=== PATIENT | female | born 1965 | race Caucasian/White ===

== ENCOUNTER 2022-10-03 09:08 | Outpatient (OUT) | payer OTHER, SELFPAY ==
--- NOTE | 2022-10-03 | CT_ITS ---
The [address] [address] Patient Name: JEANNINE ARGUETA MRN: [id number] date: 1965 Sex: F Assigned Patient Location: CT Current Patient Location: CT Accession/Order Number: [id number] Exam Date: 10/03/2022 10:20 Report Date: 10/04/2022 07:58 At the request of: SENAIT PAUL Procedure: CT abdomen wo/w con EXAM: CT scan of the abdomen without and with IV contrast using 100 mL of IV iodinated contrast. Oral contrast. Dose reduction technique used: Automated exposure control and/or adjustment of the mA and/or kV according to patient size and/or use of iterative reconstruction technique. REASON FOR EXAM: N28.89 left flank pain COMPARISON: CT scan dated 03/26/2022 FINDINGS: Exophytic enhancing posterior left upper pole renal mass measures 2.0 x 2.0 cm and has a small area of macroscopic fat. This is not significantly changed in size compared to 01/06/2022. Cholecystectomy. No renal calculi or hydronephrosis. No free intraperitoneal air where visualized. No free fluid in the abdomen or pelvis where visualized. No dilated or thickened loops of small bowel or colon where visualized. Liver, pancreas, spleen, bilateral kidneys, and bilateral adrenal glands are otherwise unremarkable. No lymphadenopathy in the abdomen or pelvis. Remainder unremarkable. IMPRESSION: Left renal mass is not significantly changed in size. This could represent a renal cell carcinoma, oncocytoma or angiomyolipoma. Continued imaging follow-up versus biopsy is recommended. Electronically authenticated by: RACHELL EDMONDS Date: 10/04/2022 07:58
== END 2022-10-03 09:09 | disposition home or self-care (01) ==
LOC: CT 09:12
PROVIDERS: PCP Family Medicine; Visit Provider Urology
DX: N28.89 Other specified disorders of kidney and ureter (principal)
CPT/HCPCS: 74170; Q9967

== ENCOUNTER 2022-10-27 06:02 | Outpatient (OUT) | payer OTHER, SELFPAY ==
--- NOTE | 2022-10-27 06:15 | NM_ITS ---
[address] [address] Patient Name: JEANNINE ARGUETA MRN: [id number] date: 1965 Sex: F Assigned Patient Location: [place] Current Patient Location: [place] Accession/Order Number: [id number] Exam Date: 10/27/2022 06:15 Report Date: 10/27/2022 14:37 At the request of: NON-STAFF PHYSICIAN Procedure: UT gastric emptying study RADIONUCLIDE GASTRIC EMPTYING STUDY: HISTORY: Nausea and abdominal pain. COMPARISON: No relevant comparisons. Tracer dose equals 1.0 mCi of technetium-99m sulfur colloid. Imaging was performed in the anterior and posterior projections up to 4 hours post ingestion. Calculations of gastric retention were also performed yielding the following measurements: 1-hour gastric retention equals 98%. Normal range equals 30% to 90%. 2-hour gastric retention equals 12%. Normal range equals 0% to 60%. 4-hour gastric retention equals 2%. Normal range equals 0% to 10%. UT/UT gastric emptying study IMPRESSION: Delayed gastric emptying evident only at 1 hour. Electronically authenticated by: SINTIA RAYMOND Date: 10/27/2022 14:37
== END 2022-10-27 06:03 | disposition home or self-care (01) ==
LOC: NM 06:02
PROVIDERS: PCP Family Medicine
DX: R10.10 Upper abdominal pain, unspecified (principal); R11.2 Nausea with vomiting, unspecified; R19.7 Diarrhea, unspecified
CPT/HCPCS: 78264; A9541

== ENCOUNTER 2023-03-27 06:43 | Outpatient (OUT) | payer OTHER, SELFPAY ==
--- NOTE | 2023-03-27 | CT_ITS ---
[address] [address] Patient Name: JEANNINE ARGUETA MRN: [id number] date: 1965 Sex: F Assigned Patient Location: LAB Current Patient Location: LAB Accession/Order Number: [id number] Exam Date: 03/27/2023 08:00 Report Date: 03/27/2023 09:59 At the request of: SENAIT PAUL Procedure: CT abdomen wo/w con EXAM: CT abdomen wo/w con HISTORY: LEFT RENAL MASS COMPARISON: 10/29/2022 TECHNIQUE: Axial CT imaging was performed with and without contrast through the abdomen. Multiplanar reformats were performed. Dose reduction techniques were achieved by using automated exposure control and/or adjustment of mA and/or kV according to patient size and/or use of iterative reconstruction technique. FINDINGS: Lung bases: Lung bases are clear. No pleural effusion. GI upper: Unremarkable. Liver: Hepatomegaly, measuring 2 cm with steatosis. Normal contour. Gallbladder: Cholecystectomy Biliary system: No intra or extrahepatic biliary ductal dilatation. Spleen: Normal size. Pancreas: Unremarkable. Adrenal glands: Normal adrenal glands. Kidneys/ureters: Normal contours. Redemonstration of 1.4 x 1.9 cm exophytic enhancing lesion, containing macroscopic fat in the upper pole of the left kidney, no significant change in size compared to prior study. Renal veins are patent. No hydronephrosis. No nephrolithiasis or ureterolithiasis. Vessels: No aneurysm. Lymph Nodes: No lymphadenopathy. Small bowel: No wall thickening or dilatation. Colon: No wall thickening or dilatation of the partially visualized colon. Appendix: Not identified. Peritoneal cavity: No free fluid or pneumoperitoneum. Bones: No acute bony abnormality. Soft tissues: No acute abnormality. Additional findings: None. CT/CT abdomen wo/w con IMPRESSION: 1.4 x 1.9 cm exophytic enhancing lesion, containing macroscopic fat in the upper pole of the left kidney, no significant change in size compared to prior study. Renal veins are patent. Hepatomegaly and hepatic steatosis, new compared to the prior study. Electronically authenticated by: SUMIT MARRERO Date: 03/27/2023 09:59
[2023-03-27 06:59] LABS: Estimated GFR (African America >60 (>=60); Estimated GFR (Non-African Ame >60 (>=60)
== END 2023-03-27 06:44 | disposition home or self-care (01) ==
LOC: LAB 06:43
PROVIDERS: PCP Family Medicine; Visit Provider Urology
DX: N28.89 Other specified disorders of kidney and ureter (principal)
CPT/HCPCS: 36415; 74170; 82565; Q9967

== ENCOUNTER 2023-05-01 18:54 | Emergency (ER) | payer OTHER, SELFPAY ==
[2023-05-01 18:56] VITALS: BP 152/96; PULSE 120; RESP 20; TEMP 37.3; O2SAT 99
--- OUTSIDE RECORDS SUMMARY | 2023-05-01 18:57 | XMS_ITS | CCD ---
Author Name Unknown Address [address] [facility] [address] [facility] [address] [place] [address] Organization [facility] Care Team Providers Care Broach Grinder Name Role Phone STEPH QUESADA Primary Care Physician [phone] PROVIDER, GENERIC EXTERNAL DATA Referring Unavailable ALMAZ MEDINA Referring Unavailable Steph Quesada Unavailable MIS, DR SALDANA Attending Unavailable MISC, DR SALDANA Consulting Unavailable MISC, DR SALDANA Admitting Unavailable QUESADA, DR STEPH Tony Primary Care Unavailable QUESADA, DR STEPH Tony Attending Unavailable QUESADA, DR STEPH Tony Consulting Unavailable QUESADA, DR STEPH Tony Primary Care Unavailable QUESADA, DR STEPH Tony Admitting Unavailable LUChavo .ALMAZ Attending Unavailable ADAM .ALMAZ Admitting Unavailable ZITRISTON, DR RISHABH Gonzalez Consulting Unavailable QUESADA, DR STEPH Tony Primary Care Unavailable ADAM .ALMAZ Consulting Unavailable QUESADA, DR STEPH Tony Attending Unavailable QUSEADA, DR STEPH Tony Consulting Unavailable QUESADA, DR STEPH Tony Primary Care Unavailable QUESADA, DR STEPH Tony Admitting Unavailable QUESADA, DR STEPH Tony Attending Unavailable QUESADA, DR TSEPH Tony Consulting Unavailable QUESADA, DR STEPH Tony Primary Care Unavailable QUESADA, DR STEPH Tony Admitting Unavailable JAYA HOWARD Attending Unavailable BRIGHT, DR RISHABH Gonzalez Consulting Unavailable JAYA HOWARD Primary Care Unavailable JAYA HOWARD Admitting Unavailable ANITA, JAYA Consulting Unavailable Almaz Medina Attending Unavailable Almaz Medina Attending Unavailable Almaz Medina Attending Unavailable Allergies Allergy Classification Reported Allergen(s) Allergy Type Date of Onset Reaction(s) Facility (6 sources) Amoxicillin / Clavulanate; Translations: [amoxicillin-cl avulanate] Drug Allergy Unknown (qualifier value) [facility] (10 sources) Penicillin; Translations: [penicillin] Drug Allergy Eruption of skin (disorder) [facility] (1 source) Penicillin; Translations: [PENICILLIN G] Drug Allergy 3 [facility] (1 source) AMOXICILLIN-POT CLAVULANATE; Translations: [AMOXICILLIN-PO T CLAVULANATE] Propensity to adverse reactions to drug (disorder) 3 [facility] (1 source) ALLERGIES NOT ON FILE; Translations: [ALLERGIES NOT ON FILE] Propensity to adverse reactions (disorder) [facility] Medications Current Medications Medication Drug Class(es) Dates Sig (Normalized) Sig (Original) amLODIPine 10 mg oral tablet (9 sources) Dihydropyridine Calcium Channel Christina Start: 04-01-2022 take 1 mg by mouth once daily amLODIPine 10 mg Tab mg tab(s), Oral, Daily Start Date: 04/01/22 Status: Ordered Start: 03-12-2022 take 1 mg by mouth once daily amLODIPine 5 mg Tab mg tab(s), Oral, Daily, Refills(s) 0 Start Date: 03/12/22 Status: Ordered Azithromycin (3 sources) Macrolide Antimicrobial Start: 03-12-2022 azithromycin Refills(s) 0 Start Date: 03/12/22 Status: Ordered Brompheniramine (3 sources) Start: 03-12-2022 brompheniramine Refills(s) 0 Start Date: 03/12/22 Status: Ordered dicyclomine hydrochloride 20 mg oral tablet (11 sources) Anticholinergic Start: 03-12-2022 take 1 mg by mouth four times daily dicyclomine 20 mg Tab mg tab(s), Oral, QID, Refills(s) 0 Start Date: 03/12/22 Status: Ordered take 1 tablet by pelon th three times daily as needed Dicyclomine HCl 20 MG 1 tablet Orally 3 times a day prn Active Bentyl Active glyBURIDE 5 mg oral tablet (8 sources) Sulfonylurea Start: 04-01-2022 take 1 mg by mouth once daily glyBURIDE 5 mg Tab mg tab(s), Oral, Daily Start Date: 04/01/22 Status: Ordered Thyroxine (9 sources) l-Thyroxine Start: 03-12-2022 levothyroxine 137 mcg, Daily, Refills(s) 0 Start Date: 03/12/22 Status: Ordered Start: 03-12-2022 levothyroxine Daily, Refills(s) 0 Start Date: 03/12/22 Status: Ordered take 1 tablet by pelon th once daily in the morning Levothyroxine Sodium 137 MCG 1 tablet in the morning on an empty stomach Orally Once a day Active losartan potassium 50 mg oral tablet (8 sources) Angiotensin 2 Receptor Christina Start: 04-01-2022 take 1 mg by mouth once daily losartan 50 mg Tab mg tab(s), Oral, Daily Start Date: 04/01/22 Status: Ordered metFORMIN hydrochloride 1000 mg oral tablet (9 sources) Biguanide Start: 03-12-2022 take 1 mg by mouth twice daily metformin 1000 mg Tab mg tab(s), Oral, BID, Refills(s) 0 Start Date: 03/12/22 Status: Ordered take 1 tablet by pelon th every twenty-four hours metFORMIN HCl 1000 MG 1 tablet with a meal Orally Once a day Active ondansetron 4 mg oral tablet (4 sources) Serotonin-3 Receptor Antagonist take 1 tablet by mouth every twenty-four hours Ondansetron HCl 4 MG 1 tablet Orally Once a day Active 12 hr timolol 5 mg/ml ophthalmic solution (1 source) beta-Adrenergic Christina Start: 04-16-19 timolol Opth 0.5% Whitney 15 mL Refill(s) 0 Start Date: 04/16/23 Status: Ordered Problems Active Problems Problem Classification Problem Date Documented Da te Episodic/Chronic Abdominal pain (7 sources) Left upper quadrant pain; Translations: [Left upper quadrant pain] Onset: 04-02-2022 Episodic Diabetes mellitus with complications (14 sources) Hyperglycemia due to type 2 diabetes mellitus; Translations: [Type 2 diabetes mellitus with hyperglycemia] Onset: 07-24-2022 03-05-2022 Chronic Diabetes mellitus without complication (17 sources) Glycosuria; Translations: [Glycosuria] Onset: 01-25-2022 Episodic Essential hypertension (13 sources) Essential hypertension; Translations: [Essential (primary) hypertension] Onset: 03-12-2022 Chronic Genitourinary symptoms and ill-defined conditions (10 sources) Stress incontinence (female) (male); Translations: [Genuine stress incontinence] Onset: 03-12-2022 Chronic Headache; including migraine (3 sources) Cyclical vomiting syndrome 05-08-2022 Chronic Nausea and vomiting (4 sources) Nausea with vomiting, unspecified; Translations: [NAUSEA WITH VOMITING UNSPECIFIED] Onset: 07-24-2022 Episodic Other circulatory disease (4 sources) Elevated blood-pressure reading without diagnosis of hypertension; Translations: [Elevated blood-pressure reading, without diagnosis of hypertension] Episodic Other connective tissue disease (4 sources) Muscle pain; Translations: [Myalgia, unspecified site] Episodic Other diseases of kidney and ureters (9 sources) Disorder of kidney and/or ureter; Translations: [Other specified disorders of kidney and ureter] Onset: 03-12-2022 Chronic Other diseases of kidney and ureters (5 sources) Renal mass 03-12-2022 Chronic Other diseases of kidney and ureters (7 sources) Other specified disorders of kidney and ureter; Translations: [Other specified disorders of kidney and ureter] Onset: 03-26-2022 Chronic Other disorders of stomach and duodenum (3 sources) Cyclical vomiting syndrome; Translations: [Cyclical vomiting syndrome unrelated to migraine] Onset: 05-08-2022 Episodic Other gastrointestinal disorders (9 sources) Splenomegaly; Translations: [Splenomegaly, not elsewhere classified] 03-05-2022 Episodic Other nervous system disorders (4 sources) Chronic pain; Translations: [Other chronic pain] Chronic Other nervous system disorders (1 source) Other chronic pain Chronic Other nutritional; endocrine; and metabolic disorders (4 sources) Obese class I; Translations: [Body mass index (BMI) 34.0-34.9, adult] Chronic Residual codes; unclassified (5 sources) Acute pain 03-05-2022 Episodic Residual codes; unclassified (4 sources) Tobacco use; Translations: [Tobacco use and exposure] Episodic Spondylosis; intervertebral disc disorders; other back problems (4 sources) Low back pain; Translations: [Low back pain] Episodic Thyroid disorders (11 sources) Hypothyroidism; Translations: [Acquired hypothyroidism] Onset: 07-30-2022 03-05-2022 Chronic Past or Other Problems Problem Classification Problem Date Documented Da te Episodic/Chronic Genitourinary symptoms and ill-defined conditions (8 sources) Blood in urine; Translations: [Hematuria, unspecified] Onset: 03-26-2022 Episodic Other connective tissue disease (1 source) Myalgia, unspecified site; Translations: [MYALGIA UNSPECIFIED SITE] Onset: 04-02-2022 Episodic Other gastrointestinal disorders (4 sources) Splenomegaly, not elsewhere classified; Translations: [SPLENOMEGALY NEC] Onset: 01-22-2022 Episodic Results Test Name Value Interpretation Reference Range Facility Reminderson 04-08-2023 Reminders - From: Eleni Schneider To: [facility]; Sent: 10/09/2022 08:30:39 EDT Show up: 03/11/2023 07:30:00 EST Subject: Schedule CT Ab w/wo con Due Date/Time: 04/11/2023 07:30:00 EST Pt needs scheduled for [address] Ab w/wo con for renal mass at [facility]. Has been ordered, needs scheduled. Pt would like CT done at [facility] Order printed and faxed to [facility] Called pt and she states she will give [facility] a call today to get CT scheduled. Pt called to report CT is scheduled for 03/27/23 @7am CT in pt chart for review [facility] Lab Reportson 04-01-2023 Lab Reports [id number] F [facility] RAD - CT Reporton 04-01-2023 RAD - CT Report [id number] F [facility] RAD - CT Reporton 10-12-2022 RAD - CT Report [id number]: 127 [facility] Screenson 10-12-2022 Screens [id number]: 127 [facility] Ambulatory Visit Summaryon 0 10-09-2022 Ambulatory Visit Summary STEW TORRES :1965 Visit Date:10/09/2022 Ambulatory Visit Instructions Your Diagnosis Renal mass, left Stress incontinence Cyclical vomiting Tests Performed Urnls Dip Stick Auto w/o Microscopy POC [address] CT Abdomen w/ + w/o Contrast -- Results Pending -- Please visit your patient portal for your results or contact your primary care physician. Your Care Team Attending Physician - Almaz Medina MD. Primary Care Physician - STEPH QUESADA MD This Is Your Medications List Contact prescribing physician if questions or concerns amlodipine (amLODIPine 10 mg Tab) glyBURIDE (glyBURIDE 5 mg Tab) levothyroxine losartan (losartan 50 mg Tab) metformin (metformin 1000 mg Tab) Procedures Performed Renal biopsy (04/24/2022), Cholecystectomy, Colonoscopy, Endoscopic biopsy of stomach, Tonsillectomy. Discharge Vitals Heart Rate (Peripheral) 82 Blood Pressure 163/94 Height 168 cm Height 66 in Weight 105 kg Weight 231 lb BMI 37.2 What to do next Scheduled Follow-Up Appointments 2023 1:00 PM EST With: Adam SAMPSON, Almaz Mcintyre Where: [facility] Patient Educationon 10-10-19 Patient Education Urology Renal Mass A renal mass is an abnormal growth in the kidney. It may be found while performing an MRI, CT scan, or ultrasound to evaluate other problems of the abdomen. A renal mass that is cancerous (malignant) may grow or spread quickly. Others are not cancerous (benign). Renal masses include: ? Tumors. These may be malignant or benign. ? The most common type of kidney cancer in adults is renal cell carcinoma. In children, the most common type of kidney cancer is Wilms tumor. ? The most common benign tumors of the kidney include renal adenomas, oncocytomas, and angiomyolipoma (AML). ? Cysts. These are fluid-filled sacs that form on or in the kidney. What are the causes? Certain types of cancers, infections, or injuries can cause a renal mass. It is not always known what causes a cyst to develop in or on the kidney. What are the signs or symptoms? Often, a renal mass does not cause any signs or symptoms; most kidney cysts do not cause symptoms. How is this diagnosed? Your health care provider may recommend tests to diagnose the cause of your renal mass. These tests may be done if a renal mass is found: ? Physical exam. ? Blood tests. ? Urine tests. ? Imaging tests, such as ultrasound, CT scan, or MRI. ? Biopsy. This is a small sample that is removed from the renal mass and tested in a lab. The exact tests and how often they are done will depend on: ? The size and appearance of the renal mass. ? Risk factors or medical conditions that increase your risk for problems. ? Any symptoms associated with the renal mass, or concerns that you have about it. Tests and physical exams may be done once, or they may be done regularly for a period of time. Tests and exams that are done regularly will help monitor whether the mass is growing and beginning to cause problems. How is this treated? Treatment is not always needed for this condition. Your health care provider may recommend careful monitoring and regular tests and exams. Treatment will depend on the cause of the mass. Treatment for a cancerous renal mass may include surgical removal, chemotherapy, radiation, or immunotherapy. Most kidney cysts do not need to be treated. Follow these instructions at home: What you need to do at home will depend on the cause of the mass. Follow the instructions that your health care provider gives to you. In general: ? Take [id number] and prescription medicines only as told by your health care provider. ? If you were prescribed an antibiotic medicine, take it as told by your health care provider. Do not stop taking the antibiotic even if you start to feel better. ? Follow any restrictions that are given to you by your health care provider. ? Keep all follow-up visits. This is important. ? You may need to see your health care provider once or twice a year to have CT scans and ultrasounds. These tests will show if your renal mass has changed or grown. Contact a health care provider if you: ? Have pain in your side or back (flank pain). ? Have a fever. ? Feel full soon after eating. ? Have pain or swelling in the abdomen. ? Lose weight. Get help right away if: ? Your pain gets worse. ? There is blood in your urine. ? You cannot urinate. ? You have chest pain. ? You have trouble breathing. These symptoms may represent a serious problem that is an emergency. Do not wait to see if the symptoms will go away. Get medical help right away. Call your local emergency services (911 in the [place] Summary ? A renal mass is an abnormal growth in the kidney. It may be cancerous (malignant) and grow or spread quickly, or it may not be cancerous (benign). Renal masses often do not have any signs or symptoms. ? Renal masses may be found while performing an MRI, CT scan, or ultrasound for other problems of the abdomen. ? Your health care provider may recommend that you have tests to diagnose the cause of your renal mass. These may include a physical exam, blood tests, urine tests, imaging, or a biopsy. ? Treatment is not always needed for this condition. Careful monitoring may be recommended. This information is not intended to replace advice given to you by your health care provider. Make sure you discuss any questions you have with your health care provider. Document Revised: 09/16/2020 Document Reviewed: 09/16/2020 ELENZA Patient Education ? 2022 [employer]. [facility] Urology Office/Clinic Noteon 10-09-2022 Urology Office/Clinic Note Chief Complaint 5 month follow up w/ CT scan HPI Staff 5 month follow up w/CT SCAN. Previous DX: glucosuria, left renal mass, stress incontinence. CT scan done 10/03/22 shows left renal mass not significantly changed in size, could represent renal cell carcinoma, oncocytoma or angiomyolipoma. Previous CT SCAN CT AP w/o con done 01/06/22 there is an exophytic on the interpolar left kidney. 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 Dysuria: denies pain and burning Incomplete bladder emptying: denies Hematuria: denies visible blood Frequency: 4-5x a day Urgency: denies Nocturia: once a night Stream: denies hesitancy, good stream Leaking: denies Post void dripping: denies Wearing pads/ Depends: denies Urge incontinence: denies Stress incontinence: once in a while Incontinence without Sensory Awareness: denies Abdominal pain: yes Flank pain: denies History of Present Illness Tests reviewed: reviewed UA, CT. I have reviewed the previous health record information and history for this patient from Dr. Medina. I have reviewed and verified the staff HPI to be accurate for this encounter. There have been no associated fever, chills, flank pain, or blood in the urine. Denies any urinary infections since last encounter. Review of Systems PHQ Score Initial Depression Screen Score: 0 ROS - Provider Constitutional: denies weight loss, denies hot flashes. Eyes: denies eye problems. Gastrointestinal: denies nausea, denies vomiting. Cardiovascular: denies chest pain or angina. Integumentary: no dryness Musculoskeletal: denies musculoskeletal symptoms. ENMT: denies otolaryngeal symptoms. Respiratory: no shortness of breath. Heme/Lymph: denies easy bleeding tendency, denies easy bruising tendency. Psychiatric: no confusion, no anxiety. Genitourinary: See HPI. Physical Exam Vitals & Measurements HR: 82(Peripheral) BP: 163/94 HT: 66 in HT: 168 cm WT: 105 kg WT: 231 lb BMI: 37.2 General Appearance: alert , no acute distress, well nourished, well developed female. Genitourinary: bladder nonpalpable, no flank pain. Assessment/Plan 37-year-old female initially referred by PCP for incidentally found left renal mass. 03/2022: newly diagnosed diabetic A1c of 10 , uncontrolled hypertension, cont with PCP PSH open cholecystectomy, almost x2 per pt Extensive family of cancer. Mom, Aunt - breast cancer. Aunt- pancreatic cancer. Grandma - thyroid cancer. 1. Renal mass, left (N28.89: Other specified disorders of kidney and ureter) - CT AP wo con 01/06/22 - exophytic mass interpolar left kidney, appears to contain macroscopic fat, renal angiomyolipoma favored - MRI abd w/wo contrast 01/13/2022 [facility] - 2.7 x 2.2 x 1.3 cm heterogeneous slightly enhancing mass, posterior superior left kidney which appears to have a small area of intermixed fat. Nonspecific. Suggestive of an angiomyolipoma, however, renal cell carcinoma can also have a fatty component, and the fatty area is quite small relative to the rest of the mass. Tissue sampling is recommended. - CT AP w con 03/26/22 [facility] - Stable compared to 01/06/22, 2.5 cm enhancing mass arising from left kidney superior pole with a focal tiny fatty component. - S/p CT guided percutaneous renal bx done 04/24/22. Pathology noted benign renal parenchyma. Neg HMB-45, Pray-1 (neg for AML). Discussed with pathology who noted although core biopsies had good tissue, the amt of abnormal tissue was minimal. Re-biopsy should be considered if strong concern for malignancy. No indication to stain for RCC based on morphology of slides. Today: we reviewed CT Ab w/wo con 10/03/22 - Exophytic enhancing posterior LUP renal mass 2.0 x 2.0 cm and has a small area of macroscopic fat. No significantly changed in size compared to 01/06/22. This could represent RCC, oncocytoma, or AML. Cont imaging vs bx recommended. Reviewed recent CT with pt. Given overall stability-mild decrease in size and visible area of fat, elected to proceed with continued surveillance after shared decision making. If mass shows growth or concerning changes, will repeat biopsy. -Follow up [address] Ab w/wo IV con or sooner if needed. Pt understands and agrees with plan. Consider moving out to annually if continues to be stable. 2. Stress incontinence (N39.3: Stress incontinence (female) (male)) ICIQ-SF 1 (3), leaks tiny amount with cough or sneeze. Not bothersome. -Cont sx monitoring, Kegels. 3. Cyclical vomiting (R11.15: Cyclical vomiting syndrome unrelated to migraine) Has seen GI for this, had colonoscopy and upper GI scope. Going to have NM emptying study. I spent 20 minutes today with the patient: reviewing tests in preparation to see and discuss them with the patient, documenting clinical information in the electronic health records, and care coordination. Over half the time was spent performing a medical exam and evaluation, and counseling and educating the (more content not included)... [facility] Comment on above: Result Comment: Elec tronically Signed By: Adam SAMPSON, Almaz Mcintyre\.br\Date and Time Signed: 10/09/22 19:00 EDT\.br\Electronically Co-Signed By: Eleni Schneider\.br\Date and Time Co-Signed: 10/09/22 08:29 EDT Pre-Certification Formon Pre-Certification Form [id number]: 127 [facility] BILIRUBIN CONJUGATED (DIRECT )on 07-24-2022 BILI, CONJUGATED 0.1 mg/dL Normal 0.0-0.2 [facility] Comment on above: Performed By: #### D REJI #### [facility] [address] [place] [address] Dr. Jenna Collier CBC AUTO DIFFon 07-24-2022 BASO # 0.1 103/ul Normal 0.0-0.1 [facility] Comment on above: Performed By: #### C BC #### [facility] [address] [place] [address] Dr. Jenna Collier Basophils/100 WBC (Bld) 1.0 % Normal 0.2-2.0 [facility] Comment on above: Performed By: #### C BC #### [facility] [address] [place] [address] Dr. Jenna Collier EO # 0.2 103/ul Normal 0.0-0.7 [facility] Comment on above: Performed By: #### C BC #### [facility] [address] [place] [address] Dr. Jenna Collier Eosinophils/100 WBC (Bld) 2.6 % Normal 0.9-7.0 [facility] Comment on above: Performed By: #### C BC #### [facility] [address] [place] [address] Dr. Jenna Collier Erythrocyte distribution width (RBC) [Ratio] 12.8 % Normal 11.0-15.0 [facility] Comment on above: Performed By: #### C BC #### [facility] [address] [place] [address] Dr. Jenna Collier Hematocrit (Bld) [Volume fraction] 40.6 % Normal 36.0-48.0 [facility] Comment on above: Performed By: #### C BC #### [facility] [address] [place] [address] Dr. Jenna Collier Hemoglobin (Bld) [Mass/Vol] 13.8 g/dL Normal 12.0-16.0 [facility] Comment on above: Performed By: #### C BC #### [facility] [address] [place] [address] Dr. Jenna Collier IG # 0.02 10e3/ul Normal 0.00-0.03 [facility] Comment on above: Performed By: #### C BC #### [facility] [address] [place] [address] Dr. Jenna Collier IG % 0.3 % Normal 0.0-0.5 [facility] Comment on above: Performed By: #### C BC #### [facility] [address] [place] [address] Dr. Jenna Collier LYMPH # 2.0 103/ul Normal 1.2-3.8 [facility] Comment on above: Performed By: #### C BC #### [facility] [address] [place] [address] Dr. Jenna Collier Lymphocytes/100 WBC (Bld) 28.5 % Normal 20.5-60.0 [facility] Comment on above: Performed By: #### C BC #### [facility] [address] [place] [address] Dr. Jenna Collier MANUAL DIFF REQ NO Normal [facility] Comment on above: Performed By: #### C BC #### [facility] [address] [place] [address] Dr. Jenna Collier MCH (RBC) [Entitic mass] 28.0 pg Normal 26.7-34.0 [facility] Comment on above: Performed By: #### C BC #### [facility] [address] [place] [address] Dr. Jenna Collier MCHC (RBC) [Mass/Vol] 34.0 g/dL Normal 29.9-35.2 [facility] Comment on above: Performed By: #### C BC #### [facility] [address] [place], [place] [address] Dr. Jenna Collier MCV (RBC) [Entitic vol] 82.4 fL Normal 81.0-99.0 [facility] Comment on above: Performed By: #### C BC #### [facility] [address] [place] [address] Dr. Jenna Collier MONO # 0.5 103/ul Normal 0.3-0.8 [facility] Comment on above: Performed By: #### C BC #### [facility] [address] [place] [address] Dr. Jenna Collier Monocytes/100 WBC (Bld) 7.1 % Normal 1.7-12.0 [facility] Comment on above: Performed By: #### C BC #### [facility] [address] [place] [address] Dr. Jenna Collier NEUT # 4.2 103/ul Normal 1.4-6.5 [facility] Comment on above: Performed By: #### C BC #### [facility] [address] [place] [address] Dr. Jenna Collier Neutrophils/100 WBC (Bld) 60.5 % Normal 43.0-75.0 [facility] Comment on above: Performed By: #### C BC #### [facility] [address] [place] [address] Dr. Jenna Collier Platelet mean volume (Bld) [Entitic vol] 10.3 fL Normal 9.5-13.5 [facility] Comment on above: Performed By: #### C BC #### [facility] [address] [place] [address] Dr. Jenna Collier PLT 265 103/ul Normal 150-450 [facility] Comment on above: Performed By: #### C BC #### [facility] [address] [place] [address] Dr. Jenna Collier RBC 4.93 106/ul Normal 4.20-5.40 [facility] Comment on above: Performed By: #### C BC #### [facility] [address] [place] [address] Dr. Jenna Collier WBC 7.0 103/ul Normal 4.0-11.0 [facility] Comment on above: Performed By: #### C BC #### [facility] [address] [place] [address] Dr. Jenna Collier FREE T4on 07-24-2022 Free T4 [Mass/Vol] 1.32 ng/dL Normal 0.76-1.46 [facility] Comment on above: Performed By: #### F T4 #### [facility] [address] [place] [address] Dr. Jenna Collier GLYCOHEMOGLOBIN A1Con 2022 ADA RECOMMENDATION SEE BELOW Normal [facility] Comment on above: Result Comment: ADA RECOMMENDED LIMIT 4.0 - 6.0 ADA THERAPEUTIC TARGET < 7.0 ACTION SUGGESTED > 7.0 Performed By: #### F T4 #### [facility] [address] [place] [address] Dr. Jenna Collier Glucose [Mass/Vol] 120 mg/dL Normal [facility] Comment on above: Performed By: #### F T4 #### [facility] [address] [address] [address] Jenna Collier HbA1c (Bld) [Mass fraction] 5.8 % Normal 4.5-6.2 [facility] Comment on above: Performed By: #### F T4 #### [facility] [address] [place] [address] Dr. Jenna Collier LIPID PROFILEon 07-24-2022 CHOL-HDL RATIO NORM SEE BELOW Normal [facility] Comment on above: Result Comment: 3.3 - 4.4 LOW RISK 4.4 - 7.1 AVERAGE RISK 7.1 - 11.0 MODERATE RISK >11.0 HIGH RISK Performed By: #### U AMIC #### [facility] [address] [place] [address] Dr. Jenna Collier Cholesterol [Mass/Vol] 215 mg/dL Critically high <=200 [facility] Comment on above: Performed By: #### U AMIC #### [facility] [address] [address] [address] Jenna Collier Cholesterol in HDL [Mass/Vol] 56 mg/dL Normal 40-60 [facility] Comment on above: Performed By: #### U AMIC #### [facility] [address] [address] [address] Jenna Collier Cholesterol in LDL [Mass/Vol] 130.0 mg/dL Normal [facility] Comment on above: Performed By: #### U AMIC #### [facility] [address] [place] [address] Dr. Jenna Collier Cholesterol.total/C holesterol in HDL [Mass ratio] 3.8 {ratio} Normal [facility] Comment on above: Performed By: #### U AMIC #### [facility] [address] [address] [address] Jenna Collier HDL NORMAL > or = 60 mg/dl - LO W CARDIOVASCULAR RISK <40 mg/dl - HIGH CARDIOVASCULAR RISK Normal [facility] Comment on above: Performed By: #### U AMIC #### [facility] [address] [address] [address] Jenna Collier LDL CALC NORMAL SEE BELOW Normal [facility] Comment on above: Result Comment: <100 mg/dl OPTIMAL 100 - 129 mg/dl NEAR OR ABOVE OPTIMAL 130 - 159 mg/dl BORDERLINE HIGH 160 - 189 mg/dl HIGH >190 mg/dl VERY HIGH Performed By: #### U AMIC #### [facility] [address] [place] [address] Dr. Jenna Collier Triglyceride [Mass/Vol] 145 mg/dL Normal <=150 [facility] Comment on above: Performed By: #### U AMIC #### [facility] [address] [address] [address] Jenna Collier VLDL CALC 29.0 mg/dL Normal [facility] Comment on above: Performed By: #### U AMIC #### [facility] [address] [address] [address] Jenna Collier PROF 14(COMP METB)on 023 Albumin [Mass/Vol] 3.7 g/dL Normal 3.4-5.0 [facility] Comment on above: Performed By: #### U AMIC #### [facility] [address] [place] [address] Dr. Jenna Collier Albumin/Globulin [Mass ratio] 0.9 {ratio} Normal [facility] Comment on above: Performed By: #### U AMIC #### [facility] [address] [address] [address] Jenna Collier ALP [Catalytic activity/Vol] 72 U/L Normal 46-116 [facility] Comment on above: Performed By: #### U AMIC #### [facility] [address] [place] [address] Dr. Jenna Collier ALT [Catalytic activity/Vol] 22 U/L Normal 14-59 [facility] Comment on above: Performed By: #### U AMIC #### [facility] [address] [address] [address] Jenna Collier Anion gap [Moles/Vol] 9.8 mmol/L Normal [facility] Comment on above: Performed By: #### U AMIC #### [facility] [address] [address] [address] Jenna Collier AST [Catalytic activity/Vol] 13 U/L Critically low 15-37 [facility] Comment on above: Performed By: #### U AMIC #### [facility] [address] [address] [address] Jenna Collier Bilirubin [Mass/Vol] 0.8 mg/dL Normal 0.2-1.0 [facility] Comment on above: Performed By: #### U AMIC #### [facility] [address] [address] [address] Jenna Collier Calcium [Mass/Vol] 9.6 mg/dL Normal 8.5-10.1 [facility] Comment on above: Performed By: #### U AMIC #### [facility] [address] [address] [address] Jenna Collier Chloride [Moles/Vol] 102 mmol/L Normal 98-107 [facility] Comment on above: Performed By: #### U AMIC #### [facility] [address] [address] [address] Jenna Collier CO2 [Moles/Vol] 31.8 mmol/L Normal 21.0-32.0 [facility] Comment on above: Performed By: #### U AMIC #### [facility] [address] [address] [address] Jenna Collier Creatinine [Mass/Vol] 0.59 mg/dL Normal 0.55-1.02 [facility] Comment on above: Performed By: #### U AMIC #### [facility] [address] [address] [address] Jenna Collier EGFR-AF MOROCCAN >60 Normal >=60 [facility] Comment on above: Performed By: #### U AMIC #### [facility] [address] [address] [address] Jenna Collier EGFR-NON AF MOROCCAN >60 Normal >=60 [facility] Comment on above: Performed By: #### U AMIC #### [facility] [address] [address] [address] Jenna Collier Globulin (S) [Mass/Vol] 4.1 g/dL Normal [facility] Comment on above: Performed By: #### U AMIC #### [facility] [address] [address] [address] Jenna Collier Glucose [Mass/Vol] 139 mg/dL Critically high 74-106 [facility] Comment on above: Performed By: #### U AMIC #### [facility] [address] [address] [address] Jenna Collier Potassium [Moles/Vol] 4.6 mmol/L Normal 3.5-5.1 [facility] Comment on above: Performed By: #### U AMIC #### [facility] [address] [address] [address] Jenna Collier Protein [Mass/Vol] 7.8 g/dL Normal 6.4-8.2 [facility] Comment on above: Performed By: #### U AMIC #### [facility] [address] [address] [address] Jenna Collier Sodium [Moles/Vol] 139 mmol/L Normal 136-145 [facility] Comment on above: Performed By: #### U AMIC #### [facility] [address] [address] [address] Jenna Collier Urea nitrogen [Mass/Vol] 15.0 mg/dL Normal 7.0-18.0 [facility] Comment on above: Performed By: #### U AMIC #### [facility] [address] [address] [address] Jenna Collier Urea nitrogen/Creatinine [Mass ratio] 25.4 mg/mg Normal [facility] Comment on above: Performed By: #### U AMIC #### [facility] [address] [place], [place] [address] Dr. Jenna Collier TSHon 07-24-2022 TSH 1.152 uIU/mL Normal 0.358-3.740 [facility] Comment on above: Performed By: #### U AMIC #### [facility] [address] [place], [place] [address] Dr. Jenna Collier Consultation Noteon 06-27-19 Consultation Note [id number]: 127 Normal [facility] Screenson 05-11-2022 Screens [id number]: 127 Normal [facility] Patient Educationon 05-08-19 Patient Education Urology Renal Mass A renal mass is a growth in the kidney. A renal mass may be found while performing an MRI, CT scan, or ultrasound for other problems of the abdomen. Certain types of cancers, infections, or injuries can cause a renal mass. A renal mass that is cancerous (malignant) may grow or spread quickly. Others are harmless (benign). What are common types of renal masses? Renal masses include: ? Tumors. These may be cancerous (malignant) or noncancerous (benign). ? The most common type of kidney cancer is renal cell carcinoma. ? The most common benign tumors of the kidney include renal adenomas, oncocytomas, and angiomyolipoma (AML). ? Cysts. These are fluid-filled sacs that form on or in the kidney. ? It is not always known what causes a cyst to develop in or on the kidney. ? Most kidney cysts do not cause symptoms and do not need to be treated. What type of testing might I need? Your health care provider may recommend that you have tests to diagnose the cause of your renal mass. The following tests may be done if a renal mass is found: ? Physical exam. ? Blood tests. ? Urine tests. ? Imaging tests, such as ultrasound, CT scan, or MRI. ? Biopsy. This is a small sample that is removed from the renal mass and tested in a lab. The exact tests and how often they are done will depend on: ? The size and appearance of the renal mass. ? Risk factors or medical conditions that increase your risk for problems. ? Any symptoms associated with the renal mass, or concerns that you have about it. Tests and physical exams may be done once, or they may be done regularly for a period of time. Tests and exams that are done regularly will help monitor whether the mass is growing and beginning to cause problems. What are common treatments for renal masses? Treatment is not always needed for this condition. Your health care provider may recommend careful monitoring (watchful waiting) and regular tests and exams. Treatment will depend on the cause of the mass. Follow these instructions at home: What you need to do at home will depend on the cause of the mass. Follow the instructions that your health care provider gives to you. In general: ? Take zlzp-ebb-aqpivox and prescription medicines only as told by your health care provider. ? If you are prescribed an antibiotic medicine, take it as told by your health care provider. Do not stop taking the antibiotic even if you start to feel better. ? Follow any restrictions that are given to you by your health care provider. ? Keep all follow-up visits as told by your health care provider. This is important. ? You may need to see your health care provider once or twice a year to have CT scans and ultrasounds done. These tests will show if your renal mass has changed or grown bigger. Contact a health care provider if you: ? Have pain in the side or back (flank pain). ? Have a fever. ? Feel full soon after eating. ? Have pain or swelling in the abdomen. ? Lose weight. Get help right away if: ? Your pain gets worse. ? There is blood in your urine. ? You cannot urinate. ? You have chest pain. ? You have trouble breathing. Summary ? A renal mass is a growth in the kidney. It may be cancerous (malignant) and grow or spread quickly, or it may be harmless (benign). ? Renal masses may be found while performing an MRI, CT scan, or ultrasound for other problems of the abdomen. ? Your health care provider may recommend that you have tests to diagnose the cause of your renal mass. This may include a physical exam, blood tests, urine tests, imaging, or a biopsy. ? Treatment is not always needed for this condition. Careful monitoring (watchful waiting) may be recommended. This information is not intended to replace advice given to you by your health care provider. Make sure you discuss any questions you have with your health care provider. Document Released: 10/17/2014 Document Revised: 04/28/2018 Document Reviewed: 04/28/2018 [employer] Patient Education ? 2019 [employer] Doris. Mark Scruggs [facility] Urology Office/Clinic Noteon 05-08-2022 Urology Office/Clinic Note Chief Complaint F/U to Renal BX. HPI Staff Stew is a 57 y/o female here for a f/u to renal bx done 04/24/2022. Pathology was negative. Dysuria: denies pain and burning Incomplete bladder emptying: denies Hematuria: last seen blood 3 weeks ago Frequency: 4-5x a day Urgency: denies Nocturia: 1-2x a night Stream: denies hesitancy, strong stream Leaking: only when coughing or sneezing Post void dripping: denies Wearing pads/ Depends: denies Urge incontinence: denies Stress incontinence: yes Incontinence without Sensory Awareness: denies Abdominal pain: yes Flank pain: denies Sexual complaints: denies History of Present Illness Tests reviewed: pathology. I have reviewed the previous health record information and history for this patient from Dr. Medina. I have reviewed and verified the staff HPI to be accurate for this encounter. There have been no associated fever, chills, flank pain, or blood in the urine. Denies any urinary infections since last encounter. Review of Systems PHQ Score Initial Depression Screen Score: 0 ROS - Provider Constitutional: denies weight loss, denies hot flashes. Eyes: denies eye problems. Gastrointestinal: denies nausea, denies vomiting. Cardiovascular: denies chest pain or angina. Integumentary: no dryness Musculoskeletal: denies musculoskeletal symptoms. ENMT: denies otolaryngeal symptoms. Respiratory: no shortness of breath. Heme/Lymph: denies easy bleeding tendency, denies easy bruising tendency. Psychiatric: no confusion, no anxiety. Genitourinary: See HPI. Physical Exam Vitals & Measurements HR: 94(Peripheral) BP: 152/98 HT: 66 in HT: 168 cm WT: 105 kg WT: 231 lb BMI: 37.2 General Appearance: alert , no acute distress, well nourished, well developed female. Genitourinary: bladder nonpalpable, no flank pain. Assessment/Plan 1. Renal mass, left (N28.89: Other specified disorders of kidney and ureter) - CT AP wo con done 01/06/22 there is an exophytic on the interpolar left kidney. 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 - MRI abd w/wo contrast 01/13/2022 TB showed 2.7 x 2.2 x 1.3 cm heterogeneous slightly enhancing mass arising from posterior superior pole of left kidney which appears to have a small area of intermixed fat. Nonspecific. Suggestive of an angiomyolipoma, however, renal cell carcinoma can also have a fatty component, and the fatty area is quite small relative to the rest of the mass. Tissue sampling is recommended. - Surveillance CT AP w con done at [facility] on 03/26/22 shows stable compared to 01/06/22, 2.5 cm enhancing mass arising from left kidney superior pole with a focal tiny fatty component. - S/p CT guided percutaneous renal bx done 04/24/22. Pathology noted benign renal parenchyma. Neg HMB-45, Pray-1 (neg for AML). Discussed with pathology who noted although core biopsies had good tissue, the amt of abnormal tissue was minimal. Re-biopsy should be considered if strong concern for malignancy. No indication to stain for RCC based on morphology of slides. Pt doing well after bx. First urination after procedure had blood but after was clear. Explained biopsy results and limitations as previously mentioned, cannot rule out malignancy. After discussion of risks/benefits, will continue active surveillance. 3mth scan was stable. Will repeat image 6 mos from last. Discussed tx options if there is growth including biopsy + perc ablation vs partial nephrectomy. Risks and benefits of tx options discussed. All questions were answered and the report discussed in terms that the patient could understand. Pt would choose percutaneous ablation if treatment needed given significant comorbidities and QOL -Follow up in [address] Abd w/wo IV contrast at [facility]. Pt understands and agrees with plan. Ordered: CT Abdomen/Pelvis w/ + w/o Contrast 2. Stress incontinence (N39.3: Stress incontinence (female) (male)) Mild. ICIQ at prior OV 3. Only with coughing or sneezing. Not voicing any urinary habit complaints. 3. Cyclical vomiting (R11.15: Cyclical vomiting syndrome unrelated to migraine) Pt inquired about recommendations for GI in the [place] area. Diabetes and HTN getting under control. Has sudden nausea and vomiting, sometimes bilious about every 3 wks. Denies actual nausea around episodes, no other associated symptoms or inciting factors. Does not notice any pattern with specific foods. Was given nausea medication but has not had to take since episodes are sudden. CT AP 03/26/22 noted small air in biliary system, potential incompetent sphincter of Oddi. Had eye exam at end of 2021. Denies headaches, vision changes or migraines -Again, encouraged to call PCP for referral -Will search for GI physicians to refer to her as well, although no personal recommendations Follow-up With When Contact Information Adam SAMPSON, Almaz Mcintyre, URL, URO Additional Instructions: Follow up in 4 mo (more content not included)... Normal [facility] Comment on above: Result Comment: Elec tronically Signed By: Almaz Medina MD\.br\Date and Time Signed: 05/08/22 14:03 EST\.br\Electronically Co-Signed By: Eleni Schneider\.br\Date and Time Co-Signed: 05/08/22 13:30 EST Consultation Noteon 04-30-19 Consultation Note [id number] :127 Normal [facility] Lab Reportson 04-30-2022 Lab Reports [id number] :127 Normal [facility] RAD - CT Reporton 04-30-2022 RAD - CT Report [id number]: 127 Normal [facility] APTTon 04-24-2022 ACTIVATED PARTIAL THROMBOPLASTIN TIME IN PPP BY COAGULATION ASSAY 26.0 Seconds Normal 25.0-35.0 [facility] Comment on above: Performed By: #### L [id number] #### [facility] ([facility]) [address] [place] [address] CBC WITH AUTO DIFFERENTIALon 04-24-2022 Basophils (Bld) [#/Vol] 0.09 10*3/uL Normal 0.00-0.20 [facility] Comment on above: Performed By: #### L [id number] #### [facility] ([facility]) [address] [place] [address] Basophils/100 WBC (Bld) 1.0 % Normal 0.0-1.0 [facility] Comment on above: Performed By: #### L [id number] #### [facility] ([facility]) [address] [place] [address] Eosinophils (Bld) [#/Vol] 0.14 10*3/uL Normal 0.00-0.50 [facility] Comment on above: Performed By: #### L [id number] #### [facility] ([facility]) [address] [place] [address] Eosinophils/100 WBC (Bld) 1.5 % Normal 0.0-6.0 [facility] Comment on above: Performed By: #### L [id number] #### [facility] ([facility]) [address] [place] [address] Erythrocyte distribution width (RBC) [Ratio] 13.2 % Normal 11.5-15.0 [facility] Comment on above: Performed By: #### L [id number] #### [facility] ([facility]) [address] [place] [address] ERYTHROCYTE MEAN CORPUSCULAR HEMOGLOBIN CONCENTRATION (G/DL) BY AUTOMATED 34.7 g/dL Normal 32.0-35.0 [facility] Comment on above: Performed By: #### L [id number] #### [facility] ([facility]) [address] [place] [address] Hematocrit (Bld) [Volume fraction] 40.1 % Normal 36.0-48.0 [facility] Comment on above: Performed By: #### L [id number] #### [facility] ([facility]) [address] [place] [address] Hemoglobin (Bld) [Mass/Vol] 13.9 g/dL Normal 12.0-15.0 [facility] Comment on above: Performed By: #### L [id number] #### [facility] ([facility]) [address] [place] [address] Immature granulocytes (Bld) [#/Vol] 0.03 10*3/uL Normal 0.00-0.20 [facility] Comment on above: Performed By: #### L [id number] #### [facility] ([facility]) [address] [place] [address] Immature granulocytes/100 WBC (Bld) 0.3 % Normal 0.0-1.0 [facility] Comment on above: Performed By: #### L [id number] #### [facility] ([facility]) [address] [place] [address] Lymphocytes (Bld) [#/Vol] 2.16 10*3/uL Normal 1.20-4.00 [facility] Comment on above: Performed By: #### L [id number] #### [facility] ([facility]) [address] [place] [address] Lymphocytes/100 WBC (Bld) 22.9 % Normal 20.0-45.0 [facility] Comment on above: Performed By: #### L [id number] #### [facility] ([facility]) [address] [place] [address] MCH (RBC) [Entitic mass] 28.5 pg Normal 27.0-33.0 [facility] Comment on above: Performed By: #### L [id number] #### [facility] ([facility]) [address] [place] [address] MCV (RBC) [Entitic vol] 82.3 fL Normal 82.0-98.0 [facility] Comment on above: Performed By: #### L [id number] #### [facility] ([facility]) [address] [place] [address] Monocytes (Bld) [#/Vol] 0.43 10*3/uL Normal 0.10-1.00 [facility] Comment on above: Performed By: #### L [id number] #### [facility] ([facility]) [address] [place] [address] Monocytes/100 WBC (Bld) 4.6 % Low 5.0-12.0 [facility] Comment on above: Performed By: #### L [id number] #### [facility] ([facility]) [address] [place] [address] Neutrophils (Bld) [#/Vol] 6.57 10*3/uL Normal 1.60-7.60 [facility] Comment on above: Performed By: #### L [id number] #### [facility] ([facility]) [address] [place] [address] Neutrophils/100 WBC (Bld) 69.7 % Normal 40.0-72.0 [facility] Comment on above: Performed By: #### L [id number] #### [facility] ([facility]) [address] [place] [address] NRBC (PER 100 WBCS) BY AUTOMATED COUNT 0.0 % Normal 0.0-0.0 [facility] Comment on above: Performed By: #### L [id number] #### [facility] ([facility]) [address] [place] [address] PLATELETS (10*3/UL) IN BLOOD AUTOMATED COUNT 286 10*3/uL Normal 150-400 [facility] Comment on above: Performed By: #### L [id number] #### [facility] ([facility]) [address] [place] [address] RBC (Bld) [#/Vol] 4.87 10*6/uL Normal 3.80-5.00 [facility] Comment on above: Performed By: #### L [id number] #### [facility] ([facility]) [address] [place] [address] WBC (Bld) [#/Vol] 9.42 10*3/uL Normal 4.00-10.60 [facility] [place] [facility] Comment on above: Performed By: #### L [id number] #### [facility] ([facility]) [address] [place] [address] CT GUIDED PERCUTANEOUS BIOPS Y RENAL LEFTon 04-24-2022 CT GUIDED PERCUTANEOUS BIOPSY RENAL LEFT CT GUIDED PERCUTANEOUS BIOPSY RENAL LEFT 04/24/2022 9:25 AM CLINICAL INDICATIONS: Exophytic left renal mass PROTOCOL: CT guided percutaneous biopsy of left renal mass All CT scans at this facility use dose modulation, iterative reconstruction, and/or weight based dosing when appropriate to reduce radiation dose to as low as reasonably achievable. INFORMED CONSENT: Reason for procedure was discussed with the patient. The procedure expectations risks benefits options and alternatives were discussed. All the questions were answered. The patient understood that results cannot be guaranteed. The procedure is indicated and risks are acceptable. Consent was obtained. Timeout: [place] protocol timeout verification performed. MEDICATIONS: 2 mg of versed and 100 micrograms of Fentanyl were administered for conscious sedation. Vital signs were continuously monitored by nursing staff throughout the procedure. 31 minutes of conscious sedation. Performing physician: Dr. Pam Hill Start time: 955 End time: 1026 PROCEDURE/FINDINGS: Estimated blood loss: 3 mL. Patient was placed in left lateral decubitus. Renal lesion was localized using CT imaging. Patient was prepped in the usual sterile fashion. Once adequate was marked, 1% lidocaine was given subcutaneously and then the needle was advanced into muscle layer and the muscles pronounced. Position was checked using CT imaging and the needle was readjusted to better needle towards renal lesion. 18-gauge coaxial needle technique was used to localize lesion. 4 samples were obtained and position was confirmed with pathology was on-site for the procedure. Once the samples were obtained, the needle was removed and pressure was applied to the area of biopsy. Follow-up image revealed a small amount of perinephric gas and small hematoma adjacent to mass. Dr. Martinez was present for the entire procedure. IMPRESSION: CT guidance was utilized for procedure. Uncomplicated percutaneous CT-guided biopsy of the left renal mass. Approved by:Cruz Rodriguez04/24/2022 10:48 AM. IRavi,have reviewed the image(s) and agree with the findings in this report. Electronically signed: Ravi Martinez. [facility] HISTOLOGY - TISSUE EXAMon LAB AP ASR DISCLAIMER The interpretation of this case included the use of immunohistochemistry or special stains. These tests have not been cleared or approved by the U.S. Food and Drug Administration. The FDA has determined that such clearance or approval is not necessary. These tests are used for clinical purposes and should not be regarded as investigational or for research. This laboratory is certified to perform high complexity testing under the Clinical Laboratory Improvement Amendments of 1998. [facility] Comment on above: Performed By: #### L [id number] #### [facility] ([facility]) [address] [place] [address] LAB AP CASE REPORT [facility] Comment on above: Result Comment: Surg ical Pathology Case: [id number] Authorizing Provider: Almaz Medina Collected: 04/24/2022 0922 Ordering Location: [facility] CT Imaging Received: 04/24/2022 1046 Pathologist: Heather Solorio MD Specimen: Kidney, NEEDLE CORE BXS Performed By: #### L [id number] #### [facility] ([facility]) [address] [place] [address] LAB AP CLINICAL INFORMATION Order Diagnoses [facility] Comment on above: Result Comment: N28. 89 - Left renal mass [ICD-10-CM] N28.89 - Other specified disorders of kidney and ureter [ICD-10-CM] N28.89 - Renal mass, left [ICD-10-CM] Performed By: #### L [id number] #### [facility] ([facility]) [address] [place] [address] LAB AP DIAGNOSIS COMMENT [facility] Comment on above: Result Comment: Ther e is no neoplasm identified within the cores or immunohistochemical stained slides. Mobile Application Developer Dr. Gomez, who concurs with the above diagnosis. Immediate adequacy was performed by Dr. Cisneros. Pass #1: Adequate Pass #2: Adequate Pass #3: Defer Pass #4: Defer When additional subsequent fine needle aspirations are performed, they are done in order to obtain an adequate amount of billing representative material of the tumor/lesion for diagnosis and/or ancillary studies. Performed By: #### L [id number] #### [facility] ([facility]) [address] [place] [address] LAB AP GROSS DESCRIPTION A. Kidney. [facility] Comment on above: Result Comment: Rece ived in formalin , labeled Stew Torres, NEEDLE CORE BXS are 4 hassan soft tissue core biopsies measuring 1.5, 1.5, 1.3, and 1.0 cm in length and up to 0.1 cm in diameter. The specimen is entirely submitted in 4 cassettes. (1 core in each cassette). Berta Moore, [employer] Performed By: #### L [id number] #### [facility] ([facility]) [address] [place] [address] LAB AP MICROSCOPIC DESCRIPTION Microscopic examination performed. [facility] Comment on above: Performed By: #### L [id number] #### [facility] ([facility]) [address] [place] [address] LAB AP REPORT FINAL DIAGNOSIS NARRATIVE [facility] Comment on above: Result Comment: Maki roldan, core biopsy: - Benign renal parenchyma - HMB-45: Negative - Pray-1: Negative - See comment Performed By: #### L [id number] #### [facility] ([facility]) [address] [place] [address] Labon 04-24-2022 Lab [id number] Stew Torres 1965 F Date Provider Department Center 04/24/2022 2245-[facility] OPD LAB RESOURCE [facility] OPD [facility] C No family history on file [facility] PROTIME-INRon 04-24-2022 INR IN PPP BY COAGULATION ASSAY 0.93 Normal 0.90-1.10 [facility] Comment on above: Result Comment: [facility] P RECOMMENDED INR FOR WARFARIN THERAPY CONDITION INR PROPHYLAXIS OF VENOUS THROMBOSIS 2-3 (HIGH-RISK SURGERY) TREATMENT OF VENOUS THROMBOSIS 2-3 TREATMENT OF PULMONARY EMBOLISM 2-3 PREVENTION OF SYSTEMIC EMBOLISM: 2-3 ACUTE MYOCARDIAL INFARCTION TISSUE HEART VALVES VALVULAR HEART DISEASE ATRIAL FIBRILLATION RECURRENT SYSTEMIC EMBOLISM MECHANICAL HEART VALVE 2.5-3.5 FROM: ORAL ANTICOAGULANTS. MECHANISM OF ACTION, CLINICAL EFFECTIVENESS, AND OPTIMAL THERAPEUTIC RANGE. CHEST 1995;108:231S-246S. Performed By: #### L [id number] #### [facility] ([facility]) [address] [place] [address] PROTHROMBIN TIME (PT) IN PPP BY COAGULATION ASSAY 12.4 Seconds Normal 12.3-14.8 [facility] Comment on above: Performed By: #### L [id number] #### [facility] ([facility]) [address] [place] [address] CT ABDOMEN WO/W CONon 2021 CT ABDOMEN WO/W CON EXAMINATION: CT ABDO MEN WO/W CON HISTORY: Disorder of kidney and/or ureter ; tumor of the left kidney, left upper quadrant pain for 3 months COMPARISON: CT abdomen pelvis without contrast 01/06/2022, MRI abdomen 01/13/2022 TECHNIQUE: Axial, Coronal, and Sagittal images were created without and with non-ionic intravenous contrast material. Dose reduction techniques were achieved by using automated exposure control and/or adjustment of mA and/or kV according to patient size and/or use of iterative reconstruction technique. FINDINGS: LUNG BASES: No visible pulmonary or pleural disease. LIVER: No enlargement, atrophy, abnormal density, or significant focal lesion. BILIARY: Cholecystectomy. 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 PANCREAS: No lesion, fluid collection, ductal dilatation, or atrophy. SPLEEN: Enlarged spleen, 16.0 cm. ADRENALS: No mass or enlargement. KIDNEYS: 25 x 20 x 13 mm enhancing mass with tiny focal fatty component arising from posterior superior pole of left kidney. BOWEL/MESENTERY: No visible mass, obstruction, or bowel wall thickening. AORTA/VASCULAR: No aneurysm or dissection. RETROPERITONEUM: No mass or adenopathy. ABDOMINAL WALL: No mass or hernia. BONES: No bony lesion or fracture. OTHER: Negative. IMPRESSION: 1. Stable (compared to 01/06/2022), 2.5 cm enhancing mass arising from left kidney superior pole with a focal tiny fatty component; nonspecific but biopsy is recommended to exclude renal cell carcinoma. Electronically authenticated by: RISHABH NOVOA Date: 2022-03-27 10:12 Normal [facility] CBC AUTO DIFFon 03-26-2022 BASO # 0.1 103/ul Normal 0.0-0.1 [facility] Comment on above: Performed By: #### U AMIC #### [facility] [address] [address] [address] Jenna Collier Basophils/100 WBC (Bld) 0.9 % Normal 0.2-2.0 [facility] Comment on above: Performed By: #### U AMIC #### [facility] [address] [address] [address] Jenna Collier EO # 0.1 103/ul Normal 0.0-0.7 [facility] Comment on above: Performed By: #### U AMIC #### [facility] [address] [address] [address] Jenna Collier Eosinophils/100 WBC (Bld) 1.5 % Normal 0.9-7.0 [facility] Comment on above: Performed By: #### U AMIC #### [facility] [address] [address] [address] Jenna Collier Erythrocyte distribution width (RBC) [Ratio] 13.2 % Normal 11.0-15.0 [facility] Comment on above: Performed By: #### U AMIC #### [facility] [address] [address] [address] Jenna Collier Hematocrit (Bld) [Volume fraction] 41.1 % Normal 36.0-48.0 [facility] Comment on above: Performed By: #### U AMIC #### [facility] [address] [address] [address] Jenna Collier Hemoglobin (Bld) [Mass/Vol] 14.0 g/dL Normal 12.0-16.0 [facility] Comment on above: Performed By: #### U AMIC #### [facility] [address] [address] [address] Jenna Collier IG # 0.03 10e3/ul Normal 0.00-0.03 [facility] Comment on above: Performed By: #### U AMIC #### [facility] [address] [address] [address] Jenna Collier IG % 0.3 % Normal 0.0-0.5 [facility] Comment on above: Performed By: #### U AMIC #### [facility] [address] [address] [address] Jenna Collier LYMPH # 2.7 103/ul Normal 1.2-3.8 [facility] Comment on above: Performed By: #### U AMIC #### [facility] [address] [address] [address] Jenna Collier Lymphocytes/100 WBC (Bld) 27.6 % Normal 20.5-60.0 [facility] Comment on above: Performed By: #### U AMIC #### [facility] [address] [address] [address] Jenna Collier MANUAL DIFF REQ NO Normal [facility] Comment on above: Performed By: #### U AMIC #### [facility] [address] [address] [address] Jenna Collier MCH (RBC) [Entitic mass] 27.8 pg Normal 26.7-34.0 [facility] Comment on above: Performed By: #### U AMIC #### [facility] [address] [address] [address] Jenna Collier MCHC (RBC) [Mass/Vol] 34.1 g/dL Normal 29.9-35.2 [facility] Comment on above: Performed By: #### U AMIC #### [facility] [address] [address] [address] Jenna Collier MCV (RBC) [Entitic vol] 81.7 fL Normal 81.0-99.0 [facility] Comment on above: Performed By: #### U AMIC #### [facility] [address] [address] [address] Jenna Collier MONO # 0.4 103/ul Normal 0.3-0.8 [facility] Comment on above: Performed By: #### U AMIC #### [facility] [address] [address] [address] Jenna Collier Monocytes/100 WBC (Bld) 3.8 % Normal 1.7-12.0 [facility] Comment on above: Performed By: #### U AMIC #### [facility] [address] [address] [address] Jenna Collier NEUT # 6.3 103/ul Normal 1.4-6.5 [facility] Comment on above: Performed By: #### U AMIC #### [facility] [address] [address] [address] Jenna Collier Neutrophils/100 WBC (Bld) 65.9 % Normal 43.0-75.0 [facility] Comment on above: Performed By: #### U AMIC #### [facility] [address] [address] [address] Jenna Collier Platelet mean volume (Bld) [Entitic vol] 10.0 fL Normal 9.5-13.5 [facility] Comment on above: Performed By: #### U AMIC #### [facility] [address] [address] [address] Jenna Collier PLT 320 103/ul Normal 150-450 [facility] Comment on above: Performed By: #### U AMIC #### [facility] [address] [address] [address] Jenna Collier RBC 5.03 106/ul Normal 4.20-5.40 [facility] Comment on above: Performed By: #### U AMIC #### [facility] [address] [place] [address] Dr. Jenna Collier WBC 9.6 103/ul Normal 4.0-11.0 [facility] Comment on above: Performed By: #### U AMIC #### [facility] [address] [place] [address] Dr. Jenna Collier CRPon 03-26-2022 CRP [Mass/Vol] mg/L Normal <=1.0 [facility] Comment on above: Performed By: #### U AMIC #### [facility] [address] [place] [address] Dr. Jenna Collier CULTURE URINEon 03-26-2022 CULTURE URINE Culture Observations : NO GROWTH. Normal [facility] Comment on above: Performed By: #### U AMIC #### [facility] [address] [place] [address] Dr. Jenna Collier FREE T4on 03-26-2022 Free T4 [Mass/Vol] 1.20 ng/dL Normal 0.76-1.46 [facility] Comment on above: Performed By: #### F T4 #### [facility] [address] [place] [address] Dr. Jenna Collier PROF 14(COMP METB)on 022 Albumin [Mass/Vol] 3.8 g/dL Normal 3.4-5.0 [facility] Comment on above: Performed By: #### U AMIC #### [facility] [address] [place] [address] Dr. Jenna Collier Albumin/Globulin [Mass ratio] 1.0 {ratio} Normal [facility] Comment on above: Performed By: #### U AMIC #### [facility] [address] [place] [address] Dr. Jenna Collier ALP [Catalytic activity/Vol] 79 U/L Normal 46-116 [facility] Comment on above: Performed By: #### U AMIC #### [facility] [address] [place] [address] Dr. Jenna Collier ALT [Catalytic activity/Vol] 17 U/L Normal 14-59 [facility] Comment on above: Performed By: #### U AMIC #### [facility] [address] [address] [address] Jenna Collier Anion gap [Moles/Vol] 9.5 mmol/L Normal [facility] Comment on above: Performed By: #### U AMIC #### [facility] [address] [address] [address] Jenna Collier AST [Catalytic activity/Vol] 12 U/L Critically low 15-37 [facility] Comment on above: Performed By: #### U AMIC #### [facility] [address] [address] [address] Jenna Collier Bilirubin [Mass/Vol] 0.7 mg/dL Normal 0.2-1.0 [facility] Comment on above: Performed By: #### U AMIC #### [facility] [address] [address] [address] Jenna Collier Calcium [Mass/Vol] 9.1 mg/dL Normal 8.5-10.1 [facility] Comment on above: Performed By: #### U AMIC #### [facility] [address] [address] [address] Jenna Collier Chloride [Moles/Vol] 97 mmol/L Critically low 98-107 [facility] Comment on above: Performed By: #### U AMIC #### [facility] [address] [address] [address] Jenna Collier CO2 [Moles/Vol] 31.4 mmol/L Normal 21.0-32.0 [facility] Comment on above: Performed By: #### U AMIC #### [facility] [address] [address] [address] Jenna Collier Creatinine [Mass/Vol] 0.63 mg/dL Normal 0.55-1.02 [facility] Comment on above: Performed By: #### U AMIC #### [facility] [address] [address] [address] Jenna Collier EGFR-AF MOROCCAN >60 Normal >=60 [facility] Comment on above: Performed By: #### U AMIC #### [facility] [address] [address] [address] Jenna Collier EGFR-NON AF MOROCCAN >60 Normal >=60 [facility] Comment on above: Performed By: #### U AMIC #### [facility] [address] [address] [address] Jenna Collier Globulin (S) [Mass/Vol] 3.9 g/dL Normal [facility] Comment on above: Performed By: #### U AMIC #### [facility] [address] [address] [address] Jenna Collier Glucose [Mass/Vol] 117 mg/dL Critically high 74-106 [facility] Comment on above: Performed By: #### U AMIC #### [facility] [address] [address] [address] Jenna Collier Potassium [Moles/Vol] 3.9 mmol/L Normal 3.5-5.1 [facility] Comment on above: Performed By: #### U AMIC #### [facility] [address] [address] [address] Jenna Collier Protein [Mass/Vol] 7.7 g/dL Normal 6.4-8.2 [facility] Comment on above: Performed By: #### U AMIC #### [facility] [address] [address] [address] Jenna Collier Sodium [Moles/Vol] 134 mmol/L Critically low 136-145 [facility] Comment on above: Performed By: #### U AMIC #### [facility] [address] [address] [address] Jenna Collier Urea nitrogen [Mass/Vol] 11.0 mg/dL Normal 7.0-18.0 [facility] Comment on above: Performed By: #### U AMIC #### [facility] [address] [address] [address] Jenna Collier Urea nitrogen/Creatinine [Mass ratio] 17.5 mg/mg Normal [facility] Comment on above: Performed By: #### U AMIC #### [facility] [address] [place] [address] Dr. Jenna Collier [facility] SED RATE 14 mm/hr Normal <=30 [facility] Comment on above: Performed By: #### S EDR #### [facility] [address] [place] [address] Dr. Jenna Collier TSHon 03-26-2022 TSH 5.913 uIU/mL Critically high 0.358-3.740 [facility] Comment on above: Performed By: #### U AMIC #### [facility] [address] [place] [address] Dr. Jenna Collier UA RANDOM W/MICROSCOPICon BACTERIA NONE SEEN Normal NONE SEEN [facility] Comment on above: Performed By: #### U AMIC #### [facility] [address] [place] [address] Dr. Jenna Collier Bilirubin Ql (U) Negative Normal NEGATIVE [facility] Comment on above: Performed By: #### U AMIC #### [facility] [address] [place] [address] Dr. Jenna Collier CAST NONE SEEN Normal NONE SEEN [facility] Comment on above: Performed By: #### U AMIC #### [facility] [address] [place] [address] Dr. Jenna Collier Clarity (U) CLEAR Normal CLEAR [facility] Comment on above: Performed By: #### U AMIC #### [facility] [address] [place] [address] Dr. Jenna Collier Color (U) LT. YELLOW Normal YELLOW [facility] Comment on above: Performed By: #### U AMIC #### [facility] [address] [place] [address] Dr. Jenna Collier Crystals LM Nom (Urine sed) NONE SEEN Normal NONE SEEN [facility] Comment on above: Performed By: #### U AMIC #### [facility] [address] [place] [address] Dr. Jenna Collier Epithelial cells LM Ql (Urine sed) RARE Normal NONE SEEN /RARE [facility] Comment on above: Performed By: #### U AMIC #### [facility] [address] [address] [address] Jenna Collier Glucose Ql (U) Negative Normal NEGATIVE [facility] Comment on above: Performed By: #### U AMIC #### [facility] [address] [address] [address] Jenna Collier Hemoglobin Ql (U) Negative Normal NEGATIVE [facility] Comment on above: Performed By: #### U AMIC #### [facility] [address] [address] [address] Jenna Collier Ketones Ql (U) Negative Normal NEGATIVE [facility] Comment on above: Performed By: #### U AMIC #### [facility] [address] [place] [address] Dr. Jenna Collier LEUKOCYTES TRACE Abnormal NEGATIVE [facility] Comment on above: Performed By: #### U AMIC #### [facility] [address] [address] [address] Jenna Collier MUCOUS NONE SEEN Normal NONE SEEN [facility] Comment on above: Performed By: #### U AMIC #### [facility] [address] [address] [address] Jenna Collier Nitrite Ql (U) Negative Normal NEGATIVE [facility] Comment on above: Performed By: #### U AMIC #### [facility] [address] [place] [address] Dr. Jenna Collier pH (U) 6.0 [pH] Normal 5-9 [facility] Comment on above: Performed By: #### U AMIC #### [facility] [address] [place] [address] Dr. Jenna Collier RBC NONE SEEN Abnormal 0-2 [facility] Comment on above: Performed By: #### U AMIC #### [facility] [address] [place] [address] Dr. Jenna Collier SPEC GRAVITY 1.010 Normal 1.005-<=1.025 The [facility] Comment on above: Performed By: #### U AMIC #### [facility] [address] [place] [address] Dr. Jenna Collier UA PROTEIN Negative Normal NEGATIVE/ TRACE [facility] Comment on above: Performed By: #### U AMIC #### [facility] [address] [place] [address] Dr. Jenna Collier Urobilinogen Qn (U) 0.2 {Humaira'U}/dL Normal 0.2 - 1. 0 [facility] Comment on above: Performed By: #### U AMIC #### [facility] [address] [address] [address] Jenna Collier WBC 2-5 Abnormal NONE SEEN [facility] Comment on above: Performed By: #### U AMIC #### [facility] [address] [place] [address] Dr. Jenna Collier CBC AUTO DIFFon 01-22-2022 BASO # 0.1 103/ul Normal 0.0-0.1 [facility] Comment on above: Performed By: #### C BC #### [facility] [address] [place] [address] Dr. Jenna Collier Basophils/100 WBC (Bld) 1.1 % Normal 0.2-2.0 [facility] Comment on above: Performed By: #### C BC #### [facility] [address] [place] [address] Dr. Jenna Collier EO # 0.2 103/ul Normal 0.0-0.7 [facility] Comment on above: Performed By: #### C BC #### [facility] [address] [place] [address] Dr. Jenna Collier Eosinophils/100 WBC (Bld) 1.7 % Normal 0.9-7.0 [facility] Comment on above: Performed By: #### C BC #### [facility] [address] [place] [address] Dr. Jenna Collier Erythrocyte distribution width (RBC) [Ratio] 13.0 % Normal 11.0-15.0 [facility] Comment on above: Performed By: #### C BC #### [facility] [address] [place] [address] Dr. Jenna Collier Hematocrit (Bld) [Volume fraction] 42.2 % Normal 36.0-48.0 [facility] Comment on above: Performed By: #### C BC #### [facility] [address] [place] [address] Dr. Jenna Collier Hemoglobin (Bld) [Mass/Vol] 14.7 g/dL Normal 12.0-16.0 [facility] Comment on above: Performed By: #### C BC #### [facility] [address] [place] [address] Dr. Jenna Collier IG # 0.02 10e3/ul Normal 0.00-0.03 [facility] Comment on above: Performed By: #### C BC #### [facility] [address] [place] [address] Dr. Jenna Collier IG % 0.2 % Normal 0.0-0.5 [facility] Comment on above: Performed By: #### C BC #### [facility] [address] [place] [address] Dr. Jenna Collier LYMPH # 2.6 103/ul Normal 1.2-3.8 [facility] Comment on above: Performed By: #### C BC #### [facility] [address] [place] [address] Dr. Jenna Collier Lymphocytes/100 WBC (Bld) 29.4 % Normal 20.5-60.0 [facility] Comment on above: Performed By: #### C BC #### [facility] [address] [place] [address] Dr. Jenna Collier MANUAL DIFF REQ NO Normal [facility] Comment on above: Performed By: #### C BC #### [facility] [address] [place] [address] Dr. Jenna Collier MCH (RBC) [Entitic mass] 28.3 pg Normal 26.7-34.0 [facility] Comment on above: Performed By: #### C BC #### [facility] [address] [place] [address] Dr. Jenna Collier MCHC (RBC) [Mass/Vol] 34.8 g/dL Normal 29.9-35.2 [facility] Comment on above: Performed By: #### C BC #### [facility] [address] [address] [address] Jenna Collier MCV (RBC) [Entitic vol] 81.2 fL Normal 81.0-99.0 [facility] Comment on above: Performed By: #### C BC #### [facility] [address] [place] [address] Dr. Jenna Collier MONO # 0.4 103/ul Normal 0.3-0.8 [facility] Comment on above: Performed By: #### C BC #### [facility] [address] [place] [address] Dr. Jenna Collier Monocytes/100 WBC (Bld) 4.5 % Normal 1.7-12.0 [facility] Comment on above: Performed By: #### C BC #### [facility] [address] [place] [address] Dr. Jenna Collier NEUT # 5.7 103/ul Normal 1.4-6.5 [facility] Comment on above: Performed By: #### C BC #### [facility] [address] [place] [address] Dr. Jenna Collier Neutrophils/100 WBC (Bld) 63.1 % Normal 43.0-75.0 [facility] Comment on above: Performed By: #### C BC #### [facility] [address] [place] [address] Dr. Jenna Collier Platelet mean volume (Bld) [Entitic vol] 10.1 fL Normal 9.5-13.5 [facility] Comment on above: Performed By: #### C BC #### [facility] [address] [place] [address] Dr. Jenna Collier PLT 264 103/ul Normal 150-450 [facility] Comment on above: Performed By: #### C BC #### [facility] [address] [place] [address] Dr. Jenna Collier RBC 5.20 106/ul Normal 4.20-5.40 [facility] Comment on above: Performed By: #### C BC #### [facility] [address] [place] [address] Dr. Jenna Collier WBC 9.0 103/ul Normal 4.0-11.0 [facility] Comment on above: Performed By: #### C BC #### [facility] [address] [place] [address] Dr. Jenna Collier FREE T4on 01-22-2022 Free T4 [Mass/Vol] 0.70 ng/dL Critically low 0.76-1.46 Th e [facility] Comment on above: Performed By: #### F T4 #### [facility] [address] [place] [address] Dr. Jenna Collier GLYCOHEMOGLOBIN A1Con 2021 ADA RECOMMENDATION SEE BELOW Normal [facility] Comment on above: Result Comment: ADA RECOMMENDED LIMIT 4.0 - 6.0 ADA THERAPEUTIC TARGET < 7.0 ACTION SUGGESTED > 7.0 Performed By: #### A 1C #### [facility] [address] [place] [address] Dr. Jenna Collier Glucose [Mass/Vol] 243 mg/dL Normal [facility] Comment on above: Performed By: #### A 1C #### [facility] [address] [place] [address] Dr. Jenna Collier HbA1c (Bld) [Mass fraction] 10.1 % Critically high 4.5-6.2 [facility] Comment on above: Performed By: #### A 1C #### [facility] [address] [place] [address] Dr. Jenna Collier LIPASEon 01-22-2022 Lipase [Catalytic activity/Vol] 80.0 U/L Normal 73.0-393.0 [facility] Comment on above: Performed By: #### T SH, LIPA, CMP #### [facility] [address] [place] [address] Dr. Jenna Collier PROF 14(COMP METB)on 022 Albumin [Mass/Vol] 3.8 g/dL Normal 3.4-5.0 [facility] Comment on above: Performed By: #### T PERNELL LIPA, CMP #### [facility] [address] [address] [address] Jenna Collier Albumin/Globulin [Mass ratio] 1.0 {ratio} Normal [facility] Comment on above: Performed By: #### T PERNELL LIPA, CMP #### [facility] [address] [address] [address] Jenna Collier ALP [Catalytic activity/Vol] 88 U/L Normal 46-116 [facility] Comment on above: Performed By: #### T PERNELL LIPA, CMP #### [facility] [address] [place] [address] Dr. Jenna Collier ALT [Catalytic activity/Vol] 22 U/L Normal 14-59 [facility] Comment on above: Performed By: #### T PERNELL LIPA, CMP #### [facility] [address] [address] [address] Jenna Collier Anion gap [Moles/Vol] 7.5 mmol/L Normal [facility] Comment on above: Performed By: #### T PERNELL LIPA, CMP #### [facility] [address] [place] [address] Dr. Jenna Collier AST [Catalytic activity/Vol] 9 U/L Critically low 15-37 [facility] Comment on above: Performed By: #### T PERNELL LIPA, CMP #### [facility] [address] [place] [address] Dr. Jenna Collier Bilirubin [Mass/Vol] 0.8 mg/dL Normal 0.2-1.0 [facility] Comment on above: Performed By: #### T PERNELL LIPA, CMP #### [facility] [address] [place] [address] Dr. Jenna Collier Calcium [Mass/Vol] 9.4 mg/dL Normal 8.5-10.1 [facility] Comment on above: Performed By: #### T PERNELL LIPA, CMP #### [facility] [address] [place] [address] Dr. Jenna Collier Chloride [Moles/Vol] 98 mmol/L Normal 98-107 [facility] Comment on above: Performed By: #### T SARA GIMENEZ, CMP #### [facility] [address] [address] [address] Jenna Collier CO2 [Moles/Vol] 30.7 mmol/L Normal 21.0-32.0 [facility] Comment on above: Performed By: #### T SARA GIMENEZ, CMP #### [facility] [address] [address] [address] Jenna Collier Creatinine [Mass/Vol] 0.64 mg/dL Normal 0.55-1.02 [facility] Comment on above: Performed By: #### T SARA GIMENEZ, CMP #### [facility] [address] [address] [address] Jenna Collier EGFR-AF MOROCCAN >60 Normal >=60 [facility] Comment on above: Performed By: #### T SARA GIMENEZ, CMP #### [facility] [address] [address] [address] Jenna Collier EGFR-NON AF MOROCCAN >60 Normal >=60 [facility] Comment on above: Performed By: #### T SARA GIMENEZ, CMP #### [facility] [address] [address] [address] Jenna Collier Globulin (S) [Mass/Vol] 3.8 g/dL Normal [facility] Comment on above: Performed By: #### T SARA GIMENEZ, CMP #### [facility] [address] [address] [address] Jenna Collier Glucose [Mass/Vol] 257 mg/dL Critically high 74-106 [facility] Comment on above: Performed By: #### T SARA GIMENEZ, CMP #### [facility] [address] [address] [address] Jenna Collier Potassium [Moles/Vol] 4.2 mmol/L Normal 3.5-5.1 [facility] Comment on above: Performed By: #### T SARA GIMENEZ, CMP #### [facility] [address] [address] [address] Jenna Collier Protein [Mass/Vol] 7.6 g/dL Normal 6.4-8.2 [facility] Comment on above: Performed By: #### T PERNELL, LIPA, CMP #### [facility] [address] [address] [address] Jenna Collier Sodium [Moles/Vol] 132 mmol/L Critically low 136-145 [facility] Comment on above: Performed By: #### T PERNELL, LIPA, CMP #### [facility] [address] [place] [address] Dr. Jenna Collier Urea nitrogen [Mass/Vol] 14.0 mg/dL Normal 7.0-18.0 [facility] Comment on above: Performed By: #### T PERNELL LIPA, CMP #### [facility] [address] [place] [address] Dr. Jenna Collier Urea nitrogen/Creatinine [Mass ratio] 21.9 mg/mg Normal [facility] Comment on above: Performed By: #### T PERNELL LIPA, CMP #### [facility] [address] [place] [address] Dr. Jenna Collier TSHon 01-22-2022 TSH 16.715 uIU/mL Critically high 0.358-3.740 [facility] Comment on above: Performed By: #### T PERNELL LIPA, CMP #### [facility] [address] [place] [address] Dr. Jenna Collier MRI ABDOMEN WO W CONon 01-13 MRI ABDOMEN WO W CON EXAMINATION: MRI ABDOMEN WO W CON HISTORY: Disorder of kidney and/or ureter COMPARISON: No relevant comparison available. TECHNIQUE: A comprehensive MRI examination of the abdomen was performed to optimize visualization of suspected pathology. Images were obtained both before and after intravenous administration of ml Dotarem contrast. FINDINGS: LIVER: No enlargement, atrophy, abnormal density, or significant focal lesion. BILIARY: Cholecystectomy. PANCREAS: Atrophic. No abnormal duct dilation or appreciable lesion. SPLEEN: Enlarged, 16.4 cm. KIDNEYS: 2.7 x 2.2 x 1.3 cm heterogeneous slightly enhancing mass arising from posterior superior pole of left kidney which appears to have a small area of intermixed fat, best demonstrated on the in and out of phase sequences. ADRENALS: No mass or enlargement. AORTA/VASCULAR: No aneurysm or dissection. RETROPERITONEUM: No mass or adenopathy. BOWEL/MESENTERY: No visible mass, obstruction, or bowel wall thickening. ABDOMINAL WALL: No mass or hernia. BONES: No bony lesion or fracture. OTHER: Negative. IMPRESSION: 1. Nonspecific slightly enhancing mass arising from left kidney. Small areas suspected to have an intermixed fatty component which would be suggestive of an angiomyolipoma, however, renal cell carcinoma can also have a fatty component, and the fatty area is quite small relative to the rest of the mass. Tissue sampling is recommended. Electronically authenticated by: RISHABH NOVOA Date: 2022-01-13 16:27 [facility] Vital Signs Date Time Vital Sign Value Performing Clinician Facility 04-16-2023 08:20-0500 Diastolic blood pressure 86 mm[Hg] Almaz Lue [facility] 04-16-2023 08:20-0500 Heart rate 72 /min Almaz Lue [facility] 04-16-2023 08:20-0500 Systolic blood pressure 136 mm[Hg] Almaz Lue [facility] 10-09-2022 08:01-0400 Blood Pressure Location Almaz Lue [facility] 10-09-2022 08:01-0400 Diastolic blood pressure 94 mm[Hg] Almaz Lue [facility] 10-09-2022 08:01-0400 Heart rate 82 /min Almaz Lue [facility] 10-09-2022 08:01-0400 Systolic blood pressure 163 mm[Hg] Almaz Lue [facility] 06-18-2022 14:30-0400 Body height 167.64 cm Steph Quesada Other [employer] Other 06-18-2022 14:30-0400 Body mass index (BMI) [Ratio] 37.76 kg/m2 Steph Quesada Other [employer] Other 06-18-2022 14:30-0400 Body weight 106.14 kg Steph Quesada Other [employer] Other 06-18-2022 14:30-0400 Diastolic blood pressure 68 mm[Hg] Steph Quesada Other [employer] Other 06-18-2022 14:30-0400 SaO2% (BldA) [Mass fraction] 99 % Steph Quesada Other [employer] Other 06-18-2022 14:30-0400 Systolic blood pressure 120 mm[Hg] Steph Queasda Other [employer] Other 05-08-2022 11:43-0500 Blood Pressure Location Almaz Lue [facility] 05-08-2022 11:43-0500 Diastolic blood pressure 98 mm[Hg] Almaz Lue [facility] 05-08-2022 11:43-0500 Heart rate 94 /min Almaz Lue [facility] 05-08-2022 11:43-0500 Systolic blood pressure 152 mm[Hg] Almaz Lue [facility] 04-01-2022 11:34-0500 Blood Pressure Location Almaz Lue [facility] 04-01-2022 11:34-0500 Diastolic blood pressure 89 mm[Hg] Almaz Lue [facility] 04-01-2022 11:34-0500 Heart rate 87 /min Almaz Lue [facility] 04-01-2022 11:34-0500 Systolic blood pressure 181 mm[Hg] Almaz Lue [facility] 03-12-2022 14:13-0500 Diastolic blood pressure 104 mm[Hg] Almaz Lue [facility] 03-12-2022 14:13-0500 Heart rate 102 /min Almaz Lue [facility] 03-12-2022 14:13-0500 Mean blood pressure 138 mm[Hg] Almaz Lue [facility] 03-12-2022 14:13-0500 Systolic blood pressure 206 mm[Hg] Almaz Lue [facility] 03-12-2022 14:08-0500 Blood Pressure Location Almaz Lue [facility] 03-12-2022 14:08-0500 Diastolic blood pressure 117 mm[Hg] Almaz Lue [facility] 03-12-2022 14:08-0500 Heart rate 102 /min Almaz Lue [facility] 03-12-2022 14:08-0500 Systolic blood pressure 220 mm[Hg] Almaz Medina [facility] Encounters Encounter Date Encounter Type Care Provider Facility Start: 04-16-2023 ambulatory Almaz M. Jagdeepe Facility:[facility] Start: 04-16-2023 End: 04-16-2023 Patient encounter procedure Almaz Medina [facility] Start: 10-09-2022 End: 10-10-2022 ambulatory [facility]z Granda. [facility] Start: 10-09-2022 End: 10-09-2022 Patient encounter procedure Almaz Medina [facility] Start: 07-28-2022 End: 07-28-2022 ambulatory Steph Quesada Other [employer] Other Start: 07-28-2022 Telephone encounter Steph Quesada [facility] Start: 07-24-2022 End: 07-25-[address] DOCTOR MONTOYA Facility:[facility] Start: 06-18-2022 End: 06-18-2022 ambulatory Steph Quesada Other [employer] Other Start: 06-18-2022 Office outpatient vi sit 10 minutes Steph Quesada [facility] Start: 05-08-2022 End: 05-09-2022 ambulatory Almaz Kalee. Jagdeepe Facility:[facility] Start: 05-08-2022 End: 05-08-2022 Patient encounter procedure Almaz Medina [facility] Start: 04-24-2022 End: 04-25-2022 ambulatory ALMAZ MEDINA [facility] Start: 04-24-2022 Encounter for genera l adult medical examination without abnormal findings GENERIC PROVIDER [facility] Start: 04-13-2022 End: 04-14-2022 ambulatory GENERIC EXTERNAL DATA PROVIDER [facility] Start: 04-01-2022 End: 04-01-2022 Patient encounter procedure Almaz Medina [facility] Start: 03-26-2022 End: 03-27-2022 ambulatory ALMAZ M JAGDEEPChavo . Facility:[facility] Start: 03-12-2022 End: 03-12-2022 Patient encounter procedure Almaz Medina [facility] Start: 01-22-2022 End: 01-23-[address] STEPH QUESADA Facility:[facility] Start: 01-13-2022 End: 01-14-2022 ambulatory JAYA HOWARD Facility:[facility] Procedures Date Procedure Procedure Detail Performing Clinician Start: 04-24-2022 Kidney biopsy Almaz Lue Cholecystectomy Almaz Lue Colonoscopy Almaz Lue Endoscopic biopsy of stomach Almaz Sine Tonsillectomy Almaz Lue Immunizations Immunization Date Immunization Notes Care Provider Manjula varela NEGATED: Highlighted row has not occurred!04-16-2023 influenza virus vaccine, unspecified formulation Almaz Sine [facility] NEGATED: Highlighted row has not occurred!03-12-2022 SARS-CoV-2 mRNA (tozinameran 5y-11y) vaccine Almaz Lue [facility] Payers Date Payer Category Payer Unknown [id number] 1965 Unknown [id number] 2.16.84 [id number] 1965 Unknown [id number] 2.16.84 [id number] 1965 Unknown [id number] 2.16.84 [id number] 1967 Unknown [id number] 2.16.84 [id number] 1967 Unknown [id number] 2.16.84 [id number] 1967 Unknown [id number] 2.16.84 [id number] 1965 Unknown [id number] 2.16.8 [id number] 1965 Unknown [id number] 2.16.8 [id number] 1965 Unknown [id number] 2.16.8 [id number] Social History Date Type Detail Facility Start: 03-12-2022 End: 04-16-2023 Tobacco smoking status Never smoked tobacco (finding) [facility] Tobacco smoking status Never [facility] Sex Assigned At Female [facility] Functional Status Date Assessment Result Facility 04-16-2023 Functional Status N/A [facility] 10-09-2022 Functional Status N/A [facility] 05-08-2022 Functional Status N/A [facility] 04-01-2022 Functional Status N/A [facility] 03-12-2022 Functional Status N/A [facility] Clinical Notes 03-12-2022 to 04-16-2023 Note Date & Type Note Facility 04-16-2023 Hospital Discharg e instructions Patient Education 04/16/2023 08:33:12 Kegel Exercises Kegel Exercises Kegel exercises can help strengthen your pelvic floor muscles. The pelvic floor is a group of muscles that support your rectum, small intestine, and bladder. In females, pelvic floor muscles also help support the uterus. These muscles help you control the flow of urine and stool (feces). Kegel exercises are painless and simple. They do not require any equipment. Your provider may suggest Kegel exercises to: Improve bladder and bowel control. Improve sexual response. Improve weak pelvic floor muscles after surgery to remove the uterus (hysterectomy) or after , in females. Improve weak pelvic floor muscles after prostate gland removal or surgery, in males. Kegel exercises involve squeezing your pelvic floor muscles. These are the same muscles you squeeze when you try to stop the flow of urine or keep from passing gas. The exercises can be done while sitting, standing, or lying down, but it is best to vary your position. Ask your health care provider which exercises are safe for you. Do exercises exactly as told by your health care provider and adjust them as directed. Do not begin these exercises until told by your health care provider. Exercises How to do Kegel exercises: 1.Squeeze your pelvic floor muscles tight. You should feel a tight lift in your rectal area. If you are a female, you should also feel a tightness in your vaginal area. Keep your stomach, buttocks, and legs relaxed. 2.Hold the muscles tight for up to 10 seconds. 3.Breathe normally. 4.Relax your muscles for up to 10 seconds. 5.Repeat as told by your health care provider. Repeat this exercise daily as told by your health care provider. Continue to do this exercise for at least 4 6 weeks, or for as long as told by your health care provider. You may be referred to a physical therapist who can help you learn more about how to do Kegel exercises. Depending on your condition, your health care provider may recommend: Varying how long you squeeze your muscles. Doing several sets of exercises every day. Doing exercises for several weeks. Making Kegel exercises a part of your regular exercise routine. This information is not intended to replace advice given to you by your health care provider. Make sure you discuss any questions you have with your health care provider. Document Revised: 07/31/2021 Document Reviewed: 07/31/2021 [employer] Patient Education 2022 [employer]. Follow Up Care 10/09/2022 08:31:20 With:Adam SAMPSON, DANYELLE Amado, URO Address: [address] [place] [phone] When: Unknown Comments:GENNARO in 1 yr [facility] Alfredo 10-09-2022 Hospital Discharg e instructions Patient Education 10/09/2022 08:26:47 Renal Mass Renal Mass A renal mass is an abnormal growth in the kidney. It may be found while performing an MRI, CT scan, or ultrasound to evaluate other problems of the abdomen. A renal mass that is cancerous (malignant) may grow or spread quickly. Others are not cancerous (benign). Renal masses include: Tumors. These may be malignant or benign. ?The most common type of kidney cancer in adults is renal cell carcinoma. In children, the most common type of kidney cancer is Wilms tumor. ?The most common benign tumors of the kidney include renal adenomas, oncocytomas, and angiomyolipoma (AML). Cysts. These are fluid-filled sacs that form on or in the kidney. What are the causes? Certain types of cancers, infections, or injuries can cause a renal mass. It is not always known what causes a cyst to develop in or on the kidney. What are the signs or symptoms? Often, a renal mass does not cause any signs or symptoms; most kidney cysts do not cause symptoms. How is this diagnosed? Your health care provider may recommend tests to diagnose the cause of your renal mass. These tests may be done if a renal mass is found: Physical exam. Blood tests. Urine tests. Imaging tests, such as ultrasound, CT scan, or MRI. Biopsy. This is a small sample that is removed from the renal mass and tested in a lab. The exact tests and how often they are done will depend on: The size and appearance of the renal mass. Risk factors or medical conditions that increase your risk for problems. Any symptoms associated with the renal mass, or concerns that you have about it. Tests and physical exams may be done once, or they may be done regularly for a period of time. Tests and exams that are done regularly will help monitor whether the mass is growing and beginning to cause problems. How is this treated? Treatment is not always needed for this condition. Your health care provider may recommend careful monitoring and regular tests and exams. Treatment will depend on the cause of the mass. Treatment for a cancerous renal mass may include surgical removal, chemotherapy, radiation, or immunotherapy. Most kidney cysts do not need to be treated. Follow these instructions at home: What you need to do at home will depend on the cause of the mass. Follow the instructions that your health care provider gives to you. In general: Take nfrg-tvi-caxzvmk and prescription medicines only as told by your health care provider. If you were prescribed an antibiotic medicine, take it as told by your health care provider. Do not stop taking the antibiotic even if you start to feel better. Follow any restrictions that are given to you by your health care provider. Keep all follow-up visits. This is important. ?You may need to see your health care provider once or twice a year to have CT scans and ultrasounds. These tests will show if your renal mass has changed or grown. Contact a health care provider if you: Have pain in your side or back (flank pain). Have a fever. Feel full soon after eating. Have pain or swelling in the abdomen. Lose weight. Get help right away if: Your pain gets worse. There is blood in your urine. You cannot urinate. You have chest pain. You have trouble breathing. These symptoms may represent a serious problem that is an emergency. Do not wait to see if the symptoms will go away. Get medical help right away. Call your local emergency services (911 in the [place] Summary A renal mass is an abnormal growth in the kidney. It may be cancerous (malignant) and grow or spread quickly, or it may not be cancerous (benign). Renal masses often do not have any signs or symptoms. Renal masses may be found while performing an MRI, CT scan, or ultrasound for other problems of the abdomen. Your health care provider may recommend that you have tests to diagnose the cause of your renal mass. These may include a physical exam, blood tests, urine tests, imaging, or a biopsy. Treatment is not always needed for this condition. Careful monitoring may be recommended. This information is not intended to replace advice given to you by your health care provider. Make sure you discuss any questions you have with your health care provider. Document Revised: 09/16/2020 Document Reviewed: 09/16/2020 [employer] Patient Education 2022 [employer]. Follow Up Care 05/08/2022 13:30:37 With:Adam SAMPSON, DANYELLE Amado, URO Address: When: Unknown [facility] Alfredo 06-18-2022 Evaluation note Encounter Date Diagnosis Assessment Notes Jun, Hyperglycemia due to type 2 diabetes mellitus (ICD-10 - E11.65) Patient reports good glucose control. We will check lab work and continue present medicines Jun, Acquired hypothyroidism (ICD-10 - E03.9) Jun, Essential hypertension (ICD-10 - I10) Chronic problem adequately managed continue present medicine check labs Jun, Unspecified abdominal pain (ICD-10 - R10.9) Follow-up with gastroenterology as scheduled Jun, Other chronic pain (ICD-10 - G89.29) Jun, Left renal mass (ICD-10 - N28.89) Follow-up with urology as scheduled [employer] Other 02-03-2023 Hospital Discharge instructions Patient Education 05/08/2022 13:07:29 Renal Mass Renal Mass A renal mass is a growth in the kidney. A renal mass may be found while performing an MRI, CT scan,or ultrasound for other problems of the abdomen. Certain types of cancers, infections, or injuries can cause a renal mass. A renal mass that is cancerous (malignant) may grow or spread quickly. Others are harmless (benign). What are common types of renal masses? Renal masses include: Tumors. These may be cancerous (malignant) or noncancerous (benign). ?The most common type of kidney cancer is renal cell carcinoma. ?The most common benign tumors of the kidney include renal adenomas, oncocytomas, and angiomyolipoma (AML). Cysts. These are fluid-filled sacs that form on or in the kidney. ?It is not always known what causes a cyst to develop in or on the kidney. ?Most kidney cysts do not cause symptoms and do not need to be treated. What type of testing might I need? Your health care provider may recommend that you have tests to diagnose the cause of your renal mass. The following tests may be done if a renal mass is found: Physical exam. Blood tests. Urine tests. Imaging tests, such as ultrasound, CT scan, or MRI. Biopsy. This is a small sample that is removed from the renal mass and tested in a lab. The exact tests and how often they are done will depend on: The size and appearance of the renal mass. Risk factors or medical conditions that increase your risk for problems. Any symptoms associated with the renal mass, or concerns that you have about it. Tests and physical exams may be done once, or they may be done regularly for a period of time. Tests and exams that are done regularly will help monitor whether the mass is growing and beginning to cause problems. What are common treatments for renal masses? Treatment is not always needed for this condition. Your health care provider may recommend careful monitoring (watchful waiting) and regular tests and exams. Treatment will depend on the cause of themass. Follow these instructions at home: What you need to do at home will depend on the cause of the mass. Follow the instructions that yourhealth care provider gives to you. In general: Take skay-ajf-wlmtioi and prescription medicines only as told by your health care provider. If you are prescribed an antibiotic medicine, take it as told by your health care provider. Do not stop taking the antibiotic even if you start to feel better. Follow any restrictions that are given to you by your health care provider. Keep all follow-up visits as told by your health care provider. This is important. ?You may need to see your health care provider once or twice a year to have CT scans and ultrasounds done. These tests will show if your renal mass has changed or grown bigger. Contact a health care provider if you: Have pain in the side or back (flank pain). Have a fever. Feel full soon after eating. Have pain or swelling in the abdomen. Lose weight. Get help right away if: Your pain gets worse. There is blood in your urine. You cannot urinate. You have chest pain. You have trouble breathing. Summary A renal mass is a growth in the kidney. It may be cancerous (malignant) and grow or spread quickly,or it may be harmless (benign). Renal masses may be found while performing an MRI, CT scan, or ultrasound for other problems of theabdomen. Your health care provider may recommend that you have tests to diagnose the cause of your renal mass. This may include a physical exam, blood tests, urine tests, imaging, or a biopsy. Treatment is not always needed for this condition. Careful monitoring (watchful waiting) may be recommended. This information is not intended to replace advice given to you by your health care provider. Make sure you discuss any questions you have with your health care provider. Document Released: 10/17/2014 Document Revised: 04/28/2018 Document Reviewed: 04/28/2018 [employer] Patient Education 2019 [employer]. Follow Up Care 04/27/2022 15:25:11 With:Adam SAMPSON, Almaz Mcintyre URL, URO Address: When: Unknown [facility] 01-20-[address] guided biopsy of left renal mass. Date: 04/24/2022 Patient Name: Stew Torres : 1965 Ordering provider: Almaz Medina Reason for exam: Renal mass seen on CT abdomen/pelvis 03/26/2022. Performing physicians: Ravi Martinez M.D. Performing Resident: Cruz Orozco D.O. There is no prior H&P on record. ASA: ASA 2 - Patient with mild systemic disease with no functional limitations Mallampati Class: II (hard and soft palate, upper portion of tonsils anduvula visible) Physical exam: CV: [x] WNL Murmur: [] None [] Systolic []Diastolic Rhythm: [] Regular [] Irregular Extremities (Peripheral vascular system): Edema: []None [] Mild [] Moderate []Severe Cyanosis: []None []Present Respiratory: [x] WNL Respiratory effort: [] NL [] ABN Chest wall: [] NL [] ABN Breath sounds: [] NL [] ABN Neurological/Psychiatric: [x] WNL [] Not Assessed Orientation: [] Time [] Place []Person Abdomen: [x] WNL Hepatosplenomegally: [] No []Yes Masses/Tenderness: [] No []Yes Notes (additional assessment information): Cruz ParrinelloLetty 04/24/2022 Pre procedure vitals: BP (!) 147/96 Pulse 95 Temp 36.9 ???C (98.4 ???F) (Oral) Resp 16 SpO2 99% Pre procedure labs: Lab Results Component Value Date PT 12.4 04/24/2022 INR 0.93 04/24/2022 PLT 286 04/24/2022 Cruz Orozco D.O. PGY-2 Ravi Martinez M.D.[facility]12-28[facility]2022 Hospital Discharge instructions Patient Education 04/01/2022 12:49:42 Overactive Bladder, Adult Overactive Bladder, Adult Overactive bladder refers to a condition in which a person has a sudden need to pass urine. The person may leak urine if he or she cannot get to the bathroom fast enough (urinary incontinence). A person with this condition may also wake up several times in the night to go to the bathroom. Overactive bladder is associated with poor nerve signals between your bladder and your brain. Your bladder may get the signal to empty before it is full. You may also have very sensitive muscles thatmake your bladder squeeze too soon. These symptoms might interfere with daily work or social activities. What are the causes? This condition may be associated with or caused by: Urinary tract infection. Infection of nearby tissues, such as the prostate. Prostate enlargement. Surgery on the uterus or urethra. Bladder stones, inflammation, or tumors. Drinking too much caffeine or alcohol. Certain medicines, especially medicines that get rid of extra fluid in the body (diuretics). Muscle or nerve weakness, especially from: ?A spinal cord injury. ?Stroke. ?Multiple sclerosis. ?Parkinson's disease. Diabetes. Constipation. What increases the risk? You may be at greater risk for overactive bladder if you: Are an older adult. Smoke. Are going through menopause. Have prostate problems. Have a neurological disease, such as stroke, dementia, Parkinson's disease, or multiple sclerosis (MS). Eat or drink things that irritate the bladder. These include alcohol, spicy food, and caffeine. Are overweight or obese. What are the signs or symptoms? Symptoms of this condition include: Sudden, strong urge to urinate. Leaking urine. Urinating 8 or more times a day. Waking up to urinate 2 or more times a night. How is this diagnosed? Your health care provider may suspect overactive bladder based on your symptoms. He or she will diagnose this condition by: A physical exam and medical history. Blood or urine tests. You might need bladder or urine tests to help determine what is causing your overactive bladder. You might also need to see a health care provider who specializes in urinary tract problems (urologist). How is this treated? Treatment for overactive bladder depends on the cause of your condition and whether it is mild or severe. You can also make lifestyle changes at home. Options include: Bladder training. This may include: ?Learning to control the urge to urinate by following a schedule that directs you to urinate at regular intervals (timed voiding). ?Doing Kegel exercises to strengthen your pelvic floor muscles, which support your bladder. Toning these muscles can help you control urination, even if your bladder muscles are overactive. Special devices. This may include: ?Biofeedback, which uses sensors to help you become aware of your body's signals. ?Electrical stimulation, which uses electrodes placed inside the body (implanted) or outside the body. These electrodes send gentle pulses of electricity to strengthen the nerves or muscles that control the bladder. ?Women may use a plastic device that fits into the vagina and supports the bladder (pessary). Medicines. ?Antibiotics to treat bladder infection. ?Antispasmodics to stop the bladder from releasing urine at the wrong time. ?Tricyclic antidepressants to relax bladder muscles. ?Injections of botulinum toxin type A directly into the bladder tissue to relax bladder muscles. Lifestyle changes. This may include: ?Weight loss. Talk to your health care provider about weight loss methods that would work best for you. ?Diet changes. This may include reducing how much alcohol and caffeine you consume, or drinking fluids at different times of the day. ?Not smoking. Do not use any products that contain nicotine or tobacco, such as cigarettes and e-cigarettes. If you need help quitting, ask your health care provider. Surgery. ?A device may be implanted to help manage the nerve signals that control urination. ?An electrode may be implanted to stimulate electrical signals in the bladder. ?A procedure may be done to change the shape of the bladder. This is done only in very severe cases. Follow these instructions at home: Lifestyle Make any diet or lifestyle changes that are recommended by your health care provider. These may include: ?Drinking less fluid or drinking fluids at different times of the day. ?Cutting down on caffeine or alcohol. ?Doing Kegel exercises. ?Losing weight if needed. ?Eating a healthy and balanced diet to prevent constipation. This may include: ?Eating foods that are high in fiber, such as fresh fruits and vegetables, whole grains, and beans. ?Limiting foods that are high in fat and processed sugars, such as fried and sweet foods. General instructions Take qeuu-oga-htnyepm and prescription medicines only as told by your health care provider. If you were prescribed an antibiotic medicine, take it as told by your health care provider. Do notstop taking the antibiotic even if you start to feel better. Use any implants or pessary as told by your health care provider. If needed, wear pads to absorb urine leakage. Keep a journal or log to track how much and when you drink and when you feel the need to urinate. This will help your health care provider monitor your condition. Keep all follow-up visits as told by your health care provider. This is important. Contact a health care provider if: You have a fever. Your symptoms do not get better with treatment. Your pain and discomfort get worse. You have more frequent urges to urinate. Get help right away if: You are not able to control your bladder. Summary Overactive bladder refers to a condition in which a person has a sudden need to pass urine. Several conditions may lead to an overactive bladder. Treatment for overactive bladder depends on the cause and severity of your condition. Follow your health care provider's instructions about lifestyle changes, doing Kegel exercises, keeping a journal, and taking medicines. This information is not intended to replace advice given to you by your health care provider. Make sure you discuss any questions you have with your health care provider. Document Released: 01/16/2010 Document Revised: 07/13/2019 Document Reviewed: 04/07/2018 [employer] Patient Education 2020 [employer] Follow Up Care 03/12/2022 15:26:52 With:Adam SAMPSON, DANYELLE Amado, URO Address: [address] [place] [phone] When: Unknown [facility] Alfredo 12-08-2022 Hospital Discharge instructions Patient Education 03/12/2022 13:31:08 Renal Mass Renal Mass A renal mass is a growth in the kidney. A renal mass may be found while performing an MRI, CT scan,or ultrasound for other problems of the abdomen. Certain types of cancers, infections, or injuries can cause a renal mass. A renal mass that is cancerous (malignant) may grow or spread quickly. Others are harmless (benign). What are common types of renal masses? Renal masses include: Tumors. These may be cancerous (malignant) or noncancerous (benign). ?The most common type of kidney cancer is renal cell carcinoma. ?The most common benign tumors of the kidney include renal adenomas, oncocytomas, and angiomyolipoma (AML). Cysts. These are fluid-filled sacs that form on or in the kidney. ?It is not always known what causes a cyst to develop in or on the kidney. ?Most kidney cysts do not cause symptoms and do not need to be treated. What type of testing might I need? Your health care provider may recommend that you have tests to diagnose the cause of your renal mass. The following tests may be done if a renal mass is found: Physical exam. Blood tests. Urine tests. Imaging tests, such as ultrasound, CT scan, or MRI. Biopsy. This is a small sample that is removed from the renal mass and tested in a lab. The exact tests and how often they are done will depend on: The size and appearance of the renal mass. Risk factors or medical conditions that increase your risk for problems. Any symptoms associated with the renal mass, or concerns that you have about it. Tests and physical exams may be done once, or they may be done regularly for a period of time. Tests and exams that are done regularly will help monitor whether the mass is growing and beginning to cause problems. What are common treatments for renal masses? Treatment is not always needed for this condition. Your health care provider may recommend careful monitoring (watchful waiting) and regular tests and exams. Treatment will depend on the cause of themass. Follow these instructions at home: What you need to do at home will depend on the cause of the mass. Follow the instructions that yourhealth care provider gives to you. In general: Take qpbo-kkn-pknlchr and prescription medicines only as told by your health care provider. If you are prescribed an antibiotic medicine, take it as told by your health care provider. Do not stop taking the antibiotic even if you start to feel better. Follow any restrictions that are given to you by your health care provider. Keep all follow-up visits as told by your health care provider. This is important. ?You may need to see your health care provider once or twice a year to have CT scans and ultrasounds done. These tests will show if your renal mass has changed or grown bigger. Contact a health care provider if you: Have pain in the side or back (flank pain). Have a fever. Feel full soon after eating. Have pain or swelling in the abdomen. Lose weight. Get help right away if: Your pain gets worse. There is blood in your urine. You cannot urinate. You have chest pain. You have trouble breathing. Summary A renal mass is a growth in the kidney. It may be cancerous (malignant) and grow or spread quickly,or it may be harmless (benign). Renal masses may be found while performing an MRI, CT scan, or ultrasound for other problems of theabdomen. Your health care provider may recommend that you have tests to diagnose the cause of your renal mass. This may include a physical exam, blood tests, urine tests, imaging, or a biopsy. Treatment is not always needed for this condition. Careful monitoring (watchful waiting) may be recommended. This information is not intended to replace advice given to you by your health care provider. Make sure you discuss any questions you have with your health care provider. Document Released: 10/17/2014 Document Revised: 04/28/2018 Document Reviewed: 04/28/2018 [employer] Patient Education 2020 [employer]. Follow Up Care 02/02/2022 14:54:48 With:Almaz Medina MD, UR, URO Address: When: Unknown [facility] Evaluation + Plan note Future Appointments Appointment Date:04/30/2022 02:45:00 PM Scheduled Provider:Almaz Medina MD Location:[facility] Appointment Type:URO Office Visit [facility] Evaluation + Plan note Future Appointments Appointment Date:10/09/2022 08:00:00 AM Scheduled Provider:Almaz Medina MD Location:[facility] Appointment Type:URO Office Visit [facility] [employer] Evaluation + Plan note Future Appointments Appointment Date:04/15/2023 01:00:00 PM Scheduled Provider:Almaz Medina MD Location:[facility] Appointment Type:URO Office Visit [facility] [employer] Evaluation + Plan note Future Appointments Appointment Date:04/12/2024 08:00:00 AM Scheduled Provider:Alamz Medina MD Location:[facility] Appointment Type:URO Office Visit [facility] [employer] Evaluation [facility]No [facility]No[facility] [employer] Other History general Narrative - Reported* Type Description Date Medical History Acquired hypothyroidism Medical History Essential hypertension Medical History Myalgia Medical History Acute LUQ pain Medical History Hematuria Medical History Current tobacco use Medical History Diastolic blood pressure 90 mm H g or higher Medical History BMI 34.0-34.9,adult Medical History Splenomegaly Medical History Left renal mass Medical History Low back pain Medical History Elevated serum glucose Medical History Hyperglycemia due to type 2 diab etes mellitus Surgical History TONSILLECTOMY Surgical History CHOLECYSTECTOMY Surgical History Kidney Bx -2022 Hospitalization History SEE SURGICAL [facility]X [facility] [facility] course Narrative No data available for this section [facility] [employer] Progress note No data available for this section [facility] [employer] Summary Purpose Family History No Family History Records FoundNo Family History Records FoundNo Family History Records Found No data available for this section Advance Directives No Advanced Directives Records FoundNo Advanced Directives Records FoundNo Advanced Directives Records Found Additional Source Comments Patient Care team informatio n (unrecognized section and content) Personnel Name: STEPH QUESADA MD Address: Address: [address] [place] [address] Personnel Name: STEPH QUESADA MD Address: Address: [address] [place] [address] [place] [address]- Personnel Name: STEPH QUESADA MD Address: Address: [address] [place] [address] Personnel Name: STEPH QUESADA MD Address: Address: [address] [place] [address]- INFORMATION SOURCE (unrecogn ized section and content) DATE CREATED AUTHOR 04/30/2022 [facility] DATE CREATED AUTHOR AUTHOR'S ORGANIZ ATION 07/31/2022 [facility] DATE CREATED AUTHOR AUTHOR'S ORGANIZ ATION 04/09/2023 [facility] REASON FOR VISIT (unrecogniz ed section and content) 3 MONTH FOLLOW UP AHlabsNo I nformationrefill FOR RECORDS PERTAINING TO PATIENTS WHO ARE OR HAVE BEEN ENROLLED IN A CHEMICAL DEPENDENCY/SUBSTANCEABUSE PROGRAM, SOME INFORMATION MAY BE OMITTED. This clinical summary was aggregated from multiple sources. Caution should be exercised in using it in the provision of clinical care. This summary normalizes information from multiple sources, and as a consequence, information in this document may materially change the coding, format and clinical context of patient data. In addition, data may be omitted in some cases. CLINICAL DECISIONS SHOULD BE BASED ON THE PRIMARY CLINICAL RECORDS. [employer] [facility]. provides no warranty or guarantee of the accuracy or completeness of information in this document.
--- NOTE | 2023-05-01 19:24 | ED.SKABFB1 ---
HPI - Skin/Abscess/Foreign Bdy General Chief complaint: Skin/Abscess/Foreign Body Stated complaint: Rash Time Seen by Provider: 05/01/23 19:09 Source: patient Mode of arrival: walk-in History of Present Illness HPI narrative: Patient is a 58-year-old female with a history of diabetes who presents to the emergency department for the evaluation of a rash over the left thoracic chest wall that began yesterday. She states she has had mild pain to the area for the last several days but did not notice the rash until yesterday, today it appears worse. There has been no drainage and she denies fevers, chills, nausea, vomiting. She states earlier in the week she had pain in her left ear and was placed on azithromycin for left otitis media by urgent care. She has had no rash on the face. No medications taken prior to arrival. Related Data Previous Rx's Medication Instructions Recorded acyclovir 800 mg tablet See Rx Instructions .Route 05/01/23 .COMPLEX #35 tabs ondansetron 4 mg disintegrating 4 mg PO Q6H PRN nausea and 05/01/23 tablet vomiting #12 tabs oxycodone-acetaminophen 5 mg-325 1 tab PO Q6H PRN pain 4 days #15 05/01/23 mg tablet (Percocet) tabs prednisone 20 mg tablet See Rx Instructions .Route 05/01/23 .COMPLEX #9 tabs Allergies Allergy/AdvReac Type Severity Reaction Status Date / Time amoxicillin [From Augmentin] Allergy Severe Verified 05/01/23 19:03 clavulanic acid Allergy Severe Verified 05/01/23 19:03 [From Augmentin] Penicillins Allergy Severe Verified 05/01/23 19:03 Review of Systems ROS Constitutional Denies: fever or chills Ears, nose, mouth, and throat Reports: ear pain; Denies: throat pain or nasal congestion Cardiovascular Denies: chest pain Respiratory Denies: shortness of breath or cough Gastrointestinal Denies: nausea or vomiting Genitourinary Denies: painful urination Musculoskeletal Reports: back pain; Denies: neck pain, extremity pain or extremity swelling Integumentary/Breast Reports: rash, redness, skin pain and skin tenderness; Denies: itching Neurological Denies: headache Hematologic/Lymphatic Denies: easy bruising or easy bleeding Exam Narrative Exam Narrative: Gen.: Awake, alert, in no distress Head: Normocephalic, atraumatic ENT: Moist mucous membranes Respiratory: No respiratory distress Extremities: Moves extremities equally Psych: Normal mood and affect Neuro: No focal neuro deficit Skin: Warm, dry, Erythematous vesicular rash extending over the left thoracic back in a dermatome pattern. There are clear fluid-filled vesicles on the lateral aspect of the rash. No open wounds, drainage, red streaking or evidence of secondary cellulitis. No mucous membrane involvement. No extension to the face or eyes. No petechia or purpura. Constitutional Vital Signs, click to edit/add: Last Vital Signs Temp 98.2 F 05/01/23 19:52 Pulse 100 H 05/01/23 19:52 Resp 16 05/01/23 19:52 BP 150/92 H 05/01/23 19:52 Pulse Ox 98 05/01/23 19:52 O2 Del Method Room Air 05/01/23 18:56 Course Vital Signs Vital signs: Vital Signs Temperature 99.1 F 05/01/23 18:56 Pulse Rate 120 H 05/01/23 18:56 Respiratory Rate 20 05/01/23 18:56 Blood Pressure 152/96 H 05/01/23 18:56 Pulse Oximetry 99 05/01/23 18:56 Oxygen Delivery Method Room Air 05/01/23 18:56 Temperature 98.2 F 05/01/23 19:52 Pulse Rate 100 H 05/01/23 19:52 Respiratory Rate 16 05/01/23 19:52 Blood Pressure 150/92 H 05/01/23 19:52 Pulse Oximetry 98 05/01/23 19:52 Oxygen Delivery Method Room Air 05/01/23 18:56 MDM - Skin/Abscess/Foreign Bdy MDM Narrative Medical decision making narrative: Patient treated for shingles, no evidence of secondary cellulitis with rash. Heart rate rechecked prior to discharge. Patient started on acyclovir, pain medication, she was offered a short course of steroids but is nervous about this because of her history of diabetes. I will send the prescription for her if she would like to monitor her blood sugars in her diet at home closely over the next several days, this may help with her rash. Follow-up with PCP and return to the ER if symptoms change or worsen. Medical Records Attestation: I reviewed the patient's medical records. Discharge Plan Discharge Chief Complaint: Skin/Abscess/Foreign Body Clinical Impression: Shingles Patient Disposition: Home, Self-Care Time of Disposition Decision: 19:30 Condition: Good Prescriptions / Home Meds: New acyclovir 800 mg tablet See Rx Instructions .ROUTE .COMPLEX Qty: 35 0RF Rx Instructions: 800 mg orally 5 times a day for 7 days oxycodone-acetaminophen [Percocet] 5-325 mg tablet 1 tab PO Q6H PRN (Reason: pain) 4 Days Qty: 15 0RF Rx Instructions: DX: B02.9 prednisone 20 mg tablet See Rx Instructions .ROUTE .COMPLEX Qty: 9 0RF Rx Instructions: 3 tabs daily for 1 days, then 2 tabs daily for 2 days, then 1 tab daily for 2 days ondansetron 4 mg tablet,disintegrating 4 mg PO Q6H PRN (Reason: nausea and vomiting) Qty: 12 0RF Instructions: Shingles (ED) Stand Alone Forms: Portal Instructions Referrals: Steph Morris MD [Primary Care Provider] - 1 week Discharge Date/Time: 05/01/23 19:53
[2023-05-01] MEDS: OXYCODONE HCL/ACETAMINOPHEN 5MG/325MG 2 TAB PO (19:32)
[2023-05-01] MEDS: ACYCLOVIR 200 MG CAPSULE 800 MG PO (19:32)
[2023-05-01 19:52] VITALS: BP 150/92; PULSE 100; RESP 16; TEMP 36.8; O2SAT 98
== END 2023-05-01 19:53 | disposition home or self-care (01) ==
PROVIDERS: Emergency Provider Emergency Medicine; PCP Family Medicine
DX: B02.9 Zoster without complications (principal); E11.9 Type 2 diabetes mellitus without complications
CPT/HCPCS: 99283

== ENCOUNTER 2024-03-21 07:01 | Outpatient (OUT) | payer OTHER, SELFPAY ==
--- NOTE | 2024-03-21 | US_ITS ---
The [address] [address] Patient Name: JEANNINE ARGUETA MRN: [id number] date: 1965 Sex: F Assigned Patient Location: [place] Current Patient Location: [place] Accession/Order Number: [id number] Exam Date: 03/21/2024 07:05 Report Date: 03/21/2024 09:14 At the request of: SENAIT PAUL Procedure: US renal BI EXAMINATION: US renal BI HISTORY: Renal Mass N28.89 COMPARISON: No relevant comparison available. TECHNIQUE: Ultrasound examination was performed of the bladder. FINDINGS: Increased hepatic echotexture suggesting hepatic steatosis Right Kidney: Normal in size, contour and echotexture. The cortex measures 1 cm. No solid cortical mass, hydronephrosis or obstructing nephrolithiasis Height: 3.98 cm Length: 10.99 cm Width: 5.63 cm Left Kidney: Normal in size, contour and echotexture. The cortex measures 1 cm. Anechoic area midpole measuring 1.1 cm, simple cyst. Identified in the left kidney is a suspected lobular vascular mass measuring 4.8 x 2.8 x 1.8 cm, this is significantly changed in appearance from the prior CT exam. Height: 5.58 cm Length: 10.98 cm Width: 5.07 cm US/US renal BI IMPRESSION: Suspected 4.8 cm left renal cortical mass. CT scan without and with contrast is required for further evaluation Electronically authenticated by: SINTIA MAHAJAN Date: 03/21/2024 09:14
--- OUTSIDE RECORDS SUMMARY | 2024-03-21 07:04 | XMS_ITS | CCD ---
Author Organization [facility] Care Team Providers Care Military Logistics Specialist Name Role Phone STEPH QUESADA Primary Care Physician PROVIDER, GENERIC EXTERNAL DATA Referring Unavailable LUChavo, ALMAZ Referring Unavailable Steph Quesada Unavailable MISC, DR SLADANA Attending Unavailable MISC, DR SALDANA Consulting Unavailable MISC, DR SALDANA Admitting Unavailable QUESADA, DR STEPH Toyn Primary Care Unavailable QUESADA, DR STEPH Tony Attending Unavailable QUESADA, DR STEPH Tony Consulting Unavailable QUESADA, DR STEPH Tony Primary Care Unavailable QUESADA, DR STEPH Tony Admitting Unavailable LUChavo .ALMAZ Attending Unavailable LUE .ALMAZ Admitting Unavailable ZIEBER, DR RISHABH Gonzalez Consulting Unavailable QUESADA, DR STEPH Tony Primary Care Unavailable LUE .ALMAZ Consulting Unavailable QUESADA, DR STEPH Tony Attending Unavailable QUESADA, DR STEPH Tony Consulting Unavailable QUESADA, DR STEPH Tony Primary Care Unavailable QUESADA, DR STEPH Tony Admitting Unavailable QUESADA, DR STEPH Tony Attending Unavailable QUESADA, DR STEPH Tony Consulting Unavailable QUESADA, DR STEPH Tony Primary Care Unavailable QUESADA, DR STEPH Tony Admitting Unavailable JAYA HOWARD Attending Unavailable BRIGHT, DR RISHABH Gonzalez Consulting Unavailable ANITA, JAYA Primary Care Unavailable ANITA, JAYA Admitting Unavailable ANITA, JAYA Consulting Unavailable Lue, Almaz Granda. Attending Unavailable LueAlmaz Attending Unavailable Lue, Almaz Mcintyre Attending Unavailable Allergies Allergy Classification Reported Allergen(s) Allergy Type Date of Onset Reaction(s) Facility (6 sources) Amoxicillin / Clavulanate; Translations: [amoxicillin-cl avulanate] Drug Allergy Unknown (qualifier value) [facility] (10 sources) Penicillin; Translations: [penicillin] Drug Allergy Eruption of skin (disorder) [facility] (1 source) Penicillin; Translations: [PENICILLIN G] Drug Allergy [address] [facility] (1 source) AMOXICILLIN-POT CLAVULANATE; Translations: [AMOXICILLIN-PO T CLAVULANATE] Propensity to adverse reactions to drug (disorder) [address] [facility] (1 source) ALLERGIES NOT ON FILE; Translations: [ALLERGIES NOT ON FILE] Propensity to adverse reactions (disorder) [facility] Medications Current Medications Medication Drug [...] 03/12/22 Status: Ordered take 1 tablet by [facility] three times daily as needed Dicyclomine HCl [...] From: Eleni Schneider To: EU - Recalls Adam; Sent: 10/09/2022 08:30:39 EDT Show up: 03/11/2023 07:30:00 EST Subject: Schedule CT Ab w/wo con Due Date/Time: 04/11/2023 07:30:00 EST Pt needs scheduled for [address] Ab w/wo con for renal mass at [facility]. Has been ordered, needs scheduled. Pt would like CT done at [facility] Order printed and faxed to [facility] Called pt and she states she will give [facility] a call today to get CT scheduled. Pt called to report CT is scheduled for 03/27/23 @7am CT in pt chart for review Normal [facility] Lab Reportson 04-01-2023 Lab Reports [id number] [facility] RAD - CT Reporton 04-01-2023 RAD - CT Report [id number]#[id number] [facility] RAD - CT Reporton 10-12-2022 RAD - CT Report [id number]#[id number]: 127 Normal [facility] Screenson 10-12-2022 Screens [id number]#[id number]: 127 Normal [facility] Ambulatory Visit Summaryon 0 10-09-2022 Ambulatory Visit Summary STEW TORRES :1965 Visit Date:10/09/2022 Ambulatory Visit Instructions Your Diagnosis Renal mass, left Stress incontinence Cyclical vomiting Tests Performed Urnls Dip Stick Auto w/o Microscopy POC [address] CT Abdomen w/ + w/o Contrast -- Results Pending -- Please visit your patient portal for your results or contact your primary care physician. Your Care Team Attending Physician - Almaz Medina MD Primary Care Physician - STEPH QUESADA MD [...] Follow-Up Appointments 2023 1:00 PM EST With: Almaz Medina MD Where: [facility] Patient Educationon 10-10-19 23 Patient Education Urology Renal Mass A renal [...] gives to you. In general: ? Take mnnv-vdi-vffokcg and prescription medicines only as told by [...] provider. Document Revised: 09/16/2020 Document Reviewed: 09/16/2020 [employer] Patient Education ? 2022 [employer]. [employer] [facility] Urology Office/Clinic Noteon 10-09-2022 Urology Office/Clinic Note [...] Pathology noted benign renal parenchyma. Neg HMB-45, Manter-1 (neg for AML). Discussed with pathology who [...] educating the (more content not included)... Normal [facility] Comment on above: Result Comment: Elec tronically Signed By: Almaz Medina MD\.br\Date and Time Signed: 10/09/22 19:00 EDT\.br\Electronically Co-Signed By: Eleni Schneider\.br\Date and Time Co-Signed: 10/09/22 08:29 EDT Pre-Certification Formon Pre-Certification Form [id number]#1.00CD: 127 Normal [facility] BILIRUBIN CONJUGATED (DIRECT )on 07-24-2022 BILI, CONJUGATED 0.1 mg/dL Normal 0.0-0.2 [facility] Comment on above: Performed By: #### D REJI #### [facility] [address] [address] [address] Jenna Collier CBC AUTO DIFFon 07-24-2022 BASO # 0.1 103/ul Normal 0.0-0.1 [facility] Comment on above: Performed By: #### C BC #### [facility] [address] [place] [address] Dr. Jenna Collier Basophils/100 WBC (Bld) 1.0 % Normal 0.2-2.0 [facility] Comment on above: Performed By: #### C BC #### [facility] [address] [place] [address] Dr. Jenna Collier EO # 0.2 103/ul Normal 0.0-0.7 [facility] Comment on above: Performed By: #### C BC #### [facility] [address] [place] [address] Dr. Jenna Collier Eosinophils/100 WBC (Bld) 2.6 % Normal 0.9-7.0 [facility] Comment on above: Performed By: #### C BC #### [facility] [address] [place] [address] Dr. Jenna Collier Erythrocyte distribution width (RBC) [Ratio] 12.8 % Normal 11.0-15.0 [facility] Comment on above: Performed By: #### C BC #### [facility] [address] [place] [address] Dr. Jenna Collier Hematocrit (Bld) [Volume fraction] 40.6 % Normal 36.0-48.0 [facility] Comment on above: Performed By: #### C BC #### [facility] [address] [place] [address] Dr. Jenna Collier Hemoglobin (Bld) [Mass/Vol] 13.8 g/dL Normal 12.0-16.0 [facility] Comment on above: Performed By: #### C BC #### [facility] [address] [place] [address] Dr. Jenna Collier IG # 0.02 10e3/ul Normal 0.00-0.03 [facility] Comment on above: Performed By: #### C BC #### [facility] [address] [place] [address] Dr. Jenna Collier IG % 0.3 % Normal 0.0-0.5 [facility] Comment on above: Performed By: #### C BC #### [facility] [address] [place] [address] Dr. Jenna Collier LYMPH # 2.0 103/ul Normal 1.2-3.8 [facility] Comment on above: Performed By: #### C BC #### [facility] [address] [place] [address] Dr. Jenna Collier Lymphocytes/100 WBC (Bld) 28.5 % Normal 20.5-60.0 [facility] Comment on above: Performed By: #### C BC #### [facility] [address] [place] [address] Dr. Jenna Collier MANUAL DIFF REQ NO Normal [facility] Comment on above: Performed By: #### C BC #### [facility] [address] [place] [address] Dr. Jenna Collier MCH (RBC) [Entitic mass] 28.0 pg Normal 26.7-34.0 [facility] Comment on above: Performed By: #### C BC #### [facility] [address] [place] [address] Dr. Jenna Collier MCHC (RBC) [Mass/Vol] 34.0 g/dL Normal 29.9-35.2 [facility] Comment on above: Performed By: #### C BC #### [facility] [address] [place] [address] Dr. Jenna Collier MCV (RBC) [Entitic vol] 82.4 fL Normal 81.0-99.0 [facility] Comment on above: Performed By: #### C BC #### [facility] [address] [place] [address] Dr. Jenna Collier MONO # 0.5 103/ul Normal 0.3-0.8 [facility] Comment on above: Performed By: #### C BC #### [facility] [address] [place] [address] Dr. Jenna Collier Monocytes/100 WBC (Bld) 7.1 % Normal 1.7-12.0 [facility] Comment on above: Performed By: #### C BC #### [facility] [address] [place] [address] Dr. Jenna Collier NEUT # 4.2 103/ul Normal 1.4-6.5 [facility] Comment on above: Performed By: #### C BC #### [facility] [address] [place] [address] Dr. Jenna Collier Neutrophils/100 WBC (Bld) 60.5 % Normal 43.0-75.0 [facility] Comment on above: Performed By: #### C BC #### [facility] [address] [place] [address] Dr. Jenna Collier Platelet mean volume (Bld) [Entitic vol] 10.3 fL Normal 9.5-13.5 [facility] Comment on above: Performed By: #### C BC #### [facility] [address] [place] [address] Dr. Jenna Collier PLT 265 103/ul Normal 150-450 [facility] Comment on above: Performed By: #### C BC #### [facility] [address] [place] [address] Dr. Jenna Collier RBC 4.93 106/ul Normal 4.20-5.40 [facility] Comment on above: Performed By: #### C BC #### [facility] [address] [place] [address] Dr. Jenna Collier WBC 7.0 103/ul Normal 4.0-11.0 [facility] Comment on above: Performed By: #### C BC #### [facility] [address] [place] [address] Dr. Jenna Collier FREE T4on 07-24-2022 Free T4 [Mass/Vol] 1.32 ng/dL Normal 0.76-1.46 [facility] Comment on above: Performed By: #### F T4 #### [facility] [address] [place] [address] Dr. Jenna Collier GLYCOHEMOGLOBIN A1Con 2022 ADA RECOMMENDATION SEE BELOW Normal [facility] Comment on above: Result Comment: ADA RECOMMENDED LIMIT 4.0 - 6.0 ADA THERAPEUTIC TARGET < 7.0 ACTION SUGGESTED > 7.0 Performed By: #### F T4 #### [facility] [address] [address] [address] Jenna Collier Glucose [Mass/Vol] 120 mg/dL Normal [facility] Comment on above: Performed By: #### F T4 #### [facility] [address] [address] [address] Jenna Collier HbA1c (Bld) [Mass fraction] 5.8 % Normal 4.5-6.2 [facility] Comment on above: Performed By: #### F T4 #### [facility] [address] [place] [address] Dr. Jenna Collier LIPID PROFILEon 07-24-2022 CHOL-HDL RATIO NORM SEE BELOW Normal [facility] Comment on above: Result Comment: 3.3 - 4.4 LOW RISK 4.4 - 7.1 AVERAGE RISK 7.1 - 11.0 MODERATE RISK >11.0 HIGH RISK Performed By: #### U AMIC #### [facility] [address] [place] [address] Dr. Jenna Collier Cholesterol [Mass/Vol] 215 mg/dL Critically high <=200 [facility] Comment on above: Performed By: #### U AMIC #### [facility] [address] [place] [address] Dr. Jenna Collier Cholesterol in HDL [Mass/Vol] 56 mg/dL Normal 40-60 [facility] Comment on above: Performed By: #### U AMIC #### [facility] [address] [place] [address] Dr. Jenna Collier Cholesterol in LDL [Mass/Vol] 130.0 mg/dL Normal [facility] Comment on above: Performed By: #### U AMIC #### [facility] [address] [place] [address] Dr. Jenna Collier Cholesterol.total/C holesterol in HDL [Mass ratio] 3.8 {ratio} Normal [facility] Comment on above: Performed By: #### U AMIC #### [facility] [address] [address] [address] Jenna Collier HDL NORMAL > or = 60 mg/dl - LO W CARDIOVASCULAR RISK <40 mg/dl - HIGH CARDIOVASCULAR RISK Normal [facility] Comment on above: Performed By: #### U AMIC #### [facility] [address] [address] [address] Jenna Collier LDL CALC NORMAL SEE BELOW Normal [facility] Comment on above: Result Comment: <100 mg/dl OPTIMAL 100 - 129 mg/dl NEAR OR ABOVE OPTIMAL 130 - 159 mg/dl BORDERLINE HIGH 160 - 189 mg/dl HIGH >190 mg/dl VERY HIGH Performed By: #### U AMIC #### [facility] [address] [address] [address] Jenna Collier Triglyceride [Mass/Vol] 145 mg/dL Normal <=150 [facility] Comment on above: Performed By: #### U AMIC #### [facility] [address] [address] [address] Jenna Collier VLDL CALC 29.0 mg/dL Normal [facility] Comment on above: Performed By: #### U AMIC #### [facility] [address] [address] [address] Jenna Collier PROF 14(COMP METB)on 023 Albumin [Mass/Vol] 3.7 g/dL Normal 3.4-5.0 [facility] Comment on above: Performed By: #### U AMIC #### [facility] [address] [address] [address] Jenna Collier Albumin/Globulin [Mass ratio] 0.9 {ratio} Normal [facility] Comment on above: Performed By: #### U AMIC #### [facility] [address] [address] [address] Jenna Collier ALP [Catalytic activity/Vol] 72 U/L Normal 46-116 [facility] Comment on above: Performed By: #### U AMIC #### [facility] [address] [address] [address] Jenna Collier ALT [Catalytic activity/Vol] 22 U/L Normal 14-59 [facility] Comment on above: Performed By: #### U AMIC #### [facility] [address] [address] [address] Jenna Collier Anion gap [Moles/Vol] 9.8 mmol/L Normal [facility] Comment on above: Performed By: #### U AMIC #### [facility] [address] [address] [address] Jenna Collier AST [Catalytic activity/Vol] 13 U/L Critically low 15-37 [facility] Comment on above: Performed By: #### U AMIC #### [facility] [address] [address] [address] Jenna Collier Bilirubin [Mass/Vol] 0.8 mg/dL Normal 0.2-1.0 [facility] Comment on above: Performed By: #### U AMIC #### [facility] [address] [address] [address] Jenna Collier Calcium [Mass/Vol] 9.6 mg/dL Normal 8.5-10.1 [facility] Comment on above: Performed By: #### U AMIC #### [facility] [address] [address] [address] Jenna Collier Chloride [Moles/Vol] 102 mmol/L Normal 98-107 [facility] Comment on above: Performed By: #### U AMIC #### [facility] [address] [address] [address] Jenna Collier CO2 [Moles/Vol] 31.8 mmol/L Normal 21.0-32.0 [facility] Comment on above: Performed By: #### U AMIC #### [facility] [address] [address] [address] Jenna Collier Creatinine [Mass/Vol] 0.59 mg/dL Normal 0.55-1.02 [facility] Comment on above: Performed By: #### U AMIC #### [facility] [address] [address] [address] Jenna Collier EGFR-AF LAO >60 Normal >=60 [facility] Comment on above: Performed By: #### U AMIC #### [facility] [address] [address] [address] Jenna Collier EGFR-NON AF LAO >60 Normal >=60 [facility] Comment on above: Performed By: #### U AMIC #### [facility] [address] [address] [address] Jenna Collier Globulin (S) [Mass/Vol] 4.1 g/dL Normal [facility] Comment on above: Performed By: #### U AMIC #### [facility] [address] [address] [address] Jenna Collier Glucose [Mass/Vol] 139 mg/dL Critically high 74-106 [facility] Comment on above: Performed By: #### U AMIC #### [facility] [address] [address] [address] Jenna Collier Potassium [Moles/Vol] 4.6 mmol/L Normal 3.5-5.1 [facility] Comment on above: Performed By: #### U AMIC #### [facility] [address] [address] [address] Jenna Collier Protein [Mass/Vol] 7.8 g/dL Normal 6.4-8.2 [facility] Comment on above: Performed By: #### U AMIC #### [facility] [address] [address] [address] Jenna Collier Sodium [Moles/Vol] 139 mmol/L Normal 136-145 [facility] Comment on above: Performed By: #### U AMIC #### [facility] [address] [address] [address] Jenna Collier Urea nitrogen [Mass/Vol] 15.0 mg/dL Normal 7.0-18.0 [facility] Comment on above: Performed By: #### U AMIC #### [facility] [address] [address] [address] Jenna Collier Urea nitrogen/Creatinine [Mass ratio] 25.4 mg/mg Normal [facility] Comment on above: Performed By: #### U AMIC #### [facility] [address] [place], [place] [address] Dr. Jenna Collier TSHon 07-24-2022 TSH 1.152 uIU/mL Normal 0.358-3.740 [facility] Comment on above: Performed By: #### U AMIC #### [facility] [address] [place], [place] [address] Dr. Jenna Collier Consultation Noteon 06-27-19 Consultation Note [id number]#1.00CD: 127 Normal [facility] Screenson 05-11-2022 Screens [id number]: 127 Normal [facility] Patient Educationon 05-08-19 Patient Education Urology [...] gives to you. In general: ? Take pgpl-jqm-ednqeuu and prescription medicines only as told by [...] 10/17/2014 Document Revised: 04/28/2018 Document Reviewed: 04/28/2018 [employer] Patient Education ? 2019 [employer]. [facility] Urology Office/Clinic Noteon 05-08-2022 Urology Office/Clinic Note [...] angiomyolipoma. - MRI abd w/wo contrast 01/13/2022 [facility] showed 2.7 x 2.2 x 1.3 cm [...] Surveillance CT AP w con done at [facility] on 03/26/22 shows stable compared to 01/06/22, 2.5 cm enhancing mass arising from left kidney superior pole with a focal tiny fatty component. - S/p CT guided percutaneous renal bx done 04/24/22. Pathology noted benign renal parenchyma. Neg HMB-45, Manter-1 (neg for AML). Discussed with pathology who [...] repeat CT Abd w/wo IV contrast at [facility]. Pt understands and agrees with plan. Ordered: CT Abdomen/Pelvis w/ + w/o Contrast 2. Stress incontinence (N39.3: Stress incontinence (female) (male)) Mild. ICIQ at prior OV 3. Only with coughing or sneezing. Not voicing any urinary habit complaints. 3. Cyclical vomiting (R11.15: Cyclical vomiting syndrome unrelated to migraine) Pt inquired about recommendations for GI in the [place] area. Diabetes and HTN getting under control. [...] 4 mo (more content not included)... Normal [facility] Comment on above: Result Comment: Elec tronically Signed By: Almaz Medina MD\.br\Date and Time Signed: 05/08/22 14:03 EST\.br\Electronically Co-Signed By: Eleni Schneider\.br\Date and Time Co-Signed: 05/08/22 13:30 EST Consultation Noteon 04-30-19 Consultation Note [id number] :127 Normal [facility] Lab Reportson 04-30-2022 Lab Reports [id number] :127 Normal [facility] RAD - CT Reporton 04-30-2022 RAD - CT Report [id number]: 127 Normal [facility] APTTon 04-24-2022 ACTIVATED PARTIAL THROMBOPLASTIN TIME IN PPP BY COAGULATION ASSAY 26.0 Seconds Normal 25.0-35.[address] [facility] Comment on above: Performed By: #### L [id number] #### [facility]) [address] [place] [address] CBC WITH AUTO DIFFERENTIALon 04-24-2022 Basophils (Bld) [#/Vol] 0.09 10*3/uL Normal 0.00-0.[address] [facility] Comment on above: Performed By: #### L [id number] #### [facility] [address] [place] [address] Basophils/100 WBC (Bld) 1.0 % Normal 0.0-1.[address] [facility] Comment on above: Performed By: #### L [id number] #### [facility] ([facility]) [address] [place] [address] Eosinophils (Bld) [#/Vol] 0.14 10*3/uL Normal 0.00-0.[address] [facility] Comment on above: Performed By: #### L [id number] #### [facility] ([facility]) [address] [place] [address] Eosinophils/100 WBC (Bld) 1.5 % Normal 0.0-6.[address] [facility] Comment on above: Performed By: #### L [id number] #### [facility] ([facility]) [address] [place] [address] Erythrocyte distribution width (RBC) [Ratio] 13.2 % Normal 11.5-15.[address] [facility] Comment on above: Performed By: #### L [id number] #### [facility] ([facility]) [address] [place] [address] ERYTHROCYTE MEAN CORPUSCULAR HEMOGLOBIN CONCENTRATION (G/DL) BY AUTOMATED 34.7 g/dL Normal 32.0-35.0 [facility] Comment on above: Performed By: #### L [id number] #### [facility] ([facility]) [address] [place] [address] Hematocrit (Bld) [Volume fraction] 40.1 % Normal 36.0-48.[address] [facility] Comment on above: Performed By: #### L [id number] #### [facility] [address] [place] [address] Hemoglobin (Bld) [Mass/Vol] 13.9 g/dL Normal 12.0-15.[address] [facility] Comment on above: Performed By: #### L [id number] #### [facility] [address] [place] [address] Immature granulocytes (Bld) [#/Vol] 0.03 10*3/uL Normal 0.00-0.[address] [facility] Comment on above: Performed By: #### L [id number] #### [facility] ([facility]) [address] [place] [address] Immature granulocytes/100 WBC (Bld) 0.3 % Normal 0.0-1.[address] [facility] Comment on above: Performed By: #### L [id number] #### [facility] ([facility]) [address] [place] [place] [address] Lymphocytes (Bld) [#/Vol] 2.16 10*3/uL Normal 1.20-4.[address] [facility] Comment on above: Performed By: #### L [id number] #### [facility] ([facility] [address] [place] [address] Lymphocytes/100 WBC (Bld) 22.9 % Normal 20.0-45.[address] [facility] Comment on above: Performed By: #### L [id number] #### [facility] [address] [place] [address] MCH (RBC) [Entitic mass] 28.5 pg Normal 27.0-33.[address] [facility] Comment on above: Performed By: #### L [id number] #### [facility] ([facility] [address] [place] [address] MCV (RBC) [Entitic vol] 82.3 fL Normal 82.0-98.[address] [facility] Comment on above: Performed By: #### L [id number] #### [facility] ([facility]) [address] [place] [address] Monocytes (Bld) [#/Vol] 0.43 10*3/uL Normal 0.10-1.[address] [facility] Comment on above: Performed By: #### L [id number] #### [facility] ([facility]) [address] [place] [address] Monocytes/100 WBC (Bld) 4.6 % Low 5.0-12.[address] [facility] Comment on above: Performed By: #### L [id number] #### [facility] ([facility]) [address] [place] [address] Neutrophils (Bld) [#/Vol] 6.57 10*3/uL Normal 1.60-7.[address] [facility] Comment on above: Performed By: #### L [id number] #### [facility] ([facility]) [address] [place] [address] Neutrophils/100 WBC (Bld) 69.7 % Normal 40.0-72.[address] [facility] Comment on above: Performed By: #### L [id number] #### [facility] ([facility]) [address] [place] [address] NRBC (PER 100 WBCS) BY AUTOMATED COUNT 0.0 % Normal 0.0-0.[address] [facility] Comment on above: Performed By: #### L [id number] #### [facility] ([facility]) [address] [place] [address] PLATELETS (10*3/UL) IN BLOOD AUTOMATED COUNT 286 10*3/uL Normal 150-[address] [facility] Comment on above: Performed By: #### L [id number] #### [facility] ([facility]) [address] [place] [address] RBC (Bld) [#/Vol] 4.87 10*6/uL Normal 3.80-5.00 [facility] Comment on above: Performed By: #### L [id number] #### [facility] ([facility]) [address] [place] [address] WBC (Bld) [#/Vol] 9.42 10*3/uL Normal 4.00-10.60 [facility] Comment on above: Performed By: #### L [id number] #### [facility] ([facility]) [address] [place] [address] CT GUIDED PERCUTANEOUS BIOPS Y RENAL LEFTon [...] risks are acceptable. Consent was obtained. Timeout: [place] protocol timeout verification performed. MEDICATIONS: 2 mg [...] renal mass. Approved by:Cruz Rodriguez04/24/2022 10:48 AM. I, Ravi Martinez,have reviewed the image(s) and agree with the findings in this report. Electronically signed: Ravi Martinez. [facility] HISTOLOGY - TISSUE EXAMon LAB AP ASR [...] the Clinical Laboratory Improvement Amendments of 1998. [facility] Comment on above: Performed By: #### L [id number] #### [facility] ([facility]) [address] [place] [address] LAB AP CASE REPORT Normal [facility] Comment on above: Result Comment: Surg ical Pathology Case: [id number] Authorizing Provider: Almaz Medina Collected: 04/24/2022 0922 Ordering Location: [facility] CT Imaging Received: 04/24/2022 1046 Pathologist: Heather Solorio MD Specimen: Kidney, NEEDLE CORE BXS Performed By: #### L [id number] #### [facility] ([facility]) [address] [place] [address] LAB AP CLINICAL INFORMATION Order Diagnoses [facility] Comment on above: Result Comment: N28. 89 - Left renal mass [ICD-10-CM] N28.89 - Other specified disorders of kidney and ureter [ICD-10-CM] N28.89 - Renal mass, left [ICD-10-CM] Performed By: #### L [id number] #### [facility] ([facility]) [address] [place] [address] LAB AP DIAGNOSIS COMMENT [facility] Comment on above: Result Comment: Ther e is no neoplasm identified within the cores or immunohistochemical stained slides. Wood Heel Fitter Machine Dr. Gomez, who concurs with the above diagnosis. Immediate adequacy was performed by Dr. Cisneros. Pass #1: Adequate Pass #2: Adequate Pass #3: Defer Pass #4: Defer When additional subsequent fine needle aspirations are performed, they are done in order to obtain an adequate amount of solar sales representative and assessor material of the tumor/lesion for diagnosis and/or ancillary studies. Performed By: #### L [id number] #### [facility] ([facility]) [address] [place] [address] LAB AP GROSS DESCRIPTION A. Kidney. [facility] Comment on above: Result Comment: Rece ived in formalin , labeled Nigelsamisaul Pérezghulam, NEEDLE CORE BXS are 4 hassan soft tissue core biopsies measuring 1.5, 1.5, 1.3, and 1.0 cm in length and up to 0.1 cm in diameter. The specimen is entirely submitted in 4 cassettes. (1 core in each cassette). Berta Moore, Pathologists' Radiological Equipment Specialist Performed By: #### L [id number] #### [facility] ([facility]) [address] [place] [address] LAB AP MICROSCOPIC DESCRIPTION Microscopic examination performed. [facility] Comment on above: Performed By: #### L [id number] #### [facility] ([facility]) [address] [place] [address] LAB AP REPORT FINAL DIAGNOSIS NARRATIVE [facility] Comment on above: Result Comment: Maki roldan, core biopsy: - Benign renal parenchyma - HMB-45: Negative - Manter-1: Negative - See comment Performed By: #### L [id number] #### [facility] ([facility]) [address] [place] [address] Labon 04-24-2022 Lab [id number] Stew Torres 1965 F Date Provider Department Center 04/24/2022 2245-[facility]PD LAB RESOURCE [facility] OPD [facility] C No family history on file [facility] PROTIME-INRon 04-24-2022 INR IN PPP BY COAGULATION ASSAY 0.93 Normal 0.90-1.[address] [facility] Comment on above: Result Comment: [facility] P RECOMMENDED INR FOR WARFARIN THERAPY CONDITION [...] 1995;[id number]. Performed By: #### L [id number] #### [facility] ([facility]) [address] [place] [address] PROTHROMBIN TIME (PT) IN PPP BY COAGULATION ASSAY 12.4 Seconds Normal 12.3-14.[address] [facility] Comment on above: Performed By: #### L [id number] #### [facility] ([facility]) [address] [place] [address] CT ABDOMEN WO/W CONon 2021 CT ABDOMEN [...] RISHABH NOVOA Date: 2022-03-27 10:12 Normal [facility] CBC AUTO DIFFon 03-26-2022 BASO # 0.1 103/ul Normal 0.0-0.1 [facility] Comment on above: Performed By: #### U AMIC #### [facility] [address] [address] [address] Jenna Collier Basophils/100 WBC (Bld) 0.9 % Normal 0.2-2.0 [facility] Comment on above: Performed By: #### U AMIC #### [facility] [address] [address] [address] Jenna Collier EO # 0.1 103/ul Normal 0.0-0.7 [facility] Comment on above: Performed By: #### U AMIC #### [facility] [address] [address] [address] Jenna Collier Eosinophils/100 WBC (Bld) 1.5 % Normal 0.9-7.0 [facility] Comment on above: Performed By: #### U AMIC #### [facility] [address] [address] [address] Jenna Collier Erythrocyte distribution width (RBC) [Ratio] 13.2 % Normal 11.0-15.0 [facility] Comment on above: Performed By: #### U AMIC #### [facility] [address] [address] [address] Jenna Collier Hematocrit (Bld) [Volume fraction] 41.1 % Normal 36.0-48.0 [facility] Comment on above: Performed By: #### U AMIC #### [facility] [address] [address] [address] Jenna Collier Hemoglobin (Bld) [Mass/Vol] 14.0 g/dL Normal 12.0-16.0 [facility] Comment on above: Performed By: #### U AMIC #### [facility] [address] [address] [address] Jenna Collier IG # 0.03 10e3/ul Normal 0.00-0.03 [facility] Comment on above: Performed By: #### U AMIC #### [facility] [address] [address] [address] Jenna Collier IG % 0.3 % Normal 0.0-0.5 [facility] Comment on above: Performed By: #### U AMIC #### [facility] [address] [place] [address] Dr. Jenna Collier LYMPH # 2.7 103/ul Normal 1.2-3.8 [facility] Comment on above: Performed By: #### U AMIC #### [facility] [address] [place] [address] Dr. Jenna Collier Lymphocytes/100 WBC (Bld) 27.6 % Normal 20.5-60.0 [facility] Comment on above: Performed By: #### U AMIC #### [facility] [address] [place] [address] Dr. Jenna Collier MANUAL DIFF REQ NO Normal [facility] Comment on above: Performed By: #### U AMIC #### [facility] [address] [place] [address] Dr. Jenna Collier MCH (RBC) [Entitic mass] 27.8 pg Normal 26.7-34.0 [facility] Comment on above: Performed By: #### U AMIC #### [facility] [address] [place] [address] Dr. Jenna Collier MCHC (RBC) [Mass/Vol] 34.1 g/dL Normal 29.9-35.2 [facility] Comment on above: Performed By: #### U AMIC #### [facility] [address] [address] [address] Jenna Collier MCV (RBC) [Entitic vol] 81.7 fL Normal 81.0-99.0 [facility] Comment on above: Performed By: #### U AMIC #### [facility] [address] [address] [address] Jenna Collier MONO # 0.4 103/ul Normal 0.3-0.8 [facility] Comment on above: Performed By: #### U AMIC #### [facility] [address] [address] [address] Jenna Collier Monocytes/100 WBC (Bld) 3.8 % Normal 1.7-12.0 [facility] Comment on above: Performed By: #### U AMIC #### [facility] [address] [place] [address] Dr. Jenna Collier NEUT # 6.3 103/ul Normal 1.4-6.5 [facility] Comment on above: Performed By: #### U AMIC #### [facility] [address] [place] [address] Dr. Jenna Collier Neutrophils/100 WBC (Bld) 65.9 % Normal 43.0-75.0 [facility] Comment on above: Performed By: #### U AMIC #### [facility] [address] [place] [address] Dr. Jenna Collier Platelet mean volume (Bld) [Entitic vol] 10.0 fL Normal 9.5-13.5 [facility] Comment on above: Performed By: #### U AMIC #### [facility] [address] [place] [address] Dr. Jenna Collier PLT 320 103/ul Normal 150-450 [facility] Comment on above: Performed By: #### U AMIC #### [facility] [address] [place] [address] Dr. Jenna Collier RBC 5.03 106/ul Normal 4.20-5.40 [facility] Comment on above: Performed By: #### U AMIC #### [facility] [address] [address] [address] Jenna Collier WBC 9.6 103/ul Normal 4.0-11.0 [facility] Comment on above: Performed By: #### U AMIC #### [facility] [address] [place] [address] Dr. eJnna Collier CRPon 03-26-2022 CRP [Mass/Vol] mg/L Normal <=1.0 [facility] Comment on above: Performed By: #### U AMIC #### [facility] [address] [place] [address] Dr. Jenna Collier CULTURE URINEon 03-26-2022 CULTURE URINE Culture Observations : NO GROWTH. Normal [facility] Comment on above: Performed By: #### U AMIC #### [facility] [address] [place] [address] Dr. Jenna Collier FREE T4on 03-26-2022 Free T4 [Mass/Vol] 1.20 ng/dL Normal 0.76-1.46 [facility] Comment on above: Performed By: #### F T4 #### [facility] [address] [place] [address] Dr. Jenna Collier PROF 14(COMP METB)on 022 Albumin [Mass/Vol] 3.8 g/dL Normal 3.4-5.0 [facility] Comment on above: Performed By: #### U AMIC #### [facility] [address] [place] [address] Dr. Jenna Collier Albumin/Globulin [Mass ratio] 1.0 {ratio} Normal [facility] Comment on above: Performed By: #### U AMIC #### [facility] [address] [place] [address] Dr. Jenna Collier ALP [Catalytic activity/Vol] 79 U/L Normal 46-116 [facility] Comment on above: Performed By: #### U AMIC #### [facility] [address] [place] [address] Dr. Jenna Collier ALT [Catalytic activity/Vol] 17 U/L Normal 14-59 [facility] Comment on above: Performed By: #### U AMIC #### [facility] [address] [address] [address] Jenna Collier Anion gap [Moles/Vol] 9.5 mmol/L Normal [facility] Comment on above: Performed By: #### U AMIC #### [facility] [address] [address] [address] Jenna Collier AST [Catalytic activity/Vol] 12 U/L Critically low 15-37 [facility] Comment on above: Performed By: #### U AMIC #### [facility] [address] [address] [address] Jenna Collier Bilirubin [Mass/Vol] 0.7 mg/dL Normal 0.2-1.0 [facility] Comment on above: Performed By: #### U AMIC #### [facility] [address] [address] [address] Jenna Collier Calcium [Mass/Vol] 9.1 mg/dL Normal 8.5-10.1 [facility] Comment on above: Performed By: #### U AMIC #### [facility] [address] [address] [address] Jenna Collier Chloride [Moles/Vol] 97 mmol/L Critically low 98-107 [facility] Comment on above: Performed By: #### U AMIC #### [facility] [address] [address] [address] Jenna Collier CO2 [Moles/Vol] 31.4 mmol/L Normal 21.0-32.0 [facility] Comment on above: Performed By: #### U AMIC #### [facility] [address] [address] [address] Jenna Collier Creatinine [Mass/Vol] 0.63 mg/dL Normal 0.55-1.02 [facility] Comment on above: Performed By: #### U AMIC #### [facility] [address] [address] [address] Jenna Collier EGFR-AF LAO >60 Normal >=60 [facility] Comment on above: Performed By: #### U AMIC #### [facility] [address] [address] [address] Jenna Collier EGFR-NON AF LAO >60 Normal >=60 [facility] Comment on above: Performed By: #### U AMIC #### [facility] [address] [address] [address] Jenna Collier Globulin (S) [Mass/Vol] 3.9 g/dL Normal [facility] Comment on above: Performed By: #### U AMIC #### [facility] [address] [address] [address] Jenna Collier Glucose [Mass/Vol] 117 mg/dL Critically high 74-106 [facility] Comment on above: Performed By: #### U AMIC #### [facility] [address] [address] [address] Jenna Collier Potassium [Moles/Vol] 3.9 mmol/L Normal 3.5-5.1 [facility] Comment on above: Performed By: #### U AMIC #### [facility] [address] [address] [address] Jenna Collier Protein [Mass/Vol] 7.7 g/dL Normal 6.4-8.2 [facility] Comment on above: Performed By: #### U AMIC #### [facility] [address] [address] [address] Jenna Collier Sodium [Moles/Vol] 134 mmol/L Critically low 136-145 [facility] Comment on above: Performed By: #### U AMIC #### [facility] [address] [address] [address] Jenna Collier Urea nitrogen [Mass/Vol] 11.0 mg/dL Normal 7.0-18.0 [facility] Comment on above: Performed By: #### U AMIC #### [facility] [address] [place] [address] Dr. Jenna Collier Urea nitrogen/Creatinine [Mass ratio] 17.5 mg/mg Normal [facility] Comment on above: Performed By: #### U AMIC #### [facility] [address] [place] [address] Dr. Jenna Collier SED RATE WESTERGRENon 2021 SED RATE 14 mm/hr Normal <=30 [facility] Comment on above: Performed By: #### S EDR #### [facility] [address] [place] [address] Dr. Jenna Collier TSHon 03-26-2022 TSH 5.913 uIU/mL Critically high 0.358-3.740 [facility] Comment on above: Performed By: #### U AMIC #### [facility] [address] [place] [address] Dr. Jenna Collier UA RANDOM W/MICROSCOPICon BACTERIA NONE SEEN Normal NONE SEEN [facility] Comment on above: Performed By: #### U AMIC #### [facility] [address] [place] [address] Dr. Jenna Collier Bilirubin Ql (U) Negative Normal NEGATIVE [facility] Comment on above: Performed By: #### U AMIC #### [facility] [address] [place] [address] Dr. Jenna Collier CAST NONE SEEN Normal NONE SEEN [facility] Comment on above: Performed By: #### U AMIC #### [facility] [address] [place] [address] Dr. Jenna Collier Clarity (U) CLEAR Normal CLEAR [facility] Comment on above: Performed By: #### U AMIC #### [facility] [address] [place] [address] Dr. Jenna Collier Color (U) LT. YELLOW Normal YELLOW [facility] Comment on above: Performed By: #### U AMIC #### [facility] [address] [place] [address] Dr. Jenna Collier Crystals LM Nom (Urine sed) NONE SEEN Normal NONE SEEN [facility] Comment on above: Performed By: #### U AMIC #### [facility] [address] [place] [address] Dr. Jenna Collier Epithelial cells LM Ql (Urine sed) RARE Normal NONE SEEN /RARE [facility] Comment on above: Performed By: #### U AMIC #### [facility] [address] [address] [address] Jenna Collier Glucose Ql (U) Negative Normal NEGATIVE [facility] Comment on above: Performed By: #### U AMIC #### [facility] [address] [address] [address] Jenna Collier Hemoglobin Ql (U) Negative Normal NEGATIVE [facility] Comment on above: Performed By: #### U AMIC #### [facility] [address] [address] [address] Jenna Collier Ketones Ql (U) Negative Normal NEGATIVE [facility] Comment on above: Performed By: #### U AMIC #### [facility] [address] [address] [address] Jenna Collier LEUKOCYTES TRACE Abnormal NEGATIVE [facility] Comment on above: Performed By: #### U AMIC #### [facility] [address] [address] [address] Jenna Collier MUCOUS NONE SEEN Normal NONE SEEN [facility] Comment on above: Performed By: #### U AMIC #### [facility] [address] [address] [address] Jenna Collier Nitrite Ql (U) Negative Normal NEGATIVE [facility] Comment on above: Performed By: #### U AMIC #### [facility] [address] [place] [address] Dr. Jenna Collier pH (U) 6.0 [pH] Normal 5-9 [facility] Comment on above: Performed By: #### U AMIC #### [facility] [address] [address] [address] Jenna Collier RBC NONE SEEN Abnormal 0-2 [facility] Comment on above: Performed By: #### U AMIC #### [facility] [address] [place] [address] Dr. Jenna Collier SPEC GRAVITY 1.010 Normal 1.005-<=1.025 [facility] Comment on above: Performed By: #### U AMIC #### [facility] [address] [address] [address] Jenna Collier UA PROTEIN Negative Normal NEGATIVE/ TRACE [facility] Comment on above: Performed By: #### U AMIC #### [facility] [address] [place] [address] Dr. Jenna Collier Urobilinogen Qn (U) 0.2 {Humaira'U}/dL Normal 0.2 - 1. 0 [facility] Comment on above: Performed By: #### U AMIC #### [facility] [address] [place] [address] Dr. Jenna Collier WBC 2-5 Abnormal NONE SEEN [facility] Comment on above: Performed By: #### U AMIC #### [facility] [address] [place] [address] Dr. Jenna Collier CBC AUTO DIFFon 01-22-2022 BASO # 0.1 103/ul Normal 0.0-0.1 [facility] Comment on above: Performed By: #### C BC #### [facility] [address] [place] [address] Dr. Jenna Collier Basophils/100 WBC (Bld) 1.1 % Normal 0.2-2.0 [facility] Comment on above: Performed By: #### C BC #### [facility] [address] [place] [address] Dr. Jenna Collier EO # 0.2 103/ul Normal 0.0-0.7 [facility] Comment on above: Performed By: #### C BC #### [facility] [address] [place] [address] Dr. Jenna Collier Eosinophils/100 WBC (Bld) 1.7 % Normal 0.9-7.0 [facility] Comment on above: Performed By: #### C BC #### [facility] [address] [place] [address] Dr. Jenna Collier Erythrocyte distribution width (RBC) [Ratio] 13.0 % Normal 11.0-15.0 [facility] Comment on above: Performed By: #### C BC #### [facility] [address] [place] [address] Dr. Jenna Collier Hematocrit (Bld) [Volume fraction] 42.2 % Normal 36.0-48.0 [facility] Comment on above: Performed By: #### C BC #### [facility] [address] [place] [address] Dr. Jenna Collier Hemoglobin (Bld) [Mass/Vol] 14.7 g/dL Normal 12.0-16.0 [facility] Comment on above: Performed By: #### C BC #### [facility] [address] [place] [address] Dr. Jenna Collier IG # 0.02 10e3/ul Normal 0.00-0.03 [facility] Comment on above: Performed By: #### C BC #### [facility] [address] [place] [address] Dr. Jenna oCllier IG % 0.2 % Normal 0.0-0.5 [facility] [facility] Comment on above: Performed By: #### C BC #### [facility] [address] [place] [address] Dr. Jenna Collier LYMPH # 2.6 103/ul Normal 1.2-3.8 [facility] Comment on above: Performed By: #### C BC #### [facility] [address] [place] [address] Dr. Jenna Collier Lymphocytes/100 WBC (Bld) 29.4 % Normal 20.5-60.0 [facility] Comment on above: Performed By: #### C BC #### [facility] [address] [place] [address] Dr. Jenna Collier MANUAL DIFF REQ NO Normal [facility] Comment on above: Performed By: #### C BC #### [facility] [address] [place] [address] Dr. Jenna Collier MCH (RBC) [Entitic mass] 28.3 pg Normal 26.7-34.0 [facility] Comment on above: Performed By: #### C BC #### [facility] [address] [place] [address] Dr. Jenna Collier MCHC (RBC) [Mass/Vol] 34.8 g/dL Normal 29.9-35.2 [facility] Comment on above: Performed By: #### C BC #### [facility] [address] [place] [address] Dr. Jenna Collier MCV (RBC) [Entitic vol] 81.2 fL Normal 81.0-99.0 [facility] Comment on above: Performed By: #### C BC #### [facility] [address] [place] [address] Dr. Jenna Collier MONO # 0.4 103/ul Normal 0.3-0.8 [facility] Comment on above: Performed By: #### C BC #### [facility] [address] [place] [address] Dr. Jenna Collier Monocytes/100 WBC (Bld) 4.5 % Normal 1.7-12.0 [facility] Comment on above: Performed By: #### C BC #### [facility] [address] [place] [address] Dr. Jenna Collier NEUT # 5.7 103/ul Normal 1.4-6.5 [facility] Comment on above: Performed By: #### C BC #### [facility] [address] [place] [address] Dr. Jenna Collier Neutrophils/100 WBC (Bld) 63.1 % Normal 43.0-75.0 [facility] Comment on above: Performed By: #### C BC #### [facility] [address] [place] [address] Dr. Jenna Collier Platelet mean volume (Bld) [Entitic vol] 10.1 fL Normal 9.5-13.5 [facility] Comment on above: Performed By: #### C BC #### [facility] [address] [place] [address] Dr. Jenna Collier PLT 264 103/ul Normal 150-450 [facility] Comment on above: Performed By: #### C BC #### [facility] [address] [place] [address] Dr. Jenna Collier RBC 5.20 106/ul Normal 4.20-5.40 [facility] Comment on above: Performed By: #### C BC #### [facility] [address] [place] [address] Dr. Jenna Collier WBC 9.0 103/ul Normal 4.0-11.0 [facility] Comment on above: Performed By: #### C BC #### [facility] [address] [place] [address] Dr. Jenna Collier FREE T4on 01-22-2022 Free T4 [Mass/Vol] 0.70 ng/dL Critically low 0.76-1.46 Th e [facility] Comment on above: Performed By: #### F T4 #### [facility] [address] [place] [address] Dr. Jenna Collier GLYCOHEMOGLOBIN A1Con 2021 ADA RECOMMENDATION SEE BELOW Normal [facility] Comment on above: Result Comment: ADA RECOMMENDED LIMIT 4.0 - 6.0 ADA THERAPEUTIC TARGET < 7.0 ACTION SUGGESTED > 7.0 Performed By: #### A 1C #### [facility] [address] [place] [address] Dr. Jenna Collier Glucose [Mass/Vol] 243 mg/dL Normal [facility] Comment on above: Performed By: #### A 1C #### [facility] [address] [place] [address] Dr. Jenna Collier HbA1c (Bld) [Mass fraction] 10.1 % Critically high 4.5-6.2 [facility] Comment on above: Performed By: #### A 1C #### [facility] [address] [place] [address] Dr. Jenna Collier LIPASEon 01-22-2022 Lipase [Catalytic activity/Vol] 80.0 U/L Normal 73.0-393.0 [facility] Comment on above: Performed By: #### T SH, LIPA, CMP #### [facility] [address] [place] [address] Dr. Jenna Collier PROF 14(COMP METB)on Albumin [Mass/Vol] 3.8 g/dL Normal 3.4-5.0 [facility] Comment on above: Performed By: #### T SH, LIPA, CMP #### [facility] [address] [address] [address] Jenna Collier Albumin/Globulin [Mass ratio] 1.0 {ratio} Normal [facility] Comment on above: Performed By: #### T SH, LIPA, CMP #### [facility] [address] [address] [address] Jenna Collier ALP [Catalytic activity/Vol] 88 U/L Normal 46-116 [facility] Comment on above: Performed By: #### T SH, LIPA, CMP #### [facility] [address] [address] [address] Jenna Collier ALT [Catalytic activity/Vol] 22 U/L Normal 14-59 [facility] Comment on above: Performed By: #### T SH, LIPA, CMP #### [facility] [address] [address] [address] Jenna Collier Anion gap [Moles/Vol] 7.5 mmol/L Normal [facility] Comment on above: Performed By: #### T SH, LIPA, CMP #### [facility] [address] [address] [address] Jenna Collier AST [Catalytic activity/Vol] 9 U/L Critically low 15-37 [facility] Comment on above: Performed By: #### T SH, LIPA, CMP #### [facility] [address] [address] [address] Jenna Collier Bilirubin [Mass/Vol] 0.8 mg/dL Normal 0.2-1.0 [facility] Comment on above: Performed By: #### T SH, LIPA, CMP #### [facility] [address] [address] [address] Jenna Collier Calcium [Mass/Vol] 9.4 mg/dL Normal 8.5-10.1 [facility] Comment on above: Performed By: #### T SH, LIPA, CMP #### [facility] [address] [address] [address] Jenna Collier Chloride [Moles/Vol] 98 mmol/L Normal 98-107 [facility] Comment on above: Performed By: #### T SARA GIMENEZ, CMP #### [facility] [address] [address] [address] Jenna Collier CO2 [Moles/Vol] 30.7 mmol/L Normal 21.0-32.0 [facility] Comment on above: Performed By: #### T SARA GIMENEZ, CMP #### [facility] [address] [address] [address] Jenna Collier Creatinine [Mass/Vol] 0.64 mg/dL Normal 0.55-1.02 [facility] Comment on above: Performed By: #### T SARA GIMENEZ, CMP #### [facility] [address] [place] [address] Dr. Jenna Collier EGFR-AF LAO >60 Normal >=60 [facility] Comment on above: Performed By: #### T SARA GIMENEZ, CMP #### [facility] [address] [place] [address] Dr. Jenna Collier EGFR-NON AF LAO >60 Normal >=60 [facility] Comment on above: Performed By: #### T SARA GIMENEZ, CMP #### [facility] [address] [place] [address] Dr. Jenna Collier Globulin (S) [Mass/Vol] 3.8 g/dL Normal [facility] Comment on above: Performed By: #### T SARA GIMENEZ, CMP #### [facility] [address] [address] [address] Jenna Collier Glucose [Mass/Vol] 257 mg/dL Critically high 74-106 [facility] Comment on above: Performed By: #### T SARA GIMENEZ, CMP #### [facility] [address] [place] [address] Dr. Jenna Collier Potassium [Moles/Vol] 4.2 mmol/L Normal 3.5-5.1 [facility] Comment on above: Performed By: #### T SARA GIMENEZ, CMP #### [facility] [address] [place] [address] Dr. Jenna Collier Protein [Mass/Vol] 7.6 g/dL Normal 6.4-8.2 [facility] Comment on above: Performed By: #### T SARA GIMENEZ, CMP #### [facility] [address] [address] [address] Jenna Collier Sodium [Moles/Vol] 132 mmol/L Critically low 136-[address] [facility] Comment on above: Performed By: #### T SARA GMIENEZ, CMP #### [facility] [address] [place] [address] Dr. Jenna Collier Urea nitrogen [Mass/Vol] 14.0 mg/dL Normal 7.0-18.0 [facility] Comment on above: Performed By: #### T SARA GIMENEZ, CMP #### [facility] [address] [place] [address] Dr. Jenna Collier Urea nitrogen/Creatinine [Mass ratio] 21.9 mg/mg Normal [facility] Comment on above: Performed By: #### T SARA GIMENEZ, CMP #### [facility] [address] [place] [address] Dr. Jenna Collier TSHon 01-22-2022 TSH 16.715 uIU/mL Critically high 0.358-3.740 [facility] Comment on above: Performed By: #### T SARA GIMENEZ, CMP #### [facility] [address] [place] [address] Dr. Jenna Collier MRI ABDOMEN WO W [...] authenticated by: RISHABH NOVOA Date: 2022-01-13 16:27 Normal [facility] Vital Signs Date Time Vital Sign Value Performing Clinician Facility 04-16-2023 08:20-0500 Diastolic blood pressure 86 mm[Hg] Almaz Lue [facility] 04-16-2023 08:20-0500 Heart rate 72 /min Almaz Lue [facility] 04-16-2023 08:20-0500 Systolic blood pressure 136 mm[Hg] Almaz Lue [facility] 10-09-2022 08:01-0400 Blood Pressure Location Almaz Lue [facility] 10-09-2022 08:01-0400 Diastolic blood pressure 94 mm[Hg] Almaz Lue [facility] 10-09-2022 08:01-0400 Heart rate 82 /min Almaz Lue [facility] 10-09-2022 08:01-0400 Systolic blood pressure 163 mm[Hg] Almaz Lue [facility] 06-18-2022 14:30-0400 Body height 167.64 cm Steph Quesada Other [employer] Other 06-18-2022 14:30-0400 Body mass index (BMI) [Ratio] 37.76 kg/m2 Steph Quesada Other [employer] Other 06-18-2022 14:30-0400 Body weight 106.14 kg Steph Quesada Other [employer] Other 06-18-2022 14:30-0400 Diastolic blood pressure 68 mm[Hg] Steph Quesada Other [employer] Other 06-18-2022 14:30-0400 SaO2% (BldA) [Mass fraction] 99 % Steph Quesada Other [employer] Other 06-18-2022 14:30-0400 Systolic blood pressure 120 mm[Hg] Steph Quesada Other [employer] Other 05-08-2022 11:43-0500 Blood Pressure Location Almaz Lue [facility] 05-08-2022 11:43-0500 Diastolic blood pressure 98 mm[Hg] Almaz Lue [facility] 05-08-2022 11:43-0500 Heart rate 94 /min Almaz Lue [facility] 05-08-2022 11:43-0500 Systolic blood pressure 152 mm[Hg] Almaz Lue [facility] 04-01-2022 11:34-0500 Blood Pressure Location Almaz Lue [facility] 04-01-2022 11:34-0500 Diastolic blood pressure 89 mm[Hg] Almaz Lue [facility] 04-01-2022 11:34-0500 Heart rate 87 /min Almaz Lue [facility] 04-01-2022 11:34-0500 Systolic blood pressure 181 mm[Hg] Almaz Lue [facility] 03-12-2022 14:13-0500 Diastolic blood pressure 104 mm[Hg] Almaz Lue [facility] 03-12-2022 14:13-0500 Heart rate 102 /min Almaz Lue [facility] 03-12-2022 14:13-0500 Mean blood pressure 138 mm[Hg] Almaz Lue [facility] 03-12-2022 14:13-0500 Systolic blood pressure 206 mm[Hg] Almaz Lue [facility] 03-12-2022 14:08-0500 Blood Pressure Location Almaz Lue [facility] 03-12-2022 14:08-0500 Diastolic blood pressure 117 mm[Hg] Almaz Lue [facility] 03-12-2022 14:08-0500 Heart rate 102 /min Almaz Lue [facility] 03-12-2022 14:08-0500 Systolic blood pressure 220 mm[Hg] Almaz Medina [facility] Encounters Encounter Date Encounter Type Care Provider Facility Start: 04-16-2023 ambulatory Almaz Medina Facility:[facility] Start: 04-16-2023 End: 04-16-2023 Patient encounter procedure Almaz Medina [facility] [place] Start: 10-09-2022 End: 10-10-2022 ambulatory Almaz Medina Facility:[facility] Start: 10-09-2022 End: 10-09-2022 Patient encounter procedure Almaz Medina [facility] [place] Start: 07-28-2022 End: 07-28-2022 ambulatory Steph Quesada Other [employer] Other Start: 07-28-2022 Telephone encounter Steph Quesada [facility] Start: 07-24-2022 End: 07-25-[address] DOCTOR MONTOYA Facility:[facility] Start: 06-18-2022 End: 06-18-2022 ambulatory Steph Quesada Other [employer] Other Start: 06-18-2022 Office outpatient vi sit 10 minutes Steph Quesada [facility] Start: 05-08-2022 End: 05-09-2022 ambulatory Almaz KaleeLyndon Adam Facility:[facility] Start: 05-08-2022 End: 05-08-2022 Patient encounter procedure Almaz Medina [facility] [place] Start: 04-24-2022 End: 04-25-2022 ambulatory ALMAZ [address]INA [facility] Start: 04-24-2022 Encounter for genera l adult medical examination without abnormal findings GENERIC PROVIDER [facility] Start: 04-13-2022 End: 04-14-2022 ambulatory GENERIC EXTERNAL DATA PROVIDER [facility] Start: 04-01-2022 End: 04-01-2022 Patient encounter procedure Almaz Medina [facility] Start: 03-26-2022 End: 03-27-2022 ambulatory ALMAZ MEDINA . Facility:[facility] Start: 03-12-2022 End: 03-12-2022 Patient encounter procedure Almaz Medina [facility] Start: 01-22-2022 End: 01-23-[address] STEPH QUESADA Facility:[facility] Start: 01-13-2022 End: 01-14-2022 ambulatory JAYA HOWARD Facility:[facility] Procedures Date Procedure Procedure Detail Performing Clinician Start: 04-24-2022 Kidney biopsy Almaz Medina Cholecystectomy Almaz Medina Colonoscopy Almaz Medina Endoscopic biopsy of stomach Almaz Medina Tonsillectomy Almaz Medina Immunizations Immunization Date Immunization Notes Care Provider Manjula varela NEGATED: Highlighted row has not occurred!04-16-2023 influenza virus vaccine, unspecified formulation Almaz Medina [facility] NEGATED: Highlighted row has not occurred!03-12-2022 SARS-CoV-2 mRNA (tozinameran 5y-11y) vaccine Almaz Medina [facility] Payers Date Payer Category Payer Unknown [id number] 1965 Unknown [id number] 2.16.84 [id number] 1965 Unknown [id number] 2.16.84 [id number] 1965 Unknown [id number] 2.16.84 [id number] 1967 Unknown [id number] 2.16.84 [id number] 1967 Unknown [id number] 2.16.84 [id number] 1967 Unknown [id number] 2.16.84 [id number] 1967 Unknown [id number] 2.16.8 [id number] 1965 Unknown [id number] 2.16.8 [id number] 1965 Unknown [id number] 2.16.8 [id number] Social History Date Type Detail Facility Start: 03-12-2022 End: 04-16-2023 Tobacco smoking status Never smoked tobacco (finding) [facility] Tobacco smoking status Never [facility] Sex Assigned At Female [facility] Functional Status Date Assessment Result Facility 04-16-2023 Functional Status N/A [facility] 10-09-2022 Functional Status N/A [facility] 05-08-2022 Functional Status N/A [facility] 04-01-2022 Functional Status N/A [facility] 03-12-2022 Functional Status N/A [facility] Clinical Notes 03-12-2022 to 04-16-2023 Note [...] provider. Document Revised: 07/31/2021 Document Reviewed: 07/31/2021 Elsevier Patient Education 2022 [employer]. Follow Up Care 10/09/2022 08:31:20 With:Adam SAMPSON, DANYELLE Amado, URO Address: [address] [place] [phone] When: Unknown Comments:GENNARO in 1 yr [facility] 10-09-2022 Hospital Discharg e instructions Patient [...] provider gives to you. In general: Take svjv-ijw-wavhlwz and prescription medicines only as told by [...] provider. Document Revised: 09/16/2020 Document Reviewed: 09/16/2020 [employer] Patient Education 2022 [employer]. Follow Up Care 05/08/2022 13:30:37 With:Adam SAMPSON, DANYELLE Amado, URO Address: When: Unknown [facility] 06-18-2022 Evaluation note Encounter Date Diagnosis [...] - N28.89) Follow-up with urology as scheduled [employer] Other [id number] Hospital Discharge instructions Patient Education 05/08/2022 13:07:29 [...] provider gives to you. In general: Take qatj-cgf-dbbncvr and prescription medicines only as told by [...] 10/17/2014 Document Revised: 04/28/2018 Document Reviewed: 04/28/2018 [employer] Patient Education 2020 [employer]. Follow Up Care 04/27/2022 15:25:11 With:Adam SAMPSON, Almaz Mcintyre URL, URO Address: When: Unknown [facility] 01-20-[address] guided biopsy of [...] No []Yes Notes (additional assessment information): Cruz Orozco, D.O. 04/24/2022 Pre procedure vitals: BP (!) 147/96 Pulse 95 Temp 36.9 ???C (98.4 ???F) (Oral) Resp 16 SpO2 99% Pre procedure labs: Lab Results Component Value Date PT 12.4 04/24/2022 INR 0.93 04/24/2022 PLT 286 04/24/2022 Cruz Orozco D.O. PGY-2 Ravi Martinez M.D.[facility]12-28-2022 Hospital Discharge instructions Patient Education 04/01/2022 [...] fried and sweet foods. General instructions Take wihg-fwf-ezljrqb and prescription medicines only as told by [...] 01/16/2010 Document Revised: 07/13/2019 Document Reviewed: 04/07/2018 [employer] Patient Education 2019 [employer] Follow Up Care 03/12/2022 15:26:52 With:Adam SAMPSON, DANYELLE Amado, URO Address: [address] [place] [phone] When: Unknown [facility] 12-08-2022 Hospital Discharge instructions Patient Education [...] provider gives to you. In general: Take zxrw-cde-hlfymuk and prescription medicines only as told by [...] 10/17/2014 Document Revised: 04/28/2018 Document Reviewed: 04/28/2018 [employer] Patient Education 2020 [employer]. Follow Up Care 02/02/2022 14:54:48 With:Almaz Medina MD, UR, URO Address: When: Unknown [facility] Evaluation + Plan note Future Appointments Appointment Date:04/30/2022 02:45:00 PM Scheduled Provider:Almaz Medina MD Location:Critical access hospital Appointment Type:URO Office Visit [facility] Evaluation + Plan note Future Appointments Appointment Date:10/09/2022 08:00:00 AM Scheduled Provider:Almaz Medina MD Location:Critical access hospital Appointment Type:URO Office Visit [facility] Evaluation + Plan note Future Appointments Appointment Date:04/15/2023 01:00:00 PM Scheduled Provider:Almaz Medina MD Location:Critical access hospital Appointment Type:URO Office Visit [facility] Evaluation + Plan note Future Appointments Appointment Date:04/12/2024 08:00:00 AM Scheduled Provider:Almaz Medina MD Location:[facility] Appointment Type:URO Office Visit [facility] [employer] Other History general Narrative - Reported* Type [...] Surgical History CHOLECYSTECTOMY Surgical History Kidney Bx Hospitalization History SEE SURGICAL HX [facility] [employer] Other Hospital course Narrative No data available for this section [facility] Progress note No data available for this section [facility] Summary Purpose Family History No Family History Records FoundNo Family History Records FoundNo Family History Records Found No data available for this section Advance Directives No Advanced Directives Records FoundNo Advanced Directives Records FoundNo Advanced Directives Records Found Additional Source Comments Patient Care team informatio n (unrecognized section and content) Personnel Name: STEPH QUESADA MD Address: Address: [address] [place] [address] Personnel Name: STEPH QUESADA MD Address: Address: [address] [place] [address] Personnel Name: STEPH QUESADA MD Address: Address: [address] [place] [address]- Personnel Name: STEPH QUESADA MD Address: Address: [address] [place] [address]- INFORMATION SOURCE (unrecogn ized section and content) DATE CREATED AUTHOR 04/30/2022 [facility] DATE CREATED AUTHOR AUTHOR'S ORGANIZ ATION 07/31/2022 [facility] DATE CREATED AUTHOR AUTHOR'S ORGANIZ ATION 04/09/2023 [facility] REASON FOR VISIT (unrecogniz ed section [...] BE BASED ON THE PRIMARY CLINICAL RECORDS. [facility]. provides no warranty or guarantee of the accuracy or completeness of information in this document.
== END 2024-03-21 07:02 | disposition home or self-care (01) ==
LOC: US 07:02
PROVIDERS: Visit Provider Urology
DX: N28.89 Other specified disorders of kidney and ureter (principal)
CPT/HCPCS: 76775

== ENCOUNTER 2025-01-21 09:49 | Emergency (ER) | payer OTHER, SELFPAY ==
[2025-01-21] VITALS (15 sets, daily range): BP systolic 146–188; BP diastolic 77–91; PULSE 112–119; TEMP 37; O2SAT 96–99; BMI 36.8
--- OUTSIDE RECORDS SUMMARY | 2025-01-21 10:00 | XMS_ITS | CCD ---
Author Organization [facility] Care Team Providers Care Superintendent Plant Name Role Phone STEPH QUESADA Primary Care Physician PROVIDER, GENERIC EXTERNAL DATA Referring Unavailable ALMAZ MEDINA Referring Unavailable Steph Quesada Unavailable [facility], DR SALDANA Attending Unavailable MISC, DR SALDANA [...] JAYA Admitting Unavailable ANITA, JAYA Consulting Unavailable Adam, Almaz Granda. Attending Unavailable Allergies Allergy Classification Reported Allergen(s) Allergy Type Date of Onset Reaction(s) Facility (7 sources) Amoxicillin / Clavulanate; Translations: [amoxicillin-cl avulanate] Drug Allergy Unknown (qualifier value) [facility] (11 sources) Penicillin; Translations: [penicillin] Drug Allergy Eruption of skin (disorder) [facility] (1 source) Penicillin; Translations: [PENICILLIN G] Drug Allergy 3 [facility] (1 source) AMOXICILLIN-POT CLAVULANATE; Translations: [AMOXICILLIN-PO T CLAVULANATE] Propensity to adverse reactions to drug (disorder) 3 [facility] (1 source) ALLERGIES NOT ON FILE; Translations: [ALLERGIES NOT ON FILE] Propensity to adverse reactions (disorder) [facility] Medications Current Medications Medication Drug Class(es) Dates Sig (Normalized) Sig (Original) amLODIPine 10 mg oral tablet (10 sources) Dihydropyridine Calcium Channel Christina Start: 04-01-2022 [...] Status: Ordered take 1 tablet by pelon three times daily as needed Dicyclomine HCl 20 MG 1 tablet Orally 3 times a day prn Active Bentyl Active glyBURIDE 5 mg oral tablet (9 sources) Sulfonylurea Start: 04-01-2022 take 1 mg by mouth once daily glyBURIDE 5 mg Tab mg tab(s), Oral, Daily Start Date: 04/01/22 Status: Ordered levothyroxine (10 sources) l-Thyroxine Start: 03-12-2022 levothyroxine 137 mcg, Daily, Refills(s) 0 Start Date: 03/12/22 Status: Ordered Start: 03-12-2022 levothyroxine Daily, Refills(s) 0 Start Date: 03/12/22 Status: Ordered take 1 tablet by pelon th once daily in the morning Levothyroxine Sodium 137 MCG 1 tablet in the morning on an empty stomach Orally Once a day Active losartan potassium 50 mg oral tablet (9 sources) Angiotensin 2 Receptor Christina Start: 04-01-2022 take 1 mg by mouth once daily losartan 50 mg Tab mg tab(s), Oral, Daily Start Date: 04/01/22 Status: Ordered metFORMIN hydrochloride 1000 mg oral tablet (10 sources) Biguanide Start: 03-12-2022 take 1 mg [...] Refill(s) 0 Start Date: 04/16/23 Status: Ordered timolol Opth 0.5% Whitney 15 mL (1 source) Start: 04-16-19 timolol Opth 0.5% Whitney 15 mL Refill(s) 0 Start Date: 04/16/23 Status: Ordered Problems Active Problems Problem Classification Problem Date Documented Da te Episodic/Chronic Abdominal pain (7 sources) Left upper quadrant pain; Translations: [Left upper quadrant pain] Onset: 04-02-2022 Episodic Diabetes mellitus with complications (15 sources) Hyperglycemia due to type 2 diabetes mellitus; Translations: [Type 2 diabetes mellitus with hyperglycemia] Onset: 07-24-2022 03-05-2022 Chronic Diabetes mellitus without complication (19 sources) Glycosuria; Translations: [Glycosuria] Onset: 01-25-2022 Episodic Essential hypertension (14 sources) Essential hypertension; Translations: [Essential (primary) hypertension] Onset: 03-12-2022 Chronic Genitourinary symptoms and ill-defined conditions (11 sources) Stress incontinence (female) (male); Translations: [Genuine stress incontinence] Onset: 03-12-2022 Chronic Headache; including migraine (4 sources) Cyclical vomiting syndrome 05-08-2022 Chronic Nausea [...] Chronic Other diseases of kidney and ureters (6 sources) Renal mass 03-12-2022 Chronic Other diseases of kidney and ureters (7 sources) Other specified disorders of kidney and ureter; Translations: [Other specified disorders of kidney and ureter] Onset: 03-26-2022 Chronic Other disorders of stomach and duodenum (3 sources) Cyclical vomiting syndrome; Translations: [Cyclical vomiting syndrome unrelated to migraine] Onset: 05-08-2022 Episodic Other gastrointestinal disorders (10 sources) Splenomegaly; Translations: [Splenomegaly, not elsewhere classified] 03-05-2022 Episodic Other nervous system disorders (4 sources) Chronic pain; Translations: [Other chronic pain] Chronic Other nervous system disorders (1 source) Other chronic pain Chronic Other nutritional; endocrine; and metabolic disorders (4 sources) Obese class I; Translations: [Body mass index (BMI) 34.0-34.9, adult] Chronic Residual codes; unclassified (6 sources) Acute pain 03-05-2022 Episodic Residual codes; unclassified (4 sources) Tobacco use; Translations: [Tobacco use and exposure] Episodic Spondylosis; intervertebral disc disorders; other back problems (4 sources) Low back pain; Translations: [Low back pain] Episodic Thyroid disorders (12 sources) Hypothyroidism; Translations: [Acquired hypothyroidism] Onset: 07-30-2022 [...] Test Name Value Interpretation Reference Range Facility Patient Letter FTon 2024 Patient Letter [facility] Patient Letter [facility] May 24, 2024 ST[address] TORRES [address] [place] [address] [address] [place] [address] : 1965 Dear Ms.Tambera Torres, You missed your scheduled appointment on:04/12/2024. Please note our appointment slots fill quickly. When you fail to cancel or reschedule an appointment the office is unable to fill the appointment slot that was reserved for you. In the future, we ask that you call 24 hours in advance to cancel your appointment. Our current reminder system gives you the opportunity to cancel by responding to our reminder text, phone call or email. You can also call the office to reschedule during normal business hours or use our on-line scheduling portal at your convenience. Our goal is to provide convenient and quality care to all of our patients. We appreciate your consideration regarding any future cancellations. If you could give us a call at the number below to reschedule appointment, that would be greatly appreciated. Sincerely, [facility] [address] [address] ext.3 Normal [facility] BILIRUBIN CONJUGATED (DIRECT )on 07-24-2022 BILI, CONJUGATED 0.1 mg/dL Normal 0.0-0.2 [facility] Comment on above: Performed By: #### D REJI #### [facility] [address] [place] [id number] [address] Jenna Collier CBC AUTO DIFFon 07-24-2022 BASO # 0.1 103/ul Normal 0.0-0.1 [facility] Comment on above: Performed By: #### C BC #### [facility] [address] [place] [address] Dr. Jenna Collier Basophils/100 WBC (Bld) 1.0 % Normal 0.2-2.0 [facility] Comment on above: Performed By: #### C BC #### [facility] [address] [place] [address] Dr. Jenna Collier EO # 0.2 103/ul Normal 0.0-0.7 [facility] Comment on above: Performed By: #### C BC #### [facility] [address] [place] [address] Dr. Jenna Collier Eosinophils/100 WBC (Bld) 2.6 % Normal 0.9-7.0 [facility] Comment on above: Performed By: #### C BC #### [facility] [address] [place] [address] Dr. Jenna Collier Erythrocyte distribution width (RBC) [Ratio] 12.8 % Normal 11.0-15.0 [facility] Comment on above: Performed By: #### C BC #### [facility] [address] [place] [address] Dr. Jenna Collier Hematocrit (Bld) [Volume fraction] 40.6 % Normal 36.0-48.0 [facility] Comment on above: Performed By: #### C BC #### [facility] [address] [place] [address] Dr. Jenna Collier Hemoglobin (Bld) [Mass/Vol] 13.8 g/dL Normal 12.0-16.0 [facility] Comment on above: Performed By: #### C BC #### [facility] [address] [place] [address] Dr. Jenna Collier IG # 0.02 10e3/ul Normal 0.00-0.03 [facility] Comment on above: Performed By: #### C BC #### [facility] [address] [place] [address] Dr. Jenna Collier IG % 0.3 % Normal 0.0-0.5 [facility] Comment on above: Performed By: #### C BC #### [facility] [address] [place] [address] Dr. Jenna Collier LYMPH # 2.0 103/ul Normal 1.2-3.8 [facility] Comment on above: Performed By: #### C BC #### [facility] [address] [place] [address] Dr. Jenna Collier Lymphocytes/100 WBC (Bld) 28.5 % Normal 20.5-60.0 [facility] Comment on above: Performed By: #### C BC #### [facility] [address] [place] [address] Dr. Jenna Collier MANUAL DIFF REQ NO Normal [facility] Comment on above: Performed By: #### C BC #### [facility] [address] [place] [address] Dr. Jenna Collier MCH (RBC) [Entitic mass] 28.0 pg Normal 26.7-34.0 [facility] Comment on above: Performed By: #### C BC #### [facility] [address] [place] [address] Dr. Jenna Collier MCHC (RBC) [Mass/Vol] 34.0 g/dL Normal 29.9-35.2 [facility] Comment on above: Performed By: #### C BC #### [facility] [address] [place] [address] Dr. Jenna Collier MCV (RBC) [Entitic vol] 82.4 fL Normal 81.0-99.0 [facility] Comment on above: Performed By: #### C BC #### [facility] [address] [place] [address] Dr. Jenna Collier MONO # 0.5 103/ul Normal 0.3-0.8 [facility] Comment on above: Performed By: #### C BC #### [facility] [address] [place] [address] Dr. Jenna Collier Monocytes/100 WBC (Bld) 7.1 % Normal 1.7-12.0 [facility] Comment on above: Performed By: #### C BC #### [facility] [address] [place] [address] Dr. Jenna Collier NEUT # 4.2 103/ul Normal 1.4-6.5 [facility] Comment on above: Performed By: #### C BC #### [facility] [address] [place] [address] Dr. Jenna Collier Neutrophils/100 WBC (Bld) 60.5 % Normal 43.0-75.0 [facility] Comment on above: Performed By: #### C BC #### [facility] [address] [place] [address] Dr. Jenna Collier Platelet mean volume (Bld) [Entitic vol] 10.3 fL Normal 9.5-13.5 [facility] Comment on above: Performed By: #### C BC #### [facility] [address] [place] [address] Dr. Jenna Collier PLT 265 103/ul Normal 150-450 [facility] Comment on above: Performed By: #### C BC #### [facility] [address] [place] [address] Dr. Jenna Collier RBC 4.93 106/ul Normal 4.20-5.40 [facility] Comment on above: Performed By: #### C BC #### [facility] [address] [place] [address] Dr. Jenna Collier WBC 7.0 103/ul Normal 4.0-11.0 [facility] Comment on above: Performed By: #### C BC #### [facility] [address] [place] [address] Dr. Jenna Collier FREE T4on 07-24-2022 Free T4 [Mass/Vol] 1.32 ng/dL Normal 0.76-1.46 [facility] Comment on above: Performed By: #### F T4 #### [facility] [address] [place] [address] Dr. Jenna Collier GLYCOHEMOGLOBIN A1Con 2022 ADA RECOMMENDATION SEE BELOW Normal [facility] Comment on above: Result Comment: ADA RECOMMENDED LIMIT 4.0 - 6.0 ADA THERAPEUTIC TARGET < 7.0 ACTION SUGGESTED > 7.0 Performed By: #### F T4 #### [facility] [address] [address] [address] Jenna Collier Glucose [Mass/Vol] 120 mg/dL Normal [facility] Comment on above: Performed By: #### F T4 #### [facility] [address] [address] [address] Jenna Collier HbA1c (Bld) [Mass fraction] 5.8 % Normal 4.5-6.2 [facility] Comment on above: Performed By: #### F T4 #### [facility] [address] [address] [address] Jenna Collier LIPID PROFILEon 07-24-2022 CHOL-HDL RATIO NORM SEE BELOW Normal [facility] Comment on above: Result Comment: 3.3 - 4.4 LOW RISK 4.4 - 7.1 AVERAGE RISK 7.1 - 11.0 MODERATE RISK >11.0 HIGH RISK Performed By: #### U AMIC #### [facility] [address] [place] [address] Dr. Jenna Collier Cholesterol [Mass/Vol] 215 mg/dL Critically high <=200 [facility] Comment on above: Performed By: #### U AMIC #### [facility] [address] [place] [address] Dr. Jenna Collier Cholesterol in HDL [Mass/Vol] 56 mg/dL Normal 40-60 [facility] Comment on above: Performed By: #### U AMIC #### [facility] [address] [address] [address] Jenna Collier Cholesterol in LDL [Mass/Vol] 130.0 mg/dL Normal [facility] Comment on above: Performed By: #### U AMIC #### [facility] [address] [address] [address] Jenna Collier Cholesterol.total/C holesterol in HDL [Mass ratio] 3.8 {ratio} Normal [facility] Comment on above: Performed By: #### U AMIC #### [facility] [address] [address] [address] Jenna Collier HDL NORMAL > or = 60 mg/dl - LO W CARDIOVASCULAR RISK <40 mg/dl - HIGH CARDIOVASCULAR RISK Normal [facility] Comment on above: Performed By: #### U AMIC #### [facility] [address] [address] [address] Jenna Collier LDL CALC NORMAL SEE BELOW Normal [facility] Comment on above: Result Comment: <100 mg/dl OPTIMAL 100 - 129 mg/dl NEAR OR ABOVE OPTIMAL 130 - 159 mg/dl BORDERLINE HIGH 160 - 189 mg/dl HIGH >190 mg/dl VERY HIGH Performed By: #### U AMIC #### [facility] [address] [address] [address] Jenna Collier Triglyceride [Mass/Vol] 145 mg/dL Normal <=150 [facility] Comment on above: Performed By: #### U AMIC #### [facility] [address] [address] [address] Jenna Collier VLDL CALC 29.0 mg/dL Normal [facility] Comment on above: Performed By: #### U AMIC #### [facility] [address] [address] [address] Jenna Collier PROF 14(COMP METB)on 023 Albumin [Mass/Vol] 3.7 g/dL Normal 3.4-5.0 [facility] Comment on above: Performed By: #### U AMIC #### [facility] [address] [address] [address] Jenna Collier Albumin/Globulin [Mass ratio] 0.9 {ratio} Normal [facility] Comment on above: Performed By: #### U AMIC #### [facility] [address] [address] [address] Jenna Collier ALP [Catalytic activity/Vol] 72 U/L Normal 46-116 [facility] Comment on above: Performed By: #### U AMIC #### [facility] [address] [address] [address] Jenna Collier ALT [Catalytic activity/Vol] 22 U/L Normal 14-59 [facility] Comment on above: Performed By: #### U AMIC #### [facility] [address] [address] [address] Jenna Collier Anion gap [Moles/Vol] 9.8 mmol/L Normal [facility] Comment on above: Performed By: #### U AMIC #### [facility] [address] [address] [address] Jenna Collier AST [Catalytic activity/Vol] 13 U/L Critically low 15-37 [facility] Comment on above: Performed By: #### U AMIC #### [facility] [address] [address] [address] Jenna Collier Bilirubin [Mass/Vol] 0.8 mg/dL Normal 0.2-1.0 [facility] Comment on above: Performed By: #### U AMIC #### [facility] [address] [address] [address] Jenna Collier Calcium [Mass/Vol] 9.6 mg/dL Normal 8.5-10.1 [facility] Comment on above: Performed By: #### U AMIC #### [facility] [address] [address] [address] Jenna Collier Chloride [Moles/Vol] 102 mmol/L Normal 98-107 [facility] Comment on above: Performed By: #### U AMIC #### [facility] [address] [address] [address] Jenna Collier CO2 [Moles/Vol] 31.8 mmol/L Normal 21.0-32.0 [facility] Comment on above: Performed By: #### U AMIC #### [facility] [address] [address] [address] Jenna Collier Creatinine [Mass/Vol] 0.59 mg/dL Normal 0.55-1.02 [facility] Comment on above: Performed By: #### U AMIC #### [facility] [address] [address] [address] Jenna Collier EGFR-AF ICELANDIC >60 Normal >=60 [facility] Comment on above: Performed By: #### U AMIC #### [facility] [address] [address] [address] Jenna Collier EGFR-NON AF ICELANDIC >60 Normal >=60 [facility] Comment on above: Performed By: #### U AMIC #### [facility] [address] [address] [address] Jenna Collier Globulin (S) [Mass/Vol] 4.1 g/dL Normal [facility] Comment on above: Performed By: #### U AMIC #### [facility] [address] [address] [address] Jenna Collier Glucose [Mass/Vol] 139 mg/dL Critically high 74-106 [facility] Comment on above: Performed By: #### U AMIC #### [facility] [address] [address] [address] Jenna Collier Potassium [Moles/Vol] 4.6 mmol/L Normal 3.5-5.1 [facility] Comment on above: Performed By: #### U AMIC #### [facility] [address] [address] [address] Jenna Collier Protein [Mass/Vol] 7.8 g/dL Normal 6.4-8.2 [facility] Comment on above: Performed By: #### U AMIC #### [facility] [address] [place] [address] Dr. Jenna Coliler Sodium [Moles/Vol] 139 mmol/L Normal 136-145 [facility] Comment on above: Performed By: #### U AMIC #### [facility] [address] [address] [address] Jenna Collier Urea nitrogen [Mass/Vol] 15.0 mg/dL Normal 7.0-18.0 [facility] Comment on above: Performed By: #### U AMIC #### [facility] [address] [address] [address] Jenna Collier Urea nitrogen/Creatinine [Mass ratio] 25.4 mg/mg Normal [facility] Comment on above: Performed By: #### U AMIC #### [facility] [address] [place] [address] Dr. Jenna Collier TSHon 07-24-2022 TSH 1.152 uIU/mL Normal 0.358-3.[address] [facility] Comment on above: Performed By: #### U [facility] #### [facility] [address] [place] [address] Dr. Jenna Rodriguez 04-24-2022 ACTIVATED PARTIAL THROMBOPLASTIN TIME IN PPP BY COAGULATION ASSAY 26.0 Seconds Normal 25.0-35.0 [facility] Comment on above: Performed By: #### L [id number] #### [facility] ([facility]) [address] [place] [address] CBC WITH AUTO DIFFERENTIALon 04-24-2022 Basophils (Bld) [#/Vol] 0.09 10*3/uL Normal 0.00-0.20 [facility] Comment on above: Performed By: #### L [id number] #### [facility] [address] [place] [address] Basophils/100 WBC (Bld) 1.0 % Normal 0.0-1.0 [facility] Comment on above: Performed By: #### L [id number] #### [facility] ([facility]) [address] [place] [address] Eosinophils (Bld) [#/Vol] 0.14 10*3/uL Normal 0.00-0.50 [facility] Comment on above: Performed By: #### L [id number] #### [facility] [address] [place] [address] Eosinophils/100 WBC (Bld) 1.5 % Normal 0.0-6.0 [facility] Comment on above: Performed By: #### L [id number] #### [facility] ([facility]) [address] [place] [address] Erythrocyte distribution width (RBC) [Ratio] 13.2 % Normal 11.5-15.0 [facility] Comment on above: Performed By: #### L [id number] #### [facility] ([facility]) [address] [place] [address] ERYTHROCYTE MEAN CORPUSCULAR HEMOGLOBIN CONCENTRATION (G/DL) BY AUTOMATED 34.7 g/dL Normal 32.0-35.0 [facility] Comment on above: Performed By: #### L [id number] #### [facility] ([facility]) [address] [place] [address] Hematocrit (Bld) [Volume fraction] 40.1 % Normal 36.0-48.0 [facility] Comment on above: Performed By: #### L [id number] #### [facility] ([facility]) [address] [place] [address] Hemoglobin (Bld) [Mass/Vol] 13.9 g/dL Normal 12.0-15.0 [facility] Comment on above: Performed By: #### L [id number] #### [facility] ([facility]) [address] [place] [address] Immature granulocytes (Bld) [#/Vol] 0.03 10*3/uL Normal 0.00-0.20 [facility] Comment on above: Performed By: #### L [id number] #### [facility] ([facility]) [address] [place] [address] Immature granulocytes/100 WBC (Bld) 0.3 % Normal 0.0-1.0 [facility] Comment on above: Performed By: #### L [id number] #### [facility] ([facility]) [address] [place] [address] Lymphocytes (Bld) [#/Vol] 2.16 10*3/uL Normal 1.20-4.00 [facility] Comment on above: Performed By: #### L [id number] #### [facility] ([facility]) [address] [place] [address] Lymphocytes/100 WBC (Bld) 22.9 % Normal 20.0-45.0 [facility] Comment on above: Performed By: #### L [id number] #### [facility] ([facility]) [address] [place] [address] MCH (RBC) [Entitic mass] 28.5 pg Normal 27.0-33.0 [facility] Comment on above: Performed By: #### L [id number] #### [facility] [address] [place] [address] MCV (RBC) [Entitic vol] 82.3 fL Normal 82.0-98.0 [facility] Comment on above: Performed By: #### L [id number] #### [facility] ([facility]) [address] [place] [address] Monocytes (Bld) [#/Vol] 0.43 10*3/uL Normal 0.10-1.00 [facility] Comment on above: Performed By: #### L [id number] #### [facility] ([facility]) [address] [place] [address] Monocytes/100 WBC (Bld) 4.6 % Low 5.0-12.0 [facility] Comment on above: Performed By: #### L [id number] #### [facility] ([facility]) [address] [place] [address] Neutrophils (Bld) [#/Vol] 6.57 10*3/uL Normal 1.60-7.60 [facility] Comment on above: Performed By: #### L [id number] #### [facility] ([facility]) [address] [place] [address] Neutrophils/100 WBC (Bld) 69.7 % Normal 40.0-72.0 [facility] Comment on above: Performed By: #### L [id number] #### [facility] ([facility]) [address] [place] [address] NRBC (PER 100 WBCS) BY AUTOMATED COUNT 0.0 % Normal 0.0-0.0 [facility] Comment on above: Performed By: #### L [id number] #### [facility] ([facility]) [address] [place] [address] PLATELETS (10*3/UL) IN BLOOD AUTOMATED COUNT 286 10*3/uL Normal 150-400 [facility] Comment on above: Performed By: #### L [id number] #### [facility] ([facility]) [address] [place] [address] RBC (Bld) [#/Vol] 4.87 10*6/uL Normal 3.80-5.00 [facility] Comment on above: Performed By: #### L [id number] #### [facility] ([facility]) [address] [place] [address] WBC (Bld) [#/Vol] 9.42 10*3/uL Normal 4.00-10.60 [facility] [facility] Comment on above: Performed By: #### L [id number] #### [facility] ([facility]) [address] [place] [address] [place] GUIDED PERCUTANEOUS BIOPS Y RENAL LEFTon [...] risks are acceptable. Consent was obtained. Timeout: [place] protocol timeout verification performed. MEDICATIONS: 2 mg of versed and 100 micrograms of Fentanyl were administered for conscious sedation. Vital signs were continuously monitored by nursing staff throughout the procedure. 31 minutes of conscious sedation. Performing physician: Dr. Pam Hill Start time: 955 End time: 102 PROCEDURE/FINDINGS: Estimated blood loss: 3 mL. Patient [...] in this report. Electronically signed: Ravi Martinez. [facility] HISTOLOGY - TISSUE EXAMon LAB AP ASR [...] the Clinical Laboratory Improvement Amendments of 1998. [facility] Comment on above: Performed By: #### L [id number] #### [facility] ([facility]) [address] [place] [address] LAB AP CASE REPORT [facility] Comment on above: Result Comment: Surg ical Pathology Case: [id number] Authorizing Provider: Almaz Medina Collected: 04/24/2022 0922 Ordering Location: [facility] CT Imaging Received: 04/24/2022 1046 Pathologist: Heather Solorio MD Specimen: Kidney, NEEDLE CORE BXS Performed By: #### L [id number] #### [facility] ([facility]) [address] [place] [address] LAB AP CLINICAL INFORMATION Order Diagnoses [facility] Comment on above: Result Comment: N28. 89 - Left renal mass [ICD-10-CM] N28.89 - Other specified disorders of kidney and ureter [ICD-10-CM] N28.89 - Renal mass, left [ICD-10-CM] Performed By: #### L [id number] #### [facility] ([facility]) [address] [place] [address] LAB AP DIAGNOSIS COMMENT [facility] Comment on above: Result Comment: Ther e is no neoplasm identified within the cores or immunohistochemical stained slides. Reserve Officer Dr. Gomez, who concurs with the above diagnosis. Immediate adequacy was performed by Dr. Cisneros. Pass #1: Adequate Pass #2: Adequate Pass #3: Defer Pass #4: Defer When additional subsequent fine needle aspirations are performed, they are done in order to obtain an adequate amount of personal financial representative material of the tumor/lesion for diagnosis and/or ancillary studies. Performed By: #### L [id number] #### [facility] ([facility]) [address] [place] [address] LAB AP GROSS DESCRIPTION A. Kidney. [facility] Comment on above: Result Comment: Rece ived in formalin , labeled Stew Torres, NEEDLE CORE BXS are 4 hassan soft tissue core biopsies measuring 1.5, 1.5, 1.3, and 1.0 cm in length and up to 0.1 cm in diameter. The specimen is entirely submitted in 4 cassettes. (1 core in each cassette). Berta Moore, Pathologists' [employer] Supervisor Performed By: #### L [id number] #### [facility] ([facility]) [address] [place] [address] LAB AP MICROSCOPIC DESCRIPTION Microscopic examination performed. [facility] Comment on above: Performed By: #### L [id number] #### [facility] ([facility]) [address] [place] [address] LAB AP REPORT FINAL DIAGNOSIS NARRATIVE [facility] Comment on above: Result Comment: Maki roldan, core biopsy: - Benign renal parenchyma - HMB-45: Negative - [place]-1: Negative - See comment Performed By: #### L [id number] #### [facility] ([facility]) [address] [place] [address] [place] 04-24-2022 Lab [id number] Stew Torres 1965 F Date Provider Department [place] 04/24/2022 [id number]-[id number] OPD LAB RESOURCE [facility] OPD [facility] No family history on file Normal [facility] PROTIME-INRon 04-24-2022 INR IN PPP BY COAGULATION ASSAY 0.93 Normal 0.90-1.10 [facility] Comment on above: Result Comment: ACCC P RECOMMENDED INR FOR WARFARIN THERAPY CONDITION [...] 1995;[id number]. Performed By: #### L [id number] #### [facility] ([facility]) [address] [place] [address] PROTHROMBIN TIME (PT) IN PPP BY COAGULATION ASSAY 12.4 Seconds Normal 12.3-14.8 [facility] Comment on above: Performed By: #### L [id number] #### [facility] ([facility]) [address] [place] [address] CT ABDOMEN WO/W CONon 2021 CT ABDOMEN [...] RISHABH NOVOA Date: 2022-03-27 10:12 Normal [facility] CBC AUTO DIFFon 03-26-2022 BASO # 0.1 103/ul Normal 0.0-0.1 [facility] Comment on above: Performed By: #### U AMIC #### [facility] [address] [place] [address] Dr. Jenna Collier Basophils/100 WBC (Bld) 0.9 % Normal 0.2-2.0 [facility] Comment on above: Performed By: #### U AMIC #### [facility] [address] [address] [address] Jenna Collier EO # 0.1 103/ul Normal 0.0-0.7 [facility] Comment on above: Performed By: #### U AMIC #### [facility] [address] [address] [address] Jenna Collier Eosinophils/100 WBC (Bld) 1.5 % Normal 0.9-7.0 [facility] Comment on above: Performed By: #### U AMIC #### [facility] [address] [place] [address] Dr. Jenna Collier Erythrocyte distribution width (RBC) [Ratio] 13.2 % Normal 11.0-15.0 [facility] Comment on above: Performed By: #### U AMIC #### [facility] [address] [place] [address] Dr. Jenna Collier Hematocrit (Bld) [Volume fraction] 41.1 % Normal 36.0-48.0 [facility] Comment on above: Performed By: #### U AMIC #### [facility] [address] [place] [address] Dr. Jenna Collier Hemoglobin (Bld) [Mass/Vol] 14.0 g/dL Normal 12.0-16.0 [facility] Comment on above: Performed By: #### U AMIC #### [facility] [address] [place] [address] Dr. Jenna Collier IG # 0.03 10e3/ul Normal 0.00-0.03 [facility] Comment on above: Performed By: #### U AMIC #### [facility] [address] [place] [address] Dr. Jenna Collier IG % 0.3 % Normal 0.0-0.5 [facility] Comment on above: Performed By: #### U AMIC #### [facility] [address] [place] [address] Dr. Jenna Collier LYMPH # 2.7 103/ul Normal 1.2-3.8 [facility] Comment on above: Performed By: #### U AMIC #### [facility] [address] [place] [address] Dr. Jenna Collier Lymphocytes/100 WBC (Bld) 27.6 % Normal 20.5-60.0 [facility] Comment on above: Performed By: #### U AMIC #### [facility] [address] [place] [address] Dr. Jenna Collier MANUAL DIFF REQ NO Normal [facility] Comment on above: Performed By: #### U AMIC #### [facility] [address] [address] [address] Jenna Collier MCH (RBC) [Entitic mass] 27.8 pg Normal 26.7-34.0 [facility] Comment on above: Performed By: #### U AMIC #### [facility] [address] [place] [address] Dr. Jenna Collier MCHC (RBC) [Mass/Vol] 34.1 g/dL Normal 29.9-35.2 [facility] Comment on above: Performed By: #### U AMIC #### [facility] [address] [place] [address] Dr. Jenna Collier MCV (RBC) [Entitic vol] 81.7 fL Normal 81.0-99.0 [facility] Comment on above: Performed By: #### U AMIC #### [facility] [address] [place] [address] Dr. Jenna Collier MONO # 0.4 103/ul Normal 0.3-0.8 [facility] Comment on above: Performed By: #### U AMIC #### [facility] [address] [place] [address] Dr. Jenna Collier Monocytes/100 WBC (Bld) 3.8 % Normal 1.7-12.0 [facility] Comment on above: Performed By: #### U AMIC #### [facility] [address] [place] [address] Dr. Jenna Collier NEUT # 6.3 103/ul Normal 1.4-6.5 [facility] Comment on above: Performed By: #### U AMIC #### [facility] [address] [place] [address] Dr. Jenna Collier Neutrophils/100 WBC (Bld) 65.9 % Normal 43.0-75.0 [facility] Comment on above: Performed By: #### U AMIC #### [facility] [address] [place] [address] Dr. Jenna Collier Platelet mean volume (Bld) [Entitic vol] 10.0 fL Normal 9.5-13.5 [facility] Comment on above: Performed By: #### U AMIC #### [facility] [address] [place] [address] Dr. Jenna Collier PLT 320 103/ul Normal 150-450 [facility] Comment on above: Performed By: #### U AMIC #### [facility] [address] [place] [address] Dr. Jenna Collier RBC 5.03 106/ul Normal 4.20-5.40 [facility] Comment on above: Performed By: #### U AMIC #### [facility] [address] [place] [address] Dr. Jenna Collier WBC 9.6 103/ul Normal 4.0-11.0 [facility] Comment on above: Performed By: #### U AMIC #### [facility] [address] [place] [address] Dr. Jenna Collier CRPon 03-26-2022 CRP [Mass/Vol] mg/L Normal <=1.0 [facility] Comment on above: Performed By: #### U AMIC #### [facility] [address] [place] [address] Dr. Jenna Collier CULTURE URINEon 03-26-2022 CULTURE URINE Culture Observations : NO GROWTH. Normal [facility] Comment on above: Performed By: #### U AMIC #### [facility] [address] [place] [address] Dr. Jenna Collier FREE T4on 03-26-2022 Free T4 [Mass/Vol] 1.20 ng/dL Normal 0.76-1.46 [facility] Comment on above: Performed By: #### F T4 #### [facility] [address] [place] [address] Dr. Jenna Collier PROF 14(COMP METB)on 022 Albumin [Mass/Vol] 3.8 g/dL Normal 3.4-5.0 [facility] Comment on above: Performed By: #### U AMIC #### [facility] [address] [place] [address] Dr. Jenna Collier Albumin/Globulin [Mass ratio] 1.0 {ratio} Normal [facility] Comment on above: Performed By: #### U AMIC #### [facility] [address] [place] [address] Dr. Jenna Collier ALP [Catalytic activity/Vol] 79 U/L Normal 46-116 [facility] Comment on above: Performed By: #### U AMIC #### [facility] [address] [address] [address] Jenna Collier ALT [Catalytic activity/Vol] 17 U/L Normal 14-59 [facility] Comment on above: Performed By: #### U AMIC #### [facility] [address] [place] [address] Dr. Jenna Collier Anion gap [Moles/Vol] 9.5 mmol/L Normal [facility] Comment on above: Performed By: #### U AMIC #### [facility] [address] [place] [address] Dr. Jenna Collier AST [Catalytic activity/Vol] 12 U/L Critically low 15-37 [facility] Comment on above: Performed By: #### U AMIC #### [facility] [address] [place] [address] Dr. Jenna Collier Bilirubin [Mass/Vol] 0.7 mg/dL Normal 0.2-1.0 [facility] Comment on above: Performed By: #### U AMIC #### [facility] [address] [address] [address] Jenna Collier Calcium [Mass/Vol] 9.1 mg/dL Normal 8.5-10.1 [facility] Comment on above: Performed By: #### U AMIC #### [facility] [address] [place] [address] Dr. Jenna Collier Chloride [Moles/Vol] 97 mmol/L Critically low 98-107 [facility] Comment on above: Performed By: #### U AMIC #### [facility] [address] [place] [address] Dr. Jenna Collier CO2 [Moles/Vol] 31.4 mmol/L Normal 21.0-32.0 [facility] Comment on above: Performed By: #### U AMIC #### [facility] [address] [address] [address] Jenna Collier Creatinine [Mass/Vol] 0.63 mg/dL Normal 0.55-1.02 [facility] Comment on above: Performed By: #### U AMIC #### [facility] [address] [address] [address] Jenna Collier EGFR-AF ICELANDIC >60 Normal >=60 [facility] Comment on above: Performed By: #### U AMIC #### [facility] [address] [address] [address] Jenna Collier EGFR-NON AF ICELANDIC >60 Normal >=60 [facility] Comment on above: Performed By: #### U AMIC #### [facility] [address] [address] [address] Jenna Collier Globulin (S) [Mass/Vol] 3.9 g/dL Normal [facility] Comment on above: Performed By: #### U AMIC #### [facility] [address] [address] [address] Jenna Collier Glucose [Mass/Vol] 117 mg/dL Critically high 74-106 [facility] Comment on above: Performed By: #### U AMIC #### [facility] [address] [address] [address] Jenna Collier Potassium [Moles/Vol] 3.9 mmol/L Normal 3.5-5.1 [facility] Comment on above: Performed By: #### U AMIC #### [facility] [address] [address] [address] Jenna Collier Protein [Mass/Vol] 7.7 g/dL Normal 6.4-8.2 [facility] Comment on above: Performed By: #### U AMIC #### [facility] [address] [address] [address] Jenna Collier Sodium [Moles/Vol] 134 mmol/L Critically low 136-145 [facility] Comment on above: Performed By: #### U AMIC #### [facility] [address] [place] [address] Dr. Jenna Collier Urea nitrogen [Mass/Vol] 11.0 mg/dL Normal 7.0-18.0 [facility] Comment on above: Performed By: #### U AMIC #### [facility] [address] [place] [address] Dr. Jenna Collier Urea nitrogen/Creatinine [Mass ratio] 17.5 mg/mg Normal [facility] Comment on above: Performed By: #### U AMIC #### [facility] [address] [place] [address] Dr. Jenna Collier SED RATE [facility] 2021 SED RATE 14 mm/hr Normal <=30 [facility] Comment on above: Performed By: #### S EDR #### [facility] [address] [place] [address] Dr. Jenna Collier TSHon 03-26-2022 TSH 5.913 uIU/mL Critically high 0.358-3.740 [facility] Comment on above: Performed By: #### U AMIC #### [facility] [address] [place] [address] Dr. Jenna Collier UA RANDOM W/MICROSCOPICon BACTERIA NONE SEEN Normal NONE SEEN [facility] Comment on above: Performed By: #### U AMIC #### [facility] [address] [place] [address] Dr. Jenna Collier Bilirubin Ql (U) Negative Normal NEGATIVE [facility] Comment on above: Performed By: #### U AMIC #### [facility] [address] [place] [address] Dr. Jenna Collier CAST NONE SEEN Normal NONE SEEN [facility] Comment on above: Performed By: #### U AMIC #### [facility] [address] [place] [address] Dr. Jenna Collier Clarity (U) CLEAR Normal CLEAR [facility] Comment on above: Performed By: #### U AMIC #### [facility] [address] [address] [address] Jenna Collier Color (U) LT. YELLOW Normal YELLOW [facility] Comment on above: Performed By: #### U AMIC #### [facility] [address] [place] [address] Dr. Jenna Collier Crystals LM Nom (Urine sed) NONE SEEN Normal NONE SEEN [facility] Comment on above: Performed By: #### U AMIC #### [facility] [address] [address] [address] Jenna Collier Epithelial cells LM Ql (Urine sed) RARE Normal NONE SEEN /RARE [facility] Comment on above: Performed By: #### U AMIC #### [facility] [address] [address] [address] Jenna Collier Glucose Ql (U) Negative Normal NEGATIVE [facility] Comment on above: Performed By: #### U AMIC #### [facility] [address] [address] [address] Jenna Collier Hemoglobin Ql (U) Negative Normal NEGATIVE [facility] Comment on above: Performed By: #### U AMIC #### [facility] [address] [place] [address] Dr. Jenna Collier Ketones Ql (U) Negative Normal NEGATIVE [facility] Comment on above: Performed By: #### U AMIC #### [facility] [address] [address] [address] Jenna Collier LEUKOCYTES TRACE Abnormal NEGATIVE [facility] Comment on above: Performed By: #### U AMIC #### [facility] [address] [address] [address] Jenna Collier MUCOUS NONE SEEN Normal NONE SEEN [facility] Comment on above: Performed By: #### U AMIC #### [facility] [address] [address] [address] Jenna Collier Nitrite Ql (U) Negative Normal NEGATIVE [facility] Comment on above: Performed By: #### U AMIC #### [facility] [address] [place] [address] Dr. Jenna Collier pH (U) 6.0 [pH] Normal 5-9 [facility] Comment on above: Performed By: #### U AMIC #### [facility] [address] [place] [address] Dr. Jenna Collier RBC NONE SEEN Abnormal 0-2 [facility] Comment on above: Performed By: #### U AMIC #### [facility] [address] [place] [address] Dr. Jenna Collier SPEC GRAVITY 1.010 Normal 1.005-<=1.025 [facility] Comment on above: Performed By: #### U AMIC #### [facility] [address] [place] [address] Dr. Jenna Collier UA PROTEIN Negative Normal NEGATIVE/ TRACE [facility] Comment on above: Performed By: #### U AMIC #### [facility] [address] [place] [address] Dr. Jenna Collier Urobilinogen Qn (U) 0.2 {Humaira'U}/dL Normal 0.2 - 1. 0 [facility] Comment on above: Performed By: #### U AMIC #### [facility] [address] [place] [address] Dr. Jenna Collier WBC 2-5 Abnormal NONE SEEN [facility] Comment on above: Performed By: #### U AMIC #### [facility] [address] [place] [address] Dr. Jenna Collier CBC AUTO DIFFon 01-22-2022 BASO # 0.1 103/ul Normal 0.0-0.1 [facility] Comment on above: Performed By: #### C BC #### [facility] [address] [place] [address] Dr. Jenna Collier Basophils/100 WBC (Bld) 1.1 % Normal 0.2-2.0 [facility] Comment on above: Performed By: #### C BC #### [facility] [address] [place] [address] Dr. Jenna Collier EO # 0.2 103/ul Normal 0.0-0.7 [facility] Comment on above: Performed By: #### C BC #### [facility] [address] [place] [address] Dr. Jenna Collier Eosinophils/100 WBC (Bld) 1.7 % Normal 0.9-7.0 [facility] Comment on above: Performed By: #### C BC #### [facility] [address] [place] [address] Dr. Jenna Collier Erythrocyte distribution width (RBC) [Ratio] 13.0 % Normal 11.0-15.0 [facility] Comment on above: Performed By: #### C BC #### [facility] [address] [place] [address] Dr. Jenna Collier Hematocrit (Bld) [Volume fraction] 42.2 % Normal 36.0-48.0 [facility] Comment on above: Performed By: #### C BC #### [facility] [address] [place] [address] Dr. Jenna Collier Hemoglobin (Bld) [Mass/Vol] 14.7 g/dL Normal 12.0-16.0 [facility] Comment on above: Performed By: #### C BC #### [facility] [address] [place] [address] Dr. Jenna Collier IG # 0.02 10e3/ul Normal 0.00-0.03 [facility] Comment on above: Performed By: #### C BC #### [facility] [address] [place] [address] Dr. Jenna Collier IG % 0.2 % Normal 0.0-0.5 [facility] Comment on above: Performed By: #### C BC #### [facility] [address] [place] [address] Dr. Jenna Collier LYMPH # 2.6 103/ul Normal 1.2-3.8 [facility] Comment on above: Performed By: #### C BC #### [facility] [address] [place] [address] Dr. Jenna Collier Lymphocytes/100 WBC (Bld) 29.4 % Normal 20.5-60.0 [facility] Comment on above: Performed By: #### C BC #### [facility] [address] [place] [address] Dr. Jenna Collier MANUAL DIFF REQ NO Normal [facility] Comment on above: Performed By: #### C BC #### [facility] [address] [place] [address] Dr. Jenna Collier MCH (RBC) [Entitic mass] 28.3 pg Normal 26.7-34.0 [facility] Comment on above: Performed By: #### C BC #### [facility] [address] [place] [address] Dr. Jenna Collier MCHC (RBC) [Mass/Vol] 34.8 g/dL Normal 29.9-35.2 [facility] Comment on above: Performed By: #### C BC #### [facility] [address] [place] [address] Dr. Jenna Collier MCV (RBC) [Entitic vol] 81.2 fL Normal 81.0-99.0 [facility] Comment on above: Performed By: #### C BC #### [facility] [address] [place] [address] Dr. Jenna Collier MONO # 0.4 103/ul Normal 0.3-0.8 [facility] Comment on above: Performed By: #### C BC #### [facility] [address] [place] [address] Dr. Jenna Collier Monocytes/100 WBC (Bld) 4.5 % Normal 1.7-12.0 [facility] Comment on above: Performed By: #### C BC #### [facility] [address] [place] [address] Dr. Jenna Collier NEUT # 5.7 103/ul Normal 1.4-6.5 [facility] Comment on above: Performed By: #### C BC #### [facility] [address] [place] [address] Dr. Jenna Collier Neutrophils/100 WBC (Bld) 63.1 % Normal 43.0-75.0 [facility] Comment on above: Performed By: #### C BC #### [facility] [address] [address] [address] Jenna Collier Platelet mean volume (Bld) [Entitic vol] 10.1 fL Normal 9.5-13.5 [facility] Comment on above: Performed By: #### C BC #### [facility] [address] [address] [address] Jenna Collier PLT 264 103/ul Normal 150-450 [facility] Comment on above: Performed By: #### C BC #### [facility] [address] [place] [address] Dr. Jenna Collier RBC 5.20 106/ul Normal 4.20-5.40 [facility] Comment on above: Performed By: #### C BC #### [facility] [address] [place] [address] Dr. Jenna Collier WBC 9.0 103/ul Normal 4.0-11.0 [facility] Comment on above: Performed By: #### C BC #### [facility] [address] [place] [address] Dr. Jenna Collier FREE T4on 01-22-2022 Free T4 [Mass/Vol] 0.70 ng/dL Critically low 0.76-1.46 [facility] Comment on above: Performed By: #### F T4 #### [facility] [address] [place] [address] Dr. Jenna Collier GLYCOHEMOGLOBIN A1Con 2021 ADA RECOMMENDATION SEE BELOW Normal [facility] Comment on above: Result Comment: ADA RECOMMENDED LIMIT 4.0 - 6.0 ADA THERAPEUTIC TARGET < 7.0 ACTION SUGGESTED > 7.0 Performed By: #### A 1C #### [facility] [address] [place] [address] Dr. Jenna Collier Glucose [Mass/Vol] 243 mg/dL Normal [facility] Comment on above: Performed By: #### A 1C #### [facility] [address] [place] [address] Dr. Jenna Collier HbA1c (Bld) [Mass fraction] 10.1 % Critically high 4.5-6.2 [facility] Comment on above: Performed By: #### A 1C #### [facility] [address] [place] [address] Dr. Jenna Collier LIPASEon 01-22-2022 Lipase [Catalytic activity/Vol] 80.0 U/L Normal 73.0-393.0 [facility] Comment on above: Performed By: #### T PERNELL LIPA, CMP #### [facility] [address] [place] [address] Dr. Jenna Collier PROF 14(COMP METB)on 022 Albumin [Mass/Vol] 3.8 g/dL Normal 3.4-5.0 [facility] Comment on above: Performed By: #### T PERNELL LIPA, CMP #### [facility] [address] [place] [address] Dr. Jenna Collier Albumin/Globulin [Mass ratio] 1.0 {ratio} Normal [facility] Comment on above: Performed By: #### T PERNELL LIPA, CMP #### [facility] [address] [place] [address] Dr. Jenna Collier ALP [Catalytic activity/Vol] 88 U/L Normal 46-116 [facility] Comment on above: Performed By: #### T PERNELL LIPA, CMP #### [facility] [address] [place] [address] Dr. Jenna Collier ALT [Catalytic activity/Vol] 22 U/L Normal 14-59 [facility] Comment on above: Performed By: #### T PERNELL LIPA, CMP #### [facility] [address] [place] [address] Dr. Jenna Collier Anion gap [Moles/Vol] 7.5 mmol/L Normal [facility] Comment on above: Performed By: #### T PERNELL LIPA, CMP #### [facility] [address] [place] [address] Dr. Jenna Collier AST [Catalytic activity/Vol] 9 U/L Critically low 15-37 [facility] Comment on above: Performed By: #### T PERNELL LIPA, CMP #### [facility] [address] [address] [address] Jenna Collier Bilirubin [Mass/Vol] 0.8 mg/dL Normal 0.2-1.0 [facility] Comment on above: Performed By: #### T CECILE GIMENEZA, CMP #### [facility] [address] [place] [address] Dr. Jenna Collier Calcium [Mass/Vol] 9.4 mg/dL Normal 8.5-10.1 [facility] Comment on above: Performed By: #### T PERNELL LIPA, CMP #### [facility] [address] [address] [address] Jenna Collier Chloride [Moles/Vol] 98 mmol/L Normal 98-107 [facility] Comment on above: Performed By: #### T PERNELL LIPA, CMP #### [facility] [address] [place] [address] Dr. Jenna Collier CO2 [Moles/Vol] 30.7 mmol/L Normal 21.0-32.0 [facility] Comment on above: Performed By: #### T PERNELL LIPA, CMP #### [facility] [address] [place] [address] Dr. Jenna Collier Creatinine [Mass/Vol] 0.64 mg/dL Normal 0.55-1.02 [facility] Comment on above: Performed By: #### T CECILE GIMENEZA, CMP #### [facility] [address] [place] [address] Dr. Jenna Collier EGFR-AF ICELANDIC >60 Normal >=60 [facility] Comment on above: Performed By: #### T PERNELL LIPA, CMP #### [facility] [address] [place] [address] Dr. Jenna Collier EGFR-NON AF ICELANDIC >60 Normal >=60 [facility] Comment on above: Performed By: #### T PERNELL LIPA, CMP #### [facility] [address] [place] [address] Dr. Jenna Collier Globulin (S) [Mass/Vol] 3.8 g/dL Normal [facility] Comment on above: Performed By: #### T SH, LIPA, CMP #### [facility] [address] [address] [address] Jenna Collier Glucose [Mass/Vol] 257 mg/dL Critically high 74-106 [facility] Comment on above: Performed By: #### T SH, LIPA, CMP #### [facility] [address] [place] [address] Dr. Jenna Collier Potassium [Moles/Vol] 4.2 mmol/L Normal 3.5-5.1 [facility] Comment on above: Performed By: #### T SH, LIPA, CMP #### [facility] [address] [place] [address] Dr. Jenna Collier Protein [Mass/Vol] 7.6 g/dL Normal 6.4-8.2 [facility] Comment on above: Performed By: #### T SH LIPA, CMP #### [facility] [address] [place] [address] Dr. Jenna Collier Sodium [Moles/Vol] 132 mmol/L Critically low 136-145 [facility] Comment on above: Performed By: #### T PERNELL LIPA, CMP #### [facility] [address] [place] [address] Dr. Jenna Collier Urea nitrogen [Mass/Vol] 14.0 mg/dL Normal 7.0-18.0 [facility] Comment on above: Performed By: #### T PERNELL LIPA, CMP #### [facility] [address] [place] [address] Dr. Jenna Collier Urea nitrogen/Creatinine [Mass ratio] 21.9 mg/mg Normal [facility] Comment on above: Performed By: #### T PERNELL LIPA, CMP #### [facility] [address] [place] [address] Dr. Jenna Collier TSHon 01-22-2022 TSH 16.715 uIU/mL Critically high 0.358-3.740 [facility] Comment on above: Performed By: #### T SH, LIPA, CMP #### [facility] [address] [place] [address] Dr. Jenna Collier MRI ABDOMEN WO W [...] by: RISHABH NOVOA Date: 2022-01-13 16:27 Normal [facility] Vital Signs Date Time Vital Sign Value Performing Clinician Facility 04-16-2023 08:20-0500 Diastolic blood pressure 86 mm[Hg] Almaz Medina [facility] 04-16-2023 08:20-0500 Heart rate 72 /min Almazdaniela Medina [facility] 04-16-2023 08:20-0500 Systolic blood pressure 136 mm[Hg] Almaz Sine [facility] 10-09-2022 08:01-0400 Blood Pressure Location Almaz Lue [facility] 10-09-2022 08:01-0400 Diastolic blood pressure 94 mm[Hg] Almaz Lue [facility] 10-09-2022 08:01-0400 Heart rate 82 /min Almaz Lue [facility] 10-09-2022 08:01-0400 Systolic blood pressure 163 mm[Hg] Almaz Lue [facility] 06-18-2022 14:30-0400 Body height 167.64 cm Steph Quesada Other [facility] [employer] Other 06-18-2022 14:30-0400 Body mass index (BMI) [Ratio] 37.76 kg/m2 Steph Quesada Other [facility] [employer] Other 06-18-2022 14:30-0400 Body weight 106.14 kg Steph Quesada Other [employer] Other 06-18-2022 14:30-0400 Diastolic blood pressure 68 mm[Hg] Steph Quesada Other [employer] Other 06-18-2022 14:30-0400 SaO2% (BldA) [Mass fraction] 99 % Steph Quesada Other [facility] [employer] Other 06-18-2022 14:30-0400 Systolic blood pressure 120 mm[Hg] Steph Quesada Other [facility] [employer] Other 05-08-2022 11:43-0500 Blood Pressure Location Almaz Lue [facility] 05-08-2022 11:43-0500 Diastolic blood pressure 98 mm[Hg] Almaz Lue [facility] 05-08-2022 11:43-0500 Heart rate 94 /min Almaz Lue [facility] 05-08-2022 11:43-0500 Systolic blood pressure 152 mm[Hg] Almaz Lue [facility] 04-01-2022 11:34-0500 Blood Pressure Location Almaz Lue [facility] 04-01-2022 11:34-0500 Diastolic blood pressure 89 mm[Hg] Almaz Lue [facility] 04-01-2022 11:34-0500 Heart rate 87 /min Almaz Lue [facility] 04-01-2022 11:34-0500 Systolic blood pressure 181 mm[Hg] Almaz Lue [facility] 03-12-2022 14:13-0500 Diastolic blood pressure 104 mm[Hg] Almaz Lue [facility] 03-12-2022 14:13-0500 Heart rate 102 /min Almaz Lue [facility] 03-12-2022 14:13-0500 Mean blood pressure 138 mm[Hg] Almaz Lue [facility] 03-12-2022 14:13-0500 Systolic blood pressure 206 mm[Hg] Almaz Lue [facility] 03-12-2022 14:08-0500 Blood Pressure Location Almaz Lue [facility] 03-12-2022 14:08-0500 Diastolic blood pressure 117 mm[Hg] Almaz Lue [facility] 03-12-2022 14:08-0500 Heart rate 102 /min Almaz Lue [facility] 03-12-2022 14:08-0500 Systolic blood pressure 220 mm[Hg] Almaz Lue [facility] Encounters Encounter Date Encounter Type Care Provider Facility Start: 04-12-2024 End: 04-12-2024 ambulatory Almaz M. Lue Facility:[facility] Start: 04-12-2024 End: 04-12-2024 Patient encounter procedure Almaz M. Lue [facility] Start: 04-16-2023 End: 04-16-2023 Patient encounter procedure Almaz M. Lue [facility] Start: 10-09-2022 End: 10-09-2022 Patient encounter procedure Almaz M. Lue [facility] Start: 07-28-2022 End: 07-28-2022 ambulatory Steph Quesada Other [facility] [employer] Other Start: 07-28-2022 Telephone encounter Steph Quesada [facility] Start: 07-24-2022 End: 07-25-[address] SALDANA [facility] Facility:[facility] Start: 06-18-2022 End: 06-18-2022 ambulatory Steph Quesada Other [facility] [employer] Other Start: 06-18-2022 Office outpatient vi sit 10 minutes Steph Quesada [facility] Start: 05-08-2022 End: 05-08-2022 Patient encounter procedure Almaz Medina [facility] Start: 04-24-2022 End: 04-25-2022 ambulatory ALMAZ LUE [facility] Start: 04-24-2022 Encounter for genera l adult medical examination without abnormal findings GENERIC PROVIDER [facility] Start: 04-13-2022 End: 04-14-2022 ambulatory GENERIC EXTERNAL DATA PROVIDER [facility] Start: 04-01-2022 End: 04-01-2022 Patient encounter procedure Almaz Medina [facility] Start: 03-26-2022 End: 03-27-2022 ambulatory ALMAZ MEDINA . Facility:[facility] Start: 03-12-2022 End: 03-12-2022 Patient encounter procedure Almaz Medina [facility] Start: 01-22-2022 End: 01-23-[address] STEPH QUESADA Facility:[facility] Start: 01-13-2022 End: 01-14-2022 ambulatory JAYA HOWARD Facility:[facility] Procedures Date Procedure Procedure Detail Performing Clinician Start: 04-24-2022 Kidney biopsy Almaz Sine Cholecystectomy Almaz Lue Colonoscopy Almaz Lue Endoscopic biopsy of stomach Almaz Medina Tonsillectomy Almaz Lue Immunizations Immunization Date Immunization Notes Care Provider Manjula varela NEGATED: Highlighted row has not occurred!04-16-2023 influenza virus vaccine, unspecified formulation Almaz Medina [facility] NEGATED: Highlighted row has not occurred!03-12-2022 SARS-CoV-2 mRNA (tozinameran 5y-11y) vaccine Almaz Medina [facility] Payers Date Payer Category Payer Unknown [id number] 1965 Unknown [id number] 2.16.84 [id number] 1965 Unknown [id number] 2.16.84 [id number] 1965 Unknown [id number] 2.16.84 [id number] 1965 Unknown [id number] 2.16.84 [id number] 1965 Unknown [id number] 2.16.84 [id number] 1965 Unknown [id number] 2.16.84 [id number] 1965 Unknown [id number] 2.16.8 [id number] Social History Date Type Detail Facility Start: 03-12-2022 End: 04-16-2023 Tobacco smoking status Never smoked tobacco (finding) [facility] Tobacco smoking status Never [facility] Sex Assigned At Female [facility] Functional Status Date Assessment Result Facility 04-16-2023 Functional Status N/A [facility] 10-09-2022 Functional Status N/A [facility] 05-08-2022 Functional Status N/A [facility] 04-01-2022 Functional Status N/A [facility] 03-12-2022 Functional Status N/A [facility] Clinical Notes 03-12-2022 to 04-16-2023 Note Date & Type Note Facility 04-16-2023 Hospital Discharg e instructions Follow Up Care 04/16/2023 08:40:17 With:Adam SAMPSON, DANYELLE Amado, URO Address: When: Unknown [facility] 04-16-2023 Hospital Discharg e instructions Patient Education [...] provider. Document Revised: 07/31/2021 Document Reviewed: 07/31/2021 flatev Patient Education 2022 [employer]. Follow Up Care 10/09/2022 08:31:20 With:Adam SAMPSON, DANYELLE Amado, URO Address: [address] [place] [address]- [phone] When: Unknown Comments:GENNARO in 1 yr [facility] 10-09-2022 Hospital Discharg e instructions [...] provider gives to you. In general: Take alzp-pqa-kfrjdbs and prescription medicines only as told by [...] provider. Document Revised: 09/16/2020 Document Reviewed: 09/16/2020 flatev Patient Education 2022 [employer]. Follow Up Care 05/08/2022 13:30:37 With:Adam SAMPSON, DANYELLE Amado, URO Address: When: Unknown [facility] 06-18-2022 Evaluation note Encounter Date Diagnosis Assessment [...] - N28.89) Follow-up with urology as scheduled [employer] Other 02-03-2023 Hospital Discharge instructions Patient Education [...] provider gives to you. In general: Take rfdo-wta-zqkcesb and prescription medicines only as told by [...] 10/17/2014 Document Revised: 04/28/2018 Document Reviewed: 04/28/2018 flatev Patient Education 2020 [employer]. Follow Up Care 04/27/2022 15:25:11 With:Adam SAMPSON, DANYELLE Amado, URO Address: When: Unknown [facility] 01-20-[address] guided biopsy [...] No []Yes Notes (additional assessment information): Cruz Orozco D.O. 04/24/2022 Pre procedure vitals: BP (!) 147/96 Pulse 95 Temp 36.9 ???C (98.4 ???F) (Oral) Resp 16 SpO2 99% Pre procedure labs: Lab Results Component Value Date PT 12.4 04/24/2022 INR 0.93 04/24/2022 PLT 286 04/24/2022 Cruz Orozco D.O. PGY-2 Ravi Martinez M.D.[facility]28[facility]22 Hospital Discharge instructions Patient Education 04/01/2022 12:49:42 [...] fried and sweet foods. General instructions Take zket-xiv-usfmhvn and prescription medicines only as told by [...] 01/16/2010 Document Revised: 07/13/2019 Document Reviewed: 04/07/2018 flatev Patient Education 2020 [employer]. Follow Up Care 03/12/2022 15:26:52 With:Adam SAMPSON, DANYELLE Amado, URO Address: [address], [place] [phone] When: Unknown [facility] 12-08-2022 Hospital Discharge instructions Patient [...] provider gives to you. In general: Take habp-ods-vpgdyrz and prescription medicines only as told by [...] 10/17/2014 Document Revised: 04/28/2018 Document Reviewed: 04/28/2018 flatev Patient Education 2020 [employer]. Follow Up Care 02/02/2022 14:54:48 With:Adam SAMPSON, Almaz Mcintyre, URL, URO Address: When: Unknown [facility] iovation evaluation + Plan note Future Appointments Appointment Date:04/30/2022 02:45:00 PM Scheduled Provider:Almaz Medina MD Location:[facility] Appointment Type:URO Office Visit [facility] Evaluation + Plan note Future Appointments Appointment Date:10/09/2022 08:00:00 AM Scheduled Provider:Almaz Medina MD Location:[facility] Appointment Type:URO Office Visit [facility] iovation TxViaaluation + Plan note Future Appointments Appointment Date:04/15/2023 01:00:00 PM Scheduled Provider:Almaz Medina MD Location:[facility] Appointment Type:URO Office Visit [facility] iovation Evaluation + Plan note Future Appointments Appointment Date:04/12/2024 08:00:00 AM Scheduled Provider:Almaz Medina MD Location:[facility] Appointment Type:URO Office Visit [facility] iovation evaluation noteNo InformationNoChan [facility] [employer] Other History general Narrative - Reported* Type [...] Kidney Bx Hospitalization History SEE SURGICAL HX [facility] [employer] Other Hospital course Narrative No data available for this section [facility] Progress note No data available for this section [facility] Summary Purpose Family History No Family History Records FoundNo Family History Records Found No data available for this section No data available for this section No Family History Records Found Advance Directives No Advanced Directives Records FoundNo Advanced Directives Records FoundNo Advanced Directives Records Found Additional Source Comments Patient Care team informatio n (unrecognized section and content) Personnel Name: STEPH QUESADA MD Address: Address: [address] [place] [address] Personnel Name: STEPH QUESADA MD Address: Address: [address] [place] [address] Personnel Name: STEPH QUESADA MD Address: Address: [address] [place] [address] Personnel Name: STEPH QUESADA MD Address: Address: [address] [place] [address] Personnel Name: STEPH QUESADA MD Address: Address: [address] [place] [address] INFORMATION SOURCE (unrecogn ized section and content) DATE CREATED AUTHOR 04/30/2022 [facility] DATE CREATED AUTHOR AUTHOR'S ORGANIZ ATION 07/31/2022 [facility] DATE CREATED AUTHOR AUTHOR'S ORGANIZ ATION 05/26/2024 [facility] REASON FOR VISIT (unrecogniz ed section [...] BE BASED ON THE PRIMARY CLINICAL RECORDS. [facility]. provides no warranty or guarantee of the accuracy or completeness of information in this document.
--- NOTE | 2025-01-21 10:06 | ECG_ITS ---
The [facility] Test Date: 2025-01-21 Pat Name: JEANNINE ARGUETA Department: Room: - Gender: Female [employer]: : 1965 Requested By: [id number] Order Number: [id number] Reading MD: JAY FERGUSON M.D. Measurements Intervals [place] Rate: 117 P: 54 FL: 182 QRS: -28 QRSD: 112 T: 47 QT: 336 QTc: 405 Interpretive Statements 1120 Sinus tachycardia 3334 Anterolateral myocardial infarction, age undetermined 3634 Inferior myocardial infarction, age undetermined 5222 Moderate voltage criteria for LVH, may be normal variant 9150 abnormal ECG No previous ECG available for comparison Electronically Signed On 01-21-2025 11:07:34 EDT by JAY FERGUSON M.D.
--- NOTE | 2025-01-21 10:06 | XR_ITS ---
The [address] [address] Patient Name: JEANNINE ARGUETA MRN: [id number] date: 1965 Sex: F Assigned Patient Location: ER Current Patient Location: ER Accession/Order Number: [id number] Exam Date: 01/21/2025 10:24 Report Date: 01/21/2025 11:40 At the request of: JOHNSON DELGADO MD Procedure: XR chest 1V XR chest 1V 01/21/2025 10:27 AM SIGNS AND SYMPTOMS: ^Vomiting, tachycardic ^Y PROTOCOL: Frontal radiograph of the chest COMPARISON: None FINDINGS: The trachea is midline. The heart and mediastinal structures are within normal limits. There is masslike opacity in the right upper lobe. The bony thorax is intact. XR/XR chest 1V IMPRESSION: There is masslike opacity in the right upper lobe. Impression dictated by: Lux Parsons M.D. 01/21/2025 11:40 AM Dictation Location: [place] [address] Electronically authenticated by: [id number] Y Date: 01/21/2025 11:40
--- NOTE | 2025-01-21 10:15 | ED.GENADUL1 ---
HPI HPI - General Adult General Chief complaint: Weakness Stated complaint: GENERAL WEAKNESS Time Seen by Provider: 01/21/25 09:56 Source: patient Mode of arrival: Wheelchair History of Present Illness HPI narrative: 60-year-old female presents for feeling weak and having vomiting. Symptoms started about 4 days ago. No diarrhea. She has been urinating a lot and has been thirsty. No fever or hematemesis. Related Data Previous Rx's ?Medication ?Instructions ?Recorded acyclovir 800 mg tablet See Rx Instructions .Route 05/01/23 .COMPLEX #35 tabs ondansetron 4 mg disintegrating 4 mg PO Q6H PRN nausea and 05/01/23 tablet vomiting #12 tabs oxycodone-acetaminophen 5 mg-325 1 tab PO Q6H PRN pain 4 days #15 05/01/23 mg tablet (Percocet) tabs prednisone 20 mg tablet See Rx Instructions .Route 05/01/23 .COMPLEX #9 tabs Allergies Allergy/AdvReac Type Severity Reaction Status Date / Time amoxicillin (From Augmentin) Allergy Severe Verified 05/01/23 19:03 clavulanic acid (From Allergy Severe Verified 05/01/23 19:03 Augmentin) Penicillins Allergy Severe Verified 05/01/23 19:03 Opioid HPI Opioid Management Most Recent Opioid Data: Last Pain Scale 4 05/01/23, 19:32 Review of Systems ROS Narrative A ten point review of systems is negative except as noted above. Exam Narrative Exam Narrative: Nurses note and vital signs reviewed General:The patient appears well and in no apparent distress.Patient is resting comfortably on cart. Skin:Warm, dry, no pallor noted.There is no rash noted. Head:Normocephalic, atraumatic Eye: Normal conjunctiva, no drainage Ears, Nose, Mouth, and Throat: oral mucosa is somewhat dry. Nares patent. Cardiovascular:Regular Rate and Rhythm, tachycardic Respiratory:Patient is in no distress, no accessory muscle use, lungs are clear to auscultation, no wheezing, rales or rhonchi Back:non-tender GI: Soft and nontender and nondistended Musculoskeletal: The patient has no evidence of calf tenderness, no pitting edema, symmetrical pulses noted bilaterally Neurological:A&O, normal speech Psychiatric:Cooperative Constitutional Vital Signs, click to edit/add: Last Vital Signs Temp 98.6 F 01/21/25 10:40 Pulse 117 H 01/21/25 11:50 Resp 23 H 01/21/25 11:50 BP 146/79 H 01/21/25 11:31 Pulse Ox 98 01/21/25 11:50 O2 Del Method Room Air 01/21/25 09:58 Course Vital Signs Vital signs: Vital Signs Pulse Rate 119 H 01/21/25 09:58 Blood Pressure 167/88 H 01/21/25 09:58 Pulse Oximetry 99 01/21/25 09:58 Oxygen Delivery Method Room Air 01/21/25 09:58 Temperature 98.6 F 01/21/25 10:40 Pulse Rate 117 H 01/21/25 11:50 Respiratory Rate 23 H 01/21/25 11:50 Blood Pressure 146/79 H 01/21/25 11:31 Pulse Oximetry 98 01/21/25 11:50 Oxygen Delivery Method Room Air 01/21/25 09:58 Medical Decision Making MDM Narrative Medical decision making narrative: The patient presents with new onset diabetes and she is in DKA. She has been given IV fluids and an insulin bolus and a drip is ordered as well. Chest x-ray my interpretation shows right upper lobe infiltrate. Her O2 sat is 98 to 99% on room air and cultures were obtained and she was given IV Levaquin. Findings are discussed thoroughly with the patient and her family. I have discussed the case with Dr. Nielsen, the hospitalist here, and he recommends transfer to [facility]. The patient is agreeable and stable for transfer. I have spoken to Dr. Cazares who accepts the patient and the patient will be admitted to the ICU. Differential Diagnosis Differential Diagnosis: Diabetes, DKA, dehydration, gastroenteritis Lab Data Lab results reviewed: Yes I reviewed the patient's lab results Labs: Lab Results 01/21/25 01/21/25 01/21/25 Range/Units 10:17 10:18 12:02 WBC 30.8 H* (4.0-11.0) 10^3/uL RBC 5.28 (4.20-5.40) 10^6/uL Hgb 15.2 (12.0-16.0) g/dL Hct 44.2 (36.0-48.0) % MCV 83.7 (81.0-99.0) fL MCH 28.8 (26.7-34.0) pg MCHC 34.4 (29.9-35.2) g/dL RDW 13.0 (11.0-15.0) % Plt Count 361 (150-450) 10^3/uL MPV 10.5 (9.5-13.5) fL Seg Neuts % (Manual) 76.0 H (43.0-75.0) Band Neutrophils % 4.0 (0-5) % Lymphocytes % (Manual) 7.0 L (20.5-60.0) % Monocytes % (Manual) 13.0 H (1.7-12.0) % Eosinophils % (Manual) 0.0 L (0.9-7.0) % Basophils % (Manual) 0.0 L (0.2-2.0) % Neutrophils # (Manual) 23.40 H (1.4-6.5) 10^3/uL Band Neutrophils # 1.2 H (0.0-0.3) 10^3/uL Lymphocytes # (Manual) 2.15 (1.20-3.80) 10^3/uL Monocytes # (Manual) 4.00 H (0.30-0.80) 10^3/uL Eosinophils # (Manual) 0.00 (0.00-0.70) 10^3/uL Basophils # (Manual) 0.00 (0.00-0.10) 10^3/uL Toxic Granulation 1+ VBG pH 7.100 L (7.330-7.430) VBG pCO2 24.5 L (40.0-52.0) mmHg Sodium 128 L (136-145) mmol/L Potassium 2.7 L* (3.5-5.1) mmol/L Chloride 90 L (98-107) mmol/L Carbon Dioxide 9.6 L (21.0-32.0) mmol/L Anion Gap 31.1 BUN 22.0 H (7.0-18.0) mg/dL Creatinine 1.55 H (0.55-1.02) mg/dL Est GFR ( Amer) 42 L (>=60 mL/min/1.73m^2) Est GFR (Non-Af Amer) 34 L (>=60 mL/min/1.73m^2) BUN/Creatinine Ratio 14.2 Glucose 599 H* (74-106) mg/dL Calcium 10.5 H (8.5-10.1) mg/dL Troponin I High Sens <4.0 L (4.0-51.3) pg/mL Acetone, Qual Moderate A (NEGATIVE) POC Glucose 546 H* 459 H (74-106) mg/dL Imaging Data Chest x-ray: Radiologist's impression: ITS Impressions Chest X-Ray 01/21/25 10:06 IMPRESSION: There is masslike opacity in the right upper lobe. Impression dictated by: Lux Parsons M.D. 01/21/2025 11:40 AM Dictation Location: Managed MethodsWASHINGTON RURAL HE[facility]AT[facility] & NORTH[facility] HEALTH NETWORKLectureTools Electronically authenticated by: [id number] Y Date: 01/21/2025 11:40 ECG Data Attestation: I personally reviewed and interpreted this ECG as follows: (EKG on my interpretation shows sinus rhythm with a rate of 117) Critical Care Time Critical Care Time Critical Care Time: Yes Total Critical Care Time: 45 Attestation: Due to the high probability of sudden and clinically significant deterioration in the patient's condition he/she required the highest level of my preparedness to intervene urgently I provided critical care time including documentation time, medication orders and management, reevaluation, vital sign assessment, ordering and reviewing of lab tests, ordering and reviewing of x-ray studies, and admission orders. Aggregate critical care time is 45 minutes including only time during which I was engaged in work directly related to his/her care and did not include time spent treating other patients simultaneously. Discharge Plan Discharge Chief Complaint: Weakness Clinical Impression: DKA (diabetic ketoacidosis), Diabetes mellitus, new onset, Pneumonia Patient Disposition: [facility] Time of Disposition Decision: 11:43 Discharge Location: [facility] Condition: Fair Mode of Transportation: EMS
[2025-01-21] MEDS: 0.9 % SODIUM CHLORIDE 1,000 ML 1000 ML IV ×2 (10:31→11:27)
[2025-01-21 10:35] LABS: Hematocrit 44.2 % (36.0-48.0); Hemoglobin 15.2 g/dL (12.0-16.0); Mean Corpuscular HGB Conc 34.4 g/dL (29.9-35.2); Mean Corpuscular Hemoglobin 28.8 pg (26.7-34.0); Mean Corpuscular Volume 83.7 fL (81.0-99.0); Platelet Count 361 10^3/uL (150-450); Red Blood Count 5.28 10^6/uL (4.20-5.40)
[2025-01-21 10:39] LABS: PCO2 VBG 24.5 mmHg (40.0-52.0); pH VBG 7.100 (7.330-7.430)
[2025-01-21 10:56] LABS: Anion Gap 31.1; Blood Urea Nitrogen 22.0 mg/dL (7.0-18.0); Calcium 10.5 mg/dL (8.5-10.1); Carbon Dioxide 9.6 mmol/L (21.0-32.0); Chloride 90 mmol/L (98-107); Estimated GFR (African America 42 (>=60 mL/min/1.73m^2); Estimated GFR (Non-African Ame 34 (>=60 mL/min/1.73m^2); Sodium 128 mmol/L (136-145)
[2025-01-21 10:57] LABS: Glucose 599 mg/dL (74-106); Potassium 2.7 mmol/L (3.5-5.1)
[2025-01-21 10:58] LABS: Band Neutrophils Absolute 1.2 10^3/uL (0.0-0.3); Basophils Abs Manual 0.00 10^3/uL (0.00-0.10); Basophils Percent Manual 0.0 % (0.2-2.0); Eosinophils Absolute Manual 0.00 10^3/uL (0.00-0.70); Eosinophils Percent Manual 0.0 % (0.9-7.0); Lymphocytes Absolute Manual 2.15 10^3/uL (1.20-3.80); Lymphocytes Percent Manual 7.0 % (20.5-60.0); Monocytes Absolute Manual 4.00 10^3/uL (0.30-0.80); Monocytes Percent Manual 13.0 % (1.7-12.0); Segmented Neut Absolute Manual 23.40 10^3/uL (1.4-6.5); Segmented Neutrophils % Manual 76.0 (43.0-75.0); White Blood Count 30.8 10^3/uL (4.0-11.0)
[2025-01-21 10:59] LABS: Toxic Granulation 1+
[2025-01-21] MEDS: INSULIN REGULAR, HUMAN (100 UNIT/ML) 10 ML MDV 10 UNIT IV (11:16)
[2025-01-21] MEDS: LEVOFLOXACIN IN DEXTROSE 5 % 750 MG/150 ML PREMIX 100 MG IV (11:26)
[2025-01-21] MEDS: POTASSIUM BICARBONATE/CIT 25 MEQ TABLET EFF 50 MEQ PO ×2 (12:25→12:57)
[2025-01-21] MEDS: INSULIN REGULAR IN 0.9 % NACL 100 UNIT/100 ML PLAST..BAG 8 UNIT IV (12:25)
[2025-01-21 12:30] LABS: Magnesium 2.1 mg/dL (1.8-2.4)
[2025-01-21 13:16] LABS: Glucose Urine UA >=1000 mg/dL (NEGATIVE)
[2025-01-21 13:37] LABS: Cast Seen? SEEN #/LPF (NONE SEEN); Crystals Seen? None Seen #/HPF (None Seen)
[2025-01-21 13:38] LABS: Urine Culture Indicated NO
--- NOTE | 2025-01-21 15:34 | PC.NURSE ---
1437 - superior staff arrives and goes in room. pt and sister inform this RN that she vomited up all of her potassium at this time.
== END 2025-01-21 14:40 | disposition short-term general hospital (02) ==
PROVIDERS: Emergency Provider Emergency Medicine
DX: E11.10 Type 2 diabetes mellitus with ketoacidosis without coma (principal); J18.9 Pneumonia, unspecified organism
CPT/HCPCS: 36415; 71045; 80048; 81001; 82009; 82800; 82948; 83735; 84484; 85007; 85027; 87040; 93005; 96361; 96365; 96366; 96375; 99285; J1817; J2405

== ENCOUNTER 2025-02-03 09:22 | Outpatient (OUT) | payer OTHER, SELFPAY ==
--- OUTSIDE RECORDS SUMMARY | 2025-02-01 06:00 | XMS_ITS ---
Author Organization [facility] vices Address [address] [place], [place] [id number] Care Team Providers Care Building Rigger Name Role Phone Merna Schneider Primary Care Provider Allergies Allergen (clinical drug ingredient) Drug/Non Drug Allergy documented on EMR Reaction Allergy Type Onset Date Status amoxicillin / clavulanate Augmentin rash Drug Aller gy ActivePenicillinUnknownDrug AllergyActive Results Component Value Reference Range Notes POCT A1C Reviewed date:02/01/2025 10:49:53 AM Interpretation:11.6 Performing Lab: Notes/Report: Result 11.6 0-5.6 % REASON FOR VISIT [facility] d/c [facility] 01/30/25 DKA, DM Medications Medication SIG (Take, Route, Frequency, Duration) Notes Start Date End Date Status Januvia 50 MG 1 tablet Orally daily; Duration: 30 days 5ActiveTrue Metrix Meter w/DeviceUSE DIRECTED TO TEST SUGARS 4 TIMES DAILY; Duration: 30 DaysActivemetFORMIN HCl 500 MG1 tablet with a meal Orally Once a day; Duration: 30 day(s)5ActiveGNP Pen [place] 32G X 6 MMUSE DIRECTED WITH INSULINS; Duration: 50 DaysActiveGNP Sterile Lancets 33G -USE DIRECTED TO TEST SUGARS 4 TIMES DAILY; Duration: 25 DaysActiveLosartan Potassium 50 MGTAKE 1 TABLET BY MOUTH DAILY Oral; Duration: 90 DaysActiveJardiance 10 MG1 tablet Orally Once a day; Duration: 30 days5ActiveTimolol Maleate 0.5 % 1 drop into affected eye Ophthalmic Once a day; Duration: 50 daysActiveLantus SoloStar 100 UNIT/ML50 units Subcutaneous dailyActiveInsulin Aspart FlexPen 100 UNIT/MLADMINISTER SUBCUTANEOUSLY 3 TIMES DAILY with meals AND at bedtime FOLLOWING CORRECTIVE SCALE #5 (MAX 104 UNITS/DAY) Subcutaneous; Duration: 28 DaysActiveamLODIPine Besylate 10 MGTAKE 1 TABLET BY MOUTH DAILY Oral; Duration: 90 DaysActiveLevothyroxine Sodium 137 MCG1 tablet in the morning on an empty stomach Oral Once a day; Duration: 30 daysActive Social History Tobacco Use: Social History Observation Description Date Details (start date - stop date) Never Smoker NA - NA Sex Assigned At : Social History Observation Description Sex Assigned At Female Household Question Answer Notes Number of adults in household: 2 Number of children in household:0Tobacco Use/Smoking Question Answer Notes Tobacco use: nonsmoker patient enter ed data CAGE-AID Questionnaire (2018 Edition) Question Answer Notes Have you ever felt that you ought to cut down on your drinking or drug use? No patient entered data Have people annoyed you by c riticizing your drinking or drug use? No patient entered data Have you ever felt bad or gu ilty about your drinking or drug use? No patient entered data Have you ever had a drink or used drugs first thing in the morning to steady your nerves or to get rid of a hangover? No patient entered data CAGE-AID Score 0 InterpretationNegativePRAPARE Question Answer Notes Date Completed/Updated: 02/01/2025 librado nt entered data What is your current housing situation? I have h ousing patient entered data Are you worried about losing your housing? No patient entered data What is the highest level of school that you have finished? 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 Check all that apply Utilities Has lack of transportation kept you from medical appointments, meetings, work or from getting things needed for daily living?NoHow often do you see or talk to people that you care about and feel close to? (For example: talkingto friends on the phone, visiting friends or family, going to episcopal or club meetings)More than 5 times a weekpatient entered dataHow stressed are you? Stress is when someone feels tense, nervous, anxious, or can't sleep at nightbecause their mind is troubledA little bitpatient entered dataIn the past year have you spent more than 2 nights in a row in a halfway, care home, shelter center, orjuvenile correctional facility?Nopatient entered dataAre you a refugee?Nopatient entered dataWhat country are you from?[place] Statespatient entered dataDo you feel physically and emotionally safe where you currently live?Yespatient entered dataIn the past year, have you been afraid of your partner or ex-partner?Nopatient entered dataPRAPARE Score:3 Problems Problem Type SNOMED Code ICD Code Onset Dates Problem Status W/U Status Risk Notes Problem Right upper lobe pneumonia (3010 82992) Right upper lobe pneumonia (J18.1) ActiveconfirmedProblemHyperglycemia due to type 2 diabetes mellitus ([id number])Type 2 diabetes mellitus with hyperglycemia (E11.65)Active confirmed Vital Signs Temperature 97.7 degrees Fahrenheit 02/02/20 25 Weight 232.6 lbs 02/01/2025 Height 67 in 02/01/2025 BMI 36.43 kg/m2 02/01/2025 Blood pressure systolic 123 mm Hg 02/02/20 25 Blood pressure diastolic 84 mm Hg 025 Heart Rate 88 /min 02/01/2025 Respiratory Rate 18 /min 02/01/2025 Oximetry 98 % 02/01/2025 Weight-kg 105.51 kg 02/01/2025 Madison Scruggs 02/01/2025 09:59:05 AM EDT > Encounters Encounter Location Date Provider Diagnosis [address] [id number] 02/01/2025 Merna Schneider Right upper lobe p neumonia J18.1 ; Hospital discharge follow-up Z09 ; Type 2 diabetes mellitus with hyperglycemia E11.65 and Hypothyroid E03.9 Assessments Encounter Date Diagnosis (ICD Code) Assessment Notes Treatment Notes Treatment Clinical Notes Section Notes 02/01/2025 Right upper lobe pneumonia (ICD- 10 - J18.1) Reevalute right upper lobe pneumonia. May need referral to pulmonology 02/01/2025Hospital discharge follow-up (ICD-10 - Z09)02/01/2025Type 2 diabetes mellitus with hyperglycemia (ICD-10 - E11.65) cost of januvia is too expensive. will proceed with jardiance Learning About Low Blood Sugar (Hypoglycemia) in Diabetes material was published, Learning About Low Blood Sugar (Hypoglycemia) in Diabetes material was printed, Counting Carbohydrates for Diabetes: Care Instructions material was printed, Learning About Type 2 Diabetes material was printed, Diabetes Blood Sugar Emergencies: Your Action Plan material was printed 02/01/2025Hypothyroid (ICD-10 - E03.9) Plan Of Treatment Medication Medication Name Sig Start Date Stop Date Notes Januvia 50 MG 1 tablet Orally daily 02/01/2025 Januvia 50 MG1 tablet Orally daily; Duration: 30 days02/01/2025metFORMIN HCl 500 MG1 tablet with a meal Orally Once a day; Duration: 30 day(s)02/01/2025Jardiance 10 MG1 tablet Orally Once a day; Duration: 30 days02/01/2025Treatment Notes Assessment Notes Right upper lobe pneumonia Reevalute right upper lobe pneumonia. May need referral to pulmonology Type 2 diabetes mellitus with hyperglyce corby cost of januvia is too expensive. will proceed with jardiance Learning About Low Blood Sugar (Hypoglycemia) in Diabetes material was published, Learning About Low Blood Sugar (Hypoglycemia) in Diabetes material was printed, Counting Carbohydrates for Diabetes: Care Instructions material was printed, Learning About Type 2 Diabetes material was printed, Diabetes Blood Sugar Emergencies: Your Action Plan material was printed Pending Test Test Name Order Date LIPID PANEL WITH REFLEX TO DIRECT LDL TSH + FREE T4 PROFILE 02/01/2025 COMPREHENSIVE METABOLIC PANEL WITH GFR 1 CBC W/AUTO DIFF 02/01/2025 XR CHEST (2 VW) 02/01/2025 Next Appt Details Follow Up: 4 Weeks, Reason: dm/ htn Provider Name:Merna north, 03/08/2025 01:00:00 PM, [facility] [place], [place], [id number], Progress Notes * Stew TORRES JDOB:[birth year] (60 yo F)Acc No.[id number]:02/01/2025 Patient:Stew SHERIDAN :?Merna Schneider APRN, CHECKERER HAND-CDOB:1965???Age: 60 Y???Sex:FemaleDate:02/01/2025Phone:[phone]:[address], [address], [place] [facility] [phone] Subjective: * Chief Complaints: * 1 . Hosp d/c [facility] 01/30/25 DKA, DM. * HPI: ???Interim History:?Was seening Dr. Malika Morris. Insurance dropped. ???Depression screening:?PHQ-9?Little interest or pleasure in doing things Not at all ?Feeling down, depressed, or hopeless?Not at all ?Trouble falling or staying asleep, or sleeping too much?Several days ?Feeling tired or having little energy?Not at all ?Poor appetite or overeating?Not at all ?Feeling bad about yourself or that you are a failure, or have let yourself or your family down?Not at all ?Trouble concentrating on things, such as reading the newspaper or watching television?Not at all ?Moving or speaking so slowly that other people could have noticed; or the opposite, being so fidgety or restless that you have been moving arounda lot more than usual?Not at all ?Thoughts that you would be better off orof hurting yourself in some way?Not at all ?Total Score?1 ?Interpretation?Minimal Depression * ROS: ???Positive and negative as described above in the HPI. * Medical History: H ypothyroid, Htn, Diabetes, Mass on left kidney. * Surgical History: c holecystectomy 2008, tonsillectomy . * Hospitalization/Major Diagno stic Procedure: c holecystectomy 2008, DKA, DM 01/30/25. * Family History: F ather: , CHF, cardiac bypass. M other: alive, breast cancer, diagnosed with Cancer. P aternal Grand Father: , lung issues. P aternal Grand Mother: , thyroid cancer, diagnosed with Cancer. M aternal Grand Father: , diagnosed with Hypertension.?Maternal Grand Mother: . S ister: alive. 2 sister(s) - healthy. . FH: Pancreatic cancer. * Social History: ???Miscellaneous:?Culture/Language Barrier: No. ?Education Level: Some College. ?Barriers to Learning: None. ?Learning Preference: Doing or practicing. ?How often do you need to have someone help you read instructions: Never. ?Occupation: works full-time and department chair. ???Safety:?Patient feels safe in relationships: Yes. ???[facility] and S Demographics:?[facility] Questions?Do you have any barriers to learning??None patient entered data ?What is your preferred method of learning? Doing or practicing patient entered data ?How often do you need to have someone help you read instructions??Never patient entered data ???Tobacco Use:?Tobacco Use/Smoking?Tobacco use:?nonsmoker patient entered data ???Drugs/Alcohol/Caffeine:?Drugs?Have you used drugs other than those for medical reasons in the past 12 months??No ?Caffeine?Intake:?1-2 cups per day ?Do you drink alcohol?: Socially, rarely. ?CAGE-AID Questionnaire (2018 Edition)?Have you ever felt that you ought to cut downon your drinking or drug use??No patient entered data ?Have people annoyed you by criticizing your drinking or drug use??No patient entered data ?Have you ever felt bad or guilty about your drinking or drug use??No patient entered data ?Have you ever had a drink or used drugs firstthing in the morning to steady your nerves or to get rid of a hangover??No patient entered data ?CAGE-AID Score?0 ?Interpretation?Negative ???Household:?Household?Number of adults in household:?2 ?Number of children in household:?0 ???Social Determinants:?PRAPARE?Date Completed/Updated:?02/01/2025 patient entered data ?What is your current housing situation??I have housing patient entered data ?Are you worried about losing your housing? 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 Check all that a pply?Utilities ?Has lack of transportation kept you from medical appointments, meetings, work or from getting things needed for daily living??No ?How often do you see or talk to people that you care about and feel close to? (For example: talking to friends on the phone, visiting friends or f amily, going to episcopal or club meetings)?More than 5 times a week patient entered data ?How stressed are you? Stress is when someone feels tense, nervous, anxious, or can't sleep at night because their mind is troubled?A little bit patient entered data ?In the past year have you spent more than 2 nights in a row in a halfway, care home, shelter center, or juvenile correctional facility??No patient entered data ?Are you a refugee??No patient entered data ?What country are you from??[place] patient entered data ?Do you feel physically and emotionally safe where you currently live?? Yes patient entered data ?In the past year, have you been afraid of your partner or ex-partner?? No patient entered data ?PRAPARE Score:?3 * Medications: T aking Lantus SoloStar 100 UNIT/ML Solution Pen-injector 50 units Subcutaneous daily , Taking Insulin Aspart FlexPen 100 UNIT/ML Solution Pen-injector ADMINISTER SUBCUTANEOUSLY 3 TIMES DAILY with meals AND at bedtime FOLLOWING CORRECTIVE SCALE #5 (MAX 104 UNITS/DAY) Subcutaneous , Taking amLODIPine Besylate 10 MG Tablet TAKE 1 TABLET BY MOUTH DAILY Oral , Taking Levothyroxine Sodium 137 MCG Tablet 1 tablet in the morning on an empty stomach Oral Once a day , Taking Losartan Potassium 50 MG Tablet TAKE 1 TABLET BY MOUTH DAILY Oral , Taking Timolol Maleate 0.5 % Solution 1 drop into affected eye Ophthalmic Once a day , Taking GNP Pen [place] 32G X 6 MM Miscellaneous USE DIRECTED WITH INSULINS , Taking GNP Sterile Lancets 33G - Miscellaneous USE DIRECTED TO TEST SUGARS 4 TIMES DAILY , Taking True Metrix Meter w/Device Kit USE DIRECTED TO TEST SUGARS 4 TIMES DAILY , Discontinued Insulin Aspart FlexPen 100 UNIT/ML Solution Pen-injector Subcutaneous , Discontinued Ibuprofen 200 MG Tablet 1 tablet with food or milk as needed Orally Three times a day , Discontinued Levothyroxine Sodium 125 MCG Tablet 1 tablet Orally Once a day , Discontinued Cyclobenzaprine HCl 10 MG Tablet 1 tablet as needed Orally Once a day , Discontinued Hzycrpimt-Ddqpayba-KR 30-1-20 MG/5ML Liquid 5 mL as needed Orally every 8 hrs , Discontinued Cetirizine HCl 10 MG Tablet TAKE 1 TABLET BY MOUTH EVERY DAY FOR 30 DAYS , Discontinued Dicyclomine HCl 20 MG Tablet TAKE 1 TABLET BY MOUTH THREE TIMES A DAY FOR 30 DAYS , Medication List reviewed and reconciled with the patient * Allergies: A ugmentin: rash - Allergy, Penicillin. Objective: * Vitals: T emp:97.7F, Wt:232.6lbs, Ht: 67 in, BMI:36.43Index, BP:123/84mm Hg, HR:88/min, RR:18/min, Pain scale:01-10, Oxygen sat %:98%, Wt-k.51 kg, Body Surface Area: 2.23. [place] Scruggs 02/01/2025 09:59:05 AM EDT >. * Examination: ???CQM Exceptions: ?Currently taking Aspirin:?Aspirin Use:?No??? Assessment: * Assessment: 1.?Hospital discharge follow-up - Z09 (Primary)???2.?Right upper lobe pneumonia - J18.1???3.?Type 2 diabetes mellitus with hyperglycemia - E11.65?&#16 0;?4.?Hypothyroid - E03.9??? Plan: * Treatment: ?LAB: CBC W/AUTO DIFF ?Imaging: XR CHEST (2 VW)* Notes: Reevalute right upper lobe pneumonia. May need referral to pulmonology??2.?Type 2 diabetes mellitus with hyperglycemia ? Start Januvia Tablet, 50 MG, 1 tablet, Orally, daily, 30 days, 30 Tablet, Refills 1;?Start metFORMIN HCl Tablet, 500 MG, 1 tablet with a meal, Orally, Once a day, 30 day(s), 30;?Stop Januvia Tablet, 50 MG, 1 tablet, Orally, daily;?Start Jardiance Tablet, 10 MG, 1 tablet, Orally, Oncea day, 30 days, 30 Tablet, Refills 3.?LAB: LIPID PANEL WITH REFLEX TO DIRECT LDL ?LAB: TSH + FREE T4 PROFILE ?LAB: COMPREHENSIVE METABOLIC PANEL WITH GFR ?LAB: POCT A1C (Collection Date & Time - 02/01/2025 10:49 AM)?11.6* ?ValueReference Range?Oemxkk46.6HH0-5.6 - % Notes: cost of januvia is too expensive. will proceed with jardiance Learning About Low Blood Sugar (Hypoglycemia) in Diabetes material was published, Learning About Low Blood Sugar (Hypoglycemia) in Diabetes material was printed, Counting Carbohydrates for Diabetes: Care Instructions material was printed, Learning About Type 2 Diabetes material was printed, Diabetes Blood Sugar Emergencies: Your Action Plan material was printed?? * Procedure Codes: 3 046F DM HG A1C > 9, 79978 GLYCATED HEMOGLOBIN TEST, Modifiers: QW * Follow Up: 4 Weeks (Reason: dm/ htn) * Billing Information: * Visit Code: * Procedure Codes: 3046F DM HG A1C > 9. 70158 GLYCATED HEMOGLOBIN TEST. Modifiers: QW * Electronic signature of NELL Zuniga on 02/03/2025 at 09:26 AM EDT Sign off status: Pending * Provider: Izaiah Schneider APRN, FNP-C Date: 1 Generated for Printing/Faxing/eTransmitting on:?02/03/2025 09:26 AM EDT History and Physical Notes * HPI (History of Present Illness) CategorySub-CategoryDetailNotesCategory NotesDepression screeningPHQ-9Little interest or pleasure in doing things: Not at allFeeling down, depressed, or hopeless: Not at allTrouble falling or staying asleep, or sleeping too much: Several daysFeeling tired or having little energy: Not at allPoor appetite or overeating: Not at allFeeling bad about yourself or that you are a failure, or have let yourself or your family down: Notat allTrouble concentrating on things, such as reading the newspaper or watching television: Not at allMoving or speaking so slowly that other people could have noticed; or the opposite, being so fidgety or restless that you have been moving around a lot more than usual: Not at allThoughts that you would be better off or of hurting yourself in some way: Not at allTotal Score: 1Interpretation: Minimal DepressionInterim HistoryWas seening Dr. Malika Morris. Insurance dropped. Examination CategorySub-CategoryDetailNotesCategory NotesCQM ExceptionsCurrently taking Aspirin:Aspirin Use:: No
--- OUTSIDE RECORDS SUMMARY | 2025-02-01 10:57 | XMS_ITS ---
Author Organization [facility] vice Address [address] [place], [place] [id number] Care Team Providers Care Adjunct Physical Education Instructor Name Role Phone Merna Schneider Primary Care Provider REASON FOR VISIT high cost med Social History Sex Assigned At : Social History Observation Description Sex Assigned At Female Encounters Encounter Location Date Provider Diagnosis [address] [id number] 02/01/2025 Merna Combsman Type 2 diabetes luke itus with hyperglycemia E11.65 Assessments Encounter Date Diagnosis (ICD Code) Assessment Notes Treatment Notes Treatment Clinical Notes Section Notes 02/01/2025 Type 2 diabetes mellitus with hy perglycemia (ICD-10 - E11.65) Plan Of Treatment Next Appt Details Provider Name:Merna Jack can, 03/08/2025 01:00:00 PM, [address] [place], [place], [id number], Progress Notes * Stew TORRES JDOB:[birth year] (60 yo F)Acc No.[id number]:02/01/2025 Patient:?Stew TORRES :1965???Age:60 Y???Sex:FemalePhone:[phone] Address:[address] [place] [address], [address], [place] [address] Subjective: * Chief Complaints: * H igh cost med * Medical History: * Surgical History: * Hospitalization/Major Diagno stic Procedure: * Medications: Objective: * Vitals: * Physical Examination: ??? Assessment: * Assessment: 1.?Type 2 diabetes mellitus with hyperglycemia - E11.65 (Primary)??? Plan: * Treatment: * Procedure Codes: * true * Date:?Generated for Printing/Faxing/eTransmitting on:?02/03/2025 09:26 AM EDT
--- NOTE | 2025-02-03 | XR_ITS ---
The [address] [address] Patient Name: JEANNINE ARGUETA MRN: [id number] date: 1965 Sex: F Assigned Patient Location: LAB Current Patient Location: LAB Accession/Order Number: [id number] Exam Date: 02/03/2025 09:34 Report Date: 02/03/2025 11:51 At the request of: JESSICA LINARES Procedure: XR chest 2V PA AND LATERAL CHEST: CLINICAL HISTORY: Right Upper Lobe Pneumonia, J18.1 COMPARISON: 01/21/2025 FINDINGS: Right upper lobe opacity again noted with improved aeration. Remaining lungs are clear. Stable nonenlarged cardiomediastinal silhouette. XR/XR chest 2V IMPRESSION: Persistent right upper lobe opacity worrisome for residual pneumonia. Recommend follow-up to resolution Impression dictated by: Philippe Jade M.D. 02/03/2025 11:51 AM Dictation Location: [facility] Electronically authenticated by: [id number] Y Date: 02/03/2025 11:51
--- OUTSIDE RECORDS SUMMARY | 2025-02-03 09:26 | XMS_ITS | CCD ---
Author Organization [facility] Care Team Providers Care Life Assurance Representative Name Role Phone CAESAR QUESADA Primary Care Physician [phone] PROVIDER, GENERIC EXTERNAL DATA Referring Unavailable ALMAZ MEDINA Referring Unavailable Caesar Quesada Unavailable MISC, DR SALDANA Attending Unavailable MISC, DR SALDANA Consulting Unavailable MISC, DR SALDANA Admitting Unavailable QUESADA, DR CAESAR Tony Primary Care Unavailable QUESADA, DR CAESAR Tony Attending Unavailable QUESADA, DR CAESAR Tony Consulting Unavailable QUESADA, DR CAESAR Tony Primary Care Unavailable QUESADA, DR CAESAR Tony Admitting Unavailable LUChavo .ALMAZ Attending Unavailable LUE .ALMAZ Admitting Unavailable ZIEBER, DR RISHABH Gonzalez Consulting Unavailable QUESADA, DR CAESAR Tony Primary Care Unavailable LUChavo .ALMAZ Consulting Unavailable QUESADA, DR CAESAR Tony Attending Unavailable QUESADA, DR CAESAR Tony Consulting Unavailable QUESADA, DR CAESAR Tony Primary Care Unavailable QUESADA, DR CAESAR Tony Admitting Unavailable QUESADA, DR CAESAR Tony Attending Unavailable QUESADA, DR CAESAR Tony Consulting Unavailable QUESADA, DR CAESAR Tony Primary Care Unavailable SANGITA, DR CAESAR Tony Admitting Unavailable JAYA HOWARD Attending Unavailable BRIGHT, DR RISHABH Gonzalez Consulting Unavailable ANITA, JAYA Primary Care Unavailable ANITA, JAYA Admitting Unavailable ANITA, JAYA Consulting Unavailable Almaz Medina. Attending Unavailable NON STAFF Primary Care Provider UnavailFemi Alvarado DO Admit Provider [phone] Abraham Terrazas DO Other Provider [phone] Kianna Zuñiga APRN Other Provider Abdifatah Foster MD Other Provider Nancy Zimmerman MD Other Provider Tejas Hardy MD Other Provider Tru Hodge DO Other Provider Lauri Novoa MD Attending Provider Lauri Novoa MD Other Provider Radha Blackburn MD Other Provider Jose SAMPSON, Arturo Shin Other Provider NON STAFF Primary Care Unavailable Kevin Nielsen Attending Unavailable Kianna Zuñiga Consulting Unavailable Femi Cazares Admitting Unavailabl e Abdifatah Foster Consulting Unavaila ble Nancy Zimmerman Consulting Unavailable Tejas Hardy Consulting Unavailable Tru Hodge Consulting Unavailable Lauri Novoa Consulting Unavailable Radha Blackburn Consulting Unavailable Arturo Garcia Consulting Unavaila ble Allergies Allergy ClassificationReported Allergen(s)Allergy TypeDate of OnsetReaction(s) Facility (7 sources)Amoxicillin / Clavulanate; Translations: [amoxicillin-clavulanate] Drug AllergyUnknown (qualifier value)[facility] (11 sources)Penicillin; Translations: [penicillin]Drug AllergyEruption of skin (disorder)[facility] (1 source)Penicillin; Translations: [PENICILLIN G]Drug Rozebaj42-87-1596 [facility] (1 source)AMOXICILLIN-POT CLAVULANATE; Translations: [AMOXICILLIN-POT CLAVULANATE]Propensity to adverse reactions to drug (disorder)04-24-2022 [facility] (1 source)ALLERGIES NOT ON FILE; Translations: [ALLERGIES NOT ON FILE]Propensity to adverse reactions (disorder)[facility] (2 sources)Amoxicillin; Translations: [amoxicillin]Drug Hptbaua54[facility] (2 sources)Clavulanate; Translations: [clavulanic acid]Drug Eofuahi18-22-7347 [facility] (2 sources)Penicillins; Translations: [Penicillins]Allergy to substance 47-41-2980[facility]vhkizlwMary[facility] Medications Current Medications MedicationDrug Class(es)DatesSig (Normalized)Sig (Original)amLODIPine 10 mg oral tablet (11 sources)Dihydropyridine Calcium Channel BlockerStart: 28-40-8434wido 1 tablet by mouth once dailyStart: 98-98-3790qkxd 1 mg by mouth once daily amLODIPine 10 mg Tab mg tab(s), Oral, Daily Start Date: 04/01/22 Status: Ordered Start: 73-44-8928btfb 1 mg by mouth once dailyamLODIPine 5 mg Tab mg tab(s), Oral, Daily, Refills(s) 0 Start Date: 03/12/22 Status: OrderedAzithromycin (3 sources)Macrolide AntimicrobialStart: 25-50-4185umcylzmytjkt Refills(s) 0 Start Date: 03/12/22 Status: OrderedBlood-Glucose Meter kit (1 source)Start: 92-25-0020Wlpvd-Glucose Meter kit Active 1 0 January 24, 2025 12:00am Diabetes mellitus Type 2 diabetes mellitus without complications As DirectedBrompheniramine (3 sources)Start: 69-34-5468iatgprdxubmskqf Refills(s) 0 Start Date: 03/12/22 Status: Ordereddicyclomine hydrochloride 20 mg oral tablet (11 sources)AnticholinergicStart: 52-48-4752atsb 1 mg by mouth four times daily dicyclomine 20 mg Tab mg tab(s), Oral, QID, Refills(s) 0 Start Date: 03/12/22 Status: Orderedtake 1 tablet by mouth three times daily as neededDicyclomine HCl 20 MG 1 tablet Orally 3 times a day prn ActiveBentyl ActiveglyBURIDE 5 mg oral tablet (9 sources)SulfonylureaStart: 99-33-9342kjbt 1 mg by mouth once dailyglyBURIDE 5 mg Tab mg tab(s), Oral, Daily Start Date: 04/01/22 Status: Ordered3 ml insulin aspart, human 100 unt/ml pen injector (1 source)Insulin AnalogStart: ml insulin glargine 100 unt/ml pen injector (1 source)Insulin AnalogStart: 80-06-3384atpfhpqjg alcohol 0.7 ml/ml medicated pad (1 source)Start: 27-07-2841uvbhwgccolsra sodium 0.137 mg oral tablet (13 sources)l-ThyroxineStart: 09-29-2023 End: 73-72-5477abbb 1 tablet by mouth once daily in the morningLevothyroxine 137 mcg tablet Active 0 .ROUTE .COMPLEX 30 0 January 29, 2025 12:19pm TAKE 1 TABLETBY MOUTH EVERY DAY IN THE MORNING ON EMPTY STOMACH FOR 90 DAYS Non- compliance of drug therapyStart: 09-29-2023 End: 54-14-0738ahxu 1 tablet by mouth once dailyLevothyroxine 137 mcg tablet Discontinued 137 MCG PO Daily September 29, 2023 12:00am September 29, 2023 10:40am Start: 50-01-0383lcrmgbkbxhhot 137 mcg, Daily, Refills(s) 0 Start Date: 03/12/22 Status: OrderedStart: 91-81-3917cngyxwcrcsigh Daily, Refills(s) 0 Start Date: 03/12/22 Status: Orderedtake 1 tablet by mouth once daily in the morning Levothyroxine Sodium 137 MCG 1 tablet in the morning on an empty stomach Orally Once a day Activelosartan potassium 50 mg oral tablet (10 sources)Angiotensin 2 Receptor BlockerStart: 79-40-1400sjbi 1 tablet by mouth once dailyStart: 06-74-5275aqkc 1 mg by mouth once dailylosartan 50 mg Tab mg tab(s), Oral, Daily Start Date: 04/01/22 Status: OrderedmetFORMIN hydrochloride 1000 mg oral tablet (10 sources)BiguanideStart: 84-08-4901qing 1 mg by mouth twice dailymetformin 1000 mg Tab mg tab(s), Oral, BID, Refills(s) 0 Start Date: 03/12/22 Status: Orderedtake 1 tablet by mouth every twenty-four hoursmetFORMIN HCl 1000 MG 1 tablet with a meal Orally Once a day Activeondansetron 4 mg oral tablet (4 sources)Serotonin-3 Receptor Antagonisttake 1 tablet by mouth every twenty- four hoursOndansetron HCl 4 MG 1 tablet Orally Once a day ActiveTimolol Maleate (2 sources)beta-Adrenergic BlockerStart: 64-28-3611rxrj 1 drop(s) into the eye(s) once dailyTimolol Maleate 0.5 % drops Active 1 DROPS EYE-BOTH Daily January 21, 2025 12:00am Complies with drug therapyStart: 46-55-4584vzhazls Opth 0.5% Whitney 15 mL Refill(s) 0 Start Date: 04/16/23 Status: Orderedtimolol Opth 0.5% Whitney 15 mL (1 source)Start: 75-37-7963rdxikqf Opth 0.5% Whitney 15 mL Refill(s) 0 Start Date: 04/16/23 Status: Ordered Problems Active Problems Problem ClassificationProblemDateDocumented DateEpisodic/ChronicAbdominal pain (8 sources)Left upper quadrant pain; Translations: [Left upper quadrant pain] Onset: 02-17-7912HbtoayfzMdfxibx dysrhythmias (3 sources)Sinus tachycardia; Translations: [Tachycardia, unspecified]Onset: 759071-46-8914TigbpcejZzzjvuyj mellitus with complications (20 sources)Hyperglycemia due to type 2 diabetes mellitus; Translations: [Type 2 diabetes mellitus with hyperglycemia]Onset: 290234-08-2461LwkvyndGdvacvdd mellitus without complication (1 source)Type 2 diabetes mellitus without complications; Translations: [Type 2 diabetes mellitus without complications]Onset: 15-07-9586VfykatmNsqeumzu mellitus without complication (19 sources)Glycosuria; Translations: [Glycosuria]Onset: 82-35-1174Pfokydim Essential hypertension (17 sources)Essential hypertension; Translations: [Essential (primary) hypertension]Onset: 24-38-3637QrvettjUrbatdaifaopn symptoms and ill-defined conditions (11 sources)Stress incontinence (female) (male); Translations: [Genuine stress incontinence]Onset: 97-28-1955WeupygzWoqzjbtl; including migraine (4 sources)Cyclical vomiting devgkisa65-63-1920RycyxkyTaetfk and vomiting (4 sources)Nausea with vomiting, unspecified; Translations: [NAUSEA WITH VOMITING UNSPECIFIED]Onset: 78-08-5637QkaxpeokMbxju circulatory disease (4 sources)Elevated blood-pressure reading without diagnosis of hypertension; Translations: [Elevated blood-pressure reading, without diagnosis of hypertension]EpisodicOther connective tissue disease (5 sources)Muscle pain; Translations: [Myalgia, unspecified site]01-21-2025 EpisodicOther diseases of kidney and ureters (9 sources)Disorder of kidney and/or ureter; Translations: [Other specified disorders of kidney and ureter]Onset: 43-30-0072FemtkbsWlobb diseases of kidney and ureters (7 sources)Renal mass; Translations: [Other specified disorders of kidney and ureter]37-86-7522LvbxfriUihge diseases of kidney and ureters (7 sources)Other specified disorders of kidney and ureter; Translations: [Other specified disorders of kidney and ureter]Onset: 00-06-8120KssrdvpWmnif disorders of stomach and duodenum (3 sources)Cyclical vomiting syndrome; Translations: [Cyclical vomiting syndrome unrelated to migraine]Onset: 39-43-0579AfcpuskkJpbrl gastrointestinal disorders (11 sources)Splenomegaly; Translations: [Splenomegaly, not elsewhere classified] 88-62-7808OvhlhdswDiqke lower respiratory disease (2 sources)Disorder of lung; Translations: [Other disorders of lung]01-21-2025 EpisodicOther lower respiratory disease (2 sources)Lung mass; Translations: [Other nonspecific abnormal finding of lung field]55-41-7697DsjoxvvsKwsfk lower respiratory disease (1 source)Other disorders of lung; Translations: [Other disorders of lung]Onset: 48-24-3455HfsfoxfeGxwsn lower respiratory disease (1 source)Other nonspecific abnormal finding of lung field; Translations: [Other nonspecific abnormal findingof lung field]Onset: 93-18-5950BqxuqncrEurdp nervous system disorders (4 sources)Chronic pain; Translations: [Other chronic pain]ChronicOther nervous system disorders (1 source)Other chronic painChronicOther nutritional; endocrine; and metabolic disorders (4 sources)Obese class I; Translations: [Body mass index (BMI) 34.0-34.9, adult] ChronicResidual codes; unclassified (6 sources)Acute fujr62-27-5695TvpukirmJrypnsae codes; unclassified (4 sources)Tobacco use; Translations: [Tobacco use and exposure]Episodic Spondylosis; intervertebral disc disorders; other back problems (5 sources)Low back pain; Translations: [Low back pain]90-04-0585NmqcusgsYoklusi disorders (15 sources)Hypothyroidism; Translations: [Acquired hypothyroidism]Onset: 596758-71-0956NayghghTyehyogapgdm (1 source)You have been scheduled for a follow up appointment for the following date and time, please call to reschedule if needed. Past or Other Problems Problem ClassificationProblemDateDocumented DateEpisodic/ChronicGenitourinary symptoms and ill-defined conditions (8 sources)Blood in urine; Translations: [Hematuria, unspecified]Onset: 61-45-3659NirxzlklJddfu connective tissue disease (1 source)Myalgia, unspecified site; Translations: [MYALGIA UNSPECIFIED SITE] Onset: 35-14-6115AcafnmxcWgojn gastrointestinal disorders (4 sources)Splenomegaly, not elsewhere classified; Translations: [SPLENOMEGALY NEC]Onset: 66-21-8298Jwhhdkog Results Test NameValueInterpretationReference RangeFacilityDiff and CBCon 01-29-2025 Eosinophils/100 WBC (Bld)1 %Normal1-3The [facility] Physician GroupComment on above:Performed By: #### GLULS #### Point of Care testing ,Erythrocyte distribution width (RBC) [Ratio]13.9 %Juubud45.9-15.3The [facility] Physician GroupComment on above:Performed By: #### GLULS #### Point of Care testing ,Hematocrit (Bld) [Volume fraction]36.5 %Xmtwec77.0-46.4The [facility] Physician GroupComment on above:Performed By: #### GLULS #### Point of Care testing ,Hemoglobin (Bld) [Mass/Vol]12.4 g/bJJwnehn60.8-15.4The [facility] Physician GroupComment on above:Performed By: #### GLULS #### Point of Care testing ,Lymphocytes/100 WBC (Bld)17 %Qlo90-22Wth [facility] Physician GroupComment on above:Performed By: #### GLULS #### Point of Care testing ,MCH (RBC) [Entitic mass]27.6 etQftjsl69.7-34.3[facility] Comment on above:Performed By: #### GLULS #### Point of Care testing ,MCV (RBC) [Entitic vol]81.4 pLLswgqq44-081Ikz [facility] Physician GroupComment on above:Performed By: #### GLULS #### Point of Care testing ,Mean Corpuscular HGB Conc33.9 g/zGKnptdb71.0-35.0The [facility] Physician [facility] Comment on above:Performed By: #### GLULS #### Point of Care testing ,Metamyelocytes1 %High0-0[facility] Physician GroupComment on above:Performed By: #### GLULS #### Point of Care testing ,Monocytes/100 WBC (Bld)6 %Normal2-11The [facility] Physician GroupComment on above:Performed By: #### GLULS #### Point of Care testing ,Myelocytes2 %High0-0The [facility] Physician GroupComment on above:Performed By: #### GLULS #### Point of Care testing ,Platelet EstimateNormalNormAdventHealth Palm Coast Parkway Physician GroupComment on above:Performed By: #### GLULS #### Point of Care testing ,Platelet mean volume (Bld) [Entitic vol]7.6 fLNormal6.3-10.7The [facility] Physician GroupComment on above:Performed By: #### GLULS #### Point of Care testing ,Platelet MorphologyNormalNormAdventHealth Palm Coast Parkway Physician GroupComment on above:Result Comment: PERFORMED BY: [place] [address] [place] [address] PATHOLOGIST RADIO RIGGER AHMET SAUCEDA M.D.Performed By: #### GLULS #### Point of Care testing ,Platelets (Bld) [#/Vol]242 10*3/sLNcciif389-240Qll [facility] Physician [facility] Comment on above:Performed By: #### GLULS #### Point of Care testing ,RBC (Bld) [#/Vol]4.49 10*6/uLNormal3.60-5.00[facility] Physician [facility] Comment on above:Performed By: #### GLULS #### Point of Care testing ,RBC morphology finding Nom (Bld)NormalLake [facility]bury [facility] Comment on above:Performed By: #### GLULS #### Point of Care testing ,Segmented neutrophils/100 WBC (Bld)74 %Mayk02-78Ywi [facility] Comment on above:Performed By: #### GLULS #### Point of Care testing ,WBC (Bld) [#/Vol]9.2 10*3/uLNormal3.8-11.6The [facility] Physician GroupComment on above:Performed By: #### GLULS #### Point of Care testing ,White Blood Count9.2 [CFU]/mLNormal3.8-11.6The [facility] Physician GroupComment on above:Performed By: #### GLULS #### Point of Care testing ,Glucose Poct Glucometerson 78-54-4971Ebfobhp [Mass/Vol]205 mg/dLNoCone Health [facility] Hospital Physician GroupComment on above:Result Comment: Random Glucose Reference Range is dependent on time and content of last meal. Glucose of more than 200 mg/dL in a nonstressed, ambulatory subject supports the diagnosis of Diabetes Mellitus. PERFORMED BY: [place] [address] PATHOLOGIST RADIO RIGGER AHMET SAUCEDA M.D.Performed By: #### GLULS #### Point of Care testing ,Glucose [Mass/Vol]156 mg/dLHCA [facility] Hospital Physician GroupComment on above: Result Comment: Random Glucose Reference Range is dependent on time and content of last meal. Glucose of more than 200 mg/dL in a nonstressed, ambulatory subject supports the diagnosis of Diabetes Mellitus. PERFORMED BY: [place] [address] PATHOLOGIST RADIO RIGGER AHMET SAUCEDA M.D.Performed By: #### GLULS #### Point of Care testing ,Diff and CBCon 06-86-7816Wgbb form neutrophils/100 WBC (Bld)6 %High0-5The [facility] Physician GroupComment on above:Performed By: #### DIFF CBC ####[facility] [address] [place] [id number] [place] Eosinophils/100 WBC (Bld)4 %High1-3The [facility] Physician GroupComment on above:Performed By: #### DIFF CBC ####[place] [id number] USAErythrocyte distribution width (RBC) [Ratio]14.0 % Usjtdh08.9-15.3The [facility] Physician GroupComment on above:Performed By: #### DIFF CBC ####[place] [address] USAHematocrit (Bld) [Volume fraction]37.2 %Udysun09.0-46.4The [facility] Physician GroupComment on above:Performed By: #### DIFF CBC ####[place] [address] USAHemoglobin (Bld) [Mass/Vol]12.9 g/kBBalbna80.8-15.4The [facility] Physician GroupComment on above: Performed By: #### DIFF CBC ####[place] [address] USALymphocytes/100 WBC (Bld)16 %Gzb59-46Chq [facility] Physician GroupComment on above:Performed By: #### DIFF CBC ####[place] [address] USAMCH (RBC) [Entitic mass]28.4 pfRektjw04.7-34.3The [facility] Physician GroupComment on above: Performed By: #### DIFF CBC ####[place] [address] USAMCV (RBC) [Entitic vol]81.7 qLZdrktx36-160Asn [facility] Physician GroupComment on above:Performed By: #### DIFF CBC ####[place] [id number] USAMean Corpuscular HGB Conc34.7 g/uASvtewo33.0-35.0The [facility] Physician GroupComment on above:Performed By: #### DIFF CBC ####[place] [id number] USAMetamyelocytes8 %High0-0The [facility] Physician GroupComment on above:Performed By: #### DIFF CBC ####[address] [address] USAMonocytes/100 WBC (Bld)7 %Normal2-11The [facility] Physician GroupComment on above:Performed By: #### DIFF CBC ####[address] [address] USAMyelocytes3 %High0-0The [facility] Physician GroupComment on above: Performed By: #### DIFF CBC ####[address] [address] USAPlatelet EstimateNormalNormalNormBaptist Health Doctors Hospital Physician GroupComment on above:Performed By: #### DIFF CBC ####[address] [address] USAPlatelet mean volume (Bld) [Entitic vol]7.7 fLNormal6.3-10.7The [facility] Physician [facility] HospitalComment on above:Performed By: #### DIFF CBC ####[address] [address] USAPlatelet MorphologyNormalNormalNormBaptist Health Doctors Hospital Physician GroupComment on above:Result Comment: PERFORMED BY: [facility] [address] [place] [id number] PATHOLOGIST RADIO RIGGER AHMET SAUCEDA M.D.Performed By: #### DIFF CBC ####[address] [address] USAPlatelets (Bld) [#/Vol]247 10*3/uL Kbbvxd963-461Rdi [facility] Physician [facility] HospitalComment on above:Performed By: #### DIFF CBC ####[address] [address] USARBC (Bld) [#/Vol]4.55 10*6/uLNormal3.60-5.00The [facility] Comment on above:Performed By: #### DIFF CBC ####[address] [address] USARBC morphology finding Nom (Bld)Normal NormalNormBaptist Health Doctors Hospital Physician GroupComment on above:Performed By: #### DIFF CBC ####[place] [address] [place] [address] USASegmented neutrophils/100 WBC (Bld)56 %Xldhbl74-99Cbp [facility] Physician GroupComment on above:Performed By: #### DIFF CBC ####[place] [address] USAWBC (Bld) [#/Vol]10.2 10*3/uLNormal 3.8-11.6The [facility] Physician GroupComment on above:Performed By: #### DIFF CBC ####[place] [id number] [facility] White Blood Count10.2 [CFU]/mLNormal3.8-11.6The [facility] Physician GroupComment on above:Performed By: #### DIFF CBC ####[place] [address] USAGlucose Poct Glucometerson 15-66-8704Gntciqo [Mass/Vol]173 mg/dLNoCone Health [facility] Hospital Physician [facility] HospitalComment on above:Result Comment: Random Glucose Reference Range is dependent on time and content of last meal. Glucose of more than 200 mg/dL in a nonstressed, ambulatory subject supports the diagnosis of Diabetes Mellitus. PERFORMED BY: [place] [address] PATHOLOGIST RADIO RIGGER AHMET SAUCEDA M.D.Performed By: #### GLULS #### Point of Care testing ,Glucose [Mass/Vol]174 mg/dLNoCone Health Moses [facility] Hospital Physician [facility] HospitalComment on above: Result Comment: Random Glucose Reference Range is dependent on time and content of last meal. Glucose of more than 200 mg/dL in a nonstressed, ambulatory subject supports the diagnosis of Diabetes Mellitus. PERFORMED BY: [place] [address] PATHOLOGIST RADIO RIGGER AHMET SAUCEDA M.D.Performed By: #### GLULS ####Point of Care testing,Glucose [Mass/Vol]279 mg/dLHCA Florida Largo Hospital Physician GroupComment on above:Result Comment: Random Glucose Reference Range is dependent on time and content of last meal. Glucose of more than 200 mg/dL in a nonstressed, ambulatory subject supports the diagnosis of Diabetes Mellitus. PERFORMED BY: [place] [id number] PATHOLOGIST RADIO RIGGER AHMET SAUCEDA M.D.Performed By: #### GLULS #### Point of Care testing ,Glucose [Mass/Vol]169 mg/dLNoCone Health Moses Cone Hospital Physician GroupComment on above: Result Comment: Random Glucose Reference Range is dependent on time and content of last meal. Glucose of more than 200 mg/dL in a nonstressed, ambulatory subject supports the diagnosis of Diabetes Mellitus. PERFORMED BY: [address] [address] PATHOLOGIST RADIO RIGGER AHMET SAUCEDA M.D.Performed By: #### GLULS #### Point of Care testing ,XR chest 1V portableon 92-78-8559AL chest 1V portableGRAND LAKE [facility] [place] [address] [place] [address] XRay Report Signed Patient: Stew Argueta MR#: [id number] : 1965 Acct:[id number] Age/Sex: 60 / F ADM Date: 01/21/25 Loc: Room: [address] [place] [address] Type: ADM IN Attending Dr: Abraham Terrazas DO Copies to: Abraham Terrazas DO Ordering Provider: Abraham Terrazas DO Date of Service: 01/28/25 XR/XR chest 1V portable: pneumonia Single view chest compared to prior examination 01/25/2025 HISTORY: Follow-up right pneumonia Decreased right upper lung consolidation consistent with improvement. No developing pleural effusion or pneumothorax. XR/XR chest 1V portable IMPRESSION: Moderate improvement of the right upper lung infiltrate. Impression dictated by: Kaz Pinedo M.D. 01/28/2025 10:15 AM Dictation Location: [place] [address] Transcribed By: [facility] 01/28/25 1015 Dictated By: Kaz Pniedo DO 01/28/25 1013 Signed By: 01/28/25 1015NoC[facility] Physician [facility] HospitalBasic Metabolic Panelon 52-69-6516Pbdwb gap [Moles/Vol]9.8 mmol/LNormal6.0-15.0The [facility] Physician [facility] HospitalComment on above:Performed By: #### GLULS #### Point of Care testing ,Calcium [Mass/Vol]8.6 mg/dLNormal8.6-10.3The [facility] Physician GroupComment on above:Performed By: #### GLULS #### Point of Care testing ,Chloride [Moles/Vol]96 mmol/GWgg28-131Tmt [facility] Physician GroupComment on above:Performed By: #### GLULS #### Point of Care testing ,CO2 [Moles/Vol]29.4 mmol/YJfkiwu09.0-31.0The [facility] Physician GroupComment on above:Performed By: #### GLULS #### Point of Care testing ,Creatinine [Mass/Vol]0.97 mg/dLNormal0.60-1.20The [facility] Physician [facility] Comment on above:Performed By: #### GLULS #### Point of Care testing ,Creatinine Clr Calc Hzllvjar89.60NoCone Health [facility] Physician [facility] HospitalComment on above:Result Comment: PERFORMED BY: [place] [address] [place] [address] PATHOLOGIST RADIO RIGGER AHMET SAUCEDA M.D.Performed By: #### GLULS #### Point of Care testing ,GFR/1.73 sq M.predicted MDRD (S/P/Bld) [Vol rate/Area]mL/min/{1.73_m2}NormalThe [facility] Physician GroupComment on above:Performed By: #### GLULS #### Point of Care testing ,Glucose [Mass/Vol]180 mg/jPTarp86-078Jpr [facility] Physician [facility] HospitalComment on above:Result Comment: Random Glucose Reference Range is dependent on time and content of last meal. Glucose of more than 200 mg/dL in a nonstressed, ambulatory subject supports the diagnosis of Diabetes Mellitus. ADA recommended reference rangePerformed By: #### GLULS #### Point of Care testing ,Potassium [Moles/Vol]3.2 mmol/LLow3.5-5.1The [facility] Physician GroupComment on above:Performed By: #### GLULS #### Point of Care testing ,Sodium [Moles/Vol]132 mmol/CFqq729-942Vlg [facility] Physician GroupComment on above:Performed By: #### GLULS #### Point of Care testing ,Urea nitrogen [Mass/Vol]13 mg/dLNormal7-25The [facility] Physician GroupComment on above:Performed By: #### GLULS #### Point of Care testing ,Diff and CBCon 35-54-6090Cgcd form neutrophils/100 WBC (Bld)1 %Normal0-5The [facility] Physician GroupComment on above:Performed By: #### GLULS #### Point of Care testing ,Basophils/100 WBC (Bld)1 %Normal0-2The [facility] Physician GroupComment on above:Performed By: #### GLULS #### Point of Care testing ,Eosinophils/100 WBC (Bld)2 %Normal1-3The [facility] Physician GroupComment on above:Performed By: #### GLULS #### Point of Care testing ,Erythrocyte distribution width (RBC) [Ratio]14.2 %Wijtrp27.9-15.3The [facility] Physician GroupComment on above:Performed By: #### GLULS #### Point of Care testing ,Hematocrit (Bld) [Volume fraction]36.2 %Plmcux63.0-46.4The [facility] Physician GroupComment on above:Performed By: #### GLULS #### Point of Care testing ,Hemoglobin (Bld) [Mass/Vol]12.6 g/yLPgxwet53.8-15.4The [facility] Physician GroupComment on above:Performed By: #### GLULS #### Point of Care testing ,Lymphocytes/100 WBC (Bld)22 %Chbjnb36-96Uov [facility] Physician GroupComment on above:Performed By: #### GLULS #### Point of Care testing ,MCH (RBC) [Entitic mass]28.1 ubAdihai97.7-34.3The [facility] Phys[facility] Comment on above:Performed By: #### GLULS #### Point of Care testing ,MCV (RBC) [Entitic vol]80.8 pYPqtuix47-468Oso [facility] Physician GroupComment on above:Performed By: #### GLULS #### Point of Care testing ,Mean Corpuscular HGB Conc34.8 g/qIGmtfwy85.0-35.0The [facility] Phys[facility] Comment on above:Performed By: #### GLULS #### Point of Care testing ,Metamyelocytes3 %High0-0The [facility] Physician GroupComment on above:Performed By: #### GLULS #### Point of Care testing ,Monocytes/100 WBC (Bld)3 %Normal2-11The [facility] Physician GroupComment on above:Performed By: #### GLULS #### Point of Care testing ,Myelocytes5 %High0-0The [facility] Physician GroupComment on above:Performed By: #### GLULS #### Point of Care testing ,Platelet EstimateNormalNormalNormBaptist Health Doctors Hospital Physician GroupComment on above:Performed By: #### GLULS #### Point of Care testing ,Platelet mean volume (Bld) [Entitic vol]7.8 fLNormal6.3-10.7The [facility] Physician GroupComment on above:Performed By: #### GLULS #### Point of Care testing ,Platelet MorphologyNormalNormalNormBaptist Health Doctors Hospital Physician GroupComment on above:Result Comment: PERFORMED BY: [place] [address] [place] [address] PATHOLOGIST RADIO RIGGER AHMET SAUCEDA M.D.Performed By: #### GLULS #### Point of Care testing ,Platelets (Bld) [#/Vol]239 10*3/xRNyaigm055-204Cou [facility] Phys[facility] Comment on above:Performed By: #### GLULS #### Point of Care testing ,RBC (Bld) [#/Vol]4.48 10*6/uLNormal3.60-5.00The [facility] Phys[facility] Comment on above:Performed By: #### GLULS #### Point of Care testing ,RBC morphology finding Nom (Bld)NormalNormalNormBaptist Health Doctors Hospital Physician [facility] Comment on above:Performed By: #### GLULS #### Point of Care testing ,Reactive Lymphocytes1 %Normal0-12ThSyringa General Hospital Physician [facility] Community HospitalComment on above: Performed By: #### GLULS #### Point of Care testing ,Segmented neutrophils/100 WBC (Bld)63 %Zkqgwq96-74[facility] [place] Physician [facility] Comment on above:Performed By: #### GLULS #### Point of Care testing ,WBC (Bld) [#/Vol]11.6 10*3/uLNormal3.8-11.6ThSyringa General Hospital Physician [facility] HospitalComment on above:Performed By: #### GLULS #### Point of Care testing ,White Blood Count11.6 [CFU]/mLNormal3.8-11.6ThSyringa General Hospital Physician [facility] Comment on above:Performed By: #### GLULS #### Point of Care testing ,Glucose Poct Glucometerson 79-21-7666Viqdbuy [Mass/Vol]232 mg/dLChildren's MinnesotaComment on above:Result Comment: Random Glucose Reference Range is dependent on time and content of last meal. Glucose of more than 200 mg/dL in a nonstressed, ambulatory subject supports the diagnosis of Diabetes Mellitus. PERFORMED BY: [place] [id number] PATHOLOGIST RADIO RIGGER AHMET SAUCEDA M.D.Performed By: #### GLULS ####Point of Care testing,Glucose [Mass/Vol]215 mg/dLHCA Florida Largo Hospital Physician GroupComment on above:Result Comment: Random Glucose Reference Range is dependent on time and content of last meal. Glucose of more than 200 mg/dL in a nonstressed, ambulatory subject supports the diagnosis of Diabetes Mellitus. PERFORMED BY: [address] [place] [address] PATHOLOGIST RADIO RIGGER AHMET SAUCEDA M.D.Performed By: #### GLULS #### Point of Care testing ,Glucose [Mass/Vol]244 mg/dLNoCone Health Moses Cone Hospital Physician [facility] HospitalComment on above: Result Comment: Random Glucose Reference Range is dependent on time and content of last meal. Glucose of more than 200 mg/dL in a nonstressed, ambulatory subject supports the diagnosis of Diabetes Mellitus. PERFORMED BY: [facility] [address] [facility] HOSPITALChavoANDREW VIL[place] [id number] PATHOLOGIST RADIO RIGGER AHMET SAUCEDA M.D.Performed By: #### GLULS ####Point of Care testing,Glucose [Mass/Vol]157 mg/dLHCA Florida Largo Hospital Physician GroupComment on above:Result Comment: Random Glucose Reference Range is dependent on time and content of last meal. Glucose of more than 200 mg/dL in a nonstressed, ambulatory subject supports the diagnosis of Diabetes Mellitus. PERFORMED BY: [facility] [address] [facility] [place] [address] PATHOLOGIST RADIO RIGGER AHMET SAUCEDA M.D.Performed By: #### GLULS #### Point of Care testing ,Hepatic Panelon 29-88-7581Wixaikl [Mass/Vol]2.8 g/dLLow3.5-5.7The [facility] Physician [facility] HospitalComment on above:Performed By: #### BMP, HEPATIC ####[place] [id number] USAAlbumin/Globulin [Mass ratio]0.8 {ratio}NormalThe [facility] Affairs Pittsburgh Healthcare SystemComment on above: Performed By: #### BMP, HEPATIC ####[address] [address] USAALP [Catalytic activity/Vol]98 U/JJlzfot53-084Vzb [facility] Physician GroupComment on above:Performed By: #### BMP, HEPATIC ####[address] [address] USAALT [Catalytic activity/Vol]10 U/LNormal7-52The [facility] Physician GroupComment on above:Performed By: #### BMP, HEPATIC ####[place] [id number] USAAST [Catalytic activity/Vol]11 U/NQvw72-94Sed [facility] Physician GroupComment on above:Performed By: #### BMP, HEPATIC ####[address] Bilirubin [Mass/Vol]0.6 mg/dLNormal0.3-1.0The [facility] Physician GroupComment on above:Performed By: #### BMP, HEPATIC ####[place] [address] USABilirubin,Indirect0.6 mg/dLNormalThe [facility] GroupComment on above:Performed By: #### BMP, HEPATIC ####[place] [address] USABilirubin.indirect [Mass/Vol]0.00 mg/dLLow0.03-0.18The [facility] Physician GroupComment on above: Result Comment: If the DBIL is less than 0.1, IBIL is not able to be calculated.Performed By: #### BMP, HEPATIC ####[address] StreetGlobulin (S) [Mass/Vol]3.4 g/dLNormal The [facility] Physician GroupComment on above:Performed By: #### BMP, HEPATIC ####[place] [address] USAProtein [Mass/Vol]6.2 g/dLLow6.4-8.9The [facility] Physician GroupComment on above: Performed By: #### BMP, HEPATIC ####[place] [address] USABasic Metabolic Panelon 43-97-2757Wlfjl gap [Moles/Vol]11.0 mmol/LNormal6.0-15.0The [facility] Physician GroupComment on above:Performed By: #### GLULS #### Point of Care testing ,Calcium [Mass/Vol]8.9 mg/dLNormal8.6-10.3The [facility] Physician GroupComment on above:Performed By: #### GLULS #### Point of Care testing ,Chloride [Moles/Vol]99 mmol/WRpyroj54-756Pvx [facility] Physician GroupComment on above:Performed By: #### GLULS #### Point of Care testing ,CO2 [Moles/Vol]25.3 mmol/FNdprnv31.0-31.0The [facility] Physician GroupComment on above:Performed By: #### GLULS #### Point of Care testing ,Creatinine [Mass/Vol]0.92 mg/dLNormal0.60-1.20The [facility] Physician Group Comment on above:Performed By: #### GLULS #### Point of Care testing ,Creatinine Clr Calc Wheixztk82.99NormalThe [facility] Physician GroupComment on above:Result Comment: PERFORMED BY: [address] [place] [address] PATHOLOGIST RADIO RIGGER AHMET SAUCEDA M.D.Performed By: #### GLULS #### Point of Care testing ,GFR/1.73 sq M.predicted MDRD (S/P/Bld) [Vol rate/Area]mL/min/{1.73_m2}NormalThe [facility] Physician GroupComment on above:Performed By: #### GLULS #### Point of Care testing ,Glucose [Mass/Vol]129 mg/jKQmxk63-723Eoh [facility] Physician GroupComment on above:Result Comment: Random Glucose Reference Range is dependent on time and content of last meal. Glucose of more than 200 mg/dL in a nonstressed, ambulatory subject supports the diagnosis of Diabetes Mellitus. ADA recommended reference rangePerformed By: #### GLULS #### Point of Care testing ,Potassium [Moles/Vol]3.3 mmol/LLow3.5-5.1The [facility] Physician GroupComment on above:Performed By: #### GLULS #### Point of Care testing ,Sodium [Moles/Vol]132 mmol/DQex552-151Ixv [facility] Physician GroupComment on above:Performed By: #### GLULS #### Point of Care testing ,Urea nitrogen [Mass/Vol]10 mg/dLNormal7-25The [facility] Physician GroupComment on above:Performed By: #### GLULS #### Point of Care testing ,Diff and CBCon 80-47-6887Tmjnclauub CommentsNormalThe [facility]ician [facility] Comment on above:Result Comment: Slide referred to pathologist for review PERFORMED BY: [facility] [address] [place], [place] [id number] PATHOLOGIST RADIO RIGGER AHMET SAUCEDA M.D.Performed By: #### DIFF CBC, PATH SLIDE REV ####[address] [address] USABand form neutrophils/100 WBC (Bld)3 %Normal0-5The [facility] Physician GroupComment on above:Performed By: #### DIFF CBC, PATH SLIDE REV ####[address] [address] USAEosinophils/100 WBC (Bld)1 %Normal1-3 The [facility] Physician GroupComment on above:Performed By: #### DIFF CBC, PATH SLIDE REV ####[address] [address] USAErythrocyte distribution width (RBC) [Ratio]14.0 %Whquhm67.9-15.3The [facility] Physician GroupComment on above:Performed By: #### DIFF CBC, PATH SLIDE REV ####[address] [address] USAHematocrit (Bld) [Volume fraction]38.7 %Ctgjbj08.0-46.4The [facility] Physician [facility] HospitalComment on above:Performed By: #### DIFF CBC, PATH SLIDE REV ####[address] [address] [place] Hemoglobin (Bld) [Mass/Vol]13.3 g/gNXllqaj19.8-15.4The [facility] Physician [facility] Comment on above:Performed By: #### DIFF CBC, PATH SLIDE REV ####[address] [address] USALymphocytes/100 WBC (Bld)15 %Img00-80Xse [facility] Physician GroupComment on above:Performed By: #### DIFF CBC, PATH SLIDE REV ####[address] [address] USAMCH (RBC) [Entitic mass]27.7 shQdwarj44.7-34.3The [facility] Physician GroupComment on above:Performed By: #### DIFF CBC, PATH SLIDE REV ####[address] StreetV (RBC) [Entitic vol]80.6 zIAfuwlj52-546Jeo [facility] Physician Group Comment on above:Performed By: #### DIFF CBC, PATH SLIDE REV ####[place] [address] USAMean Corpuscular HGB Conc34.4 g/iSTbglzt69.0-35.0The [facility] Physician GroupComment on above: Performed By: #### DIFF CBC, PATH SLIDE REV ####[place] [address] USAMetamyelocytes2 %High0-0The [facility] Physician GroupComment on above:Performed By: #### DIFF CBC, PATH SLIDE REV ####[place] [address] [place] Monocytes/100 WBC (Bld)7 %Normal2-11The [facility] Physician GroupComment on above:Performed By: #### DIFF CBC, PATH SLIDE REV ####[place] [address] USAMyelocytes7 %High0-0The [facility] Physician GroupComment on above:Performed By: #### DIFF CBC, PATH SLIDE REV ####[place] [address] USAPlasma Cells2 %High0-0The [facility] Physician GroupComment on above:Performed By: #### DIFF CBC, PATH SLIDE REV ####[place] [id number] USAPlatelet EstimateNormalNormalNormalThe [facility] Physician GroupComment on above:Performed By: #### DIFF CBC, PATH SLIDE REV ####[place] [address] [place] Platelet mean volume (Bld) [Entitic vol]7.7 fLNormal6.3-10.7The [facility] Physician GroupComment on above:Performed By: #### DIFF CBC, PATH SLIDE REV ####[address] [address] [place] Platelet MorphologyNormalNormalNormBaptist Health Doctors Hospital Physician GroupComment on above:Result Comment: PERFORMED BY: [facility] [address] [place] [address] PATHOLOGIST RADIO RIGGER AHMET SAUCEDA M.D.Performed By: #### DIFF CBC, PATH SLIDE REV ####[address] [address] USAPlatelets (Bld) [#/Vol]252 10*3/mJXljsre821-147Lgl [facility] Physician GroupComment on above: Performed By: #### DIFF CBC, PATH SLIDE REV ####[address] [address] USAPromyelocytes1 %High0-0The [facility] Physician GroupComment on above:Performed By: #### DIFF CBC, PATH SLIDE REV ####[address] [address] USARBC (Bld) [#/Vol]4.80 10*6/uLNormal3.60-5.00The [facility] Physician GroupComment on above:Performed By: #### DIFF CBC, PATH SLIDE REV ####[address] [address] USARBC morphology finding Nom (Bld) NormalNormalNormBaptist Health Doctors Hospital Physician GroupComment on above:Performed By: #### DIFF CBC, PATH SLIDE REV ####[address] [address] USAReactive Lymphocytes1 %Normal0-12The [facility] Physician GroupComment on above:Performed By: #### DIFF CBC, PATH SLIDE REV ####[address] [address] [place] Segmented neutrophils/100 WBC (Bld)61 %Levjlh96-24Gnm [facility] Physician Group Comment on above:Performed By: #### DIFF CBC, PATH SLIDE REV ####[facility] [place] [address] USAToxic Granulation SlightNormBaptist Health Doctors Hospital Physician GroupComment on above:Performed By: #### DIFF CBC, PATH SLIDE REV ####[place] [address] [place] [address] USAWBC (Bld) [#/Vol]16.0 10*3/uLHigh3.8-11.6The [facility] Physician GroupComment on above:Performed By: #### DIFF CBC, PATH SLIDE REV ####[address] [address] USAWhite Blood Count16.0 [CFU]/mLHigh3.8-11.6The [facility] Physician Group Comment on above:Performed By: #### DIFF CBC, PATH SLIDE REV ####[address] [address] USAGlucose Poct Glucometerson 70-90-1604Oosombe [Mass/Vol]249 mg/dLHCA Florida Largo Hospital Physician [facility] HospitalComment on above:Result Comment: Random Glucose Reference Range is dependent on time and content of last meal. Glucose of more than 200 mg/dL in a nonstressed, ambulatory subject supports the diagnosis of Diabetes Mellitus. PERFORMED BY: [address] [place] [address] PATHOLOGIST RADIO RIGGER AHMET SAUCEDA M.D.Performed By: #### GLULS #### Point of Care testing ,Glucose [Mass/Vol]252 mg/dLHCA Florida Largo Hospital Physician [facility] HospitalComment on above: Result Comment: Random Glucose Reference Range is dependent on time and content of last meal. Glucose of more than 200 mg/dL in a nonstressed, ambulatory subject supports the diagnosis of Diabetes Mellitus. PERFORMED BY: [facility] [address] [facility] HOSPITALChavo [place] [id number] PATHOLOGIST RADIO RIGGER AHMET SAUCEDA M.D.Performed By: #### GLULS #### Point of Care testing ,Glucose [Mass/Vol]179 mg/dLHCA Florida Largo Hospital Physician GroupComment on above: Result Comment: Random Glucose Reference Range is dependent on time and content of last meal. Glucose of more than 200 mg/dL in a nonstressed, ambulatory subject supports the diagnosis of Diabetes Mellitus. PERFORMED BY: [facility] [address] [place] [address] PATHOLOGIST RADIO RIGGER AHMET SAUCEDA M.D.Performed By: #### GLULS ####Point of Care testing,Glucose [Mass/Vol]143 mg/dLHCA Florida Largo Hospital Physician GroupComment on above:Result Comment: Random Glucose Reference Range is dependent on time and content of last meal. Glucose of more than 200 mg/dL in a nonstressed, ambulatory subject supports the diagnosis of Diabetes Mellitus. PERFORMED BY: [address] [place] [address] PATHOLOGIST RADIO RIGGER AHMET SAUCEDA M.D.Performed By: #### DELORIS ####Point of Care testing,Adam 01-26-2025 Specimen: [id number] Received: 01/26/25 Status: ARLET [place] Num: [id number] Spec Type: Impression Subm Dr: Abraham Terrazas DO Tissues: PATHPER Procedures: PATHREVIEW Age/ Patient Sex Location Account Attending Physician Stew Argueta Tamica 60/F 4P [id number] Abraham Terrazas, DO SPEC NUM: [id number] RECD: 01/26/25 STATUS: ARLET REEn NUM: [id number] ALESSANDRA: 01/26/25- SUBM DR: Abraham Terrazas, ENTERED: 01/26/[address]: SPEC TYPE: Impression DEPT: MA ORDERED: PATHREVIEW ORDERED: PATHREVIEW Pathologist Review Peripheral blood smear evaluation: - Mild neutrophilic leukocytosis consistent with infection. Recommend clinical correlation and rule out infection. - White blood cell and Platelet: Unremarkable. CPT: 32960 CBC Date Time Test Result Flag (u) Normal Range 01/21/25 2253 Poik Slight Crenated RBC Slight Toxic Vac Slight Lg Plt Slight 01/22/25 0417 Polychrom Slight 01/24/25 0355 [place]iso Slight Micro Slight 01/25/25 0413 Baso 1 0-2 % 01/26/25 0543 WBC 16.0 H 3.8-11.6 X10E3/uL RBC 4.80 3.60-5.00 x10E6/uL HGB 13.3 11.8-15.4 g/dL HCT 38.7 34.0-46.4 % MCV 80.6 80-100 fl MCH 27.7 24.7-34.3 pg MCHC 34.4 32.0-35.0 g/dL Specimen: Received: 01/26/25 Status: ARLET Taylor Num: [id number] Spec Type: Impression Subm Dr: Abraham Terrazas DO Tissues: PATHPER Procedures: PATHREVIEW Patient: Stew Argueta [id number] (Continued) Specimen: Received: 01/26/25 (Continued) KALPANA (Continued) Signed (signature on file) Taj Cardozo MD 01/26/25 1456 Specimen: Received: 01/26/25 Status: ARLET Taylor Num: [id number] Spec Type: Impression Subm Dr: Abraham Terrazas DO Tissues: PATHPER Procedures: PATHREVIEW Patient: Stew Argueta Tamica [id number] (Continued) Specimen: [id number] Received: 01/26/25-121 (Continued) CBC (Continued) RDW 14.0 11.9-15.3 % Plt 252 150-450 x10E3/uL MPV 7.7 6.3-10.7 fl Seg 61 50-70 % Band 3 0-5 % Lymph 15 L 18-42 % Reactive Lymphs 1 0-12 % Ida 7 2-11 % Eos 1 1-3 % Hubbell 2 H 0-0 % Myelo 7 H 0-0 % Promyelo 1 H 0-0 % Plasma Cells 2 H 0-0 % RBC Morph Normal Normal Toxic Gran Slight Plt Est Normal Normal Plt Morphology Normal Normal Add Comments Slide referred to pathologist for review Specimen: [id number] Received: 01/26/25-2 Status: ARLET Taylor Num: [id number] Spec Type: Impression Subm Dr: Abraham Terrazas, DO Tissues: PATHPER Procedures: PATHREVIEW Patient: SolangeNigel gonzalezjennifer Davey [id number] (Continued) Signed (signature on file) Taj Cardozo MD 01/26/25 1456Normal [facility] GroupPathologist Slide Reviewon 37-07-7298Sclvmouuvrz Slide ReviewOrdered Path ReviewNormalThSyringa General Hospital Physician GroupComment on above:Result Comment: PERFORMED BY: [facility] [address] [place] [address] PATHOLOGIST RADIO RIGGER AHMET SAUCEDA M.D.Performed By: #### DIFF CBC, PATH SLIDE REV ####[facility] [address] [place] [address] USABasic Metabolic Panel on 65-76-9922Szmms gap [Moles/Vol]9.9 mmol/LNormal6.0-15.0The [facility] Physician GroupComment on above:Performed By: #### GLULS #### Point of Care testing ,Calcium [Mass/Vol]8.7 mg/dLNormal8.6-10.3The [facility] Physician GroupComment on above:Performed By: #### GLULS #### Point of Care testing ,Chloride [Moles/Vol]102 mmol/CWrylvb48-661Ock [facility] Physician GroupComment on above:Performed By: #### GLULS #### Point of Care testing ,CO2 [Moles/Vol]22.2 mmol/HUuldwn12.0-31.0The [facility] Physician GroupComment on above:Performed By: #### GLULS #### Point of Care testing ,Creatinine [Mass/Vol]0.93 mg/dLNormal0.60-1.20The [facility]ician Group Comment on above:Performed By: #### GLULS #### Point of Care testing ,Creatinine Clr Calc Njzrffnu31.02NormalThe [facility] Physician GroupComment on above:Result Comment: PERFORMED BY: [address] [place] [address] PATHOLOGIST RADIO RIGGER AHMET SAUCEDA M.D.Performed By: #### GLULS #### Point of Care testing ,GFR/1.73 sq M.predicted MDRD (S/P/Bld) [Vol rate/Area]mL/min/{1.73_m2}NormalThe [facility] Physician GroupComment on above:Performed By: #### GLULS #### Point of Care testing ,Glucose [Mass/Vol]188 mg/uGUszt34-590Sfs [facility] Physician GroupComment on above:Result Comment: Random Glucose Reference Range is dependent on time and content of last meal. Glucose of more than 200 mg/dL in a nonstressed, ambulatory subject supports the diagnosis of Diabetes Mellitus. ADA recommended reference rangePerformed By: #### GLULS #### Point of Care testing ,Potassium [Moles/Vol]3.1 mmol/LLow3.5-5.1The [facility] Physician GroupComment on above:Performed By: #### GLULS #### Point of Care testing ,Sodium [Moles/Vol]131 mmol/AFzc321-147Fsw [facility] Physician GroupComment on above:Performed By: #### GLULS #### Point of Care testing ,Urea nitrogen [Mass/Vol]14 mg/dLNormal7-25The [facility] Physician GroupComment on above:Performed By: #### GLULS #### Point of Care testing ,Diff and CBCon 41-39-0229Isve form neutrophils/100 WBC (Bld)12 %High0-5The [facility] Physician GroupComment on above:Performed By: #### GLULS #### Point of Care testing ,Basophils/100 WBC (Bld)1 %Normal0-2The [facility] Physician GroupComment on above:Performed By: #### GLULS #### Point of Care testing ,Eosinophils/100 WBC (Bld)4 %High1-3The [facility] Physician GroupComment on above:Performed By: #### GLULS #### Point of Care testing ,Erythrocyte distribution width (RBC) [Ratio]14.1 %Xckled21.9-15.3The [facility] Physician GroupComment on above:Performed By: #### GLULS #### Point of Care testing ,Hematocrit (Bld) [Volume fraction]37.5 %Msquhn70.0-46.4The [facility] Physician GroupComment on above:Performed By: #### GLULS #### Point of Care testing ,Hemoglobin (Bld) [Mass/Vol]12.9 g/yGIxpbvs70.8-15.4The [facility] Physician GroupComment on above:Performed By: #### GLULS #### Point of Care testing ,Lymphocytes/100 WBC (Bld)6 %Uwo59-46Cay [facility] Physician GroupComment on above:Performed By: #### GLULS #### Point of Care testing ,MCH (RBC) [Entitic mass]27.9 xgVbodfq49.7-34.3The [facility] Comment on above:Performed By: #### GLULS #### Point of Care testing ,MCV (RBC) [Entitic vol]80.9 iUAvvljj92-373Kzh [facility] Physician GroupComment on above:Performed By: #### GLULS #### Point of Care testing ,Mean Corpuscular HGB Conc34.5 g/pYQnovhv11.0-35.0[facility] Physician [facility] Comment on above:Performed By: #### GLULS #### Point of Care testing ,Metamyelocytes1 %High0-0The [facility] Physician GroupComment on above:Performed By: #### GLULS #### Point of Care testing ,Monocytes/100 WBC (Bld)5 %Normal2-11The [facility] Physician GroupComment on above:Performed By: #### GLULS #### Point of Care testing ,Myelocytes6 %High0-0The [facility] Physician GroupComment on above:Performed By: #### GLULS #### Point of Care testing ,Plasma Cells1 %High0-0The [facility] Physician GroupComment on above:Performed By: #### GLULS #### Point of Care testing ,Platelet EstimateNormalNormalNormDayton VA Medical Centere [facility] Physician GroupComment on above:Performed By: #### GLULS #### Point of Care testing ,Platelet mean volume (Bld) [Entitic vol]7.9 fLNormal6.3-10.7The [facility] Physician GroupComment on above:Performed By: #### GLULS #### Point of Care testing ,Platelet MorphologyNormalNormalNormBaptist Health Doctors Hospital Physician GroupComment on above:Result Comment: PERFORMED BY: [place] [address] [place] [address] PATHOLOGIST RADIO RIGGER AHMET SAUCEDA M.D.Performed By: #### GLULS #### Point of Care testing ,Platelets (Bld) [#/Vol]253 10*3/wQPndxqx416-080Vdj [facility] Comment on above:Performed By: #### GLULS #### Point of Care testing ,RBC (Bld) [#/Vol]4.64 10*6/uLNormal3.60-5.00The [facility] Physician [facility] Comment on above:Performed By: #### GLULS #### Point of Care testing ,RBC morphology finding Nom (Bld)NormalNormalNoCone Health [facility] Physician [facility] Comment on above:Performed By: #### GLULS #### Point of Care testing ,Segmented neutrophils/100 WBC (Bld)63 %Hudfbp92-26Oil [facility] Physician [facility] Comment on above:Performed By: #### GLULS #### Point of Care testing ,WBC (Bld) [#/Vol]15.4 10*3/uLHigh3.8-11.6The [facility] Physician GroupComment on above:Performed By: #### GLULS #### Point of Care testing ,White Blood Count15.4 [CFU]/mLHigh3.8-11.6The [facility] Physician GroupComment on above:Performed By: #### GLULS #### Point of Care testing ,Glucose Poct Glucometerson 98-02-1622Rzjquvy6Ifi4: Cleaned MeterHCA Florida Largo Hospital Physician GroupComment on above:Result Comment: PERFORMED BY: [address] [address] PATHOLOGIST RADIO RIGGER AHMET SAUCEDA M.D.Performed By: #### GLULS #### Point of Care testing ,Glucose [Mass/Vol]315 mg/dLHCA Florida Largo Hospital Physician [facility] HospitalComment on above: Result Comment: Random Glucose Reference Range is dependent on time and content of last meal. Glucose of more than 200 mg/dL in a nonstressed, ambulatory subject supports the diagnosis of Diabetes Mellitus.Performed By: #### GLULS #### Point of Care testing ,Glucose [Mass/Vol]229 mg/dLHCA Florida Largo Hospital Physician GroupComment on above: Result Comment: Random Glucose Reference Range is dependent on time and content of last meal. Glucose of more than 200 mg/dL in a nonstressed, ambulatory subject supports the diagnosis of Diabetes Mellitus. PERFORMED BY: [address] [address] PATHOLOGIST RADIO RIGGER AHMET SAUCEDA M.D.Performed By: #### GLULS ####Point of Care testing,Commemt1 Glu2: Cleaned MeterHCA Florida Largo Hospital Physician GroupComment on above:Result Comment: PERFORMED BY: [facility] [place] [address] PATHOLOGIST RADIO RIGGER AHMET SAUCEDA M.D.Performed By: #### GLULS #### Point of Care testing ,Glucose [Mass/Vol]271 mg/dLHCA Florida Largo Hospital Physician GroupComment on above: Result Comment: Random Glucose Reference Range is dependent on time and content of last meal. Glucose of more than 200 mg/dL in a nonstressed, ambulatory subject supports the diagnosis of Diabetes Mellitus.Performed By: #### GLULS #### Point of Care testing ,Glucose [Mass/Vol]213 mg/dLHCA Florida Largo Hospital Physician GroupComment on above: Result Comment: Random Glucose Reference Range is dependent on time and content of last meal. Glucose of more than 200 mg/dL in a nonstressed, ambulatory subject supports the diagnosis of Diabetes Mellitus.Performed By: #### GLULS #### Point of Care testing ,Adam 01-25-2025 Specimen: [id number] Received: 01/25/25 Status: ARLET Taylor Num: [id number] Spec Type: Impression Subm Dr: TL STAFF Tissues: PATHPER Procedures: PATHREVIEW Age/ Patient Sex Location Account Attending Physician Stew Argueta [place] 60/F 4C [id number] Abraham Terrazas, DO SPEC NUM: [id number] RECD: 01/25/25 STATUS: ARLET TAYLOR NUM: [id number] ALESSANDRA: 01/25/25- SUBM DR: NON STAFF ENTERED: 01/25/25 REILLY ONEILL: SPEC TYPE: Impression DEPT: MA ORDERED: PATHREVIEW ORDERED: PATHREVIEW Pathologist Review Peripheral blood smear evaluation: - Mild neutrophilic leukocytosis, recommend clinical correlation and rule out infection. - White blood cell and Platelet: Unremarkable. CPT: 29737 CBC Date Time Test Result Flag (u) Normal Range 01/21/25 2253 Poik Slight Crenated RBC Slight Toxic Vac Slight Lg Plt Slight 01/22/25 0417 Polychrom Slight 01/24/25 0355 Aniso Slight Micro Slight 01/25/25 0413 WBC 15.4 H 3.8-11.6 X10E3/uL RBC 4.64 3.60-5.00 x10E6/uL HGB 12.9 11.8-15.4 g/dL HCT 37.5 34.0-46.4 % MCV 80.9 80-100 fl MCH 27.9 24.7-34.3 pg MCHC 34.5 32.0-35.0 g/dL RDW 14.1 11.9-15.3 % Plt 253 150-450 x10E3/uL Specimen: [id number] Received: 01/25/25 Status: ARLET Taylor Num: [id number] Spec Type: Impression Subm Dr: TL MILLER Tissues: PATHPER Procedures: PATHREVIEW Patient: Stew Argueta [id number] (Continued) Specimen: [id number] Received: 01/25/25 (Continued) KALPANA (Continued) Signed (signature on file) Taj Cardozo MD 01/25/25 1547 Specimen: [id number] Received: 01/25/25 Status: ARLET Taylor Num: [id number] Spec Type: Impression Subm Dr: TL STAFF Tissues: PATHPER Procedures: PATHREVIEW Patient: Stew Argueta [place] [id number] (Continued) Specimen: [id number] Received: 01/25/25 (Continued) CBC (Continued) MPV 7.9 6.3-10.7 fl Seg 63 50-70 % Band 12 H 0-5 % Lymph 6 L 18-42 % Ida 5 2-11 % Eos 4 H 1-3 % Baso 1 0-2 % Hubbell 1 H 0-0 % Myelo 6 H 0-0 % Plasma Cells 1 H 0-0 % RBC Morph Normal Normal Plt Est Normal Normal Plt Morphology Normal Normal Specimen: [id number] Received: 01/25/25 Status: ARLET Taylor Num: [id number] Spec Type: Impression Subm Dr: TL MILLER Tissues: PATHPER Procedures: PATHREVIEW Patient: Stew Argueta [id number] (Continued) Signed (signature on file) Taj Cardozo MD 01/25/25 1547Normal [facility] Physician GroupPathologist Slide Reviewon 93-34-1082Lvhkhymrppn Slide ReviewOrdered Path ReviewNormBaptist Health Doctors Hospital Physician GroupComment on above:Result Comment: PERFORMED BY: [place] [id number] PATHOLOGIST RADIO RIGGER AHMET SAUCEDA M.D.Performed By: #### GLULS #### Point of Care testing ,XR chest 1V portableon 49-80-5827OG chest 1V portableGRAND LAKE JO[facility] [place] [address] XRay Report Signed Patient: Stew Argueta MR#: [id number] : 1965 Acct:[id number] Age/Sex: 60 / F ADM Date: 01/21/25 Loc: Room: [address] [place] [address] Type: ADM IN Attending Dr: Abraham Terrazas DO Copies to: Abraham Terrazas DO Ordering Provider: Abraham Terrazas DO Date of Service: 01/25/25 XR/XR chest 1V portable: RUL consolidation XR chest 1V portable 01/25/2025 5:35 AM SIGNS AND SYMPTOMS: RUL consolidation PROTOCOL: Frontal radiograph of the chest COMPARISON: 01/21/2025 FINDINGS: The trachea is midline. The heart and mediastinal structures are within normal limits. There is a similar to perhaps slightly smaller masslike opacity in the lateral aspect of the right lung. The bony thorax is intact. XR/XR chest 1V portable IMPRESSION: There is a similar to perhaps slightly smaller masslike opacity in the lateral aspect of the right lung. Impression dictated by: Lux Parsons M.D. 01/25/2025 6:11 AM Dictation Location: [place] [address] Transcribed By: [facility] 01/25/25610 Dictated By: Lux Parsons II, MD 01/25/25609 Signed By: 01/25/25 0611NormNorthern Colorado Rehabilitation HospitalBasic Metabolic Panelon 74-70-3204Mohmy gap [Moles/Vol]12.7 mmol/LNormal6.0-15.0The [facility] Physician GroupComment on above:Performed By: #### GLULS #### Point of Care testing ,Calcium [Mass/Vol]8.5 mg/dLLow8.6-10.3The [facility] Physician GroupComment on above:Performed By: #### GLULS #### Point of Care testing ,Chloride [Moles/Vol]107 mmol/DDxlfcm73-988Pcv [facility] GroupComment on above:Performed By: #### GLULS #### Point of Care testing ,CO2 [Moles/Vol]16.9 mmol/LLow21.0-31.0The [facility] Physician GroupComment on above:Performed By: #### GLULS #### Point of Care testing ,Creatinine [Mass/Vol]1.04 mg/dLNormal0.60-1.20The [facility] Comment on above:Performed By: #### GLULS #### Point of Care testing ,Creatinine Clr Calc Gxvtfvks86.35NoCone Health [facility] Hospital Physician GroupComment on above:Performed By: #### GLULS #### Point of Care testing ,GFR/1.73 sq M.predicted MDRD (S/P/Bld) [Vol rate/Area]mL/min/{1.73_m2}NormalThe [facility] Physician GroupComment on above:Performed By: #### GLULS #### Point of Care testing ,Glucose [Mass/Vol]270 mg/vENkhc54-487Rhg [facility] Physician GroupComment on above:Result Comment: Random Glucose Reference Range is dependent on time and content of last meal. Glucose of more than 200 mg/dL in a nonstressed, ambulatory subject supports the diagnosis of Diabetes Mellitus. ADA recommended reference rangePerformed By: #### GLULS #### Point of Care testing ,Potassium [Moles/Vol]3.6 mmol/LNormal3.5-5.1The [facility] Comment on above:Performed By: #### GLULS #### Point of Care testing ,Sodium [Moles/Vol]133 mmol/WYeh633-186Hyv [facility] Physician GroupComment on above:Performed By: #### GLULS #### Point of Care testing ,Urea nitrogen [Mass/Vol]20 mg/dLNormal7-25The [facility] Physician GroupComment on above:Performed By: #### GLULS #### Point of Care testing ,Beta Hydroxybuterateon 59-16-2684Mzfi Hydroxybuterate0.56 mmol/LHigh0.02-0.27 The [facility] Physician GroupComment on above:Result Comment: PERFORMED BY: [place] [address] [place] [address] PATHOLOGIST RADIO RIGGER AHMET SAUCEDA M.D.Performed By: #### GLULS #### Point of Care testing ,Diff and CBCon 90-19-7594Aphyhirawwvm Ql (Bld)SlightNoCone Health Moses Cone Hospital Physician GroupComment on above:Performed By: #### GLULS #### Point of Care testing ,Band form neutrophils/100 WBC (Bld)9 %High0-5The [facility] Comment on above:Performed By: #### GLULS #### Point of Care testing ,Eosinophils/100 WBC (Bld)1 %Normal1-3The [facility] Physician GroupComment on above:Performed By: #### GLULS #### Point of Care testing ,Erythrocyte distribution width (RBC) [Ratio]14.4 %Kksssd74.9-15.3The [facility] Physician GroupComment on above:Performed By: #### GLULS #### Point of Care testing ,Hematocrit (Bld) [Volume fraction]37.1 %Rfspji15.0-46.4The [facility] Physician GroupComment on above:Performed By: #### GLULS #### Point of Care testing ,Hemoglobin (Bld) [Mass/Vol]12.4 g/yBWvtwcr61.8-15.4The [facility] Physician GroupComment on above:Performed By: #### GLULS #### Point of Care testing ,Lymphocytes/100 WBC (Bld)6 %Ihz75-42Wne [facility] Physician GroupComment on above:Performed By: #### GLULS #### Point of Care testing ,MCH (RBC) [Entitic mass]27.6 gbUoxpuj20.7-34.3The [facility] Physician [facility] Comment on above:Performed By: #### GLULS #### Point of Care testing ,MCV (RBC) [Entitic vol]82.5 pORibvqp51-587Twg [facility] Physician GroupComment on above:Performed By: #### GLULS #### Point of Care testing ,Mean Corpuscular HGB Conc33.4 g/qWQyswwn98.0-35.0[facility] Comment on above:Performed By: #### GLULS #### Point of Care testing ,Metamyelocytes4 %High0-0The [facility] Physician GroupComment on above:Performed By: #### GLULS #### Point of Care testing ,MicrocytosisSlightNormalThe [facility] Physician GroupComment on above:Performed By: #### GLULS #### Point of Care testing ,Monocytes/100 WBC (Bld)0 %Low2-11The [facility] Physician GroupComment on above: Performed By: #### GLULS #### Point of Care testing ,Myelocytes4 %High0-0The [facility] Physician GroupComment on above:Performed By: #### GLULS #### Point of Care testing ,Platelet EstimateNormalNormalNormalThSyringa General Hospital Physician GroupComment on above:Result Comment: PERFORMED BY: [facility] [place] [address] PATHOLOGIST RADIO RIGGER AHMET SAUCEDA M.D.Performed By: #### GLULS #### Point of Care testing ,Platelet mean volume (Bld) [Entitic vol]8.1 fLNormal6.3-10.7The [facility] Physician GroupComment on above:Performed By: #### GLULS #### Point of Care testing ,Platelets (Bld) [#/Vol]230 10*3/wKYxqbfk833-227Erx [facility] Comment on above:Performed By: #### GLULS #### Point of Care testing ,RBC (Bld) [#/Vol]4.50 10*6/uLNormal3.60-5.00[facility] Physician [facility] Comment on above:Performed By: #### GLULS #### Point of Care testing ,RBC morphology finding Nom (Bld)NormalNormalChildren's [place] Comment on above:Performed By: #### GLULS #### Point of Care testing ,Segmented neutrophils/100 WBC (Bld)77 %Vzlq34-15NnpTampa General Hospital Physician [facility] Comment on above:Performed By: #### GLULS #### Point of Care testing ,WBC (Bld) [#/Vol]14.2 10*3/uLHigh3.8-11.6The [facility] Physician GroupComment on above:Performed By: #### GLULS #### Point of Care testing ,White Blood Count14.2 [CFU]/mLHigh3.8-11.6The [facility] Physician GroupComment on above:Performed By: #### GLULS #### Point of Care testing ,Glucose Poct Glucometerson 96-05-4831Djcclqj [Mass/Vol]395 mg/dLNoCone Health [facility] Hospital Physician GroupComment on above:Result Comment: Random Glucose Reference Range is dependent on time and content of last meal. Glucose of more than 200 mg/dL in a nonstressed, ambulatory subject supports the diagnosis of Diabetes Mellitus. PERFORMED BY: [place] [address] PATHOLOGIST RADIO RIGGER AHMET SAUCEDA M.D.Performed By: #### GLULS #### Point of Care testing ,Glucose [Mass/Vol]323 mg/dLNoCone Health Moses Cone Hospital Physician GroupComment on above: Result Comment: Random Glucose Reference Range is dependent on time and content of last meal. Glucose of more than 200 mg/dL in a nonstressed, ambulatory subject supports the diagnosis of Diabetes Mellitus. PERFORMED BY: [place] [address] PATHOLOGIST RADIO RIGGER AHMET SAUCEDA M.D.Performed By: #### GLULS #### Point of Care testing ,Glucose [Mass/Vol]291 mg/dLNoCone Health Moses Cone Hospital Physician GroupComment on above: Result Comment: Random Glucose Reference Range is dependent on time and content of last meal. Glucose of more than 200 mg/dL in a nonstressed, ambulatory subject supports the diagnosis of Diabetes Mellitus. PERFORMED BY: [place] [address] PATHOLOGIST RADIO RIGGER AHMET SAUCEDA M.D.Performed By: #### BHOB #### [place] [address] USAGlucose [Mass/Vol]291 mg/dLNoCone Health Moses Cone Hospital Physician GroupComment on above:Result Comment: Random Glucose Reference Range is dependent on time and content of last meal. Glucose of more than 200 mg/dL in a nonstressed, ambulatory subject supports the diagnosis of Diabetes Mellitus. PERFORMED BY: [place] [address] PATHOLOGIST RADIO RIGGERDIRECTOR AHMET SAUCEDA M.D.Performed By: #### BHOB #### [facility] [address] [place] [address] USABasic Metabolic Panelon 51-83-4834Ewgjg gap [Moles/Vol] 11.5 mmol/LNormal6.0-15.0The [facility] Physician GroupComment on above:Performed By: #### GLULS #### Point of Care testing ,Calcium [Mass/Vol]8.6 mg/dLNormal8.6-10.3The [facility] Physician GroupComment on above:Performed By: #### GLULS #### Point of Care testing ,Chloride [Moles/Vol]111 mmol/CDmho20-934Dup [facility] Physician GroupComment on above:Performed By: #### GLULS #### Point of Care testing ,CO2 [Moles/Vol]14.4 mmol/LLow21.0-31.0The [facility] Physician GroupComment on above:Performed By: #### GLULS #### Point of Care testing ,Creatinine [Mass/Vol]1.07 mg/dLNormal0.60-1.20The [facility] Physician [facility] Comment on above:Performed By: #### GLULS #### Point of Care testing ,Creatinine Clr Calc Qwtcaqzr51.15NormalThe [facility] Physician GroupComment on above:Performed By: #### GLULS #### Point of Care testing ,GFR/1.73 sq M.predicted MDRD (S/P/Bld) [Vol rate/Area]mL/min/{1.73_m2}NormalThe [facility] Physician GroupComment on above:Performed By: #### GLULS #### Point of Care testing ,Glucose [Mass/Vol]163 mg/fBHwag24-815Jpx [facility] Physician GroupComment on above:Result Comment: Random Glucose Reference Range is dependent on time and content of last meal. Glucose of more than 200 mg/dL in a nonstressed, ambulatory subject supports the diagnosis of Diabetes Mellitus. ADA recommended reference rangePerformed By: #### GLULS #### Point of Care testing ,Potassium [Moles/Vol]3.9 mmol/LNormal3.5-5.1The [facility] Physician [facility] Comment on above:Performed By: #### GLULS #### Point of Care testing ,Sodium [Moles/Vol]133 mmol/EIua480-317Amf [facility] Physician GroupComment on above:Performed By: #### GLULS #### Point of Care testing ,Urea nitrogen [Mass/Vol]24 mg/dLNormal7-25The [facility] Physician GroupComment on above:Performed By: #### GLULS #### Point of Care testing ,Beta Hydroxybuterateon 80-04-6776Vnni Hydroxybuterate0.18 mmol/LNormal0.02-0.27 The [facility] Physician GroupComment on above:Result Comment: PERFORMED BY: [place] [address] [place] [address] PATHOLOGIST RADIO RIGGER AHMET SAUCEDA M.D.Performed By: #### GLULS #### Point of Care testing ,Diff and CBCon 51-26-8273Okpg form neutrophils/100 WBC (Bld)10 %High0-5The [facility] Physician GroupComment on above:Performed By: #### GLULS #### Point of Care testing ,Eosinophils/100 WBC (Bld)1 %Normal1-3The [facility] Physician GroupComment on above:Performed By: #### GLULS #### Point of Care testing ,Erythrocyte distribution width (RBC) [Ratio]14.1 %Rqxint56.9-15.3The [facility] Physician GroupComment on above:Performed By: #### GLULS #### Point of Care testing ,Hematocrit (Bld) [Volume fraction]34.9 %Wgnioj62.0-46.4The [facility] Physician GroupComment on above:Performed By: #### GLULS #### Point of Care testing ,Hemoglobin (Bld) [Mass/Vol]11.9 g/qUEgqhqs30.8-15.4The [facility] Physician GroupComment on above:Performed By: #### GLULS #### Point of Care testing ,Lymphocytes/100 WBC (Bld)6 %Udm05-34Bbo [facility] Physician GroupComment on above:Performed By: #### GLULS #### Point of Care testing ,MCH (RBC) [Entitic mass]27.9 fsVfvexj87.7-34.3The [facility] Comment on above:Performed By: #### GLULS #### Point of Care testing ,MCV (RBC) [Entitic vol]81.4 xDBrechj41-291Rvf [facility] Physician GroupComment on above:Performed By: #### GLULS #### Point of Care testing ,Mean Corpuscular HGB Conc34.2 g/aSCbrcfb82.0-35.0The [facility] Physician [facility] Comment on above:Performed By: #### GLULS #### Point of Care testing ,Monocytes/100 WBC (Bld)4 %Normal2-11The [facility] Physician GroupComment on above:Performed By: #### GLULS #### Point of Care testing ,Myelocytes3 %High0-0The [facility] Physician GroupComment on above:Performed By: #### GLULS #### Point of Care testing ,Platelet EstimateNormalNormalNormalThe [facility] Physician GroupComment on above:Performed By: #### GLULS #### Point of Care testing ,Platelet mean volume (Bld) [Entitic vol]7.9 fLNormal6.3-10.7The [facility] Physician GroupComment on above:Performed By: #### GLULS #### Point of Care testing ,Platelet MorphologyNormalNormalNormalThe [facility] Physician GroupComment on above:Result Comment: PERFORMED BY: [place] [address] [place] [address] PATHOLOGIST RADIO RIGGER AHMET SAUCEDA M.D.Performed By: #### GLULS #### Point of Care testing ,Platelets (Bld) [#/Vol]257 10*3/iINnbmzs950-674Jnc [facility] Comment on above:Performed By: #### GLULS #### Point of Care testing ,RBC (Bld) [#/Vol]4.29 10*6/uLNormal3.60-5.00The [facility] Comment on above:Performed By: #### GLULS #### Point of Care testing ,RBC morphology finding Nom (Bld)NormalNormalNormBaptist Health Doctors Hospital Physician Group Comment on above:Performed By: #### GLULS #### Point of Care testing ,Segmented neutrophils/100 WBC (Bld)77 %Dlyh45-00LwoTampa General Hospital Physician [facility] Comment on above:Performed By: #### GLULS #### Point of Care testing ,WBC (Bld) [#/Vol]21.5 10*3/uLHigh3.8-11.6ThSyringa General Hospital Physician GroupComment on above:Performed By: #### GLULS #### Point of Care testing ,White Blood Count21.5 [CFU]/mLHigh3.8-11.6ThSyringa General Hospital Physician GroupComment on above:Performed By: #### GLULS #### Point of Care testing ,Glucose Poct Glucometerson 55-06-4489Jthlhgu [Mass/Vol]205 mg/dLNoCone Health [facility] Physician [facility] HospitalComment on above:Result Comment: Random Glucose Reference Range is dependent on time and content of last meal. Glucose of more than 200 mg/dL in a nonstressed, ambulatory subject supports the diagnosis of Diabetes Mellitus. PERFORMED BY: [place] [address] PATHOLOGIST RADIO RIGGER AHMET SAUCEDA M.D.Performed By: #### GLULS #### Point of Care testing ,Glucose [Mass/Vol]224 mg/dLHCA Florida Largo Hospital Physician [facility] HospitalComment on above: Result Comment: Random Glucose Reference Range is dependent on time and content of last meal. Glucose of more than 200 mg/dL in a nonstressed, ambulatory subject supports the diagnosis of Diabetes Mellitus. PERFORMED BY: [place] [address] PATHOLOGIST RADIO RIGGER AHMET SAUCEDA M.D.Performed By: #### BHOB #### [place] [address] USAGlucose [Mass/Vol]119 mg/dLNoCone Health [facility] Hospital Physician [facility] HospitalComment on above:Result Comment: Random Glucose Reference Range is dependent on time and content of last meal. Glucose of more than 200 mg/dL in a nonstressed, ambulatory subject supports the diagnosis of Diabetes Mellitus. PERFORMED BY: [address] [place] [id number] PATHOLOGIST RADIO RIGGER AHMET SAUCEDA M.D.Performed By: #### GLULS #### Point of Care testing ,Glucose [Mass/Vol]112 mg/dLNoCone Health [facility] Hospital Physician GroupComment on above: Result Comment: Random Glucose Reference Range is dependent on time and content of last meal. Glucose of more than 200 mg/dL in a nonstressed, ambulatory subject supports the diagnosis of Diabetes Mellitus. PERFORMED BY: [address] [id number] PATHOLOGIST RADIO RIGGER AHMET SAUCEDA M.D.Performed By: #### GLULS #### Point of Care testing ,Glucose [Mass/Vol]130 mg/dLNoCone Health Moses Cone Hospital Physician GroupComment on above: Result Comment: Random Glucose Reference Range is dependent on time and content of last meal. Glucose of more than 200 mg/dL in a nonstressed, ambulatory subject supports the diagnosis of Diabetes Mellitus. PERFORMED BY: [place] [id number] PATHOLOGIST RADIO RIGGER AHMET SAUCEDA M.D.Performed By: #### GLULS #### Point of Care testing ,Glucose [Mass/Vol]137 mg/dLHCA Florida Largo Hospital Physician GroupComment on above: Result Comment: Random Glucose Reference Range is dependent on time and content of last meal. Glucose of more than 200 mg/dL in a nonstressed, ambulatory subject supports the diagnosis of Diabetes Mellitus. PERFORMED BY: [address] [place] [id number] PATHOLOGIST RADIO RIGGER AHMET SAUCEDA M.D.Performed By: #### GLULS #### Point of Care testing ,Glucose [Mass/Vol]152 mg/dLHCA Florida Largo Hospital Physician GroupComment on above: Result Comment: Random Glucose Reference Range is dependent on time and content of last meal. Glucose of more than 200 mg/dL in a nonstressed, ambulatory subject supports the diagnosis of Diabetes Mellitus. PERFORMED BY: [place] [id number] PATHOLOGIST RADIO RIGGER AHMET SAUCEDA M.D.Performed By: #### GLULS #### Point of Care testing ,Glucose [Mass/Vol]163 mg/dLHCA Florida Largo Hospital Physician GroupComment on above: Result Comment: Random Glucose Reference Range is dependent on time and content of last meal. Glucose of more than 200 mg/dL in a nonstressed, ambulatory subject supports the diagnosis of Diabetes Mellitus. PERFORMED BY: [place] [id number] PATHOLOGIST RADIO RIGGER AHMET SAUCEDA M.D.Performed By: #### GLULS #### Point of Care testing ,Glucose [Mass/Vol]145 mg/dLHCA Florida Largo Hospital Physician GroupComment on above: Result Comment: Random Glucose Reference Range is dependent on time and content of last meal. Glucose of more than 200 mg/dL in a nonstressed, ambulatory subject supports the diagnosis of Diabetes Mellitus. PERFORMED BY: [place] [id number] PATHOLOGIST RADIO RIGGER AHMET SAUCEDA M.D.Performed By: #### GLULS #### Point of Care testing ,Glucose [Mass/Vol]151 mg/dLHCA Florida Largo Hospital Physician GroupComment on above: Result Comment: Random Glucose Reference Range is dependent on time and content of last meal. Glucose of more than 200 mg/dL in a nonstressed, ambulatory subject supports the diagnosis of Diabetes Mellitus. PERFORMED BY: [place] [id number] PATHOLOGIST RADIO RIGGER AHMET SAUCEDA M.D.Performed By: #### GLULS #### Point of Care testing ,Glucose [Mass/Vol]155 mg/dLHCA Florida L[facility] Hospital Physician GroupComment on above: Result Comment: Random Glucose Reference Range is dependent on time and content of last meal. Glucose of more than 200 mg/dL in a nonstressed, ambulatory subject supports the diagnosis of Diabetes Mellitus. PERFORMED BY: [place] [id number] PATHOLOGIST RADIO RIGGER AHMET SAUCEDA M.D.Performed By: #### GLULS #### Point of Care testing ,Glucose [Mass/Vol]153 mg/dLHCA Florida Largo Hospital Physician GroupComment on above: Result Comment: Random Glucose Reference Range is dependent on time and content of last meal. Glucose of more than 200 mg/dL in a nonstressed, ambulatory subject supports the diagnosis of Diabetes Mellitus. PERFORMED BY: [place] [id number] PATHOLOGIST RADIO RIGGER AHMET SAUCEDA M.D.Performed By: #### GLULS #### Point of Care testing ,Glucose [Mass/Vol]144 mg/dLHCA Florida Largo Hospital Physician GroupComment on above: Result Comment: Random Glucose Reference Range is dependent on time and content of last meal. Glucose of more than 200 mg/dL in a nonstressed, ambulatory subject supports the diagnosis of Diabetes Mellitus. PERFORMED BY: [place] [id number] PATHOLOGIST RADIO RIGGER AHMET SAUCEDA M.D.Performed By: #### GLULS #### Point of Care testing ,Kakveza1Nwr1: Cleaned MeterNoCone Health Moses Cone Hospital Physician GroupComment on above: Result Comment: PERFORMED BY: [place] [id number] PATHOLOGIST RADIO RIGGER AHMET SAUCEDA M.D.Performed By: #### GLULS #### Point of Care testing ,Glucose [Mass/Vol]134 mg/dLHCA Florida Largo Hospital Physician GroupComment on above: Result Comment: Random Glucose Reference Range is dependent on time and content of last meal. Glucose of more than 200 mg/dL in a nonstressed, ambulatory subject supports the diagnosis of Diabetes Mellitus.Performed By: #### GLULS #### Point of Care testing ,Basic Metabolic Panelon 10-44-2434Tifed gap [Moles/Vol]11.9 mmol/LNormal 6.0-15.0[facility] Physician GroupComment on above:Performed By: #### GLULS #### Point of Care testing ,Calcium [Mass/Vol]8.9 mg/dLNormal8.6-10.3The [facility] Physician GroupComment on above:Performed By: #### GLULS #### Point of Care testing ,Chloride [Moles/Vol]112 mmol/TMtff12-179Sgp [facility] Physician GroupComment on above:Performed By: #### GLULS #### Point of Care testing ,CO2 [Moles/Vol]15.7 mmol/LLow21.0-31.0The [facility] Physician GroupComment on above:Performed By: #### GLULS #### Point of Care testing ,Creatinine [Mass/Vol]1.15 mg/dLNormal0.60-1.20The [facility] Physician [facility] Comment on above:Performed By: #### GLULS #### Point of Care testing ,Creatinine Clr Calc Qhzelide45.20NormalThe [facility] Physician GroupComment on above:Result Comment: PERFORMED BY: [address] [place] [address] PATHOLOGIST RADIO RIGGER AHMET SAUCEDA M.D.Performed By: #### GLULS #### Point of Care testing ,GFR/1.73 sq M.predicted MDRD (S/P/Bld) [Vol rate/Area]55.219 mL/min/{1.73_m2} NormalThe [facility] Physician GroupComment on above:Performed By: #### GLULS #### Point of Care testing ,Glucose [Mass/Vol]236 mg/yCTlig10-661Nzq [facility] Physician GroupComment on above:Result Comment: Random Glucose Reference Range is dependent on time and content of last meal. Glucose of more than 200 mg/dL in a nonstressed, ambulatory subject supports the diagnosis of Diabetes Mellitus. ADA recommended reference rangePerformed By: #### GLULS #### Point of Care testing ,Potassium [Moles/Vol]3.6 mmol/LNormal3.5-5.1The [facility]ician Group Comment on above:Performed By: #### GLULS #### Point of Care testing ,Sodium [Moles/Vol]136 mmol/ORozoae122-549Bfq [facility] Physician GroupComment on above:Performed By: #### GLULS #### Point of Care testing ,Urea nitrogen [Mass/Vol]25 mg/dLNormal7-25The [facility] Physician GroupComment on above:Performed By: #### GLULS #### Point of Care testing ,Anion gap [Moles/Vol]11.9 mmol/LNormal6.0-15.0The [facility]ician Group Comment on above:Performed By: #### BMP #### [place] [address] USACalcium [Mass/Vol]8.8 mg/dLNormal8.6-10.3The [facility] Physician GroupComment on above:Performed By: #### BMP #### [place] [address] USAChloride [Moles/Vol]112 mmol/YZxzw55-705Ccg [facility] Physician GroupComment on above:Performed By: #### BMP #### [place] [address] USACO2 [Moles/Vol]14.6 mmol/LLow21.0-31.0The [facility] Physician GroupComment on above:Performed By: #### BMP #### [place] [address] USACreatinine [Mass/Vol]1.19 mg/dLNormal0.60-1.20The [facility] Physician GroupComment on above:Performed By: #### BMP #### [place] [address] USACreatinine Clr Calc Dcbsgsaa91.97NormalThe [facility] Physician GroupComment on above:Result Comment: PERFORMED BY: [place] [address] PATHOLOGIST RADIO RIGGER AHMET SAUCEDA M.D.Performed By: #### BMP #### [place] [address] USAGFR/1.73 sq M.predicted MDRD (S/P/Bld) [Vol rate/Area] 52.999 mL/min/{1.73_m2}NormalThe [facility] Physician GroupComment on above: Performed By: #### BMP #### [facility] [address] [place] [address] USAGlucose [Mass/Vol]268 mg/rRQhdy49-121Tgc [facility] Physician GroupComment on above:Result Comment: Random Glucose Reference Range is dependent on time and content of last meal. Glucose of more than 200 mg/dL in a nonstressed, ambulatory subject supports the diagnosis of Diabetes Mellitus. ADA recommended reference rangePerformed By: #### BMP #### [facility] [address] [place] [address] USAPotassium [Moles/Vol]3.5 mmol/LNormal3.5-5.1The [facility] Physician GroupComment on above:Performed By: #### BMP #### [facility] [address] [place] [address] USASodium [Moles/Vol]135 mmol/WTzb276-720Htv [facility] Physician GroupComment on above:Performed By: #### BMP #### [facility] [address] [place] [address] USAUrea nitrogen [Mass/Vol]25 mg/dLNormal7-25The [facility] Physician GroupComment on above:Performed By: #### BMP #### [facility] [address] [place] [address] USAAnion gap [Moles/Vol]14.8 mmol/LNormal6.0-15.0The [facility] Physician GroupComment on above:Order Comment: PER RN KENIA DRAW AT 0400 IV MEDS STILL RUNNINGPerformed By: #### GLULS #### Point of Care testing ,Calcium [Mass/Vol]9.0 mg/dLNormal8.6-10.3The [facility] Physician GroupComment on above:Order Comment: PER RN KENIA DRAW AT 0400 IV MEDS STILL RUNNINGPerformed By: #### GLULS #### Point of Care testing ,Chloride [Moles/Vol]109 mmol/TRjkg11-851Mvr [facility] Physician GroupComment on above:Order Comment: PER RN KENIA DRAW AT 0400 IV MEDS STILL RUNNINGPerformed By: #### GLULS #### Point of Care testing ,CO2 [Moles/Vol]13.9 mmol/LLow21.0-31.0The [facility] Physician GroupComment on above:Order Comment: PER RN KENIA DRAW AT 0400 IV MEDS STILL RUNNINGPerformed By: #### GLULS #### Point of Care testing ,Creatinine [Mass/Vol]1.24 mg/dLHigh0.60-1.20The [facility]ician Group Comment on above:Order Comment: PER RN KENIA DRAW AT 0400 IV MEDS STILL RUNNING Performed By: #### GLULS #### Point of Care testing ,Creatinine Clr Calc Rkoprtfc73.11NormalThSyringa General Hospital Physician [facility] HospitalComment on above:Order Comment: PER RN KENIA DRAW AT 0400 IV MEDS STILL RUNNINGResult Comment: PERFORMED BY: [facility] [place] [address] PATHOLOGIST RADIO RIGGER AHMET SAUCEDA M.D.Performed By: #### GLULS #### Point of Care testing ,GFR/1.73 sq M.predicted MDRD (S/P/Bld) [Vol rate/Area]50.445 mL/min/{1.73_m2} NormalThe [facility] Physician [facility] HospitalComment on above:Order Comment: PER RN KENIA DRAW AT 0400 IV MEDS STILL RUNNINGPerformed By: #### GLULS #### Point of Care testing ,Glucose [Mass/Vol]304 mg/pTMdie41-587Ozo [facility] Physician [facility] HospitalComment on above:Order Comment: PER RN KENIA DRAW AT 0400 IV MEDS STILL RUNNINGResult Comment: Random Glucose Reference Range is dependent on time and content of last meal. Glucose of more than 200 mg/dL in a nonstressed, ambulatory subject supports the diagnosis of Diabetes Mellitus. ADA recommended reference rangePerformed By: #### GLULS #### Point of Care testing ,Potassium [Moles/Vol]3.7 mmol/LNormal3.5-5.1The [facility] Physician [facility] Comment on above:Order Comment: PER RN KENIA DRAW AT 0400 IV MEDS STILL RUNNING Performed By: #### GLULS #### Point of Care testing ,Sodium [Moles/Vol]134 mmol/PRnx982-157Wej [facility] Physician GroupComment on above:Order Comment: PER RN KENIA DRAW AT 0400 IV MEDS STILL RUNNINGPerformed By: #### GLULS #### Point of Care testing ,Urea nitrogen [Mass/Vol]23 mg/dLNormal7-25The [facility] Physician GroupComment on above:Order Comment: PER RN KENIA DRAW AT 0400 IV MEDS STILL RUNNINGPerformed By: #### GLULS #### Point of Care testing ,Beta Hydroxybuterateon 09-30-8355Dgir Hydroxybuterate1.59 mmol/LHigh0.02-0.27 The [facility] Physician GroupComment on above:Result Comment: PERFORMED BY: [place] [address] PATHOLOGIST RADIO RIGGER AHMET SAUCEDA M.D.Performed By: #### BHOB #### [facility] [address] [place] [address] USABeta Hydroxybuterate0.70 mmol/LHigh0.02-0.27The [facility] Physician [facility] HospitalComment on above:Result Comment: PERFORMED BY: [place] [address] PATHOLOGIST RADIO RIGGER AHMET SAUCEDA M.D.Performed By: #### GLULS #### Point of Care testing ,Beta Hydroxybuterate1.37 mmol/LHigh0.02-0.27The [facility] Physician [facility] Comment on above:Result Comment: PERFORMED BY: [place] [address] PATHOLOGIST RADIO RIGGER AHMET SAUCEDA M.D.Performed By: #### GLULS #### Point of Care testing ,Beta Hydroxybuterate2.27 mmol/LHigh0.02-0.27The [facility] Physician Group Comment on above:Order Comment: PER RN KENIA DRAW AT 0400 IV MEDS STILL RUNNING Result Comment: PERFORMED BY: [place] [address] PATHOLOGIST RADIO RIGGER AHMET SAUCEDA M.D.Performed By: #### BMP #### [facility] [address] [place] [address] USACT chest wo conon 10-54-8526LF chest wo [facility] [place] [address] [place] [address] CT Scan Report Signed Patient: Stew Argueta MR#: [id number] : 1965 Acct:[id number] Age/Sex: 60 / F ADM Date: 01/21/25 Loc: Room: [address] [place] [address] Type: ADM IN Attending Dr: Abraham Terrazas DO Copies to: MD Abraham Rick DO Ordering Provider: Lauri Novoa MD Date of Service: 01/22/25 CT/CT chest wo con: Lung mass CT Chest without contrast TECHNIQUE: Axial imaging with 2-D reconstruction. The CT exam was performed using one or more the following dose reduction techniques: Automated exposure control, adjustment of the MA and/or Kv according to patient size, or use of the iterative reconstruction technique. History: Masslike density seen with chest radiograph 01/21/2025 COMPARISON: None THYROID: Unremarkable TRACHEA AND BRONCHI: Patent ESOPHAGUS: Unremarkable. HEART: Within normal limits PERICARDIAL EFFUSION: None CORONARY ARTERY CALCIFICATION: None MEDIASTINUM: Small mediastinal lymph nodes which may be reactive. PULMONARY DEANDRA: Small right hilar lymph nodes. May be reactive. THORACIC AORTA Unremarkable LUNG NODULE None LUNGS: Nodular consolidation of the right upper lobe containing air bronchograms. No mass effect. Underlying lesion not entirely excluded. PLEURAL EFFUSION: None PNEUMOTHORAX: No pneumothorax seen. CHEST WALL: No abnormality AXILLA:Unremarkable BONY STRUCTURES Intact UPPER ABDOMEN: Images of the upper abdomen are noncontributory. CT/CT chest wo con IMPRESSION: Nodular right upper lobe infiltrate with reactive adenopathy. Follow-up assessment to confirm resolution recommended. Impression dictated by: Kaz Pinedo M.D. 01/22/2025 4:12 PM Dictation Location: [place] [address] Transcribed By: [facility] 01/22/25 1612 Dictated By: Kaz Pinedo DO 01/22/25 1609 Signed By: 01/22/25 1612NoCone [facility] Physician GroupCreatinine, Urine (Random)on 21-85-1601Jqvcblkjin, Urine (Random)103.00 mg/dLNoCone Health [facility] Hospital Physician GroupComment on above:Result Comment: No reference range established PERFORMED BY: [place] [address] PATHOLOGIST RADIO RIGGER AHMET SAUCEDA M.D.Performed By: #### GLULS #### Point of Care testing ,Diff and CBCon 45-37-4199Ducbankgqzua Ql (Bld)ModerateNormalThe [facility] Physician GroupComment on above:Performed By: #### BMP #### [place] [address] USABand form neutrophils/100 WBC (Bld)39 %High0-5The [facility] Physician GroupComment on above:Performed By: #### BMP #### [place] [address] USAErythrocyte distribution width (RBC) [Ratio]13.8 %Normal 11.9-15.3The [facility] Physician GroupComment on above:Performed By: #### BMP #### [place] [address] USAHematocrit (Bld) [Volume fraction]35.5 %Nwffqz94.0-46.4The [facility] Physician GroupComment on above:Performed By: #### BMP #### [place] [address] USAHemoglobin (Bld) [Mass/Vol]12.0 g/rFLjzyym59.8-15.4The [facility] Physician GroupComment on above:Performed By: #### BMP #### [place] [address] USALymphocytes/100 WBC (Bld)0 %Oqz12-91Zim [facility] Physician GroupComment on above:Performed By: #### BMP #### [place] [address] USAMCH (RBC) [Entitic mass]27.9 clGxxxhw26.7-34.3The [facility] Physician GroupComment on above:Performed By: #### BMP #### [place] [address] USAMCV (RBC) [Entitic vol]82.7 qWJytjic72-564Hxi [facility] Physician GroupComment on above:Performed By: #### BMP #### [place] [address] USAMean Corpuscular HGB Conc33.7 g/bPBlhrsn03.0-35.0The [facility] Physician GroupComment on above:Performed By: #### BMP #### [place] [address] USAMetamyelocytes1 %High0-0The [facility] Physician Group Comment on above:Performed By: #### BMP #### [place] [address] USAMicrocytosisModerateNormBaptist Health Doctors Hospital Physician [facility] Comment on above:Performed By: #### BMP #### [place] [address] USAMonocytes/100 WBC (Bld)6 %Normal2-11The [facility] Physician GroupComment on above:Performed By: #### BMP #### [place] [address] USAPlatelet EstimateNormalNormalNormBaptist Health Doctors Hospital Physician [facility] HospitalComment on above:Performed By: #### BMP #### [place] [address] USAPlatelet mean volume (Bld) [Entitic vol]8.5 fLNormal 6.3-10.7The [facility] Physician GroupComment on above:Performed By: #### BMP #### [place] [address] USAPlatelet MorphologyNormalNormalNormBaptist Health Doctors Hospital Physician GroupComment on above:Result Comment: PERFORMED BY: [place] [address] PATHOLOGIST RADIO RIGGER AHMET SAUCEDA M.D.Performed By: #### BMP #### [place] [address] USAPlatelets (Bld) [#/Vol]263 10*3/mUAgkwne869-330Dii [facility] Physician GroupComment on above:Performed By: #### BMP #### [place] [address] USAPolychromasiaSlightNormalThe [facility] Physician Group Comment on above:Performed By: #### BMP #### [place] [address] USARBC (Bld) [#/Vol]4.29 10*6/uLNormal3.60-5.00The [facility] Physician GroupComment on above:Performed By: #### BMP #### [place] [address] USASegmented neutrophils/100 WBC (Bld)54 %Bycmpv16-83Ryk [facility] Physician GroupComment on above:Performed By: #### BMP #### [place] [address] USAWBC (Bld) [#/Vol]23.1 10*3/uLHigh3.8-11.6The [facility] Physician GroupComment on above:Performed By: #### BMP #### [place] [address] USAWhite Blood Count23.1 [CFU]/mLHigh3.8-11.6The [facility] Physician GroupComment on above:Performed By: #### BMP #### [place] [address] USADipstick and Microscopicon 00-37-6138Xvrevoakxt (U)Cloudy Critically abnormalClearThe [facility] Physician GroupComment on above:Order Comment: Name Collection Type:: VoidedPerformed By: #### GLULS #### Point of Care testing ,Bacteria,Urine1+ [HPF]NormalNone SeenThe [facility] Physician GroupComment on above:Order Comment: Name Collection Type:: VoidedPerformed By: #### GLULS #### Point of Care testing ,Bilirubin,Urine1+NormalNegativeThe [facility] Physician GroupComment on above: Order Comment: Name Collection Type:: VoidedPerformed By: #### GLULS #### Point of Care testing ,Color (U)YellowNormalYellowThe [facility] Physician GroupComment on above:Order Comment: Name Collection Type:: VoidedPerformed By: #### GLULS #### Point of Care testing ,Glucose Ql (U)>=NormalNormalThSyringa General Hospital Physician GroupComment on above:Order Comment: Name Collection Type:: VoidedPerformed By: #### GLULS #### Point of Care testing ,Granular Casts, Urine3-4NormalNone SeenThe [facility] Physician GroupComment on above:Order Comment: Name Collection Type:: VoidedPerformed By: #### GLULS #### Point of Care testing ,Hyaline Casts,UrineNoneNormal0-8The [facility] Physician GroupComment on above: Order Comment: Name Collection Type:: VoidedPerformed By: #### GLULS #### Point of Care testing ,Ketones Ql (U)2+NormalNegativeTampa General Hospital Physician GroupComment on above: Order Comment: Name Collection Type:: VoidedPerformed By: #### GLULS #### Point of Care testing ,Leukocyte esterase Test strip Ql (U)3+NormalNegativeTampa General Hospital Physician GroupComment on above:Order Comment: Name Collection Type:: VoidedPerformed By: #### GLULS #### Point of Care testing ,Mucus,Urine1+ [LPF]Critically abnormalThe [facility] Physician GroupComment on above:Order Comment: Name Collection Type:: VoidedResult Comment: PERFORMED BY: [address] [place] [address] PATHOLOGIST RADIO RIGGER AHMET SAUCEDA M.D.Performed By: #### GLULS #### Point of Care testing ,Nitrite,UrineNegativeNormalNegativeTampa General Hospital Physician GroupComment on above:Order Comment: Name Collection Type:: VoidedPerformed By: #### GLULS #### Point of Care testing ,Occult Blood,Urine1+NormalNegativeTampa General Hospital Physician GroupComment on above:Order Comment: Name Collection Type:: VoidedResult Comment: PERFORMED BY: [address] [place] [address] PATHOLOGIST RADIO RIGGER AHMET SAUCEDA M.D.Performed By: #### GLULS #### Point of Care testing ,pH (U)6.0 [pH]Normal5.0-9.0The [facility] Physician GroupComment on above:Order Comment: Name Collection Type:: VoidedPerformed By: #### GLULS #### Point of Care testing ,Protein (U) [Mass/Vol]100 mg/dLNormalNegativeThe [facility]ician Group Comment on above:Order Comment: Name Collection Type:: VoidedPerformed By: #### GLULS #### Point of Care testing ,RBC,Tjdub71-46Wjulbc2-9Ptw [facility] Physician GroupComment on above:Order Comment: Name Collection Type:: VoidedPerformed By: #### GLULS #### Point of Care testing ,Specificy [place],Urine1.057Dokofw2.001-1.030The [facility] Physician Group Comment on above:Order Comment: Name Collection Type:: VoidedPerformed By: #### GLULS #### Point of Care testing ,Squamous Epithelial Cell,Iquzd7-5Hrppxu9-1Pex [facility] Physician GroupComment on above:Order Comment: Name Collection Type:: VoidedPerformed By: #### GLULS #### Point of Care testing ,Urobilinogen,Urine2 mg/dLNormalNormalThe [facility] Physician GroupComment on above:Order Comment: Name Collection Type:: VoidedPerformed By: #### GLULS #### Point of Care testing ,WBC,Uqqfp32-155Aknsya1-8Wde [facility] Physician GroupComment on above:Order Comment: Name Collection Type:: VoidedPerformed By: #### GLULS #### Point of Care testing ,ECG 12 lead ECGon 84-34-5653OLW 12 lead ECGGRAND LAKE JOINT [facility] [place] [address] Electrocardiograph Report Signed Patient: Stew Argueta MR#: [id number] : 1965 Acct:[id number] Age/Sex: 60 / F ADM Date: 01/21/25 Loc: Room: 6M9331-9 Type: ADM IN Attending Dr: Abraham Terrazas DO Ordering Provider: Femi Cazares DO Date of Service: 01/22/25 ECG/ECG 12 lead ECG: monitor QT interval Copies to: Test Reason : Blood Pressure : 162/74 mmHG Vent. Rate : 96 BPM Atrial Rate : 96 BPM P-R Int : 178 ms QRS Dur : 100 ms QT Int : 372 ms P-R-T Axes : 45 -15 45 degrees QTcB Int : 469 ms Normal sinus rhythm Normal ECG When compared with ECG of 22-Jan-2025 07:40, (Unconfirmed) premature ventricular complexes are no longer present Confirmed by NINA SAMPSON FACCHARITHA (137) on 01/22/2025 10:47:05 AM Referred By: Electronically Signed By: HARITHA WOOD MD FACC Transcribed By: MUS Signed By Haritha Wood MD, FACC 01/22/25 1047No[facility] Phys[facility] HospitalFree T4 (Free Thyroxine)on 53-36-8574Ednn T4 [Mass/Vol]0.70 ng/dLNormal0.61-1.12[facility] Physician [facility] HospitalComment on above:Performed By: #### BMP #### [place] [address] USAGlucose Poct Glucometerson 12-23-1147Ekyowdh [Mass/Vol]169 mg/dLNoCleveland Clinic South Pointe HospitalComment on above:Result Comment: Random Glucose Reference Range is dependent on time and content of last meal. Glucose of more than 200 mg/dL in a nonstressed, ambulatory subject supports the diagnosis of Diabetes Mellitus. PERFORMED BY: [place] [address] PATHOLOGIST RADIO RIGGER AHMET SAUCEDA M.D.Performed By: #### GLULS #### Point of Care testing ,Glucose [Mass/Vol]223 mg/dLHCA Florida Largo Hospital Physician [facility] HospitalComment on above: Result Comment: Random Glucose Reference Range is dependent on time and content of last meal. Glucose of more than 200 mg/dL in a nonstressed, ambulatory subject supports the diagnosis of Diabetes Mellitus. PERFORMED BY: [address] [place] [id number] PATHOLOGIST RADIO RIGGER AHMET SAUCEDA M.D.Performed By: #### GLULS #### Point of Care testing ,Glucose [Mass/Vol]288 mg/dLNoCone Health [facility] Hospital Physician GroupComment on above: Result Comment: Random Glucose Reference Range is dependent on time and content of last meal. Glucose of more than 200 mg/dL in a nonstressed, ambulatory subject supports the diagnosis of Diabetes Mellitus. PERFORMED BY: [address] [address] PATHOLOGIST RADIO RIGGER AHMET SAUCEDA M.D.Performed By: #### GLULS #### Point of Care testing ,Glucose [Mass/Vol]267 mg/dLNoCone Health [facility] Hospital Physician GroupComment on above: Result Comment: Random Glucose Reference Range is dependent on time and content of last meal. Glucose of more than 200 mg/dL in a nonstressed, ambulatory subject supports the diagnosis of Diabetes Mellitus. PERFORMED BY: [place] [id number] PATHOLOGIST RADIO RIGGER AHMET SAUCEDA M.D.Performed By: #### GLULS #### Point of Care testing ,Glucose [Mass/Vol]279 mg/dLNoCone Health [facility] Physician GroupComment on above: Result Comment: Random Glucose Reference Range is dependent on time and content of last meal. Glucose of more than 200 mg/dL in a nonstressed, ambulatory subject supports the diagnosis of Diabetes Mellitus. PERFORMED BY: [address] [place] [address] PATHOLOGIST RADIO RIGGER AHMET SAUCEDA M.D.Performed By: #### GLULS #### Point of Care testing ,Glucose [Mass/Vol]250 mg/dLHCA Florida Largo Hospital Physician GroupComment on above: Result Comment: Random Glucose Reference Range is dependent on time and content of last meal. Glucose of more than 200 mg/dL in a nonstressed, ambulatory subject supports the diagnosis of Diabetes Mellitus. PERFORMED BY: [place] [id number] PATHOLOGIST RADIO RIGGER AHMET SAUCEDA M.D.Performed By: #### GLULS #### Point of Care testing ,Glucose [Mass/Vol]234 mg/dLHCA Florida Largo Hospital Physician GroupComment on above: Result Comment: Random Glucose Reference Range is dependent on time and content of last meal. Glucose of more than 200 mg/dL in a nonstressed, ambulatory subject supports the diagnosis of Diabetes Mellitus. PERFORMED BY: [place] [id number] PATHOLOGIST RADIO RIGGER AHMET SAUCEDA M.D.Performed By: #### GLULS #### Point of Care testing ,Glucose [Mass/Vol]263 mg/dLHCA Florida Largo Hospital Physician GroupComment on above: Result Comment: Random Glucose Reference Range is dependent on time and content of last meal. Glucose of more than 200 mg/dL in a nonstressed, ambulatory subject supports the diagnosis of Diabetes Mellitus. PERFORMED BY: [place] [id number] PATHOLOGIST RADIO RIGGER AHMET SAUCEDA M.D.Performed By: #### GLULS #### Point of Care testing ,Glucose [Mass/Vol]286 mg/dLHCA Florida Largo Hospital Physician GroupComment on above: Result Comment: Random Glucose Reference Range is dependent on time and content of last meal. Glucose of more than 200 mg/dL in a nonstressed, ambulatory subject supports the diagnosis of Diabetes Mellitus. PERFORMED BY: [place] [id number] PATHOLOGIST RADIO RIGGER AHMET SAUCEDA M.D.Performed By: #### GLULS #### Point of Care testing ,Glucose [Mass/Vol]239 mg/dLHCA Florida Largo Hospital Physician GroupComment on above: Result Comment: Random Glucose Reference Range is dependent on time and content of last meal. Glucose of more than 200 mg/dL in a nonstressed, ambulatory subject supports the diagnosis of Diabetes Mellitus. PERFORMED BY: [place] [id number] PATHOLOGIST RADIO RIGGER AHMET SAUCEDA M.D.Performed By: #### GLULS #### Point of Care testing ,Glucose [Mass/Vol]227 mg/dLHCA Florida Largo Hospital Physician GroupComment on above: Result Comment: Random Glucose Reference Range is dependent on time and content of last meal. Glucose of more than 200 mg/dL in a nonstressed, ambulatory subject supports the diagnosis of Diabetes Mellitus. PERFORMED BY: [place] [id number] PATHOLOGIST RADIO RIGGER AHMET SAUCEDA M.D.Performed By: #### GLULS #### Point of Care testing ,Glucose [Mass/Vol]177 mg/dLHCA Florida Largo Hospital Physician GroupComment on above: Result Comment: Random Glucose Reference Range is dependent on time and content of last meal. Glucose of more than 200 mg/dL in a nonstressed, ambulatory subject supports the diagnosis of Diabetes Mellitus. PERFORMED BY: [place] [id number] PATHOLOGIST RADIO RIGGER AHMET SAUCEDA M.D.Performed By: #### GLULS #### Point of Care testing ,Glucose [Mass/Vol]240 mg/dLHCA Florida Largo Hospital Physician GroupComment on above: Result Comment: Random Glucose Reference Range is dependent on time and content of last meal. Glucose of more than 200 mg/dL in a nonstressed, ambulatory subject supports the diagnosis of Diabetes Mellitus. PERFORMED BY: [place] [id number] PATHOLOGIST RADIO RIGGER AHMET SAUCEDA M.D.Performed By: #### GLULS #### Point of Care testing ,Glucose [Mass/Vol]246 mg/dLNoCone Health [facility] Physician GroupComment on above: Result Comment: Random Glucose Reference Range is dependent on time and content of last meal. Glucose of more than 200 mg/dL in a nonstressed, ambulatory subject supports the diagnosis of Diabetes Mellitus. PERFORMED BY: [place] [id number] PATHOLOGIST RADIO RIGGER AHMET SAUCEDA M.D.Performed By: #### GLULS #### Point of Care testing ,Glucose [Mass/Vol]253 mg/dLNoCone Health [facility] Physician GroupComment on above: Result Comment: Random Glucose Reference Range is dependent on time and content of last meal. Glucose of more than 200 mg/dL in a nonstressed, ambulatory subject supports the diagnosis of Diabetes Mellitus. PERFORMED BY: [place] [address] PATHOLOGIST RADIO RIGGER AHMET SAUCEDA M.D.Performed By: #### BMP #### [place] [address] USAGlucose [Mass/Vol]259 mg/dLNoCone Health [facility] Physician GroupComment on above:Result Comment: Random Glucose Reference Range is dependent on time and content of last meal. Glucose of more than 200 mg/dL in a nonstressed, ambulatory subject supports the diagnosis of Diabetes Mellitus. PERFORMED BY: [place] [address] PATHOLOGIST RADIO RIGGER AHMET SAUCEDA M.D.Performed By: #### BMP #### [place] [address] USAGlucose [Mass/Vol]259 mg/dLNoCone Health [facility] Hospital Physician GroupComment on above:Result Comment: Random Glucose Reference Range is dependent on time and content of last meal. Glucose of more than 200 mg/dL in a nonstressed, ambulatory subject supports the diagnosis of Diabetes Mellitus. PERFORMED BY: [place] [id number] PATHOLOGIST RADIO RIGGER AHMET SAUCEDA M.D.Performed By: #### BMP #### [place] [address] USAGlucose [Mass/Vol]272 mg/dLNoCone Health [facility] Hospital Physician GroupComment on above:Result Comment: Random Glucose Reference Range is dependent on time and content of last meal. Glucose of more than 200 mg/dL in a nonstressed, ambulatory subject supports the diagnosis of Diabetes Mellitus. PERFORMED BY: [place] [id number] PATHOLOGIST RADIO RIGGER AHMET SAUCEDA M.D.Performed By: #### GLULS #### Point of Care testing ,Glucose [Mass/Vol]282 mg/dLHCA Florida Largo Hospital Physician GroupComment on above: Result Comment: Random Glucose Reference Range is dependent on time and content of last meal. Glucose of more than 200 mg/dL in a nonstressed, ambulatory subject supports the diagnosis of Diabetes Mellitus. PERFORMED BY: [place] [id number] PATHOLOGIST RADIO RIGGER AHMET SAUCEDA M.D.Performed By: #### GLULS #### Point of Care testing ,Glucose [Mass/Vol]302 mg/dLHCA Florida Largo Hospital Physician GroupComment on above: Result Comment: Random Glucose Reference Range is dependent on time and content of last meal. Glucose of more than 200 mg/dL in a nonstressed, ambulatory subject supports the diagnosis of Diabetes Mellitus. PERFORMED BY: [place] [address] PATHOLOGIST RADIO RIGGER AHMET SAUCEDA M.D.Performed By: #### GLULS #### Point of Care testing ,[id number]: Cleaned MeterHCA Florida Largo Hospital Physician GroupComment on above: Result Comment: PERFORMED BY: [address] [place] [id number] PATHOLOGIST RADIO RIGGER AHMET SAUCEDA M.D.Performed By: #### GLULS #### Point of Care testing ,Glucose [Mass/Vol]333 mg/dLHCA Florida Largo Hospital Physician GroupComment on above: Result Comment: Random Glucose Reference Range is dependent on time and content of last meal. Glucose of more than 200 mg/dL in a nonstressed, ambulatory subject supports the diagnosis of Diabetes Mellitus.Performed By: #### GLULS #### Point of Care testing ,[id number]: Cleaned MeterNoCone Health Moses Cone Hospital Physician GroupComment on above: Result Comment: PERFORMED BY: [place] [id number] PATHOLOGIST RADIO RIGGER AHMET SAUCEDA M.D.Performed By: #### GLULS #### Point of Care testing ,Glucose [Mass/Vol]297 mg/dLHCA Florida Largo Hospital Physician GroupComment on above: Result Comment: Random Glucose Reference Range is dependent on time and content of last meal. Glucose of more than 200 mg/dL in a nonstressed, ambulatory subject supports the diagnosis of Diabetes Mellitus.Performed By: #### GLULS #### Point of Care testing ,[id number]: Cleaned MeterNoCone Health Moses [facility]one Hospital Physician GroupComment on above: Result Comment: PERFORMED BY: [place] [address] PATHOLOGIST RADIO RIGGER AHMET SAUCEDA M.D.Performed By: #### GLULS #### Point of Care testing ,Glucose [Mass/Vol]318 mg/dLNoCone Health [facility] Hospital Physician GroupComment on above: Result Comment: Random Glucose Reference Range is dependent on time and content of last meal. Glucose of more than 200 mg/dL in a nonstressed, ambulatory subject supports the diagnosis of Diabetes Mellitus.Performed By: #### GLULS #### Point of Care testing ,[id number]: Cleaned MeterHCA Florida Largo Hospital Physician GroupComment on above: Result Comment: PERFORMED BY: [address] [place] [address] PATHOLOGIST RADIO RIGGER AHMET SAUCEDA M.D.Performed By: #### GLULS #### Point of Care testing ,Glucose [Mass/Vol]321 mg/dLHCA Florida Largo Hospital Physician GroupComment on above: Result Comment: Random Glucose Reference Range is dependent on time and content of last meal. Glucose of more than 200 mg/dL in a nonstressed, ambulatory subject supports the diagnosis of Diabetes Mellitus.Performed By: #### GLULS #### Point of Care testing ,Legionella Pneumophilia Ag, Uron 39-61-9581Foaulxrybi Pneumophilia Ag, Ur NegativeNormalNegativeThe [facility] Physician GroupComment on above:Order Comment: SOURCE OF SPECIMEN: voidedResult Comment: Presumptive negative for L. pneumophila serogroup 1 antigen in urine, suggesting no recent or current infection. Legionnaires' disease cannot be ruled out since other serogroups and species may also cause disease. Performed at: [facility], [place], [place] [id number] Firearms Expert: Javier Tapia MD, Phone: [phone] PERFORMED BY: [place] [address] PATHOLOGIST RADIO RIGGER AHMET SAUCEDA M.D.Performed By: #### GLULS #### Point of Care testing ,Magnesiumon 23-76-3080Acdrazjtq [Mass/Vol]1.7 mg/dLLow1.9-2.7The [facility] Physician GroupComment on above:Performed By: #### BMP #### [place] [address] USAOsmolality, Urineon 64-07-8825Wiqnitakmk, Wjvcj043 mosm Hycezf579-465Rza [facility] Physician GroupComment on above:Result Comment: PERFORMED BY: [place] [address] PATHOLOGIST RADIO RIGGER AHMET SAUCEDA M.D.Performed By: #### GLULS #### Point of Care testing ,Phosphoruson 76-35-8280Zpyjshnmw [Mass/Vol]1.4 mg/dLLow2.5-4.5The [facility] Physician GroupComment on above:Performed By: #### BMP #### [place] [address] USASodium, Urineon 07-39-9521Illfob (U) [Moles/Vol]11.0 mmol/LNormalThe [facility] Physician GroupComment on above:Result Comment: No reference range establishedPerformed By: #### GLULS #### Point of Care testing ,Thyroid Stimulating Hormoneon 02-38-0389WNZ Qn8.11 m[IU]/LHigh0.45-5.33The [facility] Physician GroupComment on above:Result Comment: PERFORMED BY: [place] [address] PATHOLOGIST RADIO RIGGER AHMET SAUCEDA M.D.Performed By: #### BMP #### [facility] [address] [place] [address] USAThyroxine (T4) Totalon 52-29-6919Serakiocx (T4) Total<0.50 Low5.39-11.82The [facility] Physician GroupComment on above:Performed By: #### BMP #### [facility] [address] [place] [address] USAUrine Cultureon 02-29-9099Jvglbrcg identified Cx Nom (U) <9,000 colonies/ml mixed bacterial skin contaminants 2 Days PERFORMED BY: [place] [address] PATHOLOGIST RADIO RIGGER AHMET SAUCEDA M.D.NormalThe [facility] Physician GroupComment on above: Performed By: #### GLULS #### Point of Care testing ,A1C with Estimated Average Gluon 77-37-6695Ylcffke [Mass/Vol]309 mg/dLNormalThe [facility] Physician GroupComment on above:Order Comment: PER NURSE ON 4C, OK TO RETIME WITH OTHER LABS AT 2000 *ASKED TO RETIME TO 10PM BY NURSE ON 4C* per RN to retime for 2230Result Comment: PERFORMED BY: [place] [address] PATHOLOGIST RADIO RIGGER AHMET SAUCEDA M.D.Performed By: #### GLULS #### Point of Care testing ,HbA1c (Bld) [Mass fraction]12.4 %High4.3-5.6The [facility] Physician Group Comment on above:Order Comment: PER NURSE ON 4C, OK TO RETIME WITH OTHER LABS AT 1999 *ASKED TO RETIME TO 10PM BY NURSE ON 4C* per RN to retime for 2230Result Comment: Increased risk for diabetes: 5.7 - 6.4 diabetes: >6.4 glycemic control for adults with diabetes: <7.0Performed By: #### GLULS #### Point of Care testing ,Basic Metabolic Panelon 61-18-6092Rnpmw gap [Moles/Vol]17.1 mmol/LHigh6.0-15.0 The [facility] Physician GroupComment on above:Order Comment: per RN to retime for 2229Performed By: #### GLULS #### Point of Care testing ,Calcium [Mass/Vol]8.9 mg/dLNormal8.6-10.3The [facility] Physician GroupComment on above:Order Comment: per RN to retime for formed By: #### GLULS #### Point of Care testing ,Chloride [Moles/Vol]107 mmol/WVkdnrq82-795Oic [facility] Physician GroupComment on above:Order Comment: per RN to retime for formed By: #### GLULS #### Point of Care testing ,CO2 [Moles/Vol]11.3 mmol/LLow21.0-31.0The [facility] Physician GroupComment on above:Order Comment: per RN to retime for formed By: #### GLULS #### Point of Care testing ,Creatinine [Mass/Vol]1.16 mg/dLNormal0.60-1.20The [facility] Physician Group Comment on above:Order Comment: per RN to retime for formed By: #### GLULS #### Point of Care testing ,Creatinine Clr Calc Zqcetsxq28.33NormalThe [facility] Physician GroupComment on above:Order Comment: per RN to retime for Comment: PERFORMED BY: [facility] [place] [address] PATHOLOGIST RADIO RIGGER AHMET SAUCEDA M.D.Performed By: #### GLULS #### Point of Care testing ,GFR/1.73 sq M.predicted MDRD (S/P/Bld) [Vol rate/Area]54.649 mL/min/{1.73_m2} NormalThe [facility] Physician GroupComment on above:Order Comment: per RN to retime for formed By: #### GLULS #### Point of Care testing ,Glucose [Mass/Vol]346 mg/tJXvoo73-032Aus [facility] Physician GroupComment on above:Order Comment: per RN to retime for Comment: Random Glucose Reference Range is dependent on time and content of last meal. Glucose of more than 200 mg/dL in a nonstressed, ambulatory subject supports the diagnosis of Diabetes Mellitus. ADA recommended reference rangePerformed By: #### GLULS #### Point of Care testing ,Potassium [Moles/Vol]3.4 mmol/LLow3.5-5.1The [facility] Physician GroupComment on above:Order Comment: per RN to retime for 2229Performed By: #### GLULS #### Point of Care testing ,Sodium [Moles/Vol]132 mmol/JEfc147-874Yka [facility] Physician GroupComment on above:Order Comment: per RN to retime for 2229Performed By: #### GLULS #### Point of Care testing ,Urea nitrogen [Mass/Vol]22 mg/dLNormal7-25The [facility] Physician GroupComment on above:Order Comment: per RN to retime for 2229Performed By: #### GLULS #### Point of Care testing ,Anion gap [Moles/Vol]21.1 mmol/LHigh6.0-15.0The [facility] Physician Group Comment on above:Performed By: #### BHOB #### [facility] [address] [place] [address] USACalcium [Mass/Vol]9.4 mg/dLNormal8.6-10.3The [facility] Physician GroupComment on above:Performed By: #### BHOB #### [facility] [address] [place] [address] USAChloride [Moles/Vol]100 mmol/HKkhsij26-658Xsk [facility] Physician GroupComment on above:Performed By: #### BHOB #### [facility] [address] [place] [address] USACO2 [Moles/Vol]12.8 mmol/LLow21.0-31.0The [facility] Physician GroupComment on above:Performed By: #### BHOB #### [facility] [address] [place] [address] USACreatinine [Mass/Vol]1.12 mg/dLNormal0.60-1.20The [facility] Physician GroupComment on above:Performed By: #### BHOB #### [facility] [address] [place] [address] USACreatinine Clr Calc Zoiyejqu20.66NormalThe [facility] Physician GroupComment on above:Performed By: #### BHOB #### [facility] [address] [place] [address] USAGFR/1.73 sq M.predicted MDRD (S/P/Bld) [Vol rate/Area] 56.999 mL/min/{1.73_m2}NormalThe [facility] Physician GroupComment on above: Performed By: #### BHOB #### [place] [address] USAGlucose [Mass/Vol]365 mg/mKUuvp04-994Dyb [facility] Physician GroupComment on above:Result Comment: Random Glucose Reference Range is dependent on time and content of last meal. Glucose of more than 200 mg/dL in a nonstressed, ambulatory subject supports the diagnosis of Diabetes Mellitus. ADA recommended reference rangePerformed By: #### BHOB #### [place] [address] USAPotassium [Moles/Vol]2.9 mmol/LOff scale low3.5-5.1The [facility] Physician GroupComment on above:Result Comment: Hemolysis is present at a level that could interfere with the result. Contact lab if redraw is required Critical Result Called to and read back by: KENIA MERCADO at: 01/21/2025 17:19:11 by:[id number] By: #### BHOB #### [place] [address] USASodium [Moles/Vol]131 mmol/QPlz779-082Jpv [facility] Physician GroupComment on above:Performed By: #### BHOB #### [place] [address] USAUrea nitrogen [Mass/Vol]20 mg/dLNormal7-e [facility] Physician GroupComment on above:Performed By: #### BHOB #### [place] [address] USABeta Hydroxybuterateon 34-42-9856Hamk Hydroxybuterate3.29 mmol/LHigh0.02-0.27The [facility] Physician GroupComment on above:Result Comment: PERFORMED BY: [place] [address] PATHOLOGIST RADIO RIGGER AHMET SAUCEDA M.D.Performed By: #### GLULS #### Point of Care testing ,Beta Hydroxybuterate3.43 mmol/LHigh0.02-0.27The [facility]ician Group Comment on above:Order Comment: ASKED TO RETIME TO 10PM BY NURSE ON 4C per RN to retime for 2230Result Comment: PERFORMED BY: [place] [address] PATHOLOGIST RADIO RIGGER AHMET SAUCEDA M.D.Performed By: #### GLULS #### Point of Care testing ,Blood Cultureon 53-28-9420Jjglvzci identified Cx Nom (Bld)ASKED TO RETIME TO 10PM BY NURSE ON 4C per RN to retime NO GROWTH 5 DAYS PERFORMED BY: [place] [address] PATHOLOGIST RADIO RIGGER AHMET SAUCEDA M.D.NormalThe [facility] Physician GroupComment on above: Performed By: #### BHOB #### [place] [address] USABacteria identified Cx Nom (Bld)ASKED TO RETIME TO 10PM BY NURSE ON 4C per RN to retime NO GROWTH 5 DAYS PERFORMED BY: [place] [address] PATHOLOGIST RADIO RIGGER AHMET SAUCEDA M.D.NormalTampa General Hospital Physician GroupComment on above: Performed By: #### BHOB #### [place] [address] USADiff and CBCon 03-01-5603Gjwlbopjybdq Ql (Bld)SlightNormal The [facility] Physician GroupComment on above:Order Comment: ASKED TO RETIME TO 10PM BY NURSE ON 4C per RN to retime for 0Performed By: #### BHOB #### [address] [place] [address] USABand form neutrophils/100 WBC (Bld)31 %High0-5The [facility] Physician GroupComment on above:Order Comment: ASKED TO RETIME TO 10PM BY NURSE ON 4C per RN to retime for 2229Performed By: #### BHOB #### [facility] [address] [place] [id number] USACrenated RBCSDavis Regional Medical Center Physician Group Comment on above:Order Comment: ASKED TO RETIME TO 10PM BY NURSE ON 4C per RN to retime for 2229Performed By: #### BHOB #### [facility] [address] [place] [address] USAErythrocyte distribution width (RBC) [Ratio]13.9 %Normal 11.9-15.3The [facility] Physician GroupComment on above:Order Comment: ASKED TO RETIME TO 10PM BY NURSE ON 4C per RN to retime for 2229Performed By: #### BHOB #### [place] [address] USAHematocrit (Bld) [Volume fraction]35.7 %Nmdjbq60.0-46.4The [facility] Physician GroupComment on above:Order Comment: ASKED TO RETIME TO 10PM BY NURSE ON 4C per RN to retime for 2229Performed By: #### BHOB #### [place] [address] USAHemoglobin (Bld) [Mass/Vol]12.0 g/gDMmjrgi07.8-15.4The [facility] Physician GroupComment on above:Order Comment: ASKED TO RETIME TO 10PM BY NURSE ON 4C per RN to retime for 2229Performed By: #### BHOB #### [place] [id number] USALarge PlateletsSlightHCA Florida Largo Hospital Physician Group Comment on above:Order Comment: ASKED TO RETIME TO 10PM BY NURSE ON 4C per RN to retime for 0Result Comment: PERFORMED BY: [place] [address] PATHOLOGIST RADIO RIGGER AHMET SAUCEDA M.D.Performed By: #### BHOB #### [place] [address] USALymphocytes/100 WBC (Bld)4 %Qdl76-72Fby [facility] Physician GroupComment on above:Order Comment: ASKED TO RETIME TO 10PM BY NURSE ON 4C per RN to retime for 2229Performed By: #### BHOB #### [facility] [address] (RBC) [Entitic mass]27.6 jmFfuxdg48.7-34.3The [facility] Physician GroupComment on above:Order Comment: ASKED TO RETIME TO 10PM BY NURSE ON 4C per RN to retime for 2229Performed By: #### BHOB #### [address]V (RBC) [Entitic vol]81.9 jLSnwchz09-896Gih [facility] Physician GroupComment on above:Order Comment: ASKED TO RETIME TO 10PM BY NURSE ON 4C per RN to retime for 2229Performed By: #### BHOB #### [place] [address] USAMean Corpuscular HGB Conc33.7 g/xCLwpwty77.0-35.0The [facility] Physician GroupComment on above:Order Comment: ASKED TO RETIME TO 10PM BY NURSE ON 4C per RN to retime for 2229Performed By: #### BHOB #### [place] [address] USAMicrocytosisSlightNormalThe [facility] Comment on above:Order Comment: ASKED TO RETIME TO 10PM BY NURSE ON 4C per RN to retime for 2229Performed By: #### BHOB #### [place] [address] USAMonocytes/100 WBC (Bld)6 %Normal2-11The [facility] Physician GroupComment on above:Order Comment: ASKED TO RETIME TO 10PM BY NURSE ON 4C per RN to retime for 2229Performed By: #### BHOB #### [facility] [address] [place] [address] USAMyelocytes1 %High0-0The [facility] Physician GroupComment on above:Order Comment: ASKED TO RETIME TO 10PM BY NURSE ON 4C per RN to retime for 2229Performed By: #### BHOB #### [facility] [address] [place] [address] USAPlatelet EstimateNormalNormalNormBaptist Health Doctors Hospital Physician GroupComment on above:Order Comment: ASKED TO RETIME TO 10PM BY NURSE ON 4C per RN to retime for 0Performed By: #### BHOB #### [facility] [address] [place] [address] USAPlatelet mean volume (Bld) [Entitic vol]8.3 fLNormal 6.3-10.7The [facility] Physician GroupComment on above:Order Comment: ASKED TO RETIME TO 10PM BY NURSE ON 4C per RN to retime for 2229Performed By: #### BHOB #### [facility] [address] [place] [address] USAPlatelets (Bld) [#/Vol]288 10*3/tFProsym044-434[facility] Physician GroupComment on above:Order Comment: ASKED TO RETIME TO 10PM BY NURSE ON 4C per RN to retime for 2229Performed By: #### BHOB #### [facility] [address] [place] [address] USAPoikilocytosisSlightNoCone Health Moses [facility] Group Comment on above:Order Comment: ASKED TO RETIME TO 10PM BY NURSE ON 4C per RN to retime for 0Performed By: #### BHOB #### [facility] [address] [place] [address] USAPolychromasiaSlightHCA Florida [facility] Comment on above:Order Comment: ASKED TO RETIME TO 10PM BY NURSE ON 4C per RN to retime for 0Performed By: #### BHOB #### [facility] [address] [place] [address] USARBC (Bld) [#/Vol]4.35 10*6/uLNormal3.60-5.00The [facility] Physician GroupComment on above:Order Comment: ASKED TO RETIME TO 10PM BY NURSE ON 4C per RN to retime for 2229Performed By: #### BHOB #### [facility] [address] [place] [address] USASegmented neutrophils/100 WBC (Bld)59 %Tbvumq31-30Wzo [facility] Physician GroupComment on above:Order Comment: ASKED TO RETIME TO 10PM BY NURSE ON 4C per RN to retime for 2229Performed By: #### BHOB #### [facility] [address] [place] [address] USAToxic VacuolationSDown East Community Hospitale [facility] Comment on above:Order Comment: ASKED TO RETIME TO 10PM BY NURSE ON 4C per RN to retime for 2229Performed By: #### BHOB #### [facility] [address] [place] [id number] USAWBC (Bld) [#/Vol]26.5 10*3/uLHigh3.8-11.6The [facility] Physician GroupComment on above:Order Comment: ASKED TO RETIME TO 10PM BY NURSE ON 4C per RN to retime for 2229Performed By: #### BHOB #### [facility] [address] [place] [address] USAWhite Blood Count26.5 [CFU]/mLHigh3.8-11.6The [facility] Physician GroupComment on above:Order Comment: ASKED TO RETIME TO 10PM BY NURSE ON 4C per RN to retime for 2229Performed By: #### BHOB #### [facility] [address] [place] [address] USAECG 12 lead ECGon 90-79-8783XJL 12 lead ECGGRAND LAKE [facility] [place] [address] [place], [place] [id number] Electrocardiograph Report Signed Patient: Stew Argueta MR#: [id number] : 1965 Acct:[id number] Age/Sex: 60 / F ADM Date: 01/21/25 Loc: Room: 7S6345-3 Type: ADM IN Attending Dr: Abraham Terrazas DO Ordering Provider: Femi Cazares DO Date of Service: 01/21/25 ECG/ECG 12 lead ECG: monitor QT interval Copies to: Test Reason : Blood Pressure : 174/75 mmHG Vent. Rate : 125 BPM Atrial Rate : 125 BPM P-R Int : 162 ms QRS Dur : 104 ms QT Int : 326 ms P-R-T Axes : 36 -22 67 degrees QTcB Int : 470 ms Sinus tachycardia Inferior infarct , age undetermined Abnormal ECG No previous ECGs available Confirmed by NINA SAMPSON [facility], HARITHA ([id number]) on 01/22/2025 10:46:55 AM Referred By: Electronically Signed By: HARITHA WOOD MD [facility] Transcribed By: MUS Signed By Haritha Wood MD, FACC 01/22/25 1046NoCone Health Moses [facility] Hospital Physician GroupGlucose Poct Glucometerson 36-16-1422Eiaoltw8Xho7: Cleaned MeterHCA Florida Largo Hospital Physician GroupComment on above:Result Comment: PERFORMED BY: [address] [address] PATHOLOGIST RADIO RIGGER AHMET SAUCEDA M.D.Performed By: #### GLULS #### Point of Care testing ,Glucose [Mass/Vol]309 mg/dLHCA Florida Largo Hospital Physician GroupComment on above: Result Comment: Random Glucose Reference Range is dependent on time and content of last meal. Glucose of more than 200 mg/dL in a nonstressed, ambulatory subject supports the diagnosis of Diabetes Mellitus.Performed By: #### GLULS #### Point of Care testing ,Izrkvkl2Hmn8: Cleaned MeterNoCone Health Moses Cone Hospital Physician GroupComment on above: Result Comment: PERFORMED BY: [facility] [address] [place] [address] PATHOLOGIST RADIO RIGGER AHMET SAUCEDA M.D.Performed By: #### GLULS #### Point of Care testing ,Glucose [Mass/Vol]323 mg/dLHCA Florida Largo Hospital Physician GroupComment on above: Result Comment: Random Glucose Reference Range is dependent on time and content of last meal. Glucose of more than 200 mg/dL in a nonstressed, ambulatory subject supports the diagnosis of Diabetes Mellitus.Performed By: #### GLULS #### Point of Care testing ,Drosnqk3Yra1: Cleaned MeterNoCone Health Moses Cone Hospital Physician GroupComment on above: Result Comment: PERFORMED BY: [place] [address] PATHOLOGIST RADIO RIGGER AHMET SAUCEDA M.D.Performed By: #### GLULS #### Point of Care testing ,Glucose [Mass/Vol]320 mg/dLHCA Florida Largo Hospital Physician GroupComment on above: Result Comment: Random Glucose Reference Range is dependent on time and content of last meal. Glucose of more than 200 mg/dL in a nonstressed, ambulatory subject supports the diagnosis of Diabetes Mellitus.Performed By: #### GLULS #### Point of Care testing ,Zbkmhds2Ceb7: Cleaned MeterHCA Florida Largo Hospital Physician GroupComment on above: Result Comment: PERFORMED BY: [place] [address] PATHOLOGIST RADIO RIGGER AHMET SAUCEDA M.D.Performed By: #### GLULS #### Point of Care testing ,Glucose [Mass/Vol]320 mg/dLHCA Florida Largo Hospital Physician GroupComment on above: Result Comment: Random Glucose Reference Range is dependent on time and content of last meal. Glucose of more than 200 mg/dL in a nonstressed, ambulatory subject supports the diagnosis of Diabetes Mellitus.Performed By: #### GLULS #### Point of Care testing ,Kuhygml9Rrq0: Cleaned MeterHCA Florida Largo Hospital Physician GroupComment on above: Result Comment: PERFORMED BY: [place] [address] PATHOLOGIST RADIO RIGGER AHMET SAUCEDA M.D.Performed By: #### GLULS #### Point of Care testing ,Glucose [Mass/Vol]325 mg/dLHCA Florida Largo Hospital Physician GroupComment on above: Result Comment: Random Glucose Reference Range is dependent on time and content of last meal. Glucose of more than 200 mg/dL in a nonstressed, ambulatory subject supports the diagnosis of Diabetes Mellitus.Performed By: #### GLULS #### Point of Care testing ,Glucose [Mass/Vol]305 mg/dLHCA Florida Largo Hospital Physician GroupComment on above: Result Comment: Random Glucose Reference Range is dependent on time and content of last meal. Glucose of more than 200 mg/dL in a nonstressed, ambulatory subject supports the diagnosis of Diabetes Mellitus. PERFORMED BY: [place] [address] PATHOLOGIST RADIO RIGGER AHMET SAUCEDA M.D.Performed By: #### GLULS #### Point of Care testing ,Aigmtwe4Okk1: Cleaned MeterNoCone Health Moses Cone Hospital Physician GroupComment on above: Result Comment: PERFORMED BY: [place] [address] PATHOLOGIST RADIO RIGGER AHMET SAUCEDA M.D.Performed By: #### GLULS #### Point of Care testing ,Glucose [Mass/Vol]329 mg/dLHCA Florida Largo Hospital Physician GroupComment on above: Result Comment: Random Glucose Reference Range is dependent on time and content of last meal. Glucose of more than 200 mg/dL in a nonstressed, ambulatory subject supports the diagnosis of Diabetes Mellitus.Performed By: #### GLULS #### Point of Care testing ,Hvsrncu4Dfd1: Cleaned MeterNoCone Health Moses Cone Hospital Physician GroupComment on above: Result Comment: PERFORMED BY: [place] [address] PATHOLOGIST RADIO RIGGER AHMET SAUCEDA M.D.Performed By: #### GLULS #### Point of Care testing ,Glucose [Mass/Vol]357 mg/dLHCA Florida Largo Hospital Physician GroupComment on above: Result Comment: Random Glucose Reference Range is dependent on time and content of last meal. Glucose of more than 200 mg/dL in a nonstressed, ambulatory subject supports the diagnosis of Diabetes Mellitus.Performed By: #### GLULS #### Point of Care testing ,HCG,Quantitativeon 43-53-5248NGU,Quantitative1.36 m[iU]/mLNormalThe [facility] Physician GroupComment on above:Order Comment: ASKED TO RETIME TO 10PM BY NURSE ON 4C per RN to retime for 2229Result Comment: Approximate Approximate hCG Gestational Age Range (mIU/ml) (weeks) 0.2-1 5-50 1-2 50-500 2-3 100-5,000 3-4 500-10,000 4-5 1,000-50,000 5-6 10,000-100,000 6-8 15,000-200,000 8-12 10,000-100,000 PERFORMED BY: [place] [address] PATHOLOGIST RADIO RIGGER AHMET SAUCEDA M.D.Performed By: #### GLULS #### Point of Care testing ,Magnesiumon 34-41-3125Xjjkrdlkg [Mass/Vol]1.7 mg/dLLow1.9-2.7The [facility] Physician GroupComment on above:Order Comment: ASKED TO RETIME TO 10PM BY NURSE ON 4C per RN to retime for 2229Performed By: #### GLULS #### Point of Care testing ,Magnesium [Mass/Vol]1.8 mg/dLLow1.9-2.7The [facility] Physician GroupComment on above:Result Comment: PERFORMED BY: [place] [address] PATHOLOGIST RADIO RIGGER AHMET SAUCEDA M.D.Performed By: #### BHOB #### [place] [address] USAPartial Thromboplastin Timeon 26-85-1104oDTD Coag (Bld) [Time]27.6 lIezvjd77.1-36.5The [facility] Physician GroupComment on above:Order Comment: ASKED TO RETIME TO 10PM BY NURSE ON 4C per RN to retime for 0Result Comment: A hematocrit value greater than 55% may lead to inaccurate results in coagulation testing. Patients having hematocrit values >55% require a special collection tube for coagulation studies. Please contact the laboratory at [phone] for redraw instructions. PERFORMED BY: [address] [phone] PATHOLOGIST RADIO RIGGER AHMET SAUCEDA M.D.Performed By: #### BHOB #### [facility] [address] [place] [address] USAPhosphoruson 76-88-9680Dmssodrvk [Mass/Vol]mg/dLLow2.5-4.5 The [facility] Physician GroupComment on above:Order Comment: ASKED TO RETIME TO 10PM BY NURSE ON 4C per RN to retime for 2229Performed By: #### GLULS #### Point of Care testing ,Prothrombin Time INRon 04-28-3215TDM Coag (PPP) [Relative time]1.0 {INR}Normal The [facility] Physician GroupComment on above:Order Comment: ASKED TO RETIME TO 10PM BY NURSE ON 4C per RN to retime for 2230Result Comment: INR Therapeutic Range A) Pre- and Peroperative OAT started two weeks before surgery. NOT HIP SURGERY: 1.5 - 2.5 HIP SURGERY: 2 - 3 B) Primary and secondary prevention of venous THROMBOSIS: 2 - 3 C) Active venous thrombosis, pulmonary embolism and prevention of recurrent venous thrombosis: 2 - 3 D) Prevention of arterial thromboembolism including patients with mechanical heart valves: 3 - 4.5Performed By: #### BHOB #### [address] [address] USAPT Coag (PPP) [Time]11.8 sNormal9.0-12.9The [facility] Physician GroupComment on above:Order Comment: ASKED TO RETIME TO 10PM BY NURSE ON 4C per RN to retime for 2230Result Comment: A hematocrit value greater than 55% may lead to inaccurate results in coagulation testing. Patients having hematocrit values >55% require a special collection tube for coagulation studies. Please contact the laboratory at [phone] for redraw instructions.Performed By: #### BHOB #### [address] [address] USAXR chest 1V portableon 33-25-6910GC chest 1V portable [facility] Main [place] [address] [place] [address] XRay Report Signed Patient: Stew Argueta MR#: [id number] : 1965 Acct:[id number] Age/Sex: 60 / F ADM Date: 01/21/25 Loc: Room: [address] [place] [address] Type: ADM IN Attending Dr: Femi Cazares DO Copies to: Femi Cazares DO Ordering Provider: Femi Cazares DO Date of Service: 01/21/25 XR/XR chest 1V portable: DKA XR chest 1V portable 01/21/2025 5:24 PM SIGNS AND SYMPTOMS: DKA abnormal breath sounds PROTOCOL: Frontal radiograph the chest COMPARISON: None FINDINGS: The trachea is midline. The heart and mediastinal structures are within normal limits. There is a 8.1 cm masslike opacity in the lateral aspect of the right upper chest suspicious for malignancy. Degenerative changes are noted in the shoulders The bony thorax is intact. XR/XR chest 1V portable IMPRESSION: There is a 8.1 cm masslike opacity in the lateral aspect of the right upper chest suspicious for malignancy. Follow-up with CT of the chest with contrast is recommended. Impression dictated by: Lux Parsons M.D. 01/21/2025 6:34 PM Dictation Location: [place] [address] Transcribed By: [facility] 01/21/251833 Dictated By: Lux Parsons II, MD 01/21/251832 Signed By: 01/21/25 [facility] CenterH[facility] Physician GroupPatient Letter [facility], 2024 STEW ARGUETA [address] [place] [address] [address] [place] [address] : 1965 Dear Ms.Tambera Argueta, You missed your scheduled appointment on:04/12/2024. Please [...] the opportunity to cancel by responding to ourreminder text, phone call or email. You can [...] be greatly appreciated. Sincerely, [place] [address] ext.3 NoSelect Medical Specialty Hospital - Southeast OhioBILIRUBIN CONJUGATED (DIRECT) on 40-78-9620WXDI, CONJUGATED0.1 mg/dLNormal0.0-0.2The [facility] CenterComment on above:Performed By: #### DBIL #### [facility] [address] [place] [address] Dr. Jenna Nixon AUTO DIFFon 18-30-8995LLQN #0.1 103/ulNormal0.0-0.1The [facility] Medical CenterComment on above:Performed By: #### CBC #### [facility] [address] [place] [address] Dr. Jenna Bravosophils/100 WBC (Bld)1.0 %Normal0.2-2.0[facility] Comment on above:Performed By: #### CBC #### [facility] [address] [place] [address] Dr. Jenna Mcdaniel #0.2 103/ulNormal0.0-0.7The [facility] Medical CenterComment on above: Performed By: #### CBC #### [facility] [address] [place] [address] Dr. Jenna Mendozaosinophils/100 WBC (Bld)2.6 %Normal0.9-7.0[facility] Comment on above:Performed By: #### CBC #### [facility] [address] [place] [address] Dr. Yilan ChangErythrocyte distribution width (RBC) [Ratio]12.8 %Gutons85.0-15.0 The [facility] Medical CenterComment on above:Performed By: #### CBC #### [facility] [address] [place] [address] Dr. Jenna CollierHematocrit (Bld) [Volume fraction]40.6 %Bjafyf89.0-48.0The [facility] CenterComment on above:Performed By: #### CBC #### [facility] [address] [place] [address] Dr. Jenna CollierHemoglobin (Bld) [Mass/Vol]13.8 g/iEEeehpr12.0-16.0The [facility] CenterComment on above:Performed By: #### CBC #### [facility] [address] [place] [address] Dr. Jenna Johnson #0.02 10e3/ulNormal0.00-0.03The [facility] CenterComment on above:Performed By: #### CBC #### [facility] [address] [place] [address] Dr. Jenna Johnson %0.3 %Normal0.0-0.5The [facility] Medical CenterComment on above: Performed By: #### CBC #### [facility] [address] [place] [address] Dr. Jenna Peck #2.0 103/ulNormal1.2-3.8The [facility] Medical CenterComment on above:Performed By: #### CBC #### [facility] [address] [place] [address] Dr. Jenna Walshhocytes/100 WBC (Bld)28.5 %Mpvcbx20.5-60.0The [facility] CenterComment on above:Performed By: #### CBC #### [facility] [address] [place] [address] Dr. Jenna LeviUAL DIFF REQNONormalThe [facility] CenterComment on above: Performed By: #### CBC #### [facility] [address] [place] [address] Dr. Jenna Gomes (RBC) [Entitic mass]28.0 juIhlzfv46.7-34.0The [facility] CenterComment on above:Performed By: #### CBC #### [facility] [address] [place] [address] Dr. Jenna Emerson (RBC) [Mass/Vol]34.0 g/oLRdfseb50.9-35.2The [facility] CenterComment on above:Performed By: #### CBC #### [facility] [address] [place] [address] Dr. Jenna Emerson (RBC) [Entitic vol]82.4 oWZwynlq37.0-99.0The [facility] Medical CenterComment on above:Performed By: #### CBC #### [facility] [address] [place] [address] Dr. Jenna Rachel #0.5 103/ulNormal0.3-0.8The [facility] CenterComment on above:Performed By: #### CBC #### [facility] [address] [place] [address] Dr. Jenna Robertsonocytes/100 WBC (Bld)7.1 %Normal1.7-12.0The [facility] Comment on above:Performed By: #### CBC #### [facility] [address] [place] [address] Dr. Jenna Watson #4.2 103/ulNormal1.4-6.5The [facility] CenterComment on above:Performed By: #### CBC #### [facility] [address] [place] [address] Dr. Jenna Roachutrophils/100 WBC (Bld)60.5 %Jndkqg91.0-75.0The [facility] CenterComment on above:Performed By: #### CBC #### [facility] [address] [place] [address] Dr. Jenna Gomeslet mean volume (Bld) [Entitic vol]10.3 fLNormal9.5-13.5The [facility] CenterComment on above:Performed By: #### CBC #### [facility] [address] [place] [address] [address] Jenna CollierPLT265 103/ejHftydt636-844Lib [facility] on above: Performed By: #### CBC #### [facility] [address] [place] [address] Dr. Jenna CollierRBC4.93 106/ulNormal4.20-5.40The [facility] CenterComdeckerville community hospital on above:Performed By: #### CBC #### [facility] [address] [place] [address] Dr. Jenna CollierWBC7.0 103/ulNormal4.0-11.0The [facility] on above: Performed By: #### CBC #### [facility] [address] [place] [address] Dr. Jenna CollierFREE T4on 56-56-3758Jxpa T4 [Mass/Vol]1.32 ng/dLNormal0.76-1.46 The [facility] CenterComdeckerville community hospital on above:Performed By: #### FT4 #### [facility] [address] [place] [address] Dr. Jenna CollierGLYCOHEMOGLOBIN A1Con 71-53-9967WPW RECOMMENDATIONSEE BELOWNormal The [facility] CenterComdeckerville community hospital on above:Result Comment: ADA RECOMMENDED LIMIT 4.0 - 6.0 ADA THERAPEUTIC TARGET < 7.0 ACTION SUGGESTED > 7.0Performed By: #### FT4 #### [facility] [address] [place] [address] Dr. Jenna CollierGlucose [Mass/Vol]120 mg/dLNormalThe [facility] CenterComdeckerville community hospital on above:Performed By: #### FT4 #### [facility] [address] [place] [address] Dr. Jenna CollierHbA1c (Bld) [Mass fraction]5.8 %Normal4.5-6.2The [facility] on above:Performed By: #### FT4 #### [facility] [address] [place] [address] Dr. Jenna CollierLIPID PROFILEon 77-52-4709PING-HDL RATIO NORMSCleveland Clinic Children's Hospital for RehabilitationComdeckerville community hospital on above:Result Comment: 3.3 - 4.4 LOW RISK 4.4 - 7.1 AVERAGE RISK 7.1 - 11.0 MODERATE RISK >11.0 HIGH RISKPerformed By: #### UAMIC #### [facility] [address] [place] [address] [address] Jenna CollierCholesterol [Mass/Vol]215 mg/dLCritically high<=200The [facility] on above:Performed By: #### UAMIC #### [facility] [address] [place] [address] [address] Jenna CollierCholesterol in HDL [Mass/Vol]56 mg/eJBcgebn81-77RwgMercy Health Springfield Regional Medical CenterComdeckerville community hospital on above:Performed By: #### UAMIC #### [facility] [address] [place] [address] Dr. Jenna CollierCholesterol in LDL [Mass/Vol]130.0 mg/dLDetwiler Memorial HospitalComdeckerville community hospital on above:Performed By: #### UAMIC #### [facility] [address] [place] [address] [address] Jenna Brodyesterhuber.total/Cholesterol in HDL [Mass ratio]3.8 {ratio} NormalProMedica Fostoria Community Hospital on above:Performed By: #### UAMIC #### [facility] [address] [place] [address] Dr. Jenna AlmonteL NORMAL> or = 60 mg/dl - LOW CARDIOVASCULAR RISK <40 mg/dl - HIGH CARDIOVASCULAR RISKDetwiler Memorial HospitalComdeckerville community hospital on above:Performed By: #### UAMIC #### [facility] [address] [place] [address] [address] Jenna CollierLDL CALC NORMALSEE [facility] HospitalComdeckerville [facility] hospital on above:Result Comment: <100 mg/dl OPTIMAL 100 - 129 mg/dl NEAR OR ABOVE OPTIMAL 130 - 159 mg/dl BORDERLINE HIGH 160 - 189 mg/dl HIGH >190 mg/dl VERY HIGH Performed By: #### UAMIC #### [facility] [address] [place], [place] [address] Dr. Jenna CollierTriglyceride [Mass/Vol]145 mg/dLNormal<=150The [facility] Comment on above:Performed By: #### UAMIC #### [facility] [address] [place] [address] Dr. Jenna CollierVLDL CALC29.0 mg/dLNormalThe [facility] CenterComment on above: Performed By: #### UAMIC #### [facility] [address] [place] [address] Dr. Jenna CollierPROF 14(COMP METB)on 23-67-8735Xvwjqut [Mass/Vol]3.7 g/dLNormal 3.4-5.0The [facility] CenterComment on above:Performed By: #### UAMIC #### [facility] [address] [place] [address] Dr. Jenna CollierAlbumin/Globulin [Mass ratio]0.9 {ratio}NormalThe [facility] Medical CenterComment on above:Performed By: #### UAMIC #### [facility] [address] [place] [address] Dr. Jenna Byrne [Catalytic activity/Vol]72 U/ZDpgblw84-133Hei [facility] CenterComment on above:Performed By: #### UAMIC #### [facility] [address] [place] [address] Dr. Jenna Garcia [Catalytic activity/Vol]22 U/CJezrhu86-86Ysz [facility] CenterComment on above:Performed By: #### UAMIC #### [facility] [address] [place] [address] Dr. Jenna Sow gap [Moles/Vol]9.8 mmol/LNormalThe [facility] CenterComment on above:Performed By: #### UAMIC #### [facility] [address] [place] [address] Dr. Jenna Chun [Catalytic activity/Vol]13 U/LCritically fil66-00Fte [facility] CenterComment on above:Performed By: #### UAMIC #### [facility] [address] [place] [address] Dr. Jenna CollierBilirubin [Mass/Vol]0.8 mg/dLNormal0.2-1.0The [facility] Comment on above:Performed By: #### UAMIC #### [facility] [address] [place] [address] Dr. Jenna CollierCalcium [Mass/Vol]9.6 mg/dLNormal8.5-10.1The [facility] Comment on above:Performed By: #### UAMIC #### [facility] [address] [place] [address] Dr. Jenna CollierChloride [Moles/Vol]102 mmol/XRpvwfj74-358Pki [facility] Comment on above:Performed By: #### UAMIC #### [facility] [address] [place] [address] Dr. Jenna CollierCO2 [Moles/Vol]31.8 mmol/NVjzmqt39.0-32.0The [facility] Comment on above:Performed By: #### UAMIC #### [facility] [address] [place] [address] Dr. Jenna CollierCreatinine [Mass/Vol]0.59 mg/dLNormal0.55-1.02The [facility] CenterComment on above:Performed By: #### UAMIC #### [facility] [address] [place] [address] Dr. Jenna MendozaGFR-AF VATICAN CITIZEN>60Normal>=60The [facility] CenterComment on above:Performed By: #### UAMIC #### [facility] [address] [place] [address] Dr. Jenna MendozaGFR-NON AF [place] CITIZEN>60Normal>=60The [facility] CenterComment on above:Performed By: #### UAMIC #### [facility] [address] [place] [address] Dr. Jenna CollierGlobulin (S) [Mass/Vol]4.1 g/dLNormalThe [facility] CenterComment on above:Performed By: #### UAMIC #### [facility] [address] [place] [address] Dr. Jenna CollierGlucose [Mass/Vol]139 mg/dLCritically emsl72-273Due [facility] CenterComment on above:Performed By: #### UAMIC #### [facility] [address] [address] [address] Jenna CollierPotassium [Moles/Vol]4.6 mmol/LNormal3.5-5.1The [facility] Comment on above:Performed By: #### UAMIC #### [facility] [address] [address] [address] Jenna CollierProtein [Mass/Vol]7.8 g/dLNormal6.4-8.2[facility] Comment on above:Performed By: #### UAMIC #### [facility] [address] [place] [address] Dr. Jenna CollierSodium [Moles/Vol]139 mmol/GAvoxcy992-541Kjj [facility] Comment on above:Performed By: #### UAMIC #### [facility] [address] [place] [address] Dr. Jenna CollierUrea nitrogen [Mass/Vol]15.0 mg/dLNormal7.0-18.0The [facility] CenterComment on above:Performed By: #### UAMIC #### [facility] [address] [place] [address] Dr. Jenna CollierUrea nitrogen/Creatinine [Mass ratio]25.4 mg/mgNormalThe [facility] CenterComment on above:Performed By: #### UAMIC #### [facility] [address] [place] [address] Dr. Jenna Hunter 19-38-6258NSK7.152 uIU/mLNormal0.358-3.740[facility] CenterComment on above:Performed By: #### UAMIC #### [facility] [address] [place] [address] Dr. Jenna Clemens 27-87-8121LSRFMJSDX PARTIAL THROMBOPLASTIN TIME IN PPP BY COAGULATION ASSAY26.0 BybpgoeKiwrzz31.0-35.0[facility] Comment on above:Performed By: #### [id number] #### [facility] ([facility]) [address] [place], [place] [address]WIU WITH AUTO DIFFERENTIALon 46-36-9633Nrwscqzls (Bld) [#/Vol] 0.09 10*3/uLNormal0.00-0.20UnSCCI Hospital LimaComment on above: Performed By: #### [id number] #### [facility] ([facility]) [address] [place], [place] [address]Ysgxlhmgs/100 WBC (Bld)1.0 %Normal0.0-1.0UnSCCI Hospital LimaComment on above:Performed By: #### [id number] #### [facility] ([facility]) [address] [place], [place] [address]Xcwyejlpuht (Bld) [#/Vol]0.14 10*3/uLNormal0.00-0.50UnSCCI Hospital LimaComment on above:Performed By: #### [id number] #### [facility] ([facility]) [address] [place], [place] [address]Gbucppfmwwk/100 WBC (Bld)1.5 %Normal0.0-6.0UnSCCI Hospital LimaComment on above:Performed By: #### [id number] #### [facility] ([facility]) [address] [place], [place] [address]Mwygexoxbtj distribution width (RBC) [Ratio]13.2 %Normal 11.5-15.0UnSCCI Hospital LimaComment on above:Performed By: #### [id number] #### [facility] ([facility]) [address] [place], [place] [address]LKAFXVEAZPZ MEAN CORPUSCULAR HEMOGLOBIN CONCENTRATION (G/DL) BY APDZLHCNJ47.7 g/hDRouabv83.0-35.0UnSCCI Hospital LimaComment on above:Performed By: #### [id number] #### [facility] ([facility]) [address] [place], [place] [address]Vmwqchkmwy (Bld) [Volume fraction]40.1 %Zvfhnz24.0-48.0 [facility] HospitalComment on above:Performed By: #### [id number] #### [facility] ([facility]) [address] [place] [place] [address]Crxqqcpnpz (Bld) [Mass/Vol]13.9 g/vOEtxfej90.0-15.0UnSCCI Hospital LimaComment on above:Performed By: #### [id number] #### [facility] ([facility]) [address] [place] [address]Jifanziz granulocytes (Bld) [#/Vol]0.03 10*3/uLNormal0.00-0.20 [facility] HospitalComment on above:Performed By: #### [id number] #### [facility] ([facility]) [address] [place] [address]Jzktkeha granulocytes/100 WBC (Bld)0.3 %Normal0.0-1.0UnSCCI Hospital LimaComment on above:Performed By: #### [id number] #### [facility] ([facility]) [address] [place] [address]Hfrhvznckoj (Bld) [#/Vol]2.16 10*3/uLNormal1.20-4.00UnSCCI Hospital LimaComment on above:Performed By: #### [id number] #### [facility] ([facility]) [address] [place] [address]Gnxmxuzddwg/100 WBC (Bld)22.9 %Esqqms57.0-45.0UnS[facility] Hospital [facility]imaComment on above:Performed By: #### [id number] #### [facility] ([facility]) [address] [place] [place], [place] [address]MBS (RBC) [Entitic mass]28.5 rfVjxbqb15.0-33.0UnSCCI Hospital LimaComment on above:Performed By: #### [id number] #### [facility] ([facility]) [address] [place], [place] [address]WRA (RBC) [Entitic vol]82.3 rWEolggl18.0-98.0UnSCCI Hospital LimaComment on above:Performed By: #### [id number] #### [facility] ([facility]) [address] [place], [place] [address]Flbgiohew (Bld) [#/Vol]0.43 10*3/uLNormal0.10-1.00UnSCCI Hospital LimaComment on above:Performed By: #### [id number] #### [facility] ([facility]) [address] [place], [place] [address]Yjxwcnafs/100 WBC (Bld)4.6 %Low5.0-12.0UnSCCI Hospital LimaComment on above:Performed By: #### [id number] #### [facility] ([facility]) [address] [place], [place] [address]Hxucwmbfnqt (Bld) [#/Vol]6.57 10*3/uLNormal1.60-7.60UnSCCI Hospital LimaComment on above:Performed By: #### [id number] #### [facility] ([facility]) [address] [place], [place] [address]Sbgliziurfc/100 WBC (Bld)69.7 %Wadwse32.0-72.0UnS[facility] Hospital [facility]imaComment on above:Performed By: #### [id number] #### [facility] ([facility]) [address] [place], [place] [address]QTZP (PER 100 WBCS) BY AUTOMATED COUNT0.0 %Normal0.0-0.0 [facility] HospitalComment on above:Performed By: #### [id number] #### [facility] ([facility]) [address] [place], [place] [address]IZZDRHWWF (10*3/UL) IN BLOOD AUTOMATED [id number] 10*3/uLNormal 150-400UnSCCI Hospital LimaComment on above:Performed By: #### [id number] #### [facility] ([facility]) [address] [place] [address]HCA (Bld) [#/Vol]4.87 10*6/uLNormal3.80-5.00UnSCCI Hospital LimaComment on above:Performed By: #### [id number] #### [facility] ([facility]) [address] [place] [address]JZO (Bld) [#/Vol]9.42 10*3/uLNormal4.00-10.60Un[facility] Hospital LimaComment on above:Performed By: #### [id number] #### [facility] ([facility]) [address] [place] [address]CU GUIDED PERCUTANEOUS BIOPSY RENAL LEFTon 31-17-1532VP GUIDED PERCUTANEOUS BIOPSY RENAL LEFTCT GUIDED PERCUTANEOUS BIOPSY RENAL LEFT 04/24/2022 9:25 [...] risks are acceptable. Consent was obtained. Timeout: [place] protocol timeout verification performed. MEDICATIONS: 2 mg of versed and 100 micrograms of Fentanyl were administered for conscious sedation. Vital signs were continuously monitored by nursing staff throughout the procedure. 31 minutes of conscious sedation. Performing physician: Dr. aPm Hill Start time: 955 End time: 102 [...] findings in this report. Electronically signed: Ravi Martinez.[facility] HospitalHISTOLOGY - TISSUE EXAMon [id number] AP ASR DISCLAIMERThe interpretation of this case included the use of immunohistochemistry or special stains. These tests have not been cleared or approved by the U.S. Food and Drug Administration. The FDA has determined that such clearance or approval is not necessary. These tests are used for clinical purposes andshould not be regarded as investigational or for research. This laboratory is certified to perform high complexity testing under the Clinical Laboratory Improvement Amendments of 1998.[facility] HospitalComment on above:Performed By: #### [id number] #### [facility] ([facility]) [address] [place], [place] [address]JKR AP CASE REPORTNormalUniversPomerene Hospital Comment on above:Result Comment: Surgical Pathology Case: [id number] Authorizing Provider: Almaz Medina Collected: 04/24/2022 0922 Ordering Location: [facility] CT Imaging Received: 04/24/2022 1046 Pathologist: Heather Solorio MD Specimen: Kidney, NEEDLE CORE BXSPerformed By: #### [id number] #### [facility] ([facility]) [address] [place], [place] [address]LSC AP CLINICAL INFORMATIONOrder DiagnosesNormalUniversPomerene HospitalComment on above:Result Comment: N28.89 - Left renal mass [ICD-10-CM] N28.89 - Other specified disorders of kidney and ureter [ICD-10-CM] N28.89 - Renal mass, left [ICD-10-CM]Performed By: #### [id number] #### [facility] ([facility]) [address] [place], [place] [address]FIK AP DIAGNOSIS COMMENTNormalUniversPomerene HospitalComdeckerville community hospital on above:Result Comment: There is no neoplasm identified within the cores or immunohistochemical stained slides. Polygraph Technician Dr. Gomez, who concurs with the above diagnosis. Immediate adequacy was performed by Dr. Cisneros. Pass #1: Adequate Pass #2: Adequate Pass #3: Defer Pass #4: Defer When additional subsequent fine needle aspirations are performed, they are done in order to obtain an adequate amount of inside sales account representative material of the tumor/lesion for diagnosis and/or ancillary studies.Performed By: #### [id number] #### [facility] ([facility]) [address] [place], [place] [address]GLP AP GROSS DESCRIPTIONA. Kidney.[facility] HospitalComment on above:Result Comment: Received in formalin , labeled Stew Argueta, NEEDLE CORE BXS are 4 hassan soft tissue core biopsies measuring 1.5, 1.5, 1.3, and 1.0 cm in length and up to 0.1 cm in diameter. The specimen is entirely submitted in 4 cassettes. (1 core in each cassette). Berta Moore, Pathologists' AssistantPerformed By: #### [id number] #### [facility] ([facility]) [address] [place], [place] [address]GNR AP MICROSCOPIC DESCRIPTIONMicroscopic examination performed. [facility] HospitalComment on above:Performed By: #### [id number] #### [facility] ([facility]) [address] [place], [place] [address]PZQ AP REPORT FINAL DIAGNOSIS NARRATIVENormalUniversPomerene HospitalComdeckerville community hospital on above:Result Comment: Kidney, core biopsy: - Benign renal parenchyma - HMB-45: Negative - [place]-1: Negative - See comment Performed By: #### [id number] #### [facility] ([facility]) [address] [place], [place] [address]Fwolo [id number] Stew Argueta 1965 F Date Provider Department Center 04/24/2022 2245-[facility] OPD LAB RESOURCE [facility] OPD [facility] No family history on fileNormalUniversPomerene HospitalPROTIME-INRon [id number] IN PPP BY COAGULATION ASSAY0.35Eqfbwa8.90-1.10UnSCCI Hospital LimaComment on above:Result Comment: ACCCP RECOMMENDED INR FOR WARFARIN THERAPY CONDITION INR PROPHYLAXIS OF VENOUS THROMBOSIS 2-3 (HIGH-RISK SURGERY) TREATMENT OF VENOUS THROMBOSIS 2-3 TREATMENT OF PULMONARY EMBOLISM 2-3 PREVENTION OF SYSTEMIC EMBOLISM: 2-3 ACUTE MYOCARDIAL INFARCTION TISSUE HEART VALVES VALVULAR HEART DISEASE ATRIAL FIBRILLATION RECURRENT SYSTEMIC EMBOLISM MECHANICAL HEART VALVE 2.5-3.5 FROM: ORAL ANTICOAGULANTS. MECHANISM OF ACTION, CLINICAL EFFECTIVENESS, AND OPTIMAL THERAPEUTIC RANGE. CHEST 1995;108:231S-246S.Performed By: #### [id number] #### [facility]) [address] [place], [place] [address]IUZFDFNVYKA TIME (PT) IN PPP BY COAGULATION ASSAY12.4 Seconds Dkgycz14.3-14.8UnSCCI Hospital LimaComment on above:Performed By: #### [id number] #### [facility] [employer]) [address] [place], [place] [address]NA ABDOMEN WO/W CONon [id number] ABDOMEN WO/W CONEXAMINATION: CT ABDOMEN WO/W CON HISTORY: Disorder of kidney and/or [...] Electronically authenticated by: RISHABH NOVOA Date: 2022-03-27 10:12[facility] AUTO DIFFon [id number] #0.1 103/ulNormal0.0-0.1[facility] CenterComment on above:Performed By: #### UAMIC #### [facility] [address] [place] [address] Dr. Jenna Celestephils/100 WBC (Bld)0.9 %Normal0.2-2.0The [facility] Comment on above:Performed By: #### UAMIC #### [facility] [address] [place] [address] Dr. Jenna Mcdaniel #0.1 103/ulNormal0.0-0.7The [facility] CenterComment on above: Performed By: #### UAMIC #### [facility] [address] [place], [place] [address] Dr. Jenna Mendozaosinophils/100 WBC (Bld)1.5 %Normal0.9-7.0The [facility] Comment on above:Performed By: #### UAMIC #### [facility] [address] [place] [address] Dr. Jenna Mendozarythrocyte distribution width (RBC) [Ratio]13.2 %Uloctb26.0-15.0 The [facility] CenterComment on above:Performed By: #### UAMIC #### [facility] [address] [place] [address] Dr. Jenna CollierHematocrit (Bld) [Volume fraction]41.1 %Geeznu93.0-48.0The [facility] CenterComment on above:Performed By: #### UAMIC #### [facility] [address] [place] [address] Dr. Jenna CollierHemoglobin (Bld) [Mass/Vol]14.0 g/wRAvmldk59.0-16.0The [facility] CenterComment on above:Performed By: #### UAMIC #### [facility] [address] [place] [address] Dr. Jenna Johnson #0.03 10e3/ulNormal0.00-0.03The [facility] CenterComment on above:Performed By: #### UAMIC #### [facility] [address] [place] [address] Dr. Jenna Johnson %0.3 %Normal0.0-0.5The [facility] CenterComment on above: Performed By: #### UAMIC #### [facility] [address] [place] [address] Dr. Jenna WalshH #2.7 103/ulNormal1.2-3.8The [facility] CenterComment on above:Performed By: #### UAMIC #### [facility] [address] [place] [address] Dr. Jenna Rosamphocytes/100 WBC (Bld)27.6 %Qzhhjm43.5-60.0The [facility] CenterComment on above:Performed By: #### UAMIC #### [facility] [address] [place] [address] Dr. Jenna Cm DIFF REQNONormalThe [facility] CenterComment on above: Performed By: #### UAMIC #### [facility] [address] [place] [address] Dr. Jenna Emerson (RBC) [Entitic mass]27.8 qsTfeuwv81.7-34.0The [facility] HospitalComment on above:Performed By: #### UAMIC #### [facility] [address] [place] [address] Dr. Jenna Emerson (RBC) [Mass/Vol]34.1 g/bQTgziky30.9-35.2The [facility] CenterComment on above:Performed By: #### UAMIC #### [facility] [address] [place] [address] Dr. Jenna Emerson (RBC) [Entitic vol]81.7 hTPaqecq61.0-99.0The [facility] CenterComment on above:Performed By: #### UAMIC #### [facility] [address] [place] [address] Dr. Jenna Rachel #0.4 103/ulNormal0.3-0.8The [facility] CenterComment on above:Performed By: #### UAMIC #### [facility] [address] [place] [address] Dr. Jenna Robertsonocytes/100 WBC (Bld)3.8 %Normal1.7-12.0The [facility] Comment on above:Performed By: #### UAMIC #### [facility] [address] [place] [address] Dr. Jenna Watson #6.3 103/ulNormal1.4-6.5The [facility] CenterComment on above:Performed By: #### UAMIC #### [facility] [address] [place] [address] Dr. Jenna Roachutrophils/100 WBC (Bld)65.9 %Tcuyal38.0-75.0The [facility] CenterComment on above:Performed By: #### UAMIC #### [facility] [address] [place] [address] Dr. Jenna CollierPlatelet mean volume (Bld) [Entitic vol]10.0 fLNormal9.5-13.5The [facility] CenterComment on above:Performed By: #### UAMIC #### [facility] [address] [place] [address] Dr. Jenna CollierPLT320 103/wyUoretn196-146Mwp [facility] CenterComment on above: Performed By: #### UAMIC #### [facility] [address] [place] [address] Dr. Jenna CollierRBC5.03 106/ulNormal4.20-5.40The [facility] CenterComment on above:Performed By: #### UAMIC #### [facility] [address] [place] [address] Dr. Jenna CollierWBC9.6 103/ulNormal4.0-11.0The [facility] CenterComment on above: Performed By: #### UAMIC #### [facility] [address] [place] [address] Dr. Jenna CollierCRKeven 11-32-1421LAE [Mass/Vol]mg/LNormal<=1.0The [facility] CenterComment on above:Performed By: #### UAMIC #### [facility] [address] [place] [address] Dr. Jenna CollierCULTURE URINEon 31-03-9044DEFPMEI URINECulture Observations: NO GROWTH.NormalThe [facility] CenterComment on above:Performed By: #### UAMIC #### [facility] [address] [place] [address] Dr. Jenna CollierFRCHERYL T4on 99-91-7365Zfto T4 [Mass/Vol]1.20 ng/dLNormal0.76-1.46 The [facility] CenterComment on above:Performed By: #### FT4 #### [facility] [address] [place] [address] Dr. Jenna Dewitt 14(COMP METB)on 26-05-2921Zxptzyd [Mass/Vol]3.8 g/dLNormal 3.4-5.0The [facility] CenterComment on above:Performed By: #### UAMIC #### [facility] [address] [address] [address] Jenna CollierAlbumin/Globulin [Mass ratio]1.0 {ratio}NormalThe [facility] CenterComment on above:Performed By: #### UAMIC #### [facility] [address] [address] [address] Jenna MarieP [Catalytic activity/Vol]79 U/HPnnjgv83-169Xna [facility] CenterComment on above:Performed By: #### UAMIC #### [facility] [address] [place] [address] Dr. Jenna MarieT [Catalytic activity/Vol]17 U/HByhohd45-41Pcf [facility] CenterComment on above:Performed By: #### UAMIC #### [facility] [address] [place] [address] Dr. Jenna Sow gap [Moles/Vol]9.5 mmol/LNormalThe [facility] CenterComment on above:Performed By: #### UAMIC #### [facility] [address] [place] [address] Dr. Jenna CollierAST [Catalytic activity/Vol]12 U/LCritically koi17-85Agw [facility] CenterComment on above:Performed By: #### UAMIC #### [facility] [address] [place] [address] Dr. Jenna CollierBilirubin [Mass/Vol]0.7 mg/dLNormal0.2-1.0The [facility] Comment on above:Performed By: #### UAMIC #### [facility] [address] [place] [address] Dr. Jenna CollierCalcium [Mass/Vol]9.1 mg/dLNormal8.5-10.1The [facility] Comment on above:Performed By: #### UAMIC #### [facility] [address] [address] [address] Jenna CollierChloride [Moles/Vol]97 mmol/LCritically zil16-287Mcp [facility] CenterComment on above:Performed By: #### UAMIC #### [facility] [address] [address] [address] Jenna CollierCO2 [Moles/Vol]31.4 mmol/GCxtivn75.0-32.0The [facility] Comment on above:Performed By: #### UAMIC #### [facility] [address] [address] [address] Jenna CollierCreatinine [Mass/Vol]0.63 mg/dLNormal0.55-1.02The [facility] CenterComment on above:Performed By: #### UAMIC #### [facility] [address] [address] [address] [place] ChangEGFR-AF VATICAN CITIZEN>60Normal>=60The [facility] CenterComment on above:Performed By: #### UAMIC #### [facility] [address] [address] [address] Jenna MendozaGFR-NON AF [place] CITIZEN>60Normal>=60The [facility] CenterComment on above:Performed By: #### UAMIC #### [facility] [address] [address] [address] Jenna CollierGlobulin (S) [Mass/Vol]3.9 g/dLNormalThe [facility] Medical CenterComment on above:Performed By: #### UAMIC #### [facility] [address] [address] [address] Jenna CollierGlucose [Mass/Vol]117 mg/dLCritically dznv78-172Pvw [facility] CenterComment on above:Performed By: #### UAMIC #### [facility] [address] [address] [address] Jenna CollierPotassium [Moles/Vol]3.9 mmol/LNormal3.5-5.1The [facility] Comment on above:Performed By: #### UAMIC #### [facility] [address] [address] [address] Jenna CollierProtein [Mass/Vol]7.7 g/dLNormal6.4-8.2The [facility] Comment on above:Performed By: #### UAMIC #### [facility] [address] [address] [address] Jenna CollierSodium [Moles/Vol]134 mmol/LCritically oaw600-875Cjc [facility] CenterComment on above:Performed By: #### UAMIC #### [facility] [address] [place] [address] Dr. Jenna CollierUrea nitrogen [Mass/Vol]11.0 mg/dLNormal7.0-18.0The [facility] CenterComment on above:Performed By: #### UAMIC #### [facility] [address] [place] [address] Dr. Jenna Beckwith nitrogen/Creatinine [Mass ratio]17.5 mg/mgNormalThe [facility] CenterComment on above:Performed By: #### UAMIC #### [facility] [address] [place] [address] Dr. Jenna Klein RATE WESTERGRENon 51-48-9618AGJ RATE14 mm/hrNormal<=30The [facility] CenterComment on above:Performed By: #### SEDR #### [facility] [address] [place] [address] Dr. Jenna YatesHocan 37-44-5413CXJ8.913 uIU/mLCritically high0.358-3.740The [facility] CenterComment on above:Performed By: #### UAMIC #### [facility] [address] [place] [address] Dr. Jenna Hernández RANDOM W/MICROSCOPICon 75-59-1508KFHIMVNZTGXV SEENNormalNONE SEENThe [facility] CenterComment on above:Performed By: #### UAMIC #### [facility] [address] [place] [address] Dr. Jenna CollierBilirubin Ql (U)NegativeNormalNEGATIVEThe [facility] Comment on above:Performed By: #### UAMIC #### [facility] [address] [address] [address] Jenna CollierCASTNONE SEENNormalNONE SEENMercy Health Springfield Regional Medical CenterComment on above:Performed By: #### UAMIC #### [facility] [address] [address] [address] Jenna Calderaarity (U)CLEARNormalCLEARMercy Health Springfield Regional Medical CenterComment on above: Performed By: #### UAMIC #### [facility] [address] [address] [address] Jenna Davidlor (U)LT. YELLOWNormalYELLOWMercy Health Springfield Regional Medical CenterComment on above:Performed By: #### UAMIC #### [facility] [address] [place] [address] Dr. Jenna CollierCrystals LM Nom (Urine sed)NONE SEENNormalNONE SEENMercy Health Springfield Regional Medical CenterComment on above:Performed By: #### UAMIC #### [facility] [address] [address] [address] West ChangEpithelial cells LM Ql (Urine sed)RARENormalNONE SEEN /RAREMercy Health Springfield Regional Medical CenterComment on above:Performed By: #### UAMIC #### [facility] [address] [address] [address] Jenna CollierGlucose Ql (U)NegativeNormalNEGATIVEMercy Health Springfield Regional Medical CenterComment on above:Performed By: #### UAMIC #### [facility] [address] [address] [address] Jenna CollierHemoglobin Ql (U)NegativeNormalNEGATIVEMercy Health Springfield [facility] Comment on above:Performed By: #### UAMIC #### [facility] [address] [address] [address] Jenna CollierKetones Ql (U)NegativeNormalNEGATIVEMercy Health Springfield Regional Medical CenterComment on above:Performed By: #### UAMIC #### [facility] [address] [address] [address] Jenna CollierLEUKOCYTESTRACEAbnormalNEGATIVEThe [facility] CenterComment on above:Performed By: #### UAMIC #### [facility] [address] [address] [address] Jenna SteelCOUSNONE SEENNormalNONE SEENThe [facility] CenterComment on above:Performed By: #### UAMIC #### [facility] [address] [address] [address] Jenna Gatestrite Ql (U)NegativeNormalNEGATIVEThe [facility] HospitalComment on above:Performed By: #### UAMIC #### [facility] [address] [place] [address] Dr. Jenna CollierpH (U)6.0 [pH]Normal5-9The [facility] CenterComment on above: Performed By: #### UAMIC #### [facility] [address] [place] [address] Dr. Jenna CollierRBCNONE SEENAbnormal0-2The [facility] CenterComment on above: Performed By: #### UAMIC #### [facility] [address] [place] [address] Dr. Jenna CollierSPEC GRAVITY1.256Hwsxzj5.005-<=1.025The [facility] CenterComment on above:Performed By: #### UAMIC #### [facility] [address] [place] [address] Dr. Jenna CollierUA PROTEINNegativeNormalNEGATIVE/ TRACEThe [facility] Comment on above:Performed By: #### UAMIC #### [facility] [address] [place] [address] Dr. Jenna Andradebilinogen Qn (U)0.2 {Humaira'U}/dLNormal0.2 - 1.0The [facility] CenterComment on above:Performed By: #### UAMIC #### [facility] [address] [place] [address] Dr. Jenna CollierWBC2-5AbnormalNONE SEENThe [facility] CenterComment on above: Performed By: #### UAMIC #### [facility] [address] [place] [address] Dr. Jenna Nixon AUTO DIFFon 54-08-6755GXXR #0.1 103/ulNormal0.0-0.1The [facility] CenterComment on above:Performed By: #### CBC #### [facility] [address] [place] [address] Dr. Jenna CollierBasophils/100 WBC (Bld)1.1 %Normal0.2-2.0The [facility] Comment on above:Performed By: #### CBC #### [facility] [address] [place] [address] Dr. Jenna Mcdaniel #0.2 103/ulNormal0.0-0.7The [facility] CenterComment on above: Performed By: #### CBC #### [facility] [address] [place] [address] Dr. Jenna Mendozaosinophils/100 WBC (Bld)1.7 %Normal0.9-7.0The [facility] Comment on above:Performed By: #### CBC #### [facility] [address] [place] [address] Dr. Jenna Mendozarythrocyte distribution width (RBC) [Ratio]13.0 %Kpxoul71.0-15.0 The [facility] CenterComment on above:Performed By: #### CBC #### [facility] [address] [place] [address] Dr. Jenna CollierHematocrit (Bld) [Volume fraction]42.2 %Ncujyr81.0-48.0The [facility] CenterComment on above:Performed By: #### CBC #### [facility] [address] [place] [address] Dr. Jenna CollierHemoglobin (Bld) [Mass/Vol]14.7 g/mAZtyiwh46.0-16.0The [facility] CenterComment on above:Performed By: #### CBC #### [facility] [address] [place] [address] Dr. Jenna Johnson #0.02 10e3/ulNormal0.00-0.03The [facility] on above:Performed By: #### CBC #### [facility] [address] [address] [address] Jenna Johnson %0.2 %Normal0.0-0.5The [facility] on above: Performed By: #### CBC #### [facility] [address] [place] [address] Dr. Jenna Peck #2.6 103/ulNormal1.2-3.8The [facility] on above:Performed By: #### CBC #### [facility] [address] [place] [address] Dr. Jenna Walshhocytes/100 WBC (Bld)29.4 %Uogpgx39.5-60.0The [facility] on above:Performed By: #### CBC #### [facility] [address] [place] [address] Dr. Jenna Cm DIFF REQNONormalThe [facility] CenterComment on above: Performed By: #### CBC #### [facility] [address] [place] [address] Dr. Jenna Gomes (RBC) [Entitic mass]28.3 idJtahhp33.7-34.0The [facility] on above:Performed By: #### CBC #### [facility] [address] [place] [address] Dr. Jenna Emerson (RBC) [Mass/Vol]34.8 g/kEDaspii87.9-35.2The [facility] Hospitalment on above:Performed By: #### CBC #### [facility] [address] [place] [address] Dr. Jenna Emerson (RBC) [Entitic vol]81.2 oBNlxiux12.0-99.0The [facility] on above:Performed By: #### CBC #### [facility] [address] [place] [address] Dr. Jenna Rachel #0.4 103/ulNormal0.3-0.8The [facility] HospitalComment on above:Performed By: #### CBC #### [facility] [address] [address] [address] Jenna Robertsonocytes/100 WBC (Bld)4.5 %Normal1.7-12.0The [facility] on above:Performed By: #### CBC #### [facility] [address] [place] [address] Dr. Jenna RoachUT #5.7 103/ulNormal1.4-6.5The [facility] CenterComment on above:Performed By: #### CBC #### [facility] [address] [place] [address] Dr. Jenna Roachutrophils/100 WBC (Bld)63.1 %Vxhktj43.0-75.0The [facility] CenterComment on above:Performed By: #### CBC #### [facility] [address] [place] [address] Dr. Jenna CollierPlatelet mean volume (Bld) [Entitic vol]10.1 fLNormal9.5-13.5The [facility] CenterComment on above:Performed By: #### CBC #### [facility] [address] [place] [address] Dr. Jenna CollierPLT264 103/pdTqhbfx875-596Njc [facility] CenterComment on above: Performed By: #### CBC #### [facility] [address] [place] [address] Dr. Jenna CollierRBC5.20 106/ulNormal4.20-5.40The [facility] CenterComment on above:Performed By: #### CBC #### [facility] [address] [place] [address] Dr. Jenna CollierWBC9.0 103/ulNormal4.0-11.0The [facility] CenterComment on above: Performed By: #### CBC #### [facility] [address] [place] [address] Dr. Jenna Oneill T4on 47-31-2030Dzfe T4 [Mass/Vol]0.70 ng/dLCritically low 0.76-1.46The [facility] CenterComment on above:Performed By: #### FT4 #### [facility] [address] [place] [address] Dr. Jenna CollierGLYCOHEMOGLOBIN A1Con 28-79-1347ORX RECOMMENDATIONSEE BELOWNormal The [facility] CenterComment on above:Result Comment: ADA RECOMMENDED LIMIT 4.0 - 6.0 ADA THERAPEUTIC TARGET < 7.0 ACTION SUGGESTED > 7.0Performed By: #### A1C #### [facility] [address] [place] [address] Dr. Jenna CollierGlucose [Mass/Vol]243 mg/dLNormalThe [facility] CenterComment on above:Performed By: #### A1C #### [facility] [address] [place] [address] Dr. Jenna CollierHbA1c (Bld) [Mass fraction]10.1 %Critically high4.5-6.2The [facility] CenterComment on above:Performed By: #### A1C #### [facility] [address] [place] [address] Dr. Jenna CollierLIPASEon 87-18-3326Wkijyt [Catalytic activity/Vol]80.0 U/LNormal 73.0-393.0The [facility] CenterComment on above:Performed By: #### TSH, LIPA, CMP #### [facility] [address] [place] [address] Dr. Jenna CollierPROF 14(COMP METB)on 42-04-5703Abeyrpu [Mass/Vol]3.8 g/dLNormal 3.4-5.0The [facility] CenterComment on above:Performed By: #### TSH, LIPA, CMP #### [facility] [address] [place] [address] Dr. Jenna CollierAlbumin/Globulin [Mass ratio]1.0 {ratio}NormalThe [facility] Hospitalment on above:Performed By: #### TSH, LIPA, CMP #### [facility] [address] [place] [address] Dr. Jenna CollierALP [Catalytic activity/Vol]88 U/ZKnbmsp90-350Tkm [facility] CenterComment on above:Performed By: #### TSH, LIPA, CMP #### [facility] [address] [place] [address] Dr. Jenna MarieT [Catalytic activity/Vol]22 U/URqjuam60-66Uvu [facility] CenterComment on above:Performed By: #### TSH, LIPA, CMP #### [facility] [address] [place] [address] Dr. Jenna Lackeyon gap [Moles/Vol]7.5 mmol/LNormalThe [facility] CenterComment on above:Performed By: #### TSH, LIPA, CMP #### [facility] [address] [place] [address] Dr. Jenna CollierAST [Catalytic activity/Vol]9 U/LCritically cfk60-15Syp [facility] CenterComment on above:Performed By: #### TSH, LIPA, CMP #### [facility] [address] [place] [address] Dr. Jenna CollierBilirubin [Mass/Vol]0.8 mg/dLNormal0.2-1.0The [facility] Comment on above:Performed By: #### TSH, LIPA, CMP #### [facility] [address] [place] [address] Dr. Jenna CollierCalcium [Mass/Vol]9.4 mg/dLNormal8.5-10.1The [facility] Comment on above:Performed By: #### TSH, LIPA, CMP #### [facility] [address] [place] [address] Dr. Jenna CollierChloride [Moles/Vol]98 mmol/KAekdcm72-717Bwf [facility] Comment on above:Performed By: #### TSH, LIPA, CMP #### [facility] [address] [place] [address] Dr. Jenna CollierCO2 [Moles/Vol]30.7 mmol/OOiyfga01.0-32.0The [facility] Comment on above:Performed By: #### TSH, LIPA, CMP #### [facility] [address] [address] [address] Jenna CollierCreatinine [Mass/Vol]0.64 mg/dLNormal0.55-1.02The [facility] CenterComment on above:Performed By: #### TSH, LIPA, CMP #### [facility] [address] [address] [address] Jenna MendozaGFR-AF VAT[place] CITIZ[place]>60Normal>=60The [facility] CenterComment on above:Performed By: #### TSH, LIPA, CMP #### [facility] [address] [address] [address] Jenna MendozaGFR-NON AF [place] CITIZ[place]>60Normal>=60The [facility] CenterComment on above:Performed By: #### TSH, LIPA, CMP #### [facility] [address] [place] [address] Dr. Jenna CollierGlobulin (S) [Mass/Vol]3.8 g/dLNormalThe [facility] CenterComment on above:Performed By: #### TSH, LIPA, CMP #### [facility] [address] [address] [address] Jenna CollierGlucose [Mass/Vol]257 mg/dLCritically nslv43-444Zis [facility] Hospitalment on above:Performed By: #### TSH, LIPA, CMP #### [facility] [address] [address] [address] Jenna CollierPotassium [Moles/Vol]4.2 mmol/LNormal3.5-5.1The [facility] Comment on above:Performed By: #### TSH, LIPA, CMP #### [facility] [address] [address] [address] Jenna CollierProtein [Mass/Vol]7.6 g/dLNormal6.4-8.2The [facility] Comment on above:Performed By: #### TSH, LIPA, CMP #### [facility] [address] [address] [address] Jenna CollierSodium [Moles/Vol]132 mmol/LCritically wdt097-327Swd [facility] CenterComment on above:Performed By: #### ARTUR, LIPA, CMP #### [facility] [address] [address] [address] Jenna Beckwith nitrogen [Mass/Vol]14.0 mg/dLNormal7.0-18.0The [facility] CenterComment on above:Performed By: #### ARTUR LIPA, CMP #### [facility] [address] [address] [address] Jenna Beckwith nitrogen/Creatinine [Mass ratio]21.9 mg/mgNormalThe [facility] CenterComment on above:Performed By: #### ARTUR LIPA, CMP #### [facility] [address] [place] [address] Dr. Jenna Hunter 02-59-1494OVY06.715 uIU/mLCritically high0.358-3.740The [facility] CenterComment on above:Performed By: #### CECILE SIDDIQUIA, CMP #### [facility] [address] [place] [address] Dr. Jenna CollierMRI ABDOMEN WO W CONon 96-86-8403TCS ABDOMEN WO W CONEXAMINATION: MRI ABDOMEN WO W CON HISTORY: Disorder [...] Electronically authenticated by: RISHABH NOVOA Date: 2022-01-13 16:27[facility] Vital Signs Date TimeVital SignValuePerforming LjpkyxncbAwwjqdlp11-08-5375 14:46-0400Body taetsj394.18 cm[facility]10-27-2025 12:00-0400Body vyuqzldvbsu79.6 [degF][facility]10-27-2025 12:00-0400 Diastolic blood mpcinwpl05 mm[Hg][facility]10-27-2025 12:00-0400Heart rate77 /[facility]10-27-2025 12:00-0400Respiratory rate16 /[facility]10-27-2025 12:00-0551LlA2% (BldA) [Mass fraction]100 %[facility] 01-29-2025 12:00-0400Systolic blood jwiwjzed166 mm[Hg][facility]10-27-2025 05:08-0400Body jycejs323 kgSumma Health 04-16-2023 08:20-0500Diastolic blood apeuskzx38 mm[Hg]Almaz Lue [facility]2024 08:20-0500Heart rate72 /minKathy Lue [facility]2024 08:20-0500Systolic blood mm[Hg]Almaz Lue [facility]07-07-2023 08:01-0400Blood Pressure LocationKathy Lue [facility]07-07-2023 08:01-0400Diastolic blood emzpuwha46 mm[Hg]Almaz Lue [facility]07-07-2023 08:01-0400Heart rate82 /minKathy Lue [facility]07-07-2023 08:01-0400Systolic blood soflosbw255 mm[Hg]Almaz Lue [facility]03-16-2023 14:30-0400Body mbuvog286.64 cmCaesar Quesada Other [employer] Other 03-16-2023 14:30-0400Body mass index (BMI) [Ratio] 37.76 kg/l3LqtxcrCaesar Quesada Other [employer] Other 03-16-2023 14:30-0400Body ekywyj721.14 kgCaesar Quesada Other [employer] Other 03-16-2023 14:30-0400Diastolic blood mm[Hg] Caesar Quesada Other [employer] Other 03-16-2023 14:30-7952WhT2% (BldA) [Mass fraction]99 % Caesar Quesada Other [employer] Other 03-16-2023 14:30-0400Systolic blood hzosxfce958 mm[Hg] Caesar Quesada Other [employer] Other 02-03-2023 11:43-0500Blood Pressure LocationKathy Lue [facility]02-03-2023 11:43-0500Diastolic blood urzxyfsq70 mm[Hg]Almaz Lue [facility]02-03-2023 11:43-0500Heart rate94 /minKathy Lue [facility]02-03-2023 11:43-0500Systolic blood eipzepjk709 mm[Hg]Almaz Lue [facility] [place] [address]-28-2022 11:34-0500Blood Pressure LocationKathy Lue [facility] [place] [address]-28-2022 11:34-0500Diastolic blood mm[Hg]Almaz Lue [facility] [place] [address]-28-2022 11:34-0500Heart rate87 /minKathy Lue [facility] [place] [address]-28-2022 11:34-0500Systolic blood riegzvlp680 mm[Hg]Almaz Lue [facility] [place] [address]-08-2022 14:13-0500Diastolic blood swgmdvry389 mm[Hg]Almaz Lue [facility] [place] [address]-08-2022 14:13-0500Heart havc880 /minKathy Lue [facility] [place] [address]-08-2022 14:13-0500Mean blood xxkonyma209 mm[Hg]Almaz Lue [facility] [place] [address]-08-2022 14:13-0500Systolic blood mm[Hg]Almaz Lue [facility] [place] [address]-08-2022 14:08-0500Blood Pressure LocationKathy Lue [facility] [place] [address]-08-2022 14:08-0500Diastolic blood tdggsepj267 mm[Hg]Almaz Lue [facility] [place] [address]-08-2022 14:08-0500Heart chrs754 /minKathy Lue [facility] [place] [address]-08-2022 14:08-0500Systolic blood yxyaezvk535 mm[Hg]Almaz Lue [facility] Encounters Encounter DateEncounter TypeCare ProviderFacilityStart: 35-68-6729Mun-patient / Non-visitBasem Bright [facility] Work Phone: Start: 01-21-2025 End: 98-88-9109Pjhenxdbsm and management of inpatientNON STAFFFacility:[facility] Limatart: 04-12-2024 End: 23-81-1468kizshzahnaPpphx M. LueFacility:EU BellevueStart: 04-12-2024 End: 01-71-8319Jmgvfjv encounter procedureKathy M. Lue [facility] start: 04-16-2023 End: 08-38-6545Toepimp encounter procedureKathy M. Lue [facility] Start: 10-09-2022 End: 79-42-2387Izvpfae encounter procedureAlmaz Medina [facility] Trudy Start: 07-28-2022 End: 57-75-5616wrxbmctepySdawty Braun Other [employer] Other Start: 34-71-2164Wvldpuafz encounterMartracisaul QuesadaArmando Escobar [facility]: 07-24-2022 End: 93-38-5261zibblgevfgTK DOCTOR MISCFacility:F5Nrcti: 06-18-2022 End: 20-33-0036asgljjpworKohlwd Braun Other [employer] Other Start: 70-60-3612Tmgfwc outpatient visit 10 minutes Caesar SangitaProMedica Fostoria Community Hospitaltart: 05-08-2022 End: 82-09-4763Gcuizrm encounter procedureAlmaz Medina [facility] Start: 04-24-2022 End: 60-72-0904notxxqsaqnIJUYM LUEUniAdams County Regional Medical Centertart: 07-07-3093Urxqwiwwg for general adult medical examination without abnormal findingsGENERIC PROVIDERUnKettering Health Prebletart: 04-13-2022 End: 54-93-0114ctdgkchiqvSSDQWDA EXTERNAL DATA PROVIDERUnKettering Health Prebletart: 04-01-2022 End: 83-50-9505Gfzjpej encounter procedureAlmaz Medina [facility] Start: 03-26-2022 End: 24-41-0977yytxmqsqokNBKYH M LUE .Facility:T8Fqcrr: 03-12-2022 End: 69-48-0657Fjsoole encounter procedureKathy M. Lue [facility] Trudy Start: 01-22-2022 End: 78-59-4773oidorpoglxME CAESAR E BRAUNFacility:R2Ojifz: 01-13-2022 End: 47-16-9718vdmxdjftgnCIZSRX STEINFacility:H1 Procedures DateProcedureProcedure DetailPerforming ClinicianStart: 50-35-4794Chovvw biopsy Almaz Lue CholecystectomyKathy Lue ColonoscopyKathy Lue Endoscopic biopsy of stomachKathy Lue TonsillectomyKathy Lue Plan of Treatment DateCare ActivityDetailAuthorStart: 44-65-9387MhryjlmpzSumma Health Start: 23-50-1103Nwvsthxy to Social ServicesSumma Health Start: 76-39-2078Qiidajya admissionSumma HealthCT Chest WO contrastSumma HealthPatient EducationKnow your [facility] Work Phone: Immunizations Immunization DateImmunizationNotesCare ProviderFacilityNEGATED: Highlighted row has not occurred!32-20-0110bnwzdwaer virus vaccine, unspecified formulationKathy Lue [facility] SandadamyNEGATED: Highlighted row has not occurred!98-79-2337ZVCV-CoV-2 mRNA (tozinameran 5y-11y) vaccineKat Lue [facility] Payers DatePayer CategoryPayerPolicy [id number] [id number] 2.16.840.1.537430.3.5[id number] 2.16.840.1.934079.3.[id number] 2.16.[id number] 2..840.1.689320.3.579.2.531 Social History DateTypeDetailFacilityStart: 03-12-2022 End: 60-22-5303Orueelv smoking statusNever smoked tobacco (finding)[facility] [place]kyT[facility] smoking statusNever [facility] [place]Sex [facility] (finding)[facility] Limatart: 11-13-0815Zmg Assigned At BirthBucyrus Community Hospitaltart: 07-56-0961QCVR Follow upSDOH [facility] Work Phone: Medical Equipment Procedure CodeEquipment CodeEquipment Original TextEquipment IdentifierDates Blood Sugar Diagnostic stripStart: 23-02-3721Qwjtjeb miscStart: 94-27-0580Hqt Needle, Diabetic (Ulticare Pen Needle) 31 gauge x 1/4 NeedleStart: 01-24-2025 Functional Status UdvhQoresivioyQwkbegUgnciiok02-31-1178Jjgvogtsjy StatusN/A[facility]07[facility]23Functional StatusN/A[facility]02-03-2023Functional StatusN/A [facility] [place] 103322-28-2022Functional StatusN/A[facility] [place] 103322-08-2022 Functional StatusN/A[facility] Clinical Notes 03-12-2022 to 01-21-2025 Note Date & IwasEepmRrgxbvij22-94-1203 Evaluation note* Diagnosis Onset Date Resolution Status Admit Date Acquired hypothyroidism acuteOctober 2024 3:32pmDKA (diabetic ketoacidosis)acuteOctober 2024 3:32pmEssential (primary) hypertensionacuteOctober 2024 3:32pmLung abnormalityacuteOctober 2024 3:32pmLung massacuteOctober 2024 3:32pm Sinus tachycardiaacuteOctober 2024 3:32pm [facility] Work Phone: 1(849) 194-984901-12-2024 Hospital Discharge instructions Follow Up Care 04/16/2023 08:40:17 With:Adam SAMPSON, DANYELLE Amado, URO Address: When: Unknown [facility] 2024 Hospital Discharge instructions Patient Education 04/16/2023 08:33:12 Kegel Exercises [...] muscles. These are the same muscles you squeezewhen you try to stop the flow of [...] tight lift in your rectal area. If youare a female, you should also feel a [...] provider. Document Revised: 07/31/2021 Document Reviewed: 07/31/2021 [employer] Patient Education 2022 Pongr. Follow Up Care 10/09/2022 08:31:20 With:Adam SAMPSON, Almaz Mcintyre, URL, URO Address: [address] [place] [phone] When: Unknown Comments:GENNARO in 1 yr [facility] 07-07-2023 Hospital Discharge instructions Patient Education 10/09/2022 08:26:47 Renal Mass Renal Mass A renal mass is an abnormal growth in the kidney. It may be found while performing an MRI, CT scan,or ultrasound to evaluate other problems of the abdomen. A renal mass that is cancerous (malignant)may grow or spread quickly. Others are not [...] the cause of your renal mass. These testsmay be done if a renal mass is [...] provider gives to you. In general: Take clbm-bgp-schpoao and prescription medicines only as told by [...] provider. Document Revised: 09/16/2020 Document Reviewed: 09/16/2020 [employer] Patient Education 2022 Pongr. Follow Up Care 05/08/2022 13:30:37 With:Adam SAMPSON, DANYELLE Amado, URO Address: When: Unknown [facility] 03-16-2023 Evaluation note* Encounter Date Diagnosis Assessment Notes Treatment Notes Treatment Clinical Notes Jun, Hyperglycemia due to type 2 diab etes mellitus (ICD-10 - E11.65) Patient reports good glucose control. We will check lab work and continue present medicines Jun,cquired hypothyroidism (ICD-10 - E03.9) Jun,Essential hypertension (ICD-10 - I10)Chronic problem adequately managed continue present medicine check labs Jun,Unspecified abdominal pain (ICD-10 - R10.9)Follow-up with gastroenterology as scheduled Jun,Other chronic pain (ICD-10 - G89.29) Jun,Left renal mass (ICD-10 - N28.89)Follow-up with urology as scheduled [employer] Other 02-03-2023 Hospital Discharge instructions Patient [...] provider gives to you. In general: Take dtye-ygp-rgmpyxd and prescription medicines only as told by [...] 10/17/2014 Document Revised: 04/28/2018 Document Reviewed: 04/28/2018 [employer] Patient Education 2020 Pongr. Follow Up Care 04/27/2022 15:25:11 With:Adam SAMPSON, DANYELLE Amado, URO Address: When: Unknown [facility] 01-20-[address] guided biopsy of left renal mass. Date: 04/24/2022 Patient Name: Stew Argueta : 1965 Ordering provider: Almaz Medina Reason [...] Cruz Orozco D.O. PGY-2 Ravi Martinez M.D.[facility]12-28-2022 Hospital Discharge instructions Patient Education 04/01/2022 [...] fried and sweet foods. General instructions Take tmec-fyh-vwlybvl and prescription medicines only as told by [...] 01/16/2010 Document Revised: 07/13/2019 Document Reviewed: 04/07/2018 [employer] Patient Education 2020 Pongr. Follow Up Care 03/12/2022 15:26:52 With:Adam SAMPSON, DANYELLE Amado, URO Address: [address] [place] [phone] When: Unknown [facility] 12-08-2022 Hospital Discharge instructions Patient Education 03/12/2022 [...] provider gives to you. In general: Take wskq-cjz-gwvvjqp and prescription medicines only as told by [...] 10/17/2014 Document Revised: 04/28/2018 Document Reviewed: 04/28/2018 [employer] Patient Education 2020 Pongr. Follow Up Care 02/02/2022 14:54:48 With:Almaz Medina MD, URL, URO Address: When: Unknown [facility] evDECAation + Plan note Future Appointments Appointment Date:04/30/2022 02:45:00 PM Scheduled Provider:Almaz Medina MD Location:On license of [facility] Appointment Type:URO Office Visit [facility] evaluation + Plan note Future Appointments Appointment Date:10/09/2022 08:00:00 AM Scheduled Provider:Almaz Medina MD Location:On license of [facility] Appointment Type:URO Office Visit [facility] Evaluation + Plan note Future Appointments Appointment Date:04/15/2023 01:00:00 PM Scheduled Provider:Almaz Medina MD Location:On license of [facility] Appointment Type:URO Office Visit [facility] evaluation + Plan note Future Appointments Appointment Date:04/12/2024 08:00:00 AM Scheduled Provider:Almaz Medina MD Location:[facility] Appointment Type:URO Office Visit [facility] Evaluation noteNo InformationNortWVU Medicine [facility] [employer] Other History general Narrative - Reported* Type Description Date Medical History Acquired hypothyroidism Medical HistoryEssential hypertensionMedical HistoryMyalgiaMedical HistoryAcute LUQ painMedical HistoryHematuriaMedical HistoryCurrent tobacco useMedical HistoryDiastolic blood pressure 90 mm Hg or higherMedical HistoryBMI 34.0-34.9,adultMedical HistorySplenomegalyMedical HistoryLeft renal massMedical HistoryLow back painMedical HistoryElevated serum glucoseMedical History Hyperglycemia due to type 2 diabetes mellitusSurgical HistoryTONSILLECTOMY Surgical HistoryCHOLECYSTECTOMYSurgical HistoryKidney Bx-2022Hospitalization HistorySEE SURGICAL HX [facility] [employer] Other Hospital course Narrative No data available for this section [facility] Hospital Discharge instructionsAdditional Instructions Monitor glucose levels before meals and at bedtime. Keep a record of these and take it with you to your follow-up appointment.[facility] Work Phone: Progress note No data available for this section [facility] Summary Purpose Family History No Family History Records Found Relationship Condition Age at Onset Recorded Date/T munir father Diabetes mellitus Unknown DeceasedUnknowngrandparentHypertensionUnknowngrandparentHeart diseaseUnknown grandparentMalignant neoplasmUnknownmotherMalignant neoplasmUnknown Advance Directives No Advanced Directives Records Found Advance Directive Response Recorded Date/ Time Advance Directives No January 21, 2025 1:57pm Chief Complaint and Reason for Visit Chief Complaint Admit Date DKA January 21, 2025 3 :32pm Reason for Visit Admit Date Acquired hypothyroidism January 21 3:32pm DKA (diabetic ketoacidosis) January 3:32pm Essential (primary) hypertension January 21, 2025 3:32pm Lung abnormality January 21, 2025 3 :32pm Lung mass January 21, 2025 3 :32pm Sinus tachycardia January 21, 2025 3 :32pm Additional Source Comments Patient Care team informatio n (unrecognized section and content) Team Status: Active Member Role/Relationship Status Dates NON STAFF Primary Care Provider Active Team Status: Active Member Role/Relationship Status Dates NON STAFF Primary Care Provider Active Start: January 21, 2025 Femi Cazares , DOAdmit ProviderActiveStart: January 21, 2025 Abraham Terrazas , DOOther ProviderActiveStart: January 21, 2025 Kianna Zuñiga , PACKAGE DYE STAND LOADER ACNP-BCOther ProviderActiveStart: January 21, 2025 Abdifatah Foster MDOther ProviderActiveStart: January 21, 2025 Nancy Zimmerman MDOther ProviderActiveStart: January 21, 2025 Tejas Hardy MDOther ProviderActiveStart: January 21, 2025 Tru Hodge , DOOther ProviderActiveStart: January 21, 2025 Lauri Novoa MDAttending ProviderActiveStart: January 21, 2025 Lauri Novoa MDOther ProviderActiveStart: January 21, 2025 Radha Blackburn MDOther ProviderActiveStart: January 21, 2025 Arturo Garcia MDOther ProviderActiveStart: January 21, 2025 INFORMATION SOURCE (unrecogn ized section and content) DATE CREATED AUTHOR 04/30/2022 [facility] DATE CREATED AUTHOR AUTHOR'S ORGANIZ ATION 07/31/2022 [facility] DATE CREATED AUTHOR AUTHOR'S ORGANIZ ATION 05/26/2024 [facility] DATE CREATED AUTHOR AUTHOR'S ORGANIZ ATION 02/03/2025 [facility] REASON FOR VISIT (unrecogniz ed section and content) 3 MONTH FOLLOW UP AHlabsNo I nformationrefill Goals (unrecognized section and content) Goals may be documented in a n alternate section FOR RECORDS PERTAINING TO PATIENTS WHO ARE [...] BE BASED ON THE PRIMARY CLINICAL RECORDS. [facility]. provides no warranty or guarantee of the accuracy or completeness of information in this document.
--- OUTSIDE RECORDS SUMMARY | 2025-02-03 09:26 | XMS_ITS | Clinical Summary ---
Author Organization [facility] tem Address [id number] [place] [address] Care Team Providers Care Rrt Name Role Phone Steph Morris MD Primary Care Provider [phone] Allergies Active AllergyReactionsCriticalityNoted KeimPjdnfbwnLlkkvywouri71/04/2022 Medications MedicationSigDispense QuantityRefillsLast FilledStart DateEnd DateStatus acetaminophen (TYLENOL) 325 mg tablet Take 2 tablets (650 mg total) by mouth every 6 (six) hours as needed for pain. Active IBUPROFEN ORAL Take by mouth.Active dicyclomine (BENTYL) 20 mg tablet 01/19/2022ctive metFORMIN (GLUCOPHAGE) 1000 mg tablet Take 1 tablet (1,000 mg total) by mouth daily with breakfast.04/22/2022ctive glyBURIDE (DIABETA) 5 mg tablet Take 1 tablet (5 mg total) by mouth in the morning.05/14/2022ctive losartan (COZAAR) 50 mg tablet Take 1 tablet (50 mg total) by mouth in the morning.05/14/2022ctive amLODIPine (NORVASC) 10 mg tablet Take 1 tablet (10 mg total) by mouth in the morning.05/15/2022ctive levothyroxine (SYNTHROID, LEVOTHROID) 125 MCG tablet Take 1 tablet (125 mcg total) by mouth in the morning.Active Active Problems ProblemNoted DateDiagnosed NihvQutiwhjcprcc69/15/2022Left kidney mass01/20/2022 Overview (01/20/2022): 01/20/22: Left exophytic 2.6 x 1.5 cm renal mass incidentally found on CT with fat within the mass 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 She had an MRI which confirmed that this does contain some fat. Explain to her that there are very rare case reports suggesting that you can have a renal cell carcinoma containing a small amount of fat but this is extremely rare. The vast majority of angiomyolipoma is a diagnosed due to having fat within them, they commonly appear we in middle-aged woman and typically we intervene only if they are growing large enough that they may spontaneously bleed, typically greater than 4 cm. One option is for percutaneous biopsy to confirm the diagnosis although if it is a angiomyolipoma there is a higher risk of bleeding due to the hypervascularity of the tumors. Alternatively we continue to follow her with serial imaging and consider biopsy only if it is growing. She elected for the latter which seems reasonable. Pain unrelated to this Family History Medical HistoryRelationNameCommentsAlcohol abuseFatherWilliamHeart diseaseFather WilliamPancreatic cancerMaternal AuntAsthmaMotherVirginiaBreast cancerMother VirginiaColon cancerNeg HxRelationNameStatusCommentsFatherWilliamDeceased Maternal AuntMotherVirginiaAlive Social History Tobacco UseTypesPacks/DayYears UsedDateSmoking Tobacco: NeverSmokeless Tobacco: Never Tobacco Cessation:Counseling Given: Not Answered Alcohol UseStandard Drinks/WeekCommentsNot Currently0 (1 standard drink = 0.6 oz pure alcohol)Hunger ScreeningAnswerDate RecordedWithin the past 12 months we worried whether our food would run out before we got money to buy more.Never True09/10/2022Within the past 12 months the food we bought just didn't last and we didn't have money to get more.Never True3CommentsNoSex and Gender InformationValueDate RecordedSex Assigned at BirthNot on fileLegal Sex Ssvvmb0601/06/2022 12:19 PM EDTGender IdentityNot on fileSexual OrientationNot on file Last Filed Vital Signs Vital SignReadingTime TakenCommentsBlood Ganjhgsn023/8206 2:46 PM EDT Famjo6898 1:58 PM KEHXxqadnnlfbn01.9 ??C (98.5 ??F)03/19/2022 1:44 PM ESTRespiratory Rtwm314708/07/2022 1:58 PM EDTOxygen Fdqnvueyvb579%08/07/2022 1:58 PM EDTInhaled Oxygen Concentration--Gonvac146.9 kg (240 lb)09/10/2022 2:46 PM GNIFdtgrf789.6 cm (5' 6 )09/10/2022 2:46 PM EDTBody Mass Index38.7409/10/2022 2:46 PM EDT Plan of Treatment Health MaintenanceDue DateLast DoneCommentsDepression Nhkmrjlio07/10/1979Tobacco Qculqhgtt50/10/1979DTaP,Tdap and Td Vaccines (1 - Tdap)1986Pap Smear 01/13/1988Zoster (Shingles) Vaccine (1 of 2)2017Adult BMI Screening /11/2022Influenza Xjtfmuz7612/04/2024 Medical Devices Not on file Insurance Care Teams Team MemberRelationshipSpecialtyStart DateEnd Date Steph Morris MD [address] [place] [address] PCP - GeneralFamily Medicine08/05/22
--- OUTSIDE RECORDS SUMMARY | 2025-02-03 09:26 | XMS_ITS | Clinical Summary ---
Author Organization [facility] Address [address] [place] [address] Care Team Providers Care Drip Pumper Name Role Phone Unavailable Primary Care Provider Unavailabl e Allergies Active AllergyReactionsCriticalityNoted DateCommentsAmoxicillin-Pot Clavulanate Hives3Penicillin PWqlmg6904/24/2022 Medications No known medications Social History Tobacco UseTypesPacks/DayYears UsedDateSmoking Tobacco: NeverSmokeless Tobacco: Never Tobacco Cessation:Counseling Given: Not Answered Alcohol UseStandard Drinks/WeekCommentsDefer0 (1 standard drink = 0.6 oz pure alcohol)MI Safety & EnvironmentAnswerDate RecordedFear of Current or Ex-Partner Not on file05/27/2023Emotionally AbusedNot on file05/27/2023hysically AbusedNot on file05/27/2023Sexually AbusedNot on file05/27/2023hysically or Sexually AbusedNot on file05/27/2023CommentsNoSex and Gender InformationValueDate RecordedSex Assigned at BirthNot on fileLegal YggErlbky38/09/2023 1:49 PM EST Gender IdentityNot on fileSexual OrientationNot on file Last Filed Vital Signs Vital SignReadingTime TakenCommentsBlood Eqpzevbt326/69004/24/2022 11:30 AM EST Apcig837204/24/2022 11:30 AM QXHUdsrdzzxgkh67.9 ??C (98.4 ??F)04/24/2022 9:00 AM ESTRespiratory Cyqk369504/24/2022 11:30 AM ESTOxygen Phbfvatqqr69%04/24/2022 11:30 AM ESTInhaled Oxygen Concentration--Weight--Height--Body Mass Index-- Plan of Treatment Health MaintenanceDue DateLast DoneCommentsCT Mwwspbdbpymv1967Colonoscopy 1967Colorectal Cancer Tkldotalb1967FIT-DNA1967FIT1967 FOBT1965 8624Ivskcnntovwfb1967Depression Vlfduowje52/10/1979Hepatitis B Vaccines (1 of 3 - 19+ 3-dose series)1986Pap Smear01/13/1988Adult Tetanus 1989Cervical Cancer Hvcsnwauh20/10/1997HPV/Evndgl5101/12/1997Mammogram 2007Zoster Vaccines (1 of 2)2017Influenza Vaccine (#1)2024HIB VaccinesAged OutNo longer eligible based on patient's age to complete this topic HPV VaccinesAged OutNo longer eligible based on patient's age to complete this topicIPV VaccinesAged OutNo longer eligible based on patient's age to complete this topicMeningococcal B VaccineAged OutNo longer eligible based on patient's age to complete this topicMeningococcal VaccineAged OutNo longer eligible based on patient's age to complete this topicPneumococcal Vaccine: Pediatrics (0 to 5 Years) and At-Risk Patients (6 to 64 Years)Aged OutNo longer eligible based on patient's age to complete this topicRotavirus VaccinesAged OutNo longer eligible based on patient's age to complete this topic [address] [place] [address]
--- OUTSIDE RECORDS SUMMARY | 2025-02-03 09:26 | XMS_ITS | Patient Health Record ---
Author Organization [facility] Address [address] [place], [place] [address] Care Team Providers Care Blood Bank Supervisor Name Role Phone Merna Schneider Primary Care Provider Allergies Allergen (clinical drug ingredient) Drug/Non Drug Allergy documented on EMR Reaction Allergy Type Onset Date Status amoxicillin / clavulanate Augmentin rash Drug Aller gy ActivePenicillinUnknownDrug AllergyActive Results Component Value Reference Range Notes POCT A1C Reviewed date:02/01/2025 10:49:53 AM Interpretation:11.6 Performing Lab: Notes/Report: Result 11.6 0-5.6 % UDS Colonoscopy Reviewed date:02/01/2025 10:29:22 AM Interpretation: Performing Lab: Notes/Report: Reason For Referral No Information Medications Medication SIG (Take, Route, Frequency, Duration) Notes Start Date End Date Status GNP Pen [place] 32G X 6 MM USE DIRECTED WITH INSULINS; Duration: 50 Days ActiveGNP Sterile Lancets 33G -USE DIRECTED TO TEST SUGARS 4 TIMES DAILY; Duration: 25 DaysActiveTrue Metrix Meter w/DeviceUSE DIRECTED TO TEST SUGARS 4 TIMES DAILY; Duration: 30 DaysActivemetFORMIN HCl 500 MG1 tablet with a meal Orally Once a day; Duration: 30 day(s)5ActiveLantus SoloStar 100 UNIT/ML50 units Subcutaneous dailyActiveInsulin Aspart FlexPen 100 UNIT/ML ADMINISTER SUBCUTANEOUSLY 3 TIMES DAILY with meals AND at bedtime FOLLOWING CORRECTIVE SCALE #5 (MAX 104 UNITS/DAY) Subcutaneous; Duration: 28 DaysActive amLODIPine Besylate 10 MGTAKE 1 TABLET BY MOUTH DAILY Oral; Duration: 90 Days ActiveLevothyroxine Sodium 137 MCG1 tablet in the morning on an empty stomach Oral Once a day; Duration: 30 daysActiveLosartan Potassium 50 MGTAKE 1 TABLET BY MOUTH DAILY Oral; Duration: 90 DaysActiveJardiance 10 MG1 tablet Orally Once a day; Duration: 30 days5ActiveTimolol Maleate 0.5 %1 drop into affected eye Ophthalmic Once a day; Duration: 50 daysActive Social History Tobacco Use: Social History [...] data 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 Stress is when someone feels tense, nervous, anxious, or can't sleep at nightbecause their mind is troubledA little bitpatient entered dataIn the past year have you spent more than 2 nights in a row in a fpc, halfway, group home center, orjuvenile correctional facility?Nopatient entered dataAre you a refugee?Nopatient entered dataWhat country are you from?[place] Statespatient entered dataDo you feel physically and emotionally safe where you currently live?Yespatient entered dataIn the past year, have you been afraid of your partner or ex-partner?Nopatient entered dataPRAPARE Score:3 Problems Problem Type SNOMED Code ICD Code Onset Dates Problem Status W/U Status Risk Notes Problem Hyperglycemia due to type 2 diabetes mellitus (826043698141855) Type 2 diabetes mellitus with hyperglycemia (E11.65) ActiveconfirmedProblemHypothyroid (63354590)Hypothyroid (E03.9)Activeconfirmed ProblemRight upper lobe pneumonia (034891984)Right upper lobe pneumonia (J18.1) ActiveconfirmedProblemDisorder of kidney and/or ureter (911694762)Left kidney mass (N28.89)Activeconfirmed Vital Signs Heart Rate 88 /min 02/01/2025 Nery Scruggs 02/01/2025 09:59:05 AM EDT > Temperature 97.7 degrees Fahrenheit 02/01/2025 Madison Ugarte 02/01/2025 09:59:05 AM EDT > Respiratory Rate 18 /min 02/01/2025 Keeley Scruggs 02/01/2025 09:59:05 AM EDT > Blood pressure diastolic 84 mm Hg 02/01/2025 Madison Hernandes 02/01/2025 09:59:05 AM EDT > Oximetry 98 % 02/01/2025 Nery Scruggs 02/01/2025 09:59:05 AM EDT > Weight-kg 105.51 kg 02/01/2025 Nery Scruggs 02/01/2025 09:59:05 AM EDT > Height 67 in 02/01/2025 Nery Scruggs 02/01/2025 09:59:05 AM EDT > Blood pressure systolic 123 mm Hg 02/01/2025 Madison Ugarte 02/01/2025 09:59:05 AM EDT > Weight 232.6 lbs 02/01/2025 Nery Scruggs 02/01/2025 09:59:05 AM EDT > BMI 36.43 kg/m2 02/01/2025 Nery Scruggs 02/01/2025 09:59:05 AM EDT > Encounters Encounter Location Date Provider Diagnosis [address] [id number] 02/01/2025 Mernaclyde Combsman Right upper lobe pneumonia J18.1 ; Hospital discharge follow-up Z09 ; Type 2 diabetes mellitus with hyperglycemia E11.65 and Hypothyroid E03.[address] [place] [address] [place] [id number] 02/01/2025 Merna Schneider Type 2 diabetes luke itus with hyperglycemia E11.65 Assessments Encounter Date Diagnosis (ICD Code) Assessment Notes Treatment Notes Treatment Clinical Notes Section Notes 02/01/2025 Right upper lobe pneumonia (ICD- 10 - J18.1) Reevalute right upper lobe pneumonia. May need referral to pulmonology 02/01/2025Hospital discharge follow-up (ICD-10 - Z09)02/01/2025Type 2 diabetes mellitus with hyperglycemia (ICD-10 - E11.65)02/01/2025Type 2 diabetes mellitus with hyperglycemia (ICD-10 - [...] 02/01/2025Hypothyroid (ICD-10 - E03.9) Plan Of Treatment Pending Test Test Name Order Date LIPID PANEL WITH REFLEX TO DIRECT LDL TSH + FREE T4 PROFILE 02/01/2025 COMPREHENSIVE METABOLIC PANEL WITH GFR 1 CBC W/AUTO DIFF 02/01/2025 XR CHEST (2 VW) 02/01/2025 Next Appt Details Provider Name:Merna north, 03/08/2025 01:00:00 PM, [address], [place], [phone], Insurance Providers Payer Name Payer Address Payer Phone Subscriber Number Group Number Insured Name Patient Relationship to Insured Coverage Start Date Coverage End Date Ricky Rowell [employer] [address] [place] [phone] [id number] Maury Torres - patient is the insured Medical (General) History Medical History History ICD Code hypothyroid htndiabetesmass on left kidneySurgical History Surgery Date(Month/Year) cholecystectomy 2007 tonsillectomy Hospitalization History Reason Date(Month/Year) DKA, DM 01/30/25 cholecystectomy 2008
[2025-02-03 10:24] LABS: Hematocrit 37.9 % (36.0-48.0); Hemoglobin 12.7 g/dL (12.0-16.0); Immature Granulocytes Abs Auto 0.02 10^3/uL (0.00-0.03); Immature Granulocytes Pct Auto 0.3 % (0.0-0.5); Lymphocytes Absolute Auto 2.0 10^3/uL (1.2-3.8); Mean Corpuscular HGB Conc 33.5 g/dL (29.9-35.2); Mean Corpuscular Hemoglobin 28.2 pg (26.7-34.0); Mean Corpuscular Volume 84.2 fL (81.0-99.0); Platelet Count 330 10^3/uL (150-450); Red Blood Count 4.50 10^6/uL (4.20-5.40); White Blood Count 7.0 10^3/uL (4.0-11.0)
[2025-02-03 10:56] LABS: Alanine Aminotransferase 16 U/L (14-59); Albumin Globulin Ratio 0.6; Albumin Level 2.9 g/dL (3.4-5.0); Alkaline Phosphatase 91 U/L (46-116); Anion Gap 12.1; Aspartate Amino Transferase 17 U/L (15-37); Blood Urea Nitrogen 26.0 mg/dL (7.0-18.0); Calcium 9.4 mg/dL (8.5-10.1); Carbon Dioxide 29.0 mmol/L (21.0-32.0); Chloride 99 mmol/L (98-107); Cholesterol 210 mg/dL (<=200); Estimated GFR (African America >60 (>=60 mL/min/1.73m^2); Estimated GFR (Non-African Ame >60 (>=60 mL/min/1.73m^2); Globulin 4.6 g/dL; Glucose 153 mg/dL (74-106); HDL Cholesterol 57 mg/dL (40-60); Potassium 4.1 mmol/L (3.5-5.1); Sodium 136 mmol/L (136-145); Thyroid Stimulating Hormone 9.109 uIU/mL (0.358-3.740); Total Protein 7.5 g/dL (6.4-8.2); Triglycerides 130 mg/dL (<=150); VLDL CHOLESTEROL 26.0 mg/dL
== END 2025-02-03 09:23 | disposition home or self-care (01) ==
LOC: LAB 09:23
DX: E11.65 Type 2 diabetes mellitus with hyperglycemia (principal); J18.1 Lobar pneumonia, unspecified organism
CPT/HCPCS: 36415; 71046; 80053; 80061; 84439; 84443; 85025

== ENCOUNTER 2025-03-28 10:26 | Outpatient (OUT) | payer OTHER, SELFPAY ==
--- OUTSIDE RECORDS SUMMARY | 2025-03-28 10:29 | XMS_ITS | Clinical Summary ---
Author Organization [facility] tem Address [id number] [address] [place] [address] Care Team Providers Care Geochemist Name Role Phone Steph Morris MD Primary Care Provider [phone] Allergies Active AllergyReactionsCriticalityNoted QefzPmqderfbPixllnaipob50/04/2022 Medications MedicationSigDispense QuantityRefillsLast FilledStart DateEnd DateStatus acetaminophen [...] in the morning.Active Active Problems ProblemNoted DateDiagnosed BqifAontebmyekmu42/15/2022Left kidney mass01/20/2022 Overview (01/20/2022): 01/20/22: Left exophytic [...] RecordedSex Assigned at BirthNot on fileLegal Sex Iactbn3801/06/2022 12:19 PM EDTGender IdentityNot on fileSexual OrientationNot on file Last Filed Vital Signs Vital SignReadingTime TakenCommentsBlood Mrrbhwyz238/8206 2:46 PM EDT Dokyq5717 1:58 PM SWCPeimiguicpd02.9 ??C (98.5 ??F)03/19/2022 1:44 PM ESTRespiratory Nwte563508/07/2022 1:58 PM EDTOxygen Fllbagdmdq682%08/07/2022 1:58 PM EDTInhaled Oxygen Concentration--Nmfgbq526.9 kg (240 lb)09/10/2022 2:46 PM RCTRabdsm241.6 cm (5' 6 )09/10/2022 2:46 PM EDTBody Mass Index38.7409/10/2022 2:46 PM EDT Plan of Treatment Health MaintenanceDue DateLast DoneCommentsDepression Lrfpscegs19/10/1979Tobacco Krbgtwlqp16/10/1979DTaP,Tdap and Td Vaccines (1 - Tdap)1986Pap Smear 01/13/1988Zoster (Shingles) Vaccine (1 of 2)2017Adult BMI Screening /11/2022Influenza Rydqijl8212/04/2024 Medical Devices Not on file Insurance Care Teams Team MemberRelationshipSpecialtyStart DateEnd Date Steph Morris MD [address] [place] [address] PCP - GeneralFamily Medicine08/05/22
--- OUTSIDE RECORDS SUMMARY | 2025-03-28 10:29 | XMS_ITS | Clinical Summary ---
Author Organization [facility] Address [address] [place] [address] Care Team Providers Care Hand Cigar Making Supervisor Name Role Phone Unavailable Primary Care Provider Unavailabl e Allergies Active AllergyReactionsCriticalityNoted DateCommentsAmoxicillin-Pot Clavulanate Hives3Penicillin VBehet4804/24/2022 Medications No known medications Social History Tobacco UseTypesPacks/DayYears UsedDateSmoking Tobacco: NeverSmokeless Tobacco: Never Tobacco Cessation:Counseling Given: Not Answered Alcohol UseStandard Drinks/WeekCommentsDefer0 (1 standard drink = 0.6 oz pure alcohol)[place] Safety & EnvironmentAnswerDate RecordedFear of Current or Ex-Partner Not on file05/27/2023Emotionally AbusedNot on file05/27/2023hysically AbusedNot on file05/27/2023Sexually AbusedNot on file05/27/2023hysically or Sexually AbusedNot on file05/27/2023CommentsNoSex and Gender InformationValueDate RecordedSex Assigned at BirthNot on fileLegal NrxTavfcd92/09/2023 1:49 PM EST Gender IdentityNot on fileSexual OrientationNot on file Last Filed Vital Signs Vital SignReadingTime TakenCommentsBlood Jnrecynl700/69004/24/2022 11:30 AM EST Gyzdj873804/24/2022 11:30 AM XBZIhhxsezyfmh01.9 ??C (98.4 ??F)04/24/2022 9:00 AM ESTRespiratory Lcxc254604/24/2022 11:30 AM ESTOxygen Nmrrwcmblc56%04/24/2022 11:30 AM ESTInhaled Oxygen Concentration--Weight--Height--Body Mass Index-- Plan of Treatment Health MaintenanceDue DateLast DoneCommentsCT Hxjzcdqkpaek1967Colonoscopy 1967Colorectal Cancer Bcgoqtjug1967FIT-DNA1967FIT1967 FOBT1967 8590Rjxxlloamcfov1967Depression Exlmlzxtf22/10/1979Hepatitis B Vaccines (1 of 3 - 19+ 3-dose series)1986Pap Smear01/13/1988Adult Tetanus 1989Cervical Cancer Javhqlfjd21/10/1997HPV/Hxqfvn6401/12/1997Mammogram 2007Zoster Vaccines (1 of 2)2017Influenza Vaccine (#1)2024HIB [...] to complete this topic [address] [place] [address]
--- OUTSIDE RECORDS SUMMARY | 2025-03-28 10:29 | XMS_ITS | Patient Health Record ---
Author Organization [facility] vices Address [address] [place], [place] [address] Care Team Providers Care Flame Hardening Machine Operator Name Role Phone Jessica Linares Primary Care Provider [phone] Allergies Allergen (clinical drug ingredient) Drug/Non Drug Allergy documented on EMR Reaction Allergy Type Onset Date Status amoxicillin / clavulanate Augmentin rash Drug Aller gy ActivePenicillinUnknownDrug AllergyActive Results Component Value Reference Range Flag Notes XR chest 2V Reviewed date:02/05/2025 07:16:18 AM Interpretation: Performing Lab: Notes/Report: Source Facility: [place] [address] XRay Report Signed Patient: STEW TORRES MR#: [id number] : 1965 Acct:[id number] Age/Sex: 60 / F ADM Date: 02/03/25 Loc: LAB Attending Dr: JESSICA LINARES Ordering Physician: JESSICA LINARES Date of Service: 02/03/25 Procedure(s): XR chest 2V Accession Number(s): [id number] cc: JESSICA LINARES [place] [address] Patient Name: STEW TORRES MRN: [id number] date: 1965 Sex: F Assigned Patient Location: LAB Current Patient Location: LAB Accession/Order Number: [id number] Exam Date: 02/03/2025 09:34 Report Date: 02/03/2025 11:51 At the request of: JESSICA LINARES Procedure: XR chest 2V PA AND LATERAL CHEST: CLINICAL HISTORY: Right Upper Lobe Pneumonia, J18.1 COMPARISON: 01/21/2025 FINDINGS: Right upper lobe opacity again noted with improved aeration. Remaining lungs are clear. Stable nonenlarged cardiomediastinal silhouette. XR/XR chest 2V IMPRESSION: Persistent right upper lobe opacity worrisome for residual pneumonia. Recommend follow-up to resolution Impression dictated by: Philippe Jade M.D. 02/03/2025 11:51 AM Dictation Location: [place] [address] Electronically authenticated by: [id number] Y Date: 02/03/2025 11:51 Dictated By: Philippe Jade M.D. Signed By: 02/03/25 1153 DD/ 1151 TD/TT: Hand Cigar Making Supervisor: Thyroid Stimulating Hormone Reviewed date:02/05/2025 07:21:22 AM Interpretation: Performing Lab: Notes/Report: , [facility] Thyroid Stimulating Hormone 9.109 0.358-3.740 uIU/mL H Performing Lab:see noteML - [facility] LBLipid Panel Reviewed date:02/03/2025 02:03:38 PM Interpretation: Performing Lab: Notes/Report: [facility] ,Twdurjtahlxit916<=150 mg/iAGdbxucdlvjv484<=200 mg/dLHHDL Czqvdjimnnj8708-02 mg/dLN > or =60 mg/dl - LOW CARDIOVASCULAR RISK <40 mg/dl - HIGH CARDIOVASCULAR RISK LDL Cholesterol Thoowytvms805.0 <100 mg/dl OPTIMAL 100-129 mg/dl NEAR OR ABOVE OPTIMAL 130-159 mg/dl BORDERLINE HIGH 160-189 mg/dl HIGH >190 mg/dl VERY HIGH VLDL WWLARHUTEKF20.0Chol HDL Ratio3.7 3.3 - 4.4 LOW RISK 4.4 - 7.1 AVERAGE RISK 7.1 - 11.0 MODERATE RISK >11.0 HIGH RISK Performing Lab:see noteML - [facility] LBFree T4 Reviewed date:02/05/2025 07:10:51 AM Interpretation: Performing Lab: Notes/Report: [facility] ,Free T40.690.76-1.46 ng/dLLPerforming Lab:see noteML - [facility] LB Comprehensive Metabolic Panel Reviewed date:02/03/2025 02:02:52 PM Interpretation: Performing Lab: Notes/Report: [facility] ,Mvrojz954362-058 mmol/LNPotassium4.13.5-5.1 mmol/QJYmovrbbe7373-023 mmol/LN Carbon Gydalux46.021.0-32.0 mmol/LNAnion Gap12.8Hpwxtka95684-413 mg/dLHBlood Urea Updivyxd04.07.0-18.0 mg/dLHCreatinine0.950.55-1.02 mg/dLNEstimated GFR ( Luda>60>=60 mL/min/1.73m 2Estimated GFR (Non- Sari>60>=60 mL/min/1.73m 2BUN Creatinine Ratio27.1Wzjfhby0.48.5-10.1 mg/dLNBilirubin Total 0.60.2-1.0 mg/dLNAspartate Amino Xjoxgrwwavi8754-18 U/LNAlanine Aminotransferase 1614-59 U/LNAlkaline Aeyfhhpjjih1962-160 U/LNTotal Protein7.56.4-8.2 g/dLN Albumin Level2.93.4-5.0 g/dLLGlobulin4.6Albumin Globulin Ratio0.6Performing Lab: see noteML - [facility] LBComplete Blood Count Auto Diff Reviewed date:02/03/2025 02:01:43 PM Interpretation: Performing Lab: Notes/Report: [facility] ,White Blood Count7.04.0-11.0 10 3/uLNRed Blood Count4.504.20-5.40 10 6/uLN Ulgdmvetbg56.712.0-16.0 g/mVUPiaenrzsyd52.936.0-48.0 %NMean Corpuscular Volume 84.281.0-99.0 fLNMean Corpuscular Gmmyjmfyof54.226.7-34.0 pgNMean Corpuscular HGB Conc33.529.9-35.2 g/dLNRed Cell Distribution Width13.211.0-15.0 %NPlatelet Gdrbw566133-720 10 3/uLNMean Platelet Volume9.89.5-13.5 fLNNeutrophils Percent Auto60.143.0-75.0 %NLymphocytes Percent Auto28.720.5-60.0 %NMonocytes Percent Auto7.21.7-12.0 %NEosinophils Percent Auto1.70.9-7.0 %NBasophils Percent Auto2.0 0.2-2.0 %NImmature Granulocytes Pct Auto0.30.0-0.5 %NNeutrophils Absolute Auto 4.21.4-6.5 10 3/uLNLymphocytes Absolute Auto2.01.2-3.8 10 3/uLNMonocytes Absolute Auto0.50.3-0.8 10 3/uLNEosinophils Absolute Auto0.10.0-0.7 10 3/uLN Basophils Absolute Auto0.10.0-0.1 10 3/uLNImmature Granulocytes Abs Auto0.02 0.00-0.03 10 3/uLNPerforming Lab:see noteML - [facility] LBUDS Colonoscopy Reviewed date:02/01/2025 10:29:22 AM Interpretation: Performing Lab: Notes/Report: POCT A1C Reviewed date:02/01/2025 10:49:53 AM Interpretation:11.6 Performing Lab: Notes/Report:POCT A1C Reviewed date:03/08/2025 03:18:42 PM Interpretation: Performing Lab: Notes/Report: Reason For Referral Reason Z59.9 Financial Diff iculties Diagnosis 1 Financial difficulti es (Z59.9) Referral Organization [facility] Referring Provider First Name Jessica Referring Provider Last Name Wyatt Referring Provider Speciality Family [facility] icine Referred Provider PRAEVELINE Referred Provider Specialty [facility] or Welfare Agencies General Notes Sherri Aquino 07/2024 05:16:43 PM >community resources sent to the patient Referral Priority Urgent Medications Medication SIG (Take, Route, Frequency, Duration) Notes Start Date End Date Status Lantus SoloStar 100 UNIT/ML Solution Pen-injector 40 units Subcutaneous daily; Duration: 3 0 days ActiveTimolol Maleate 0.5 % Solution1 drop into affected eye Ophthalmic Once a day; Duration: 50 daysActiveamLODIPine Besylate 10 MG TabletTAKE 1 TABLET BY MOUTH DAILY Oral; Duration: 90 DaysActiveLevothyroxine Sodium 137 MCG Tablet1 tablet in the morning on an empty stomach Oral Once a day; Duration: 30 days ActiveGNP Sterile Lancets 33G - MiscellaneousUSE DIRECTED TO TEST SUGARS 4 TIMES DAILY; Duration: 25 DaysActiveTrue Metrix Meter w/Device KitUSE DIRECTED TO TEST SUGARS 4 TIMES DAILY; Duration: 30 DaysActiveGNP Pen Sikes 32G X 6 MM MiscellaneousUSE DIRECTED WITH INSULINS; Duration: 50 DaysActive metFORMIN HCl ER 500 MG Tablet Extended Release 24 Hour1 tablet with evening meal Orally twice a day; Duration: 90 days5ActiveInsulin Aspart FlexPen 100 UNIT/ML Solution Pen-injectorADMINISTER SUBCUTANEOUSLY 3 TIMES DAILY with meals AND at bedtime FOLLOWING CORRECTIVE SCALE #5 (MAX 104 UNITS/DAY) Subcutaneous; Duration: 28 DaysActiveLosartan Potassium 100 MG Tablet1 tablet Orally Once a day; Duration: 90 days5ActiveTrue Metrix Pro Blood Glucose - Stripuse with meter 3 times daily In Vitro 3 times a day; Duration: 90 daysWhatever insurance will cover5ActiveJardiance 10 MG Tablet1 tablet Orally Once a day; Duration: 30 days5Active Social History Tobacco Use: Social History Observation Description Date Details (start date - stop date) Never Smoker NA - NA Sex Assigned At : Social History Observation Description Sex Assigned At Female Social History Social DeterminantsSocial InfoQuestionAnswerNotesPRAPAREDate Completed/Updated: 02/01/2025patient entered dataWhat is your current housing situation?I have housingpatient entered dataAre you worried about losing your housing?No patient entered dataWhat is the highest level of school that you have finished?More than high schoolpatient entered dataWhat 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 Check all that applyUtilitiesHas lack of transportation kept you from medical appointments, meetings, work or from getting things needed for daily living?NoHow often do you see or talk to people that you care about and feel close to? (For example: talkingto friends on the phone, visiting friends or family, going to religion or club meetings)More than 5 times a weekpatient entered dataHow stressed are you? Stress is when someone feels tense, nervous, anxious, or can't sleep at nightbecause their mind is troubledA little bit patient entered dataIn the past year have you spent more than 2 nights in a row in a residential, assisted, senior living center, orjuvenile correctional facility?No patient entered dataAre you a refugee?Nopatient entered dataWhat country are you from?[place] Statespatient entered dataDo you feel physically and emotionally safe where you currently live?Yespatient entered dataIn the past year, have you been afraid of your partner or ex-partner?Nopatient entered dataPRAPARE Score:3PCMH and UDS DemographicsSocial InfoQuestionAnswerNotes Primary Care Medical Home QuestionsDo you have any barriers to learning?None patient entered dataWhat is your preferred method of learning?Doing or practicingpatient entered dataHow often do you need to have someone help you read instructions?Neverpatient entered dataHousehold:Social InfoQuestion AnswerNotesHouseholdNumber of adults in household:2Number of children in household:0Drugs/Alcohol/Caffeine:Social InfoQuestionAnswerNotesDrugsHave you used drugs other than those for medical reasons in the past 12 months?NoCAGE-AID Questionnaire (2018 Edition)Have you ever felt that you ought to cut down on your drinking or drug use?Nopatient entered dataHave people annoyed you by criticizing your drinking or drug use?Nopatient entered dataHave you ever felt bad or guilty about your drinking or drug use?Nopatient entered dataHave you ever had a drink or used drugs first thing in the morning to steady your nerves or to get rid of a hangover?Nopatient entered dataCAGE-AID Score0 InterpretationNegativeCaffeineIntake:1-2 cups per dayTobacco Use:Social Info QuestionAnswerNotesTobacco Use/SmokingTobacco use:nonsmokerpatient entered dataAdditional DetailsCategorySocial InfoOptionsDetailsMiscellaneous:Occupation: works full-time and part timeCulture/Language BarrierNoEducation LevelSome CollegeBarriers to LearningNoneLearning PreferenceDoing or practicingHow often do you need to have someone help you read instructionsNeverSafetyPatient feels safe in relationshipsYesDrugs/Alcohol/Caffeine:Do you drink alcohol?Socially, rarely Problems Problem Type SNOMED Code ICD Code Onset Dates Problem Status W/U Status Risk Notes Problem Hyperglycemia due to type 2 diabetes mellitus (040650019798997) Type 2 diabetes mellitus with hyperglycemia (E11.65) ActiveconfirmedProblemHypertension (95428619)Hypertension (I10)Activeconfirmed ProblemObesity (629568052)Obesity (BMI 30-39.9) (E66.9)ActiveconfirmedProblem Hypothyroid (66186528)Hypothyroid (E03.9)ActiveconfirmedProblemRight upper lobe pneumonia (457870623)Right upper lobe pneumonia (J18.1)ActiveconfirmedProblem Disorder of kidney and/or ureter (054192737)Left kidney mass (N28.89)Active confirmed Vital Signs Heart Rate 89 /min 03/08/2025 Judy Weeks 05/09/2024 01:21:46 PM EST > Temperature 98.2 degrees Fahrenheit 03/08/2025 Judy Garcia 03/08/2025 01:21:46 PM EST > Respiratory Rate 16 /min 03/08/2025 Nitin Weeks 03/08/2025 01:21:46 PM EST > Height-cm 170.18 cm 03/08/2025 Judy Weeks 1 05/09/2024 01:21:46 PM EST > Oximetry 99 % 03/08/2025 Judy Weeks 05/09/2024 01:21:46 PM EST > Blood pressure diastolic 85 mm Hg 03/08/2025 Judy Jolley 03/08/2025 01:21:46 PM EST > Weight-kg 109.63 kg 03/08/2025 Judy Weeks 05/09/2024 01:21:46 PM EST > Height 67 in 03/08/2025 Judy Weeks 1 05/09/2024 01:21:46 PM EST > Blood pressure systolic 143 mm Hg 03/08/2025 Judy Garcia 03/08/2025 01:21:46 PM EST > Weight 241.7 lbs 03/08/2025 Judy Weeks 1 05/09/2024 01:21:46 PM EST > BMI 37.85 kg/m2 03/08/2025 Judy Weeks 1 05/09/2024 01:21:46 PM EST > Encounters Encounter Location Date Provider Diagnosis [address] [id number] 02/01/2025 [facility] discharge follow-up Z09 ; Type 2 diabetes mellitus with hyperglycemia E11.65 ; Right upper lobe pneumonia J18.1 ; Hypothyroid E03.9 ; Obesity (BMI 30-39.9) E66.9 ; Dietary counseling Z71.3 ; Exercise counseling Z71.82 and Financial difficulties Z59.[address] [id number] 03/08/2025 Jessica Linares Type 2 diabetes luke itus with hyperglycemia E11.65 ; Hypertension I10 ; Hypothyroid E03.9 ; Right upper lobe pneumonia J18.1 and Screening for HIV (human immunodeficiency virus) Z11.[address] [phone] 02/01/2025 Jessica Linares Type 2 diabetes luke itus with hyperglycemia E11.[address] [phone] 02/05/2025 Jessicaclyde Linares Right upper lobe pne umonia J18.[address] [address] 02/15/2025 Jessicaclyde Linares Type 2 diabetes luke itus with hyperglycemia E11.[address] [id number] 03/08/2025 Jessica Linares [address] [address]/07/2025alexandr Linares Assessments Encounter Date Diagnosis (ICD Code) Assessment Notes Treatment Notes Treatment Clinical Notes Section Notes 02/01/2025 Type 2 diabetes mellitus with hy perglycemia (ICD-10 - E11.65) Would like to start januvia instead of jardiance due to recent DKA. cost of januvia is too expensive. will proceed with jardiance. labs have stablized since the hospital visit Reviewed sliding scale that was provided from ER Educated on the importance of checking blood sugars, when adding oral agents we may need to decrease insulin need Start metformin and jardiance I recommend home blood sugar readings to be monitored frequently (daily fasting along with random (2 hours after meals). Pt was advised to log the reading with timings and to bring it on the next visit so we can adjust the dose of medications as needed. Pt was advised to inspect the feet daily. Patient was reminded to have yearly eye exam to look for diabetic retinopathy and yearly podiatristvisit and PVU Return to ER for any signs of DKA Report any hypoglycemic events, educated on what to do Learning About Low Blood Sugar (Hypoglycemia) in Diabetes material was published, Learning About Low Blood Sugar (Hypoglycemia) in Diabetes material was printed, Counting Carbohydrates for Diabetes: Care Instructions material was printed, Learning About Type 2 Diabetes material was printed, Diabetes Blood Sugar Emergencies: Your Action Plan material was printed 02/01/2025Type 2 diabetes mellitus with hyperglycemia (ICD-10 - E11.65) 02/05/2025Right upper lobe pneumonia (ICD-10 - J18.1)02/15/2025Type 2 diabetes mellitus with hyperglycemia (ICD-10 - E11.65)03/08/2025Type 2 diabetes mellitus with hyperglycemia (ICD-10 - E11.65) A1C elevated above goal. A1C did improve to 7.3 from 11.6 Pt denies symptoms at this time. Increase metformin to 500 BID as she does not tolerate 1000mg Continue to use sliding scale for the time being Strongly encouraging healthy diet and exercise, if able- lower in carbohydrates and sugars, prioritizing protein, fruits, and vegetables. Recommendations made to continue monitoring home blood sugars, keep a log checking 3x daily; Fasted, and twice 2 hours post-prandial. F/U 3 months or PRN 03/08/2025Hypertension (ICD-10 - I10) Pt continues to have elevated BP's in office and home. Increase losartan to 100mg daily Pt denies symptoms at this time. Pt encouraged to check BP's twice daily at rest; once in the morning upon waking and once before bed. Pt provided w/ a BP log to keep track of BP's at home. Encouraged healthy diet and exercise. Discussed reassuring vs non reassuring signs related to elevated BP and when to RTC or go to the ER. 02/01/2025Hospital discharge follow-up (ICD-10 - Z09) Hospital visit reviewed Reviewed labs and imaging Reviewed discharge summary 02/01/2025Right upper lobe pneumonia (ICD-10 - J18.1) Reevalute right upper lobe pneumonia. May need referral to pulmonology Report any fevers Go to ER for worsening SOB or chest pain 03/08/2025Hypothyroid (ICD-10 - E03.9) Patient needs a refill on synthyroid. Patients TSH was elevated 1 month ago. Labs ordered and will refill medication based off of labs, patient has 10 days left. Educated on importance of taking on an empty stomach by itself in the morning labs in 3 months with f/u 03/08/2025Right upper lobe pneumonia (ICD-10 - J18.1) Patient was ordered a repeat CT chest to check the nodule in her right chest. The order was sent [facility] which her insurance didn't cover so she would like to have a new CT order sent to a different location. Patient is not having respiratory symptoms but educated on when to follow up and possible pulm. referral 02/01/2025Hypothyroid (ICD-10 - E03.9) Patient has not had lab work to check thyroid levels Continue current dose and complete labs Patient had been without medication 02/01/2025Obesity (BMI 30-39.9) (ICD-10 - E66.9)03/08/2025Screening for HIV (human immunodeficiency virus) (ICD-10 - Z11.4)02/01/2025Dietary counseling (ICD-10 - Z71.3)Encoruaged eating a healthy, balanced diet and increasing activity level by engaging in exercise atleast 30 min x atleast 5 days a week. 02/01/2025Exercise counseling (ICD-10 - Z71.82)The patient was encouraged to increase exercise weekly to at least 3-4 times per week for 30-45 minutes for each session. Exercise may include but is not limited to walking, jogging, running, resistance training, water aerobics and strength training. Benefits of increasing exercise regimens may include healthier lifestyle, stronger bone health, diminished aches and pain, and better metabolism.02/01/2025Financial difficulties (ICD-10 - Z59.9) Plan Of Treatment Pending Test Test Name Order Date TSH + FREE T4 PROFILE 03/08/2025 HIV-1 2 COMBO AG/AB 03/08/2025 CT CHEST WO CONTRAST 03/08/2025 Future Test Test Name Order Date TSH + FREE T4 PROFILE 06/06/2025 COMPREHENSIVE METABOLIC PANEL WITH GFR 0 06/06/2025 HEMOGLOBIN A1C 06/06/2025 Next Appt Details Provider Name:Jessica Combsalfonso north, 06/14/2025 01:00:00 PM, [address] [place], [place], [phone], Insurance Providers Payer Name Payer Address Payer Phone Subscriber Number Group Number Insured Name Patient Relationship to Insured Coverage Start Date Coverage End Date Ricky Rowell [employer] [address] [place] [phone] [id number] Maury Torres - patient is the [id number] 2024 Medical (General) History Medical History History ICD Code hypothyroid htndiabetesmass on left kidneySurgical History Surgery Date(Month/Year) cholecystectomy 2007 tonsillectomy Hospitalization History Reason Date(Month/Year) DKA 01/30/25 cholecystectomy 2008
[2025-03-28 11:41] LABS: Thyroid Stimulating Hormone 3.537 uIU/mL (0.358-3.740)
== END 2025-03-28 10:27 | disposition home or self-care (01) ==
LOC: LAB 10:27
DX: E03.9 Hypothyroidism, unspecified (principal); Z11.4 Encounter for screening for human immunodeficiency virus [HIV]
CPT/HCPCS: 36415; 84439; 84443; 87389

== ENCOUNTER 2025-04-03 07:47 | Outpatient (OUT) | payer OTHER, SELFPAY ==
--- OUTSIDE RECORDS SUMMARY | 2025-03-30 03:21 | XMS_ITS ---
Author Organization [facility]ly [facility] vices Address [address] [place], [place] [id number] Care Team Providers Care Pmp Project Manager Name Role Phone Wyatt Merna Primary Care Provider REASON FOR VISIT labs Medications Medication SIG (Take, Route, Frequency, Duration) Notes Start Date End Date Status Levothyroxine Sodium 137 MCG Tablet 1 ta blet in the morning on an empty stomach Oral Once a day; Duration: 90 days Active Social History Sex Assigned At : Social History Observation Description Sex Assigned At Female Encounters Encounter Location Date Provider Diagnosis [address] [address] 03/30/2025 Merna Schneider Hypothyroid E03.9 Assessments Encounter Date Diagnosis (ICD Code) Assessment Notes Treatment Notes Treatment Clinical Notes Section Notes 03/30/2025 Hypothyroid (ICD-10 - E03.9) Plan Of Treatment Medication Medication Name Sig Start Date Stop Date Notes Levothyroxine Sodium 137 MCG Tablet 1 ta blet in the morning on an empty stomach Oral Once a day; Duration: 90 days Next Appt Details Provider Name:Merna north, 06/14/2025 01:00:00 PM, [address], [place], [phone], Progress Notes * Stew TORRESDOB:[birth year] (60 yo F)Acc No.[id number]:03/30/2025 Patient:?Stew TORRES :1965???Age:60 Y???Sex:FemalePhone:[phone] Address:[address] [place] [address], [address], [place] [address] * Refills Refill Levothyroxine Sodium Tablet, 137 MCG, Oral, 90, 1 tablet in the morning on an empty stomach,Once a day, 90 days, Refills=1 Subjective: * Chief Complaints: * L abs Assessment: * Assessment: 1.?Hypothyroid - E03.9 (Primary)??? Plan: * Treatment: Refill Levothyroxine Sodium Tablet, 137 MCG, 1 tablet in the morning on an empty stomach, Oral, Once a day, 90 days, 90, Refills 1.?? * true * Date:?Generated for Printing/Faxing/eTransmitting on:?04/03/2025 07:49 AM EST
--- OUTSIDE RECORDS SUMMARY | 2025-04-03 07:50 | XMS_ITS | Patient Health Record ---
Author Organization [facility] vices Address [address] [place], [place] [id number] Care Team Providers Care Wood Caulker Name Role Phone Jessica Linares Primary Care Provider Allergies Allergen (clinical drug ingredient) Drug/Non Drug Allergy documented on EMR Reaction Allergy Type Onset Date Status amoxicillin / clavulanate Augmentin rash Drug Aller gy ActivePenicillinUnknownDrug AllergyActive Results Component Value Reference Range Flag Notes POCT A1C Reviewed date:03/08/2025 03:18:42 PM Interpretation: Performing Lab: Notes/Report: Thyroid Stimulating Hormone Reviewed date:03/30/2025 08:24:38 AM Interpretation: Performing Lab: Notes/Report: , [facility] Thyroid Stimulating Hormone 3.537 0.358-3.740 uIU/mL N Performing Lab:see noteML - [facility] LBHIV Ab/p24 Ag with Reflex Reviewed date:03/30/2025 08:21:41 AM Interpretation: Performing Lab: Notes/Report: , LabcorpHIV Ab/p24 Ag ScreenNon ReactiveNon Reactive HIV-1/HIV-2 antibodies and HIV-1 p24 antigen were NOT detected. There is no laboratory evidence of HIV infection. HIV Negative Performed at: [facility] Lab[address] [id number] Blanching Machine Operator: Nacho Walker PhD, Phone: [phone] Performing Lab:see note - [facility] LBFree T4 Reviewed date:03/30/2025 08:24:38 AM Interpretation: Performing Lab: Notes/Report: [facility] ,Free T41.100.76-1.46 ng/dLNPerforming Lab:see noteML - [facility] LB POCT A1C Reviewed date:02/01/2025 10:49:53 AM Interpretation:11.6 Performing Lab: Notes/Report:UDS Colonoscopy Reviewed date:02/01/2025 10:29:22 AM Interpretation: Performing Lab: Notes/Report: XR chest 2V Reviewed date:02/05/2025 07:16:18 AM Interpretation: Performing Lab: Notes/Report: Source Facility: [place] [address] XRay Report Signed Patient: STEW TORRES MR#: [id number] : 1965 Acct:[id number] Age/Sex: 60 / F ADM Date: 02/03/25 Loc: LAB Attending Dr: JESSICA LINARES Ordering Physician: JESSICA LINARES Date of Service: 02/03/25 Procedure(s): XR chest 2V Accession Number(s): [id number] cc: JESSICA LINARES [place] [address] Patient Name: STEW TORRES MRN: [id number] date: 1965 Sex: F Assigned Patient Location: LAB Current Patient Location: LAB Accession/Order Number: [id number] Exam Date: 02/03/2025 09:34 Report Date: 02/03/2025 [...] Jade M.D. 02/03/2025 11:51 AM Dictation Location: [place] [address] Electronically authenticated by: [id number] Y Date: 02/03/2025 11:51 Dictated By: Philippe Jade M.D. Signed By: 02/03/25 1153 DD/ 1151 TD/TT: Grant Writer:Thyroid Stimulating Hormone Reviewed date:02/05/2025 07:21:22 AM Interpretation: Performing Lab: Notes/Report: , [facility]9.1090.358-3.740 uIU/mLH Performing Lab:see noteML - [facility] LBLipid Panel Reviewed date:02/03/2025 02:03:38 PM Interpretation: Performing Lab: Notes/Report: [facility] ,Kwzwdqcyixkpy461<=150 mg/hEOtzrwynkydy150<=200 mg/dLHHDL Nlozafsyiyh6723-27 mg/dLN > or =60 mg/dl - LOW CARDIOVASCULAR RISK <40 mg/dl - HIGH CARDIOVASCULAR RISK LDL Cholesterol Dxyzelzlwk473.0 <100 mg/dl OPTIMAL 100-129 mg/dl NEAR OR ABOVE OPTIMAL 130-159 mg/dl BORDERLINE HIGH 160-189 mg/dl HIGH >190 mg/dl VERY HIGH VLDL OZRPRCLFUPZ39.0Chol HDL Ratio3.7 3.3 - 4.4 LOW RISK 4.4 - 7.1 AVERAGE RISK 7.1 - 11.0 MODERATE RISK >11.0 HIGH RISK Performing Lab:see noteML - [facility] LBFree T4 Reviewed date:02/05/2025 07:10:51 AM Interpretation: Performing Lab: Notes/Report: [facility] ,Free T40.690.76-1.46 ng/dLLPerforming Lab:see noteML - [facility] LB Comprehensive Metabolic Panel Reviewed date:02/03/2025 02:02:52 PM Interpretation: Performing Lab: Notes/Report: [facility] ,Cphevu028740-556 mmol/LNPotassium4.13.5-5.1 mmol/ZPDeantflr8474-110 mmol/LN Carbon Advxnst78.021.0-32.0 mmol/LNAnion Gap12.8Gnjxohs27968-393 mg/dLHBlood Urea Acntfqyf64.07.0-18.0 mg/dLHCreatinine0.950.55-1.02 mg/dLNEstimated GFR ( Luda>60>=60 mL/min/1.73m 2Estimated GFR (Non- Sari>60>=60 mL/min/1.73m 2BUN Creatinine Ratio27.3Puriozc5.48.5-10.1 mg/dLNBilirubin Total 0.60.2-1.0 mg/dLNAspartate Amino Cjwhllgxcdx5414-03 U/LNAlanine Aminotransferase 1614-59 U/LNAlkaline Rcgbwnhvkyz3032-660 U/LNTotal Protein7.56.4-8.2 g/dLN Albumin Level2.93.4-5.0 g/dLLGlobulin4.6Albumin Globulin Ratio0.6Performing Lab: see noteML - [facility] LBComplete Blood Count Auto Diff Reviewed date:02/03/2025 02:01:43 PM Interpretation: Performing Lab: Notes/Report: [facility] ,White Blood Count7.04.0-11.0 10 3/uLNRed Blood Count4.504.20-5.40 10 6/uLN Tzmqxfieci78.712.0-16.0 g/fXVUvbslolbme00.936.0-48.0 %NMean Corpuscular Volume 84.281.0-99.0 fLNMean Corpuscular Sjzjowuzup10.226.7-34.0 pgNMean Corpuscular HGB Conc33.529.9-35.2 g/dLNRed Cell Distribution Width13.211.0-15.0 %NPlatelet Epnkw894149-901 10 3/uLNMean Platelet Volume9.89.5-13.5 fLNNeutrophils Percent Auto60.143.0-75.0 %NLymphocytes Percent Auto28.720.5-60.0 %NMonocytes Percent Auto7.21.7-12.0 %NEosinophils Percent Auto1.70.9-7.0 %NBasophils Percent Auto2.0 0.2-2.0 %NImmature Granulocytes Pct Auto0.30.0-0.5 %NNeutrophils Absolute Auto 4.21.4-6.5 10 3/uLNLymphocytes Absolute Auto2.01.2-3.8 10 3/uLNMonocytes Absolute Auto0.50.3-0.8 10 3/uLNEosinophils Absolute Auto0.10.0-0.7 10 3/uLN Basophils Absolute Auto0.10.0-0.1 10 3/uLNImmature Granulocytes Abs Auto0.02 0.00-0.03 10 3/uLNPerforming Lab:see noteML - [facility] Reason For Referral Reason Z59.9 Financial Diff iculties Diagnosis 1 Financial difficulti es (Z59.9) Referral Organization [place] Referring Provider First Name Jessica Referring Provider Last Name Wyatt Referring Provider Speciality Family Med ritesh Referred Provider PANFILO Referred Provider Specialty [facility] or Welfare Agencies General Notes Sherri Aquino 07/2024 05:16:43 PM >community resources sent to the patient Referral Priority Urgent Medications Medication SIG (Take, Route, Frequency, Duration) Notes Start Date End Date Status Lantus SoloStar 100 UNIT/ML Solution Pen-injector 40 units Subcutaneous daily; Duration: 3 0 days ActiveLevothyroxine Sodium 137 MCG Tablet1 tablet in the morning on an empty stomach Oral Once a day; Duration: 90 daysActiveTimolol Maleate 0.5 % Solution1 drop into affected eye Ophthalmic Once a day; Duration: 50 daysActiveamLODIPine Besylate 10 MG TabletTAKE 1 TABLET BY MOUTH DAILY Oral; Duration: 90 DaysActive GNP Sterile Lancets 33G - MiscellaneousUSE DIRECTED TO TEST SUGARS 4 TIMES DAILY; Duration: 25 DaysActiveTrue Metrix Meter w/Device KitUSE DIRECTED TO TEST SUGARS 4 TIMES DAILY; Duration: 30 DaysActiveGNP Pen Spade 32G X 6 MM MiscellaneousUSE DIRECTED WITH INSULINS; Duration: 50 DaysActivemetFORMIN HCl ER 500 MG Tablet Extended Release [...] 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 Stress is when someone feels tense, nervous, anxious, or can't sleep at nightbecause their mind is troubledA little bit patient entered dataIn the past year have you spent more than 2 nights in a row in a senior care, retirement, long-term center, orjuvenile correctional facility?No patient entered dataAre [...] Hyperglycemia due to type 2 diabetes mellitus (883426255415567) Type 2 diabetes mellitus with hyperglycemia (E11.65) ActiveconfirmedProblemHypertension (14647604)Hypertension (I10)Activeconfirmed ProblemObesity (877573466)Obesity (BMI 30-39.9) (E66.9)ActiveconfirmedProblem Hypothyroid (07670444)Hypothyroid (E03.9)ActiveconfirmedProblemRight upper lobe pneumonia (001213852)Right upper lobe pneumonia (J18.1)ActiveconfirmedProblem Disorder of kidney and/or ureter (408694077)Left kidney mass (N28.89)Active confirmed Vital Signs Heart Rate 89 /min 03/08/2025 Judy Weeks 1 05/09/2024 01:21:46 PM EST > Temperature 98.2 degrees Fahrenheit 03/08/2025 Judy Garcia 03/08/2025 01:21:46 PM EST > Respiratory Rate 16 /min 03/08/2025 Nitin Weeks 03/08/2025 01:21:46 PM EST > Height-cm 170.18 cm 03/08/2025 Judy Weeks 1 05/09/2024 01:21:46 PM EST > Oximetry 99 % 03/08/2025 Judy Weeks 1 05/09/2024 01:21:46 PM EST > Blood pressure diastolic 85 mm Hg 03/08/2025 Del gutierrezJudy 03/08/2025 01:21:46 PM EST > Weight-kg 109.63 kg 03/08/2025 Judy Weeks 1 05/09/2024 01:21:46 PM EST > Height 67 in 03/08/2025 Judy Weeks 1 05/09/2024 01:21:46 PM EST > Blood pressure systolic 143 mm Hg 03/08/2025 Judy Garcia 03/08/2025 01:21:46 PM EST > Weight 241.7 lbs 03/08/2025 Judy Weeks 1 05/09/2024 01:21:46 PM EST > BMI 37.85 kg/m2 03/08/2025 Judy Weeks 1 05/09/2024 01:21:46 PM EST > Encounters Encounter Location Date Provider Diagnosis [address] [phone] 02/01/2025 [facility] discharge follow-up Z09 ; Type 2 diabetes mellitus with hyperglycemia E11.65 ; Right upper lobe pneumonia J18.1 ; Hypothyroid E03.9 ; Obesity (BMI 30-39.9) E66.9 ; Dietary counseling Z71.3 ; Exercise counseling Z71.82 and Financial difficulties Z59.[address] [phone] 03/08/2025 Jessica Linares Type 2 diabetes luke itus with hyperglycemia E11.65 ; Hypertension I10 ; Hypothyroid E03.9 ; Right upper lobe pneumonia J18.1 and Screening for HIV (human immunodeficiency virus) Z11.[address] [address] 02/01/2025 Jessica Linares Type 2 diabetes luke itus with hyperglycemia E11.[address] [address] 02/05/2025 Jessica Linares Right upper lobe pne umonia J18.[address] [address] 02/15/2025 Jessica Linares Type 2 diabetes luke itus with hyperglycemia E11.65 [address] [place], [place] [phone] 03/08/2025 [facility]res [facility] [place] [address]/5Abigail Linares [place] [place] [address]/5Abigail Linares Hypothyroid E03.9 Assessments Encounter Date Diagnosis (ICD [...] Reviewed labs and imaging Reviewed discharge summary 03/30/2025Hypothyroid (ICD-10 - E03.9)02/01/2025Right upper lobe pneumonia (ICD- 10 - J18.1) [...] her right chest. The order was sent [facility] which her insurance didn't cover so [...] A1C 06/06/2025 Next Appt Details Provider Name:Jessica north, 06/14/2025 01:00:00 PM, [address], [place], [place], [phone], Insurance Providers Payer Name Payer Address Payer Phone Subscriber Number Group Number Insured Name Patient Relationship to Insured Coverage Start Date Coverage End Date [place] [employer] [address] [place] [address] [id number] Maury Torres - patient is the [id number] 2024 Medical (General) History Medical History History ICD Code hypothyroid htndiabetesmass on left kidneySurgical History Surgery Date(Month/Year) cholecystectomy 2007 tonsillectomy Hospitalization History Reason Date(Month/Year) DKA 01/30/25 cholecystectomy 2008
--- OUTSIDE RECORDS SUMMARY | 2025-04-03 07:50 | XMS_ITS | Clinical Summary ---
Author Organization [facility] Address [address] [place] [address] Care Team Providers Care Waiter/Waitress Head Name Role Phone Unavailable Primary Care Provider Unavailabl e Allergies Active AllergyReactionsCriticalityNoted DateCommentsAmoxicillin-Pot Clavulanate Hives3Penicillin VScchd1604/24/2022 Medications No known medications Social History Tobacco UseTypesPacks/DayYears UsedDateSmoking Tobacco: NeverSmokeless Tobacco: Never Tobacco Cessation:Counseling Given: Not Answered Alcohol UseStandard Drinks/WeekCommentsDefer0 (1 standard drink = 0.6 oz pure alcohol)OR Safety & EnvironmentAnswerDate RecordedFear of Current or Ex-Partner Not on file05/27/2023Emotionally AbusedNot on file05/27/2023hysically AbusedNot on file05/27/2023Sexually AbusedNot on file05/27/2023hysically or Sexually AbusedNot on file05/27/2023CommentsNoSex and Gender InformationValueDate RecordedSex Assigned at BirthNot on fileLegal VawZqunqj51/09/2023 1:49 PM EST Gender IdentityNot on fileSexual OrientationNot on file Last Filed Vital Signs Vital SignReadingTime TakenCommentsBlood Evdfjcmd580/69004/24/2022 11:30 AM EST Ldpkw320404/24/2022 11:30 AM YYTPoqjubqftxh97.9 ??C (98.4 ??F)04/24/2022 9:00 AM ESTRespiratory Xvkn196904/24/2022 11:30 AM ESTOxygen Pyigginoqv47%04/24/2022 11:30 AM ESTInhaled Oxygen Concentration--Weight--Height--Body Mass Index-- Plan of Treatment Health MaintenanceDue DateLast DoneCommentsCT Wcqrswqffuuv1967Colonoscopy 1967Colorectal Cancer Bjxyamyfd1967FIT-DNA1967FIT1965 FOBT1965 9250Xylkekbbvnykm1967Depression Ualodrjgk46/10/1979Hepatitis B Vaccines (1 of 3 - 19+ 3-dose series)1986Pap Smear01/13/1988Adult Tetanus 1989Cervical Cancer Olqfzqwrn83/10/1997HPV/Guthre4901/12/1997Mammogram 2007Zoster Vaccines (1 of 2)2017Influenza Vaccine (#1)2024HIB [...] to complete this topic Insurance [address] [place] [address]
--- OUTSIDE RECORDS SUMMARY | 2025-04-03 07:51 | XMS_ITS | CCD ---
Author Organization [facility] Care Team Providers Care Cooker Soda Name Role Phone CAESAR QUESADA Primary Care Physician [phone] PROVIDER, GENERIC EXTERNAL DATA Referring Unavailable ALMAZ MEDINA Referring Unavailable Caesar Quesada Unavailable MISC, DR SALDANA Attending Unavailable MISC, DR SALDANA Consulting Unavailable MISC, DR SALDANA Admitting Unavailable QUESADA, DR CAESAR Tony Primary Care Unavailable QUESADA, DR CAESAR Tony Attending Unavailable QUESADA, DR CAESAR Tony Consulting Unavailable QUESADA, DR CAESAR Tony Primary Care Unavailable QUESADA, DR CAESAR Tnoy Admitting Unavailable LUChavo .ALMAZ Attending Unavailable LUE [...] QUESADA, DR CAESAR Tony Primary Care Unavailable SANGTIA, DR CAESAR Tony Admitting Unavailable JAYA HOWARD Attending Unavailable BRIGHT, DR RISHABH Gonzalez Consulting Unavailable ANITA, JAYA Primary Care Unavailable ANITA, JAYA Admitting Unavailable ANITA, JAYA Consulting Unavailable Almaz Medina. Attending Unavailable NON STAFF Primary Care Provider UnavailFemi Alvarado DO Admit Provider [phone] Abraham Terrazas DO Other Provider Kianna Zuñiga APRN Other Provider Abdifatah Foster MD Other Provider Nancy Zimmerman MD Other Provider Tejas Hardy MD Other Provider Tru Hodge DO Other Provider Lauri Novoa MD Attending Provider Lauri Novoa MD Other Provider Radha Blackburn MD Other Provider Jose SAMPSON, Arturo Shin Other Provider [phone] NON STAFF Primary Care Unavailable Kevin Nielsen [...] [amoxicillin-clavulanate] Drug AllergyUnknown (qualifier value)[facility] (11 sources)Penicillin; Translations: [penicillin]Drug AllergyEruption of skin (disorder)[facility] (1 source)Penicillin; Translations: [PENICILLIN G]Drug Yoyovjz35-67-[address] [facility] Repository (1 source)AMOXICILLIN-POT CLAVULANATE; Translations: [AMOXICILLIN-POT CLAVULANATE]Propensity to adverse reactions to drug (disorder)04-24-[address] [facility] Repository (1 source)ALLERGIES NOT ON FILE; Translations: [ALLERGIES NOT ON FILE]Propensity to adverse reactions (disorder)[facility] (2 sources)Amoxicillin; Translations: [amoxicillin]Drug Gdmzlbb23-11-[facility]998[facility] (2 sources)Clavulanate; Translations: [clavulanic acid]Drug Mhlxvyq11-20-8006 [facility] (2 sources)Penicillins; Translations: [Penicillins]Allergy to substance 92-77-1199WuaiLrvnotafeFairfield Medical Center Medications Current Medications MedicationDrug Class(es)DatesSig (Normalized)Sig (Original)amLODIPine 10 mg oral tablet (11 sources)Dihydropyridine Calcium Channel BlockerStart: 14-53-4881bmsn 1 tablet by mouth once dailyStart: 48-59-5097ytsy 1 mg by mouth once daily amLODIPine 10 mg Tab mg tab(s), Oral, Daily Start Date: 04/01/22 Status: Ordered Start: 88-63-3225mfkl 1 mg by mouth once dailyamLODIPine 5 mg Tab mg tab(s), Oral, Daily, Refills(s) 0 Start Date: 03/12/22 Status: OrderedAzithromycin (3 sources)Macrolide AntimicrobialStart: 51-91-3592xdiroagaczvl Refills(s) 0 Start Date: 03/12/22 Status: OrderedBlood-Glucose Meter kit (1 source)Start: 66-88-0033Tytqz-Glucose Meter kit Active 1 0 January 24, 2025 12:00am Diabetes mellitus Type 2 diabetes mellitus without complications As DirectedBrompheniramine (3 sources)Start: 34-96-1317jbkgcrhkzbwhlcx Refills(s) 0 Start Date: 03/12/22 Status: Ordereddicyclomine hydrochloride 20 mg oral tablet (11 sources)AnticholinergicStart: 81-01-9750eylj 1 mg by mouth four times daily dicyclomine 20 mg Tab mg tab(s), Oral, QID, Refills(s) 0 Start Date: 03/12/22 Status: Orderedtake 1 tablet by mouth three times daily as neededDicyclomine HCl 20 MG 1 tablet Orally 3 times a day prn ActiveBentyl ActiveglyBURIDE 5 mg oral tablet (9 sources)SulfonylureaStart: 63-50-0788ajqh 1 mg by mouth once dailyglyBURIDE 5 mg Tab mg tab(s), Oral, Daily Start Date: 04/01/22 Status: Ordered3 ml insulin aspart, human 100 unt/ml pen injector (1 source)Insulin AnalogStart: ml insulin glargine 100 unt/ml pen injector (1 source)Insulin AnalogStart: 66-53-9251nflowbjhd alcohol 0.7 ml/ml medicated pad (1 source)Start: 76-96-1326jsqdplpmtauaz sodium 0.137 mg oral tablet (13 sources)l-ThyroxineStart: 09-29-2023 End: 87-59-4359hkov 1 tablet by mouth once daily in the morningLevothyroxine 137 mcg tablet Active 0 .ROUTE .COMPLEX 30 0 January 29, 2025 12:19pm TAKE 1 TABLETBY MOUTH EVERY DAY IN THE MORNING ON EMPTY STOMACH FOR 90 DAYS Non- compliance of drug therapyStart: 09-29-2023 End: 74-74-9750msxi 1 tablet by mouth once dailyLevothyroxine 137 mcg tablet Discontinued 137 MCG PO Daily September 29, 2023 12:00am September 29, 2023 10:40am Start: 31-61-2000vczkvpornzbbk 137 mcg, Daily, Refills(s) 0 Start Date: 03/12/22 Status: OrderedStart: 22-99-5837kgxijcfwvftnw Daily, Refills(s) 0 Start Date: 03/12/22 Status: Orderedtake 1 tablet by mouth once daily in the morning Levothyroxine Sodium 137 MCG 1 tablet in the morning on an empty stomach Orally Once a day Activelosartan potassium 50 mg oral tablet (10 sources)Angiotensin 2 Receptor BlockerStart: 50-03-2288gxjt 1 tablet by mouth once dailyStart: 03-96-2696wkjn 1 mg by mouth once dailylosartan 50 mg Tab mg tab(s), Oral, Daily Start Date: 04/01/22 Status: OrderedmetFORMIN hydrochloride 1000 mg oral tablet (10 sources)BiguanideStart: 95-50-1700cqmh 1 mg by mouth twice dailymetformin 1000 [...] a day ActiveTimolol Maleate (2 sources)beta-Adrenergic BlockerStart: 47-93-7772zlxz 1 drop(s) into the eye(s) once dailyTimolol Maleate 0.5 % drops Active 1 DROPS EYE-BOTH Daily January 21, 2025 12:00am Complies with drug therapyStart: 51-45-6288jmgoycp Opth 0.5% Whitney 15 mL Refill(s) 0 Start Date: 04/16/23 Status: Orderedtimolol Opth 0.5% Whitney 15 mL (1 source)Start: 91-74-7850zkjfxqp Opth 0.5% Whitney 15 mL Refill(s) 0 Start Date: 04/16/23 Status: Ordered Problems Active Problems Problem ClassificationProblemDateDocumented DateEpisodic/ChronicAbdominal pain (8 sources)Left upper quadrant pain; Translations: [Left upper quadrant pain] Onset: 09-02-1804GyhslkitTtkptaq dysrhythmias (3 sources)Sinus tachycardia; Translations: [Tachycardia, unspecified]Onset: 738662-24-0544QlaavlytZbdlukrg mellitus with complications (20 sources)Hyperglycemia due to type 2 diabetes mellitus; Translations: [Type 2 diabetes mellitus with hyperglycemia]Onset: 596746-64-3269PkzigggIctencua mellitus without complication (1 source)Type 2 diabetes mellitus without complications; Translations: [Type 2 diabetes mellitus without complications]Onset: 89-11-1621NnvdvoyWftkudut mellitus without complication (19 sources)Glycosuria; Translations: [Glycosuria]Onset: 01-67-0978Oewvcvpv Essential hypertension (17 sources)Essential hypertension; Translations: [Essential (primary) hypertension]Onset: 84-92-1303GvzzfwnNmwaeyapgwrbf symptoms and ill-defined conditions (11 sources)Stress incontinence (female) (male); Translations: [Genuine stress incontinence]Onset: 76-94-5871ZyqnejlPflaxhdf; including migraine (4 sources)Cyclical vomiting eorubzij25-17-6036KlyyrvxAixlhk and vomiting (4 sources)Nausea with vomiting, unspecified; Translations: [NAUSEA WITH VOMITING UNSPECIFIED]Onset: 89-71-5364RjpohkryWbmrs circulatory disease (4 sources)Elevated blood-pressure reading without diagnosis of hypertension; Translations: [Elevated blood-pressure reading, without diagnosis of hypertension]EpisodicOther connective tissue disease (5 sources)Muscle pain; Translations: [Myalgia, unspecified site]01-21-2025 EpisodicOther diseases of kidney and ureters (9 sources)Disorder of kidney and/or ureter; Translations: [Other specified disorders of kidney and ureter]Onset: 64-35-3853PvbhkzjEfgxs diseases of kidney and ureters (7 sources)Renal mass; Translations: [Other specified disorders of kidney and ureter]35-60-6225NumupktJifqm diseases of kidney and ureters (7 sources)Other specified disorders of kidney and ureter; Translations: [Other specified disorders of kidney and ureter]Onset: 68-46-5543FhwytoiNiqne disorders of stomach and duodenum (3 sources)Cyclical vomiting syndrome; Translations: [Cyclical vomiting syndrome unrelated to migraine]Onset: 72-58-7075MzybtugxHhygu gastrointestinal disorders (11 sources)Splenomegaly; Translations: [Splenomegaly, not elsewhere classified] 17-92-6317QypgtfvyAjlcq lower respiratory disease (2 sources)Disorder of lung; Translations: [Other disorders of lung]01-21-2025 EpisodicOther lower respiratory disease (2 sources)Lung mass; Translations: [Other nonspecific abnormal finding of lung field]46-98-9073GlacujesQugfp lower respiratory disease (1 source)Other disorders of lung; Translations: [Other disorders of lung]Onset: 38-91-6027ExpuqzpcVmaqy lower respiratory disease (1 source)Other nonspecific abnormal finding of lung field; Translations: [Other nonspecific abnormal findingof lung field]Onset: 59-75-6096ZfnbrvplMphon nervous system disorders (4 sources)Chronic pain; Translations: [Other chronic pain]ChronicOther nervous system disorders (1 source)Other chronic painChronicOther nutritional; endocrine; and metabolic disorders (4 sources)Obese class I; Translations: [Body mass index (BMI) 34.0-34.9, adult] ChronicResidual codes; unclassified (6 sources)Acute fyda22-62-9166HhuczxlzOfkwxefu codes; unclassified (4 sources)Tobacco use; Translations: [Tobacco use and exposure]Episodic Spondylosis; intervertebral disc disorders; other back problems (5 sources)Low back pain; Translations: [Low back pain]87-83-0869AzefxwraOqcofnt disorders (15 sources)Hypothyroidism; Translations: [Acquired hypothyroidism]Onset: 557620-69-9266BmacsfwKjtknhrntmgo (1 source)You have been scheduled for a follow up appointment for the following date and time, please call to reschedule if needed. Past or Other Problems Problem ClassificationProblemDateDocumented DateEpisodic/ChronicGenitourinary symptoms and ill-defined conditions (8 sources)Blood in urine; Translations: [Hematuria, unspecified]Onset: 81-28-4579KwxjvfwiGcwoo connective tissue disease (1 source)Myalgia, unspecified site; Translations: [MYALGIA UNSPECIFIED SITE] Onset: 44-61-7447RitcipbuFmada gastrointestinal disorders (4 sources)Splenomegaly, not elsewhere classified; Translations: [SPLENOMEGALY NEC]Onset: 12-71-5403Qeicswsc Results Test NameValueInterpretationReference RangeFacilityDiff and CBCon 01-29-2025 Eosinophils/100 WBC (Bld)1 %Normal1-3The [facility] Physician GroupComment on above:Performed By: #### GLULS #### Point of Care testing ,Erythrocyte distribution width (RBC) [Ratio]13.9 %Fkxtzb41.9-15.3The [facility] Physician GroupComment on above:Performed By: #### GLULS #### Point of Care testing ,Hematocrit (Bld) [Volume fraction]36.5 %Yrdksf80.0-46.4The [facility] Physician GroupComment on above:Performed By: #### GLULS #### Point of Care testing ,Hemoglobin (Bld) [Mass/Vol]12.4 g/xFFqlqrb27.8-15.4The [facility] Physician GroupComment on above:Performed By: #### GLULS #### Point of Care testing ,Lymphocytes/100 WBC (Bld)17 %Uip64-80Wdn [facility] Physician GroupComment on above:Performed By: #### GLULS #### Point of Care testing ,MCH (RBC) [Entitic mass]27.6 bcDojdas26.7-34.3The [facility] Comment on above:Performed By: #### GLULS #### Point of Care testing ,MCV (RBC) [Entitic vol]81.4 aQAkcllx91-285Esm [facility] Physician GroupComment on above:Performed By: #### GLULS #### Point of Care testing ,Mean Corpuscular HGB Conc33.9 g/oUBknzcw73.0-35.0The [facility] Physician [facility] Comment on above:Performed By: #### GLULS #### Point of Care testing ,Metamyelocytes1 %High0-0[facility] Physician GroupComment on above:Performed By: #### GLULS #### Point of Care testing ,Monocytes/100 WBC (Bld)6 %Normal2-11The [facility] Physician GroupComment on above:Performed By: #### GLULS #### Point of Care testing ,Myelocytes2 %High0-0The [facility] Physician GroupComment on above:Performed By: #### GLULS #### Point of Care testing ,Platelet EstimateNormalNormOrlando [facility] Physician GroupComment on above:Performed By: #### GLULS #### Point of Care testing ,Platelet mean volume (Bld) [Entitic vol]7.6 fLNormal6.3-10.7The [facility] Physician GroupComment on above:Performed By: #### GLULS #### Point of Care testing ,Platelet MorphologyNormalNormOrlando [facility] Physician GroupComment on above:Result Comment: PERFORMED BY: [place] [address] [place] [address] PATHOLOGIST [employer] PROGRAMS DIRECTOR AHMET SAUCEDA M.D.Performed By: #### GLULS #### Point of Care testing ,Platelets (Bld) [#/Vol]242 10*3/zGNewrut720-341Twu [facility] Physician [facility] Comment on above:Performed By: #### GLULS #### Point of Care testing ,RBC (Bld) [#/Vol]4.49 10*6/uLNormal3.60-5.00[facility] Physician [facility] Comment on above:Performed By: #### GLULS #### Point of Care testing ,RBC morphology finding Nom (Bld)NormalMemorial Hermann [facility] Comment on above:Performed By: #### GLULS #### Point of Care testing ,Segmented neutrophils/100 WBC (Bld)74 %Ztcp36-32Iji [facility] Comment on above:Performed By: #### GLULS #### Point of Care testing ,WBC (Bld) [#/Vol]9.2 10*3/uLNormal3.8-11.6The [facility] Physician GroupComment on above:Performed By: #### GLULS #### Point of Care testing ,White Blood Count9.2 [CFU]/mLNormal3.8-11.6The [facility] Physician GroupComment on above:Performed By: #### GLULS #### Point of Care testing ,Glucose Poct Glucometerson 62-62-7993Obbiiwe [Mass/Vol]205 mg/dLNoWilson Medical Center Physician GroupComment on above:Result Comment: Random Glucose Reference Range is dependent on time and content of last meal. Glucose of more than 200 mg/dL in a nonstressed, ambulatory subject supports the diagnosis of Diabetes Mellitus. PERFORMED BY: [place] [address] PATHOLOGIST [employer] PROGRAMS DIRECTOR AHMET SAUCEDA M.D.Performed By: #### GLULS #### Point of Care testing ,Glucose [Mass/Vol]156 mg/dLHCA [facility] ER Physician GroupComment on above: Result Comment: Random Glucose Reference Range is dependent on time and content of last meal. Glucose of more than 200 mg/dL in a nonstressed, ambulatory subject supports the diagnosis of Diabetes Mellitus. PERFORMED BY: [place] [address] PATHOLOGIST [employer] PROGRAMS DIRECTOR AHMET SAUCEDA M.D.Performed By: #### GLULS #### Point of Care testing ,Diff and CBCon 96-94-7542Qouo form neutrophils/100 WBC (Bld)6 %High0-5The [facility] Physician GroupComment on above:Performed By: #### DIFF CBC ####[facility] [address] [place] [id number] [place] Eosinophils/100 WBC (Bld)4 %High1-3The [facility] Physician GroupComment on above:Performed By: #### DIFF CBC ####[place] [id number] USAErythrocyte distribution width (RBC) [Ratio]14.0 % Lbfowp29.9-15.3The [facility] Physician GroupComment on above:Performed By: #### DIFF CBC ####[place] [address] USAHematocrit (Bld) [Volume fraction]37.2 %Aehgwj04.0-46.4The [facility] Physician GroupComment on above:Performed By: #### DIFF CBC ####[place] [address] USAHemoglobin (Bld) [Mass/Vol]12.9 g/sXLlctft57.8-15.4The [facility] Physician GroupComment on above: Performed By: #### DIFF CBC ####[place] [address] USALymphocytes/100 WBC (Bld)16 %Pzl57-14Jmq [facility] Physician GroupComment on above:Performed By: #### DIFF CBC ####[place] [address] USAMCH (RBC) [Entitic mass]28.4 gtQytgxl92.7-34.3The [facility] Physician GroupComment on above: Performed By: #### DIFF CBC ####[place] [address] USAMCV (RBC) [Entitic vol]81.7 iBWtwcgi42-502Ugu [facility] Physician GroupComment on above:Performed By: #### DIFF CBC ####[place] [id number] USAMean Corpuscular HGB Conc34.7 g/oLWkgsxt12.0-35.0The [facility] Physician GroupComment on above:Performed By: #### DIFF CBC ####[place] [id number] USAMetamyelocytes8 %High0-0The [facility] Physician GroupComment on above:Performed By: #### DIFF CBC ####[address] [address] USAMonocytes/100 WBC (Bld)7 %Normal2-11The [facility] Physician GroupComment on above:Performed By: #### DIFF CBC ####[address] [address] USAMyelocytes3 %High0-0The [facility] Physician GroupComment on above: Performed By: #### DIFF CBC ####[address] [address] USAPlatelet EstimateNormalNormalNormAdventHealth Orlando Physician GroupComment on above:Performed By: #### DIFF CBC ####[address] [address] USAPlatelet mean volume (Bld) [Entitic vol]7.7 fLNormal6.3-10.7The [facility] Physician [facility] HospitalComment on above:Performed By: #### DIFF CBC ####[address] [address] USAPlatelet MorphologyNormalNormalNormAdventHealth Orlando Physician GroupComment on above:Result Comment: PERFORMED BY: [facility] [address] [place] [id number] PATHOLOGIST [employer] PROGRAMS DIRECTOR AHMET SAUCEDA M.D.Performed By: #### DIFF CBC ####[address] [address] USAPlatelets (Bld) [#/Vol]247 10*3/uL Kxmyfo300-003Tpr [facility] Physician [facility] HospitalComment on above:Performed By: #### DIFF CBC ####[address] [address] USARBC (Bld) [#/Vol]4.55 10*6/uLNormal3.60-5.00The [facility] Comment on above:Performed By: #### DIFF CBC ####[address] [address] USARBC morphology finding Nom (Bld)Normal NormalNormAdventHealth Orlando Physician GroupComment on above:Performed By: #### DIFF CBC ####[place] [address] [place] [address] USASegmented neutrophils/100 WBC (Bld)56 %Wecfrr38-93Dfw [facility] Physician GroupComment on above:Performed By: #### DIFF CBC ####[place] [address] USAWBC (Bld) [#/Vol]10.2 10*3/uLNormal 3.8-11.6The [facility] Physician GroupComment on above:Performed By: #### DIFF CBC ####[place] [id number] [facility] White Blood Count10.2 [CFU]/mLNormal3.8-11.6The [facility] Physician GroupComment on above:Performed By: #### DIFF CBC ####[place] [address] USAGlucose Poct Glucometerson 73-08-1302Gjyrveq [Mass/Vol]173 mg/dLNoWilson Medical Center Physician [facility] HospitalComment on above:Result Comment: Random Glucose Reference Range is dependent on time and content of last meal. Glucose of more than 200 mg/dL in a nonstressed, ambulatory subject supports the diagnosis of Diabetes Mellitus. PERFORMED BY: [place] [address] PATHOLOGIST [employer] PROGRAMS DIRECTOR AHMET SAUCEDA M.D.Performed By: #### GLULS #### Point of Care testing ,Glucose [Mass/Vol]174 mg/dLNoWilson Medical Center Physician [facility] HospitalComment on above: Result Comment: Random Glucose Reference Range is dependent on time and content of last meal. Glucose of more than 200 mg/dL in a nonstressed, ambulatory subject supports the diagnosis of Diabetes Mellitus. PERFORMED BY: [place] [address] PATHOLOGIST [employer] PROGRAMS DIRECTOR AHMET SAUCEDA M.D.Performed By: #### GLULS ####Point of Care testing,Glucose [Mass/Vol]279 mg/dLHCA [facility] Hospital ER Physician GroupComment on above:Result Comment: Random Glucose Reference Range is dependent on time and content of last meal. Glucose of more than 200 mg/dL in a nonstressed, ambulatory subject supports the diagnosis of Diabetes Mellitus. PERFORMED BY: [place] [id number] PATHOLOGIST [employer] PROGRAMS DIRECTOR AHMET SAUCEDA M.D.Performed By: #### GLULS #### Point of Care testing ,Glucose [Mass/Vol]169 mg/dLNoWilson Medical Center Physician GroupComment on above: Result Comment: Random Glucose Reference Range is dependent on time and content of last meal. Glucose of more than 200 mg/dL in a nonstressed, ambulatory subject supports the diagnosis of Diabetes Mellitus. PERFORMED BY: [address] [address] PATHOLOGIST [employer] PROGRAMS DIRECTOR AHMET SAUCEDA M.D.Performed By: #### GLULS #### Point of Care testing ,XR chest 1V portableon 10-19-5071QE chest 1V portableOHIOHEALTH DOCTORS [facility] Main [place] [address] [place] [address] XRay Report Signed Patient: Stew Argueta MR#: [id number] : 1965 Acct:[id number] Age/Sex: 60 / F ADM Date: 01/21/25 Loc: Room: [address] [place] [address] Type: ADM IN Attending Dr: Abraham Terrazas [...] Pinedo M.D. 01/28/2025 10:15 AM Dictation Location: [place] [address] Transcribed By: [facility] 01/28/25 1015 Dictated By: Kaz Pinedo DO 01/28/25 1013 Signed By: 01/28/25 1015NoWilson [facility] Center Physician [facility] HospitalBasic Metabolic Panelon 76-39-5081Ssgkh gap [Moles/Vol]9.8 mmol/LNormal6.0-15.0The [facility] Physician [facility] HospitalComment on above:Performed By: #### GLULS #### Point of Care testing ,Calcium [Mass/Vol]8.6 mg/dLNormal8.6-10.3The [facility] Physician GroupComment on above:Performed By: #### GLULS #### Point of Care testing ,Chloride [Moles/Vol]96 mmol/HIvs65-385Udi [facility] Physician GroupComment on above:Performed By: #### GLULS #### Point of Care testing ,CO2 [Moles/Vol]29.4 mmol/PDtacah37.0-31.0The [facility] Physician GroupComment on above:Performed By: #### GLULS #### Point of Care testing ,Creatinine [Mass/Vol]0.97 mg/dLNormal0.60-1.20The [facility] Physician [facility] Comment on above:Performed By: #### GLULS #### Point of Care testing ,Creatinine Clr Calc Bzmiupon94.60NoWilson Medical Center Physician [facility] HospitalComment on above:Result Comment: PERFORMED BY: [place] [address] [place] [address] PATHOLOGIST [employer] PROGRAMS DIRECTOR AHMET SAUCEDA M.D.Performed By: #### GLULS #### Point of Care testing ,GFR/1.73 sq M.predicted MDRD (S/P/Bld) [Vol rate/Area]mL/min/{1.73_m2}NormalThe [facility] Physician GroupComment on above:Performed By: #### GLULS #### Point of Care testing ,Glucose [Mass/Vol]180 mg/kAFktb24-469Plz [facility] Physician [facility] HospitalComment on above:Result Comment: Random Glucose Reference Range is dependent on time and content of last meal. Glucose of more than 200 mg/dL in a nonstressed, ambulatory subject supports the diagnosis of Diabetes Mellitus. ADA recommended reference rangePerformed By: #### GLULS #### Point of Care testing ,Potassium [Moles/Vol]3.2 mmol/LLow3.5-5.1The [facility] Physician GroupComment on above:Performed By: #### GLULS #### Point of Care testing ,Sodium [Moles/Vol]132 mmol/KMtr620-601Phy [facility] Physician GroupComment on above:Performed By: #### GLULS #### Point of Care testing ,Urea nitrogen [Mass/Vol]13 mg/dLNormal7-25The [facility] Physician GroupComment on above:Performed By: #### GLULS #### Point of Care testing ,Diff and CBCon 71-97-5491Gmze form neutrophils/100 WBC (Bld)1 %Normal0-5The [facility] Physician GroupComment on above:Performed By: #### GLULS #### Point of Care testing ,Basophils/100 WBC (Bld)1 %Normal0-2The [facility] Physician GroupComment on above:Performed By: #### GLULS #### Point of Care testing ,Eosinophils/100 WBC (Bld)2 %Normal1-3The [facility] [place] [facility] [place] Physician GroupComment on above:Performed By: #### GLULS #### Point of Care testing ,Erythrocyte distribution width (RBC) [Ratio]14.2 %Lkyzlr41.9-15.3The [facility] Physician GroupComment on above:Performed By: #### GLULS #### Point of Care testing ,Hematocrit (Bld) [Volume fraction]36.2 %Rtckkg41.0-46.4The [facility] Physician GroupComment on above:Performed By: #### GLULS #### Point of Care testing ,Hemoglobin (Bld) [Mass/Vol]12.6 g/tIFtxczx72.8-15.4The [facility] Physician GroupComment on above:Performed By: #### GLULS #### Point of Care testing ,Lymphocytes/100 WBC (Bld)22 %Buzjcq55-97Vdo [facility] Physician GroupComment on above:Performed By: #### GLULS #### Point of Care testing ,MCH (RBC) [Entitic mass]28.1 iwMypqcq07.7-34.3The [facility] [place] [facility] Comment on above:Performed By: #### GLULS #### Point of Care testing ,MCV (RBC) [Entitic vol]80.8 wCOqehdj53-533Mqk [facility] Physician GroupComment on above:Performed By: #### GLULS #### Point of Care testing ,Mean Corpuscular HGB Conc34.8 g/qVLuixge37.0-35.0The [facility] [place] [facility] Comment on above:Performed By: #### GLULS #### Point of Care testing ,Metamyelocytes3 %High0-0The [facility] Physician GroupComment on above:Performed By: #### GLULS #### Point of Care testing ,Monocytes/100 WBC (Bld)3 %Normal2-11The [facility] Physician GroupComment on above:Performed By: #### GLULS #### Point of Care testing ,Myelocytes5 %High0-0The [facility] Physician GroupComment on above:Performed By: #### GLULS #### Point of Care testing ,Platelet EstimateNormalNormalNormAdventHealth Orlando Physician GroupComment on above:Performed By: #### GLULS #### Point of Care testing ,Platelet mean volume (Bld) [Entitic vol]7.8 fLNormal6.3-10.7The [facility] Physician GroupComment on above:Performed By: #### GLULS #### Point of Care testing ,Platelet MorphologyNormalNormalNormAdventHealth Orlando Physician GroupComment on above:Result Comment: PERFORMED BY: [place] [address] [place] [address] PATHOLOGIST [employer] PROGRAMS DIRECTOR AHMET SAUCEDA M.D.Performed By: #### GLULS #### Point of Care testing ,Platelets (Bld) [#/Vol]239 10*3/fTDvjhve756-758Stj [facility] [place] [facility] Comment on above:Performed By: #### GLULS #### Point of Care testing ,RBC (Bld) [#/Vol]4.48 10*6/uLNormal3.60-5.00The [facility] [place] [facility] Comment on above:Performed By: #### GLULS #### Point of Care testing ,RBC morphology finding Nom (Bld)NormalNormalNormAdventHealth Orlando Physician [facility] Comment on above:Performed By: #### GLULS #### Point of Care testing ,Reactive Lymphocytes1 %Normal0-12ThSt. Mary's Hospital Physician [facility] HospitalComment on above: Performed By: #### GLULS #### Point of Care testing ,Segmented neutrophils/100 WBC (Bld)63 %Txbkvu71-08[place] Physician [facility] Comment on above:Performed By: #### GLULS #### Point of Care testing ,WBC (Bld) [#/Vol]11.6 10*3/uLNormal3.8-11.6ThSt. Mary's Hospital Physician [facility] HospitalComment on above:Performed By: #### GLULS #### Point of Care testing ,White Blood Count11.6 [CFU]/mLNormal3.8-11.6ThSt. Mary's Hospital Physician [facility] Comment on above:Performed By: #### GLULS #### Point of Care testing ,Glucose Poct Glucometerson 69-17-5282Pojfdxh [Mass/Vol]232 mg/dLCambridge Medical CenterComment on above:Result Comment: Random Glucose Reference Range is dependent on time and content of last meal. Glucose of more than 200 mg/dL in a nonstressed, ambulatory subject supports the diagnosis of Diabetes Mellitus. PERFORMED BY: [place] [id number] PATHOLOGIST [employer] PROGRAMS DIRECTOR AHMET SAUCEDA M.D.Performed By: #### GLULS ####Point of Care testing,Glucose [Mass/Vol]215 mg/dLHCA [facility] ER Physician GroupComment on above:Result Comment: Random Glucose Reference Range is dependent on time and content of last meal. Glucose of more than 200 mg/dL in a nonstressed, ambulatory subject supports the diagnosis of Diabetes Mellitus. PERFORMED BY: [address] [place] [address] PATHOLOGIST [employer] PROGRAMS DIRECTOR AHMET SAUCEDA M.D.Performed By: #### GLULS #### Point of Care testing ,Glucose [Mass/Vol]244 mg/dLNoWilson Medical Center Physician [facility] HospitalComment on above: Result Comment: Random Glucose Reference Range is dependent on time and content of last meal. Glucose of more than 200 mg/dL in a nonstressed, ambulatory subject supports the diagnosis of Diabetes Mellitus. PERFORMED BY: [facility] [address] [id number] PATHOLOGIST [employer] PROGRAMS DIRECTOR AHMET SAUCEDA M.D.Performed By: #### GLULS ####Point of Care testing,Glucose [Mass/Vol]157 mg/dLHCA Florida [facility] Hospital ER Physician GroupComment on above:Result Comment: Random Glucose Reference Range is dependent on time and content of last meal. Glucose of more than 200 mg/dL in a nonstressed, ambulatory subject supports the diagnosis of Diabetes Mellitus. PERFORMED BY: [facility] [address] [place] [address] PATHOLOGIST [employer] PROGRAMS DIRECTOR AHMET SAUCEDA M.D.Performed By: #### GLULS #### Point of Care testing ,Hepatic Panelon 47-74-5433Tvdoobw [Mass/Vol]2.8 g/dLLow3.5-5.7The [facility] [place] [facility] HospitalComment on above:Performed By: #### BMP, HEPATIC ####[place] [id number] USAAlbumin/Globulin [Mass ratio]0.8 {ratio}NormalThe [facility] Hospital - HarrisburgComment on above: Performed By: #### BMP, HEPATIC ####[address] [address] USAALP [Catalytic activity/Vol]98 U/EXhxzoj06-514Eqb [facility] Physician GroupComment on above:Performed By: #### BMP, HEPATIC ####[address] [address] USAALT [Catalytic activity/Vol]10 U/LNormal7-52The [facility] [place] Physician GroupComment on above:Performed By: #### BMP, HEPATIC ####[place] [id number] USAAST [Catalytic activity/Vol]11 U/XRai80-86Xcp [facility] Physician GroupComment on above:Performed By: #### BMP, HEPATIC ####[address] Bilirubin [Mass/Vol]0.6 mg/dLNormal0.3-1.0The [facility] Physician GroupComment on above:Performed By: #### BMP, HEPATIC ####[place] [address] USABilirubin,Indirect0.6 mg/dLNormalThe [facility] GroupComment on above:Performed By: #### BMP, HEPATIC ####[place] [address] USABilirubin.indirect [Mass/Vol]0.00 mg/dLLow0.03-0.18The [facility] Physician GroupComment on above: Result Comment: If the DBIL is less than 0.1, IBIL is not able to be calculated.Performed By: #### BMP, HEPATIC ####[address] StreetGlobulin (S) [Mass/Vol]3.4 g/dLNormal The [facility] Physician GroupComment on above:Performed By: #### BMP, HEPATIC ####[place] [address] USAProtein [Mass/Vol]6.2 g/dLLow6.4-8.9The [facility] [place] Physician GroupComment on above: Performed By: #### BMP, HEPATIC ####[place] [address] USABasic Metabolic Panelon 75-59-8869Cluto gap [Moles/Vol]11.0 mmol/LNormal6.0-15.0The [facility] [place] Physician GroupComment on above:Performed By: #### GLULS #### Point of Care testing ,Calcium [Mass/Vol]8.9 mg/dLNormal8.6-10.3The [facility] [place] Physician GroupComment on above:Performed By: #### GLULS #### Point of Care testing ,Chloride [Moles/Vol]99 mmol/HHmeqfa95-361Iqf [facility] Physician GroupComment on above:Performed By: #### GLULS #### Point of Care testing ,CO2 [Moles/Vol]25.3 mmol/FQltsnq94.0-31.0The [facility] [place] Physician GroupComment on above:Performed By: #### GLULS #### Point of Care testing ,Creatinine [Mass/Vol]0.92 mg/dLNormal0.60-1.20The [facility] [place] [facility] Comment on above:Performed By: #### GLULS #### Point of Care testing ,Creatinine Clr Calc Kbzryaei34.99NormalThe [facility] [place] Physician GroupComment on above:Result Comment: PERFORMED BY: [place] [address] [place] [address] PATHOLOGIST [employer] PROGRAMS DIRECTOR AHMET SAUCEDA M.D.Performed By: #### GLULS #### Point of Care testing ,GFR/1.73 sq M.predicted MDRD (S/P/Bld) [Vol rate/Area]mL/min/{1.73_m2}NormalThe [facility] Physician GroupComment on above:Performed By: #### GLULS #### Point of Care testing ,Glucose [Mass/Vol]129 mg/bAZbvl67-658Mtw [facility] Physician GroupComment on above:Result Comment: Random Glucose Reference Range is dependent on time and content of last meal. Glucose of more than 200 mg/dL in a nonstressed, ambulatory subject supports the diagnosis of Diabetes Mellitus. ADA recommended reference rangePerformed By: #### GLULS #### Point of Care testing ,Potassium [Moles/Vol]3.3 mmol/LLow3.5-5.1The [facility] [place] Physician GroupComment on above:Performed By: #### GLULS #### Point of Care testing ,Sodium [Moles/Vol]132 mmol/YPuk692-085Wlg [facility] [place] Physician GroupComment on above:Performed By: #### GLULS #### Point of Care testing ,Urea nitrogen [Mass/Vol]10 mg/dLNormal7-25The [facility] [place] Physician GroupComment on above:Performed By: #### GLULS #### Point of Care testing ,Diff and CBCon 40-14-5358Nphnimnvoj CommentsNormalThe [facility] [facility] Comment on above:Result Comment: Slide referred to pathologist for review PERFORMED BY: [facility] [address] [place], [place] [id number] PATHOLOGIST [employer] PROGRAMS DIRECTOR AHMET SAUCEDA M.D.Performed By: #### DIFF CBC, PATH SLIDE REV ####[address] [address] USABand form neutrophils/100 WBC (Bld)3 %Normal0-5The [facility] [place] Physician GroupComment on above:Performed By: #### DIFF CBC, PATH SLIDE REV ####[address] [address] USAEosinophils/100 WBC (Bld)1 %Normal1-3 The [facility] [place] Physician GroupComment on above:Performed By: #### DIFF CBC, PATH SLIDE REV ####[address] [address] USAErythrocyte distribution width (RBC) [Ratio]14.0 %Vkyltp58.9-15.3The [facility] [place] Physician GroupComment on above:Performed By: #### DIFF CBC, PATH SLIDE REV ####[address] [address] USAHematocrit (Bld) [Volume fraction]38.7 %Tivnic23.0-46.4The [facility] [place] [facility] HospitalComment on above:Performed By: #### DIFF CBC, PATH SLIDE REV ####[address] [address] [place] Hemoglobin (Bld) [Mass/Vol]13.3 g/jGZcdpdi12.8-15.4The [facility] [place] [facility] Comment on above:Performed By: #### DIFF CBC, PATH SLIDE REV ####[address] [address] USALymphocytes/100 WBC (Bld)15 %Emh33-93Esk [facility] Physician GroupComment on above:Performed By: #### DIFF CBC, PATH SLIDE REV ####[address] [address] USAMCH (RBC) [Entitic mass]27.7 zwDyumty51.7-34.3The [facility] [place] Physician GroupComment on above:Performed By: #### DIFF CBC, PATH SLIDE REV ####[address]V (RBC) [Entitic vol]80.6 pULwjmjf56-904Omx [facility] [facility] Comment on above:Performed By: #### DIFF CBC, PATH SLIDE REV ####[place] [address] USAMean Corpuscular HGB Conc34.4 g/aCJarxyt50.0-35.0The [facility] [place] Physician GroupComment on above: Performed By: #### DIFF CBC, PATH SLIDE REV ####[place] [address] USAMetamyelocytes2 %High0-0The [facility] [place] Physician GroupComment on above:Performed By: #### DIFF CBC, PATH SLIDE REV ####[place] [address] [place] Monocytes/100 WBC (Bld)7 %Normal2-11The [facility] [place] Physician GroupComment on above:Performed By: #### DIFF CBC, PATH SLIDE REV ####[place] [address] USAMyelocytes7 %High0-0The [facility] Physician GroupComment on above:Performed By: #### DIFF CBC, PATH SLIDE REV ####[place] [address] USAPlasma Cells2 %High0-0The [facility] [place] Physician GroupComment on above:Performed By: #### DIFF CBC, PATH SLIDE REV ####[place] [id number] USAPlatelet EstimateNormalNormalNormalThe [facility] Physician GroupComment on above:Performed By: #### DIFF CBC, PATH SLIDE REV ####[place] [address] [place] Platelet mean volume (Bld) [Entitic vol]7.7 fLNormal6.3-10.7The [facility] [place] Physician GroupComment on above:Performed By: #### DIFF CBC, PATH SLIDE REV ####[address] [address] [place] Platelet MorphologyNormalNormalNormAdventHealth Orlando Physician GroupComment on above:Result Comment: PERFORMED BY: [facility] [address] [place] [address] PATHOLOGIST [employer] PROGRAMS DIRECTOR AHMET SAUCEDA M.D.Performed By: #### DIFF CBC, PATH SLIDE REV ####[address] [address] USAPlatelets (Bld) [#/Vol]252 10*3/nWOyvsld688-197Tre [facility] [place] Physician GroupComment on above: Performed By: #### DIFF CBC, PATH SLIDE REV ####[address] [address] USAPromyelocytes1 %High0-0The [facility] [place] Physician GroupComment on above:Performed By: #### DIFF CBC, PATH SLIDE REV ####[address] [address] USARBC (Bld) [#/Vol]4.80 10*6/uLNormal3.60-5.00The [facility] [place] Physician GroupComment on above:Performed By: #### DIFF CBC, PATH SLIDE REV ####[address] [address] USARBC morphology finding Nom (Bld) NormalNormalNormAdventHealth Orlando Physician GroupComment on above:Performed By: #### DIFF CBC, PATH SLIDE REV ####[address] [address] USAReactive Lymphocytes1 %Normal0-12The [facility] [place] [facility]ician GroupComment on above:Performed By: #### DIFF CBC, PATH SLIDE REV ####[address] [address] [place] Segmented neutrophils/100 WBC (Bld)61 %Ijgmap68-77Fyr [facility] [place] [facility] Comment on above:Performed By: #### DIFF CBC, PATH SLIDE REV ####[facility] [place] [address] USAToxic Granulation SlightNormAdventHealth Orlando Physician GroupComment on above:Performed By: #### DIFF CBC, PATH SLIDE REV ####[place] [address] [place] [address] USAWBC (Bld) [#/Vol]16.0 10*3/uLHigh3.8-11.6The [facility] [place] [facility]ician GroupComment on above:Performed By: #### DIFF CBC, PATH SLIDE REV ####[address] [address] USAWhite Blood Count16.0 [CFU]/mLHigh3.8-11.6The [facility] [facility] Comment on above:Performed By: #### DIFF CBC, PATH SLIDE REV ####[address] [address] USAGlucose Poct Glucometerson 84-37-7836Gvwynsw [Mass/Vol]249 mg/dLHCA [facility] ER Physician [facility] HospitalComment on above:Result Comment: Random Glucose Reference Range is dependent on time and content of last meal. Glucose of more than 200 mg/dL in a nonstressed, ambulatory subject supports the diagnosis of Diabetes Mellitus. PERFORMED BY: [address] [place] [address] PATHOLOGIST [employer] PROGRAMS DIRECTOR AHMET SAUCEDA M.D.Performed By: #### GLULS #### Point of Care testing ,Glucose [Mass/Vol]252 mg/dLHCA [facility] ER Physician [facility] HospitalComment on above: Result Comment: Random Glucose Reference Range is dependent on time and content of last meal. Glucose of more than 200 mg/dL in a nonstressed, ambulatory subject supports the diagnosis of Diabetes Mellitus. PERFORMED BY: [facility] [address] [place] [id number] PATHOLOGIST [employer] PROGRAMS DIRECTOR AHMET SAUCEDA M.D.Performed By: #### GLULS #### Point of Care testing ,Glucose [Mass/Vol]179 mg/dLHCA Florida [facility] Hospital ER Physician GroupComment on above: Result Comment: Random Glucose Reference Range is dependent on time and content of last meal. Glucose of more than 200 mg/dL in a nonstressed, ambulatory subject supports the diagnosis of Diabetes Mellitus. PERFORMED BY: [facility] [address] [place] [address] PATHOLOGIST [employer] PROGRAMS DIRECTOR AHMET SAUCEDA M.D.Performed By: #### GLULS ####Point of Care testing,Glucose [Mass/Vol]143 mg/dLHCA [facility] Hospital ER Physician GroupComment on above:Result Comment: Random Glucose Reference Range is dependent on time and content of last meal. Glucose of more than 200 mg/dL in a nonstressed, ambulatory subject supports the diagnosis of Diabetes Mellitus. PERFORMED BY: [address] [place] [address] PATHOLOGIST [employer] PROGRAMS DIRECTOR AHMET SAUCEDA M.D.Performed By: #### DELORIS ####Point of Care testing,Adam 01-26-2025 Specimen: [id number] Received: 01/26/25 Status: ARLET [place] Num: [id number] Spec Type: Impression Subm Dr: Abraham Terrazas DO Tissues: PATHPER Procedures: PATHREVIEW Age/ Patient Sex Location Account Attending Physician Stew Argueta Tamica 60/F 4P [id number] Abraham Terrazas, DO SPEC NUM: [id number] RECD: 01/26/25 STATUS: ARLET REEn NUM: [id number] ALESSANDRA: 01/26/25- SUBM DR: Abraham Terrazas, ENTERED: 01/26/[address]: SPEC TYPE: Impression DEPT: PA ORDERED: PATHREVIEW ORDERED: PATHREVIEW Pathologist Review Peripheral blood smear evaluation: - Mild neutrophilic leukocytosis consistent with infection. Recommend clinical correlation and rule out infection. - White blood cell and Platelet: Unremarkable. CPT: 77577 CBC Date Time Test Result Flag (u) [...] Specimen: Received: 01/26/25 Status: ARLET Taylor Num: [id number] Spec Type: Impression Subm Dr: Abraham Terrazas DO Tissues: PATHPER Procedures: PATHREVIEW Patient: Stew Argueta [id number] (Continued) Specimen: Received: 01/26/25 (Continued) KALPANA (Continued) Signed (signature on file) Taj Cardozo MD 01/26/25 1456 Specimen: Received: 01/26/25 Status: ARLET Taylor Num: [id number] Spec Type: Impression Subm Dr: Abraham Terrazas DO Tissues: PATHPER Procedures: PATHREVIEW Patient: Stew Argueta Tamica [id number] (Continued) Specimen: [id number] Received: 01/26/25-121 (Continued) CBC (Continued) RDW 14.0 11.9-15.3 % Plt 252 150-450 x10E3/uL MPV 7.7 6.3-10.7 fl Seg 61 50-70 % Band 3 0-5 % Lymph 15 L 18-42 % Reactive Lymphs 1 0-12 % Wise 7 2-11 % Eos 1 1-3 % Elkins 2 H 0-0 % Myelo 7 H 0-0 % Promyelo 1 H 0-0 % Plasma Cells 2 H 0-0 % RBC Morph Normal Normal Toxic Gran Slight Plt Est Normal Normal Plt Morphology Normal Normal Add Comments Slide referred to pathologist for review Specimen: [id number] Received: 01/26/25-2 Status: ARLET Taylor Num: [id number] Spec Type: Impression Subm Dr: Abraham Terrazas, DO Tissues: PATHPER Procedures: PATHREVIEW Patient: SolangeNigel gonzalezjennifer Davey [id number] (Continued) Signed (signature on file) Taj Cardozo MD 01/26/25 1456Normal [facility] GroupPathologist Slide Reviewon 89-91-1630Mcniugkrzbn Slide ReviewOrdered Path ReviewNormalThSt. Mary's Hospital Physician GroupComment on above:Result Comment: PERFORMED BY: [facility] [address] [place] [address] PATHOLOGIST [employer] PROGRAMS DIRECTOR AHMET SAUCEDA M.D.Performed By: #### DIFF CBC, PATH SLIDE REV ####[facility] [address] [place] [address] USABasic Metabolic Panel on 83-07-7259Jregq gap [Moles/Vol]9.9 mmol/LNormal6.0-15.0The [facility] [place] Physician GroupComment on above:Performed By: #### GLULS #### Point of Care testing ,Calcium [Mass/Vol]8.7 mg/dLNormal8.6-10.3The [facility] [place] Physician GroupComment on above:Performed By: #### GLULS #### Point of Care testing ,Chloride [Moles/Vol]102 mmol/BFamljl52-191Hou [facility] Physician GroupComment on above:Performed By: #### GLULS #### Point of Care testing ,CO2 [Moles/Vol]22.2 mmol/MKjvdej45.0-31.0The [facility] [place] Physician GroupComment on above:Performed By: #### GLULS #### Point of Care testing ,Creatinine [Mass/Vol]0.93 mg/dLNormal0.60-1.20The [facility] [place] [facility] Comment on above:Performed By: #### GLULS #### Point of Care testing ,Creatinine Clr Calc Zldeezby23.02NormalThe [facility] [place] Physician GroupComment on above:Result Comment: PERFORMED BY: [address] [place] [address] PATHOLOGIST [employer] PROGRAMS DIRECTOR AHMET SAUCEDA M.D.Performed By: #### GLULS #### Point of Care testing ,GFR/1.73 sq M.predicted MDRD (S/P/Bld) [Vol rate/Area]mL/min/{1.73_m2}NormalThe [facility] [place] Physician GroupComment on above:Performed By: #### GLULS #### Point of Care testing ,Glucose [Mass/Vol]188 mg/jZMgep43-467Nlg [facility] Physician GroupComment on above:Result Comment: Random Glucose Reference Range is dependent on time and content of last meal. Glucose of more than 200 mg/dL in a nonstressed, ambulatory subject supports the diagnosis of Diabetes Mellitus. ADA recommended reference rangePerformed By: #### GLULS #### Point of Care testing ,Potassium [Moles/Vol]3.1 mmol/LLow3.5-5.1The [facility] Physician GroupComment on above:Performed By: #### GLULS #### Point of Care testing ,Sodium [Moles/Vol]131 mmol/LZln535-582Hnw [facility] Physician GroupComment on above:Performed By: #### GLULS #### Point of Care testing ,Urea nitrogen [Mass/Vol]14 mg/dLNormal7-25The [facility] [place] Physician GroupComment on above:Performed By: #### GLULS #### Point of Care testing ,Diff and CBCon 34-99-3732Zbtm form neutrophils/100 WBC (Bld)12 %High0-5The [facility] Physician GroupComment on above:Performed By: #### GLULS #### Point of Care testing ,Basophils/100 WBC (Bld)1 %Normal0-2The [facility] Physician GroupComment on above:Performed By: #### GLULS #### Point of Care testing ,Eosinophils/100 WBC (Bld)4 %High1-3The [facility] Physician GroupComment on above:Performed By: #### GLULS #### Point of Care testing ,Erythrocyte distribution width (RBC) [Ratio]14.1 %Vuhdvg11.9-15.3The [facility] Physician GroupComment on above:Performed By: #### GLULS #### Point of Care testing ,Hematocrit (Bld) [Volume fraction]37.5 %Vjyuil67.0-46.4The [facility] Physician GroupComment on above:Performed By: #### GLULS #### Point of Care testing ,Hemoglobin (Bld) [Mass/Vol]12.9 g/iKZpqmob20.8-15.4The [facility] Physician GroupComment on above:Performed By: #### GLULS #### Point of Care testing ,Lymphocytes/100 WBC (Bld)6 %Iqa87-45Rma [facility] Physician GroupComment on above:Performed By: #### GLULS #### Point of Care testing ,MCH (RBC) [Entitic mass]27.9 arXjvapc30.7-34.3The [facility] Comment on above:Performed By: #### GLULS #### Point of Care testing ,MCV (RBC) [Entitic vol]80.9 xZLifmjg17-094Jnq [facility] Physician GroupComment on above:Performed By: #### GLULS #### Point of Care testing ,Mean Corpuscular HGB Conc34.5 g/zDQrwqei87.0-35.0The [facility] [place] [facility]ician [facility] Comment on above:Performed By: #### GLULS #### Point of Care testing ,Metamyelocytes1 %High0-0The [facility] Physician GroupComment on above:Performed By: #### GLULS #### Point of Care testing ,Monocytes/100 WBC (Bld)5 %Normal2-11The [facility]ician GroupComment on above:Performed By: #### GLULS #### Point of Care testing ,Myelocytes6 %High0-0The [facility] [place] Physician GroupComment on above:Performed By: #### GLULS #### Point of Care testing ,Plasma Cells1 %High0-0The [facility] Physician GroupComment on above:Performed By: #### GLULS #### Point of Care testing ,Platelet EstimateNormalNormalNormSelect Medical Specialty Hospital - [facility]one [facility] Physician GroupComment on above:Performed By: #### GLULS #### Point of Care testing ,Platelet mean volume (Bld) [Entitic vol]7.9 fLNormal6.3-10.7The [facility] Physician GroupComment on above:Performed By: #### GLULS #### Point of Care testing ,Platelet MorphologyNormalNormalNormAdventHealth Orlando Physician GroupComment on above:Result Comment: PERFORMED BY: [place] [address] [place] [address] PATHOLOGIST [employer] PROGRAMS DIRECTOR AHMET SAUCEDA M.D.Performed By: #### GLULS #### Point of Care testing ,Platelets (Bld) [#/Vol]253 10*3/gOOgzbxi639-194Mqj [facility] Comment on above:Performed By: #### GLULS #### Point of Care testing ,RBC (Bld) [#/Vol]4.64 10*6/uLNormal3.60-5.00The [facility] Physician [facility] Comment on above:Performed By: #### GLULS #### Point of Care testing ,RBC morphology finding Nom (Bld)NormalNormalNoWilson Medical Center Physician [facility] Comment on above:Performed By: #### GLULS #### Point of Care testing ,Segmented neutrophils/100 WBC (Bld)63 %Cwnkeb44-70Yrr [facility] Comment on above:Performed By: #### GLULS #### Point of Care testing ,WBC (Bld) [#/Vol]15.4 10*3/uLHigh3.8-11.6The [facility] Physician GroupComment on above:Performed By: #### GLULS #### Point of Care testing ,White Blood Count15.4 [CFU]/mLHigh3.8-11.6The [facility] Physician GroupComment on above:Performed By: #### GLULS #### Point of Care testing ,Glucose Poct Glucometerson 77-72-5381Zlwavnh6Pac4: Cleaned MeterHCA [facility] ER Physician GroupComment on above:Result Comment: PERFORMED BY: [address] [address] PATHOLOGIST [employer] PROGRAMS DIRECTOR AHMET SAUCEDA M.D.Performed By: #### GLULS #### Point of Care testing ,Glucose [Mass/Vol]315 mg/dLHCA [facility] ER Physician [facility] HospitalComment on above: Result Comment: Random Glucose Reference Range is dependent on time and content of last meal. Glucose of more than 200 mg/dL in a nonstressed, ambulatory subject supports the diagnosis of Diabetes Mellitus.Performed By: #### GLULS #### Point of Care testing ,Glucose [Mass/Vol]229 mg/dLHCA [facility] ER Physician GroupComment on above: Result Comment: Random Glucose Reference Range is dependent on time and content of last meal. Glucose of more than 200 mg/dL in a nonstressed, ambulatory subject supports the diagnosis of Diabetes Mellitus. PERFORMED BY: [address] [address] PATHOLOGIST [employer] PROGRAMS DIRECTOR AHMET SAUCEDA M.D.Performed By: #### GLULS ####Point of Care testing,Commemt1 Glu2: Cleaned MeterHCA Florida West Tampa Hospital ER Physician GroupComment on above:Result Comment: PERFORMED BY: [facility] [place] [address] PATHOLOGIST [employer] PROGRAMS DIRECTOR AHMET SAUCEDA M.D.Performed By: #### GLULS #### Point of Care testing ,Glucose [Mass/Vol]271 mg/dLHCA Florida [facility] ER Physician GroupComment on above: Result Comment: Random Glucose Reference Range is dependent on time and content of last meal. Glucose of more than 200 mg/dL in a nonstressed, ambulatory subject supports the diagnosis of Diabetes Mellitus.Performed By: #### GLULS #### Point of Care testing ,Glucose [Mass/Vol]213 mg/dLHCA [facility] ER Physician GroupComment on above: Result Comment: Random Glucose Reference Range is dependent on time and content of last meal. Glucose of more than 200 mg/dL in a nonstressed, ambulatory subject supports the diagnosis of Diabetes Mellitus.Performed By: #### GLULS #### Point of Care testing ,Adam 01-25-2025 Specimen: [id number] Received: 01/25/25 Status: ARLET Taylor Num: [id number] Spec Type: Impression Subm Dr: TL STAFF Tissues: PATHPER Procedures: PATHREVIEW Age/ Patient Sex Location Account Attending Physician Stew Argueta Tam[place] 60/F 4C [id number] Abraham Terrazas, DO SPEC NUM: [id number] RECD: 01/25/25 STATUS: ARLET TAYLOR NUM: [id number] ALESSANDRA: 01/25/25- SUBM DR: NON STAFF ENTERED: 01/25/25 REILLY ONEILL: SPEC TYPE: Impression DEPT: PA ORDERED: PATHREVIEW ORDERED: PATHREVIEW Pathologist Review Peripheral blood smear evaluation: - Mild neutrophilic leukocytosis, recommend clinical correlation and rule out infection. - White blood cell and Platelet: Unremarkable. CPT: 88315 CBC Date Time Test Result Flag (u) [...] [id number] Received: 01/25/25 Status: ARLET Taylor Num: [id number] Spec Type: Impression Subm Dr: TL MILLER Tissues: PATHPER Procedures: PATHREVIEW Patient: Stew Argueta [id number] (Continued) Specimen: [id number] Received: 01/25/25 (Continued) KALPANA (Continued) Signed (signature on file) Taj Cardozo MD 01/25/25 1547 Specimen: [id number] Received: 01/25/25 Status: ARLET Taylor Num: [id number] Spec Type: Impression Subm Dr: TL STAFF Tissues: PATHPER Procedures: PATHREVIEW Patient: Stew Argueta [place] [id number] (Continued) Specimen: [id number] Received: 01/25/25 (Continued) CBC (Continued) MPV 7.9 6.3-10.7 fl Seg 63 50-70 % Band 12 H 0-5 % Lymph 6 L 18-42 % Wise 5 2-11 % Eos 4 H 1-3 % Baso 1 0-2 % Elkins 1 H 0-0 % Myelo 6 H 0-0 % Plasma Cells 1 H 0-0 % RBC Morph Normal Normal Plt Est Normal Normal Plt Morphology Normal Normal Specimen: [id number] Received: 01/25/25 Status: ARLET Taylor Num: [id number] Spec Type: Impression Subm Dr: TL MILLER Tissues: PATHPER Procedures: PATHREVIEW Patient: Stew Argueta [id number] (Continued) Signed (signature on file) Taj Cardozo MD 01/25/25 1547Normal [facility] Physician GroupPathologist Slide Reviewon 23-44-6475Chtrdunbzbm Slide ReviewOrdered Path ReviewNormAdventHealth Orlando Physician GroupComment on above:Result Comment: PERFORMED BY: [place] [id number] PATHOLOGIST [employer] PROGRAMS DIRECTOR AHMET SAUCEDA M.D.Performed By: #### GLULS #### Point of Care testing ,XR chest 1V portableon 51-46-7579ZD chest 1V portableOHIOHEALTH [place] [address] XRay Report Signed Patient: Stew Argueta MR#: [id number] : 1965 Acct:[id number] Age/Sex: 60 / F ADM Date: 01/21/25 Loc: Room: [address] [place] [address] Type: ADM IN Attending Dr: Abraham Terrazas [...] Parsons M.D. 01/25/2025 6:11 AM Dictation Location: [place] [address] Transcribed By: [facility] 01/25/25610 Dictated By: Lux Parsons II, MD 01/25/25609 Signed By: 01/25/25 0611NormMemorial Hospital CentralBasic Metabolic Panelon 45-28-6049Epcyx gap [Moles/Vol]12.7 mmol/LNormal6.0-15.0The [facility] Physician GroupComment on above:Performed By: #### GLULS #### Point of Care testing ,Calcium [Mass/Vol]8.5 mg/dLLow8.6-10.3The [facility] Physician GroupComment on above:Performed By: #### GLULS #### Point of Care testing ,Chloride [Moles/Vol]107 mmol/IKnuayo20-275Fkh [facility] GroupComment on above:Performed By: #### GLULS #### Point of Care testing ,CO2 [Moles/Vol]16.9 mmol/LLow21.0-31.0The [facility] Physician GroupComment on above:Performed By: #### GLULS #### Point of Care testing ,Creatinine [Mass/Vol]1.04 mg/dLNormal0.60-1.20The [facility] Comment on above:Performed By: #### GLULS #### Point of Care testing ,Creatinine Clr Calc Cgmjspbe83.35NoWilson Medical Center Physician GroupComment on above:Performed By: #### GLULS #### Point of Care testing ,GFR/1.73 sq M.predicted MDRD (S/P/Bld) [Vol rate/Area]mL/min/{1.73_m2}NormalThe [facility] Physician GroupComment on above:Performed By: #### GLULS #### Point of Care testing ,Glucose [Mass/Vol]270 mg/aNMymu20-943Euz [facility] Physician GroupComment on above:Result Comment: Random Glucose Reference Range is dependent on time and content of last meal. Glucose of more than 200 mg/dL in a nonstressed, ambulatory subject supports the diagnosis of Diabetes Mellitus. ADA recommended reference rangePerformed By: #### GLULS #### Point of Care testing ,Potassium [Moles/Vol]3.6 mmol/LNormal3.5-5.1The [facility] Comment on above:Performed By: #### GLULS #### Point of Care testing ,Sodium [Moles/Vol]133 mmol/UGja481-543Qvp [facility] Physician GroupComment on above:Performed By: #### GLULS #### Point of Care testing ,Urea nitrogen [Mass/Vol]20 mg/dLNormal7-25The [facility] Physician GroupComment on above:Performed By: #### GLULS #### Point of Care testing ,Beta Hydroxybuterateon 04-44-5073Uxik Hydroxybuterate0.56 mmol/LHigh0.02-0.27 The [facility] Physician GroupComment on above:Result Comment: PERFORMED BY: [place] [address] [place] [address] PATHOLOGIST [employer] PROGRAMS DIRECTOR AHMET SAUCEDA M.D.Performed By: #### GLULS #### Point of Care testing ,Diff and CBCon 52-14-5912Llugcdrerrmp Ql (Bld)SlightNoWilson Medical Center Physician GroupComment on above:Performed By: #### GLULS #### Point of Care testing ,Band form neutrophils/100 WBC (Bld)9 %High0-5The [facility] Comment on above:Performed By: #### GLULS #### Point of Care testing ,Eosinophils/100 WBC (Bld)1 %Normal1-3The [facility] Physician GroupComment on above:Performed By: #### GLULS #### Point of Care testing ,Erythrocyte distribution width (RBC) [Ratio]14.4 %Jynscl34.9-15.3The [facility] Physician GroupComment on above:Performed By: #### GLULS #### Point of Care testing ,Hematocrit (Bld) [Volume fraction]37.1 %Gytxme57.0-46.4The [facility] Physician GroupComment on above:Performed By: #### GLULS #### Point of Care testing ,Hemoglobin (Bld) [Mass/Vol]12.4 g/vKBssqfy30.8-15.4The [facility] Physician GroupComment on above:Performed By: #### GLULS #### Point of Care testing ,Lymphocytes/100 WBC (Bld)6 %Vay01-72Thh [facility] Physician GroupComment on above:Performed By: #### GLULS #### Point of Care testing ,MCH (RBC) [Entitic mass]27.6 ktJpmlxc73.7-34.3The [facility] Physician [facility] Comment on above:Performed By: #### GLULS #### Point of Care testing ,MCV (RBC) [Entitic vol]82.5 wPFjbcgu32-187Uye [facility] Physician GroupComment on above:Performed By: #### GLULS #### Point of Care testing ,Mean Corpuscular HGB Conc33.4 g/wXXyesnr82.0-35.0[facility] Comment on above:Performed By: #### GLULS #### Point of Care testing ,Metamyelocytes4 %High0-0The [facility] Physician GroupComment on above:Performed By: #### GLULS #### Point of Care testing ,MicrocytosisSlightNormalThe [facility] Physician GroupComment on above:Performed By: #### GLULS #### Point of Care testing ,Monocytes/100 WBC (Bld)0 %Low2-11The [facility] Physician GroupComment on above: Performed By: #### GLULS #### Point of Care testing ,Myelocytes4 %High0-0The [facility] Physician GroupComment on above:Performed By: #### GLULS #### Point of Care testing ,Platelet EstimateNormalNormalNormalThSt. Mary's Hospital Physician GroupComment on above:Result Comment: PERFORMED BY: [facility] [place] [address] PATHOLOGIST [employer] PROGRAMS DIRECTOR AHMET SAUCEDA M.D.Performed By: #### GLULS #### Point of Care testing ,Platelet mean volume (Bld) [Entitic vol]8.1 fLNormal6.3-10.7The [facility] Physician GroupComment on above:Performed By: #### GLULS #### Point of Care testing ,Platelets (Bld) [#/Vol]230 10*3/oDAmuqwr041-586Tut [facility] Comment on above:Performed By: #### GLULS #### Point of Care testing ,RBC (Bld) [#/Vol]4.50 10*6/uLNormal3.60-5.00[facility] Physician [facility] Comment on above:Performed By: #### GLULS #### Point of Care testing ,RBC morphology finding Nom (Bld)NormalNormalCambridge Medical Center Comment on above:Performed By: #### GLULS #### Point of Care testing ,Segmented neutrophils/100 WBC (Bld)77 %Emcn81-89YpmMiami Children'S Hospital Physician [facility] Comment on above:Performed By: #### GLULS #### Point of Care testing ,WBC (Bld) [#/Vol]14.2 10*3/uLHigh3.8-11.6The [facility] Physician GroupComment on above:Performed By: #### GLULS #### Point of Care testing ,White Blood Count14.2 [CFU]/mLHigh3.8-11.6The [facility] Physician GroupComment on above:Performed By: #### GLULS #### Point of Care testing ,Glucose Poct Glucometerson 08-03-4969Dvjjexs [Mass/Vol]395 mg/dLNoWilson Medical Center Physician GroupComment on above:Result Comment: Random Glucose Reference Range is dependent on time and content of last meal. Glucose of more than 200 mg/dL in a nonstressed, ambulatory subject supports the diagnosis of Diabetes Mellitus. PERFORMED BY: [place] [address] PATHOLOGIST INTE[employer] PROGRAMS DIRECTOR AHMET SAUCEDA M.D.Performed By: #### GLULS #### Point of Care testing ,Glucose [Mass/Vol]323 mg/dLNoWilson Medical Center Physician GroupComment on above: Result Comment: Random Glucose Reference Range is dependent on time and content of last meal. Glucose of more than 200 mg/dL in a nonstressed, ambulatory subject supports the diagnosis of Diabetes Mellitus. PERFORMED BY: [place] [address] PATHOLOGIST INTE[employer]ATED LOGIST[employer] PROGRAMS DIRECTOR AHMET SAUCEDA M.D.Performed By: #### GLULS #### Point of Care testing ,Glucose [Mass/Vol]291 mg/dLNoWilson Medical Center Physician GroupComment on above: Result Comment: Random Glucose Reference Range is dependent on time and content of last meal. Glucose of more than 200 mg/dL in a nonstressed, ambulatory subject supports the diagnosis of Diabetes Mellitus. PERFORMED BY: [place] [address] PATHOLOGIST INTE[employer] PROGRAMS DIRECTOR AHMET SAUCEDA M.D.Performed By: #### BHOB #### [place] [address] USAGlucose [Mass/Vol]291 mg/dLNoWilson Medical Center Physician GroupComment on above:Result Comment: Random Glucose Reference Range is dependent on time and content of last meal. Glucose of more than 200 mg/dL in a nonstressed, ambulatory subject supports the diagnosis of Diabetes Mellitus. PERFORMED BY: [place] [address] PATHOLOGIST INTEGRATED LOGISTICS PROGRAMS DIRECTORDIRECTOR AHMET SAUCEDA M.D.Performed By: #### BHOB #### [facility] [address] [place] [address] USABasic Metabolic Panelon 23-44-8946Wbahw gap [Moles/Vol] 11.5 mmol/LNormal6.0-15.0The [facility] Physician GroupComment on above:Performed By: #### GLULS #### Point of Care testing ,Calcium [Mass/Vol]8.6 mg/dLNormal8.6-10.3The [facility] Physician GroupComment on above:Performed By: #### GLULS #### Point of Care testing ,Chloride [Moles/Vol]111 mmol/PYyru78-801Yvc [facility] Physician GroupComment on above:Performed By: #### GLULS #### Point of Care testing ,CO2 [Moles/Vol]14.4 mmol/LLow21.0-31.0The [facility] Physician GroupComment on above:Performed By: #### GLULS #### Point of Care testing ,Creatinine [Mass/Vol]1.07 mg/dLNormal0.60-1.20The [facility] Physician [facility] Comment on above:Performed By: #### GLULS #### Point of Care testing ,Creatinine Clr Calc Tgigmsjd40.15NormalThe [facility] Physician GroupComment on above:Performed By: #### GLULS #### Point of Care testing ,GFR/1.73 sq M.predicted MDRD (S/P/Bld) [Vol rate/Area]mL/min/{1.73_m2}NormalThe [facility] Physician GroupComment on above:Performed By: #### GLULS #### Point of Care testing ,Glucose [Mass/Vol]163 mg/oYMzio45-415Sjc [facility] Physician GroupComment on above:Result Comment: Random Glucose Reference Range is dependent on time and content of last meal. Glucose of more than 200 mg/dL in a nonstressed, ambulatory subject supports the diagnosis of Diabetes Mellitus. ADA recommended reference rangePerformed By: #### GLULS #### Point of Care testing ,Potassium [Moles/Vol]3.9 mmol/LNormal3.5-5.1The [facility] Physician [facility] Comment on above:Performed By: #### GLULS #### Point of Care testing ,Sodium [Moles/Vol]133 mmol/PNhf913-400Dcg [facility] Physician GroupComment on above:Performed By: #### GLULS #### Point of Care testing ,Urea nitrogen [Mass/Vol]24 mg/dLNormal7-25The [facility] Physician GroupComment on above:Performed By: #### GLULS #### Point of Care testing ,Beta Hydroxybuterateon 98-57-7346Hiqv Hydroxybuterate0.18 mmol/LNormal0.02-0.27 The [facility] Physician GroupComment on above:Result Comment: PERFORMED BY: [place] [address] [place] [address] PATHOLOGIST IN[employer] PROGRAMS DIRECTOR AHMET SAUCEDA M.D.Performed By: #### GLULS #### Point of Care testing ,Diff and CBCon 46-39-0136Hrtv form neutrophils/100 WBC (Bld)10 %High0-5The [facility] Physician GroupComment on above:Performed By: #### GLULS #### Point of Care testing ,Eosinophils/100 WBC (Bld)1 %Normal1-3The [facility] Physician GroupComment on above:Performed By: #### GLULS #### Point of Care testing ,Erythrocyte distribution width (RBC) [Ratio]14.1 %Cgvhjo75.9-15.3The [facility] Physician GroupComment on above:Performed By: #### GLULS #### Point of Care testing ,Hematocrit (Bld) [Volume fraction]34.9 %Ooecko58.0-46.4The [facility] Physician GroupComment on above:Performed By: #### GLULS #### Point of Care testing ,Hemoglobin (Bld) [Mass/Vol]11.9 g/wIGhztzm88.8-15.4The [facility] Physician GroupComment on above:Performed By: #### GLULS #### Point of Care testing ,Lymphocytes/100 WBC (Bld)6 %Cgn60-05Ipj [facility] Physician GroupComment on above:Performed By: #### GLULS #### Point of Care testing ,MCH (RBC) [Entitic mass]27.9 vgFhgknl95.7-34.3The [facility] Comment on above:Performed By: #### GLULS #### Point of Care testing ,MCV (RBC) [Entitic vol]81.4 jUFlvlme97-566Jvw [facility] Physician GroupComment on above:Performed By: #### GLULS #### Point of Care testing ,Mean Corpuscular HGB Conc34.2 g/jCCwedkd70.0-35.0The [facility] Physician [facility] Comment on above:Performed By: #### GLULS #### Point of Care testing ,Monocytes/100 WBC (Bld)4 %Normal2-11The [facility] Physician GroupComment on above:Performed By: #### GLULS #### Point of Care testing ,Myelocytes3 %High0-0The [facility] Physician GroupComment on above:Performed By: #### GLULS #### Point of Care testing ,Platelet EstimateNormalNormalNormalThe [facility] Physician GroupComment on above:Performed By: #### GLULS #### Point of Care testing ,Platelet mean volume (Bld) [Entitic vol]7.9 fLNormal6.3-10.7The [facility] Physician GroupComment on above:Performed By: #### GLULS #### Point of Care testing ,Platelet MorphologyNormalNormalNormalThe [facility] Physician GroupComment on above:Result Comment: PERFORMED BY: [place] [address] [place] [address] PATHOLOGIST [employer] PROGRAMS DIRECTOR AHMET SAUCEDA M.D.Performed By: #### GLULS #### Point of Care testing ,Platelets (Bld) [#/Vol]257 10*3/hKYfzfdh478-970Qrq [facility] Comment on above:Performed By: #### GLULS #### Point of Care testing ,RBC (Bld) [#/Vol]4.29 10*6/uLNormal3.60-5.00The [facility] Comment on above:Performed By: #### GLULS #### Point of Care testing ,RBC morphology finding Nom (Bld)NormalNormalNormAdventHealth Orlando Physician Group Comment on above:Performed By: #### GLULS #### Point of Care testing ,Segmented neutrophils/100 WBC (Bld)77 %Mviw02-50TxnMiami Children'S Hospital Physician [facility] Comment on above:Performed By: #### GLULS #### Point of Care testing ,WBC (Bld) [#/Vol]21.5 10*3/uLHigh3.8-11.6ThSt. Mary's Hospital Physician GroupComment on above:Performed By: #### GLULS #### Point of Care testing ,White Blood Count21.5 [CFU]/mLHigh3.8-11.6ThSt. Mary's Hospital Physician GroupComment on above:Performed By: #### GLULS #### Point of Care testing ,Glucose Poct Glucometerson 38-08-0675Anhodyb [Mass/Vol]205 mg/dLNoWilson Medical Center Physician [facility] HospitalComment on above:Result Comment: Random Glucose Reference Range is dependent on time and content of last meal. Glucose of more than 200 mg/dL in a nonstressed, ambulatory subject supports the diagnosis of Diabetes Mellitus. PERFORMED BY: [place] [address] PATHOLOGIST INTE[employer] LOGIST[employer] PROGRAMS DIRECTOR AHMET SAUCEDA M.D.Performed By: #### GLULS #### Point of Care testing ,Glucose [Mass/Vol]224 mg/dLHCA Florida West [facility] ER Physician [facility] HospitalComment on above: Result Comment: Random Glucose Reference Range is dependent on time and content of last meal. Glucose of more than 200 mg/dL in a nonstressed, ambulatory subject supports the diagnosis of Diabetes Mellitus. PERFORMED BY: [place] [address] PATHOLOGIST INTE[employer]ATED LOGISTICS PROGRAMS DIRECTOR AHMET SAUCEDA M.D.Performed By: #### BHOB #### [place] [address] USAGlucose [Mass/Vol]119 mg/dLNoWilson Medical Center Physician [facility] HospitalComment on above:Result Comment: Random Glucose Reference Range is dependent on time and content of last meal. Glucose of more than 200 mg/dL in a nonstressed, ambulatory subject supports the diagnosis of Diabetes Mellitus. PERFORMED BY: [address] [place] [id number] PATHOLOGIST INTE[employer]IST[employer] PROGRAMS DIRECTOR AHMET SAUCEDA M.D.Performed By: #### GLULS #### Point of Care testing ,Glucose [Mass/Vol]112 mg/dLNoWilson Medical Center Physician GroupComment on above: Result Comment: Random Glucose Reference Range is dependent on time and content of last meal. Glucose of more than 200 mg/dL in a nonstressed, ambulatory subject supports the diagnosis of Diabetes Mellitus. PERFORMED BY: [address] [address] PATHOLOGIST INTEGRATED LOGISTICS PROGRAMS DIRECTOR AHMET SAUCEDA M.D.Performed By: #### GLULS #### Point of Care testing ,Glucose [Mass/Vol]130 mg/dLNoWilson Medical Center Physician GroupComment on above: Result Comment: Random Glucose Reference Range is dependent on time and content of last meal. Glucose of more than 200 mg/dL in a nonstressed, ambulatory subject supports the diagnosis of Diabetes Mellitus. PERFORMED BY: [place] [id number] PATHOLOGIST INTE[employer]ATED LOGIST[employer] PROGRAMS DIRECTOR AHMET SAUCEDA M.D.Performed By: #### GLULS #### Point of Care testing ,Glucose [Mass/Vol]137 mg/dLHCA Florida West Tampa Hospital ER Physician GroupComment on above: Result Comment: Random Glucose Reference Range is dependent on time and content of last meal. Glucose of more than 200 mg/dL in a nonstressed, ambulatory subject supports the diagnosis of Diabetes Mellitus. PERFORMED BY: [address] [place] [id number] PATHOLOGIST INTEGRATED LOGISTICS PROGRAMS DIRECTOR AHMET SAUCEDA M.D.Performed By: #### GLULS #### Point of Care testing ,Glucose [Mass/Vol]152 mg/dLHCA Florida West Tampa Hospital ER Physician GroupComment on above: Result Comment: Random Glucose Reference Range is dependent on time and content of last meal. Glucose of more than 200 mg/dL in a nonstressed, ambulatory subject supports the diagnosis of Diabetes Mellitus. PERFORMED BY: [place] [id number] PATHOLOGIST [employer] PROGRAMS DIRECTOR AHMET SAUCEDA M.D.Performed By: #### GLULS #### Point of Care testing ,Glucose [Mass/Vol]163 mg/dLHCA Florida [facility] ER Physician GroupComment on above: Result Comment: Random Glucose Reference Range is dependent on time and content of last meal. Glucose of more than 200 mg/dL in a nonstressed, ambulatory subject supports the diagnosis of Diabetes Mellitus. PERFORMED BY: [place] [id number] PATHOLOGIST INTEGRATED LOGIST[employer] PROGRAMS DIRECTOR AHMET SAUCEDA M.D.Performed By: #### GLULS #### Point of Care testing ,Glucose [Mass/Vol]145 mg/dLHCA [facility] ER Physician GroupComment on above: Result Comment: Random Glucose Reference Range is dependent on time and content of last meal. Glucose of more than 200 mg/dL in a nonstressed, ambulatory subject supports the diagnosis of Diabetes Mellitus. PERFORMED BY: [place] [id number] PATHOLOGIST INTE[employer] LOGIST[employer] PROGRAMS DIRECTOR AHMET SAUCEDA M.D.Performed By: #### GLULS #### Point of Care testing ,Glucose [Mass/Vol]151 mg/dLHCA [facility] Hospital ER Physician GroupComment on above: Result Comment: Random Glucose Reference Range is dependent on time and content of last meal. Glucose of more than 200 mg/dL in a nonstressed, ambulatory subject supports the diagnosis of Diabetes Mellitus. PERFORMED BY: [place] [id number] PATHOLOGIST INTE[employer] LOGIST[employer] PROGRAMS DIRECTOR AHMET SAUCEDA M.D.Performed By: #### GLULS #### Point of Care testing ,Glucose [Mass/Vol]155 mg/dLHCA [facility] ER Physician GroupComment on above: Result Comment: Random Glucose Reference Range is dependent on time and content of last meal. Glucose of more than 200 mg/dL in a nonstressed, ambulatory subject supports the diagnosis of Diabetes Mellitus. PERFORMED BY: [place] [id number] PATHOLOGIST INTE[employer] LOGIST[employer] PROGRAMS DIRECTOR AHMET SAUCEDA M.D.Performed By: #### GLULS #### Point of Care testing ,Glucose [Mass/Vol]153 mg/dLHCA [facility] ER Physician GroupComment on above: Result Comment: Random Glucose Reference Range is dependent on time and content of last meal. Glucose of more than 200 mg/dL in a nonstressed, ambulatory subject supports the diagnosis of Diabetes Mellitus. PERFORMED BY: [place] [id number] PATHOLOGIST INTE[employer]IST[employer] PROGRAMS DIRECTOR AHMET SAUCEAD M.D.Performed By: #### GLULS #### Point of Care testing ,Glucose [Mass/Vol]144 mg/dLHCA [facility] ER Physician GroupComment on above: Result Comment: Random Glucose Reference Range is dependent on time and content of last meal. Glucose of more than 200 mg/dL in a nonstressed, ambulatory subject supports the diagnosis of Diabetes Mellitus. PERFORMED BY: [place] [id number] PATHOLOGIST INTE[employer]ATED LOGIST[employer] PROGRAMS DIRECTOR AHMET SAUCEDA M.D.Performed By: #### GLULS #### Point of Care testing ,Msudibk0Rgn2: Cleaned MeterNoWilson Medical Center Physician GroupComment on above: Result Comment: PERFORMED BY: [place] [id number] PATHOLOGIST INTE[employer] LOGIST[employer] PROGRAMS DIRECTOR AHMET SAUCEDA M.D.Performed By: #### GLULS #### Point of Care testing ,Glucose [Mass/Vol]134 mg/dLHCA [facility] ER Physician GroupComment on above: Result Comment: Random Glucose Reference Range is dependent on time and content of last meal. Glucose of more than 200 mg/dL in a nonstressed, ambulatory subject supports the diagnosis of Diabetes Mellitus.Performed By: #### GLULS #### Point of Care testing ,Basic Metabolic Panelon 83-75-7660Wqyzq gap [Moles/Vol]11.9 mmol/LNormal 6.0-15.0The [facility] Physician GroupComment on above:Performed By: #### GLULS #### Point of Care testing ,Calcium [Mass/Vol]8.9 mg/dLNormal8.6-10.3The [facility] Physician GroupComment on above:Performed By: #### GLULS #### Point of Care testing ,Chloride [Moles/Vol]112 mmol/ANypk62-421Typ [facility] Physician GroupComment on above:Performed By: #### GLULS #### Point of Care testing ,CO2 [Moles/Vol]15.7 mmol/LLow21.0-31.0The [facility] Physician GroupComment on above:Performed By: #### GLULS #### Point of Care testing ,Creatinine [Mass/Vol]1.15 mg/dLNormal0.60-1.20The [facility] Physician [facility] Comment on above:Performed By: #### GLULS #### Point of Care testing ,Creatinine Clr Calc Qlasdwqz56.20NormalThe [facility] Physician GroupComment on above:Result Comment: PERFORMED BY: [address] [place] [address] PATHOLOGIST INTE[employer]ATED LOGISTICS PROGRAMS DIRECTOR AHMET SAUCEDA M.D.Performed By: #### GLULS #### Point of Care testing ,GFR/1.73 sq M.predicted MDRD (S/P/Bld) [Vol rate/Area]55.219 mL/min/{1.73_m2} NormalThe [facility] Physician GroupComment on above:Performed By: #### GLULS #### Point of Care testing ,Glucose [Mass/Vol]236 mg/oICatl82-258Niw [facility] Physician GroupComment on above:Result Comment: Random Glucose Reference Range is dependent on time and content of last meal. Glucose of more than 200 mg/dL in a nonstressed, ambulatory subject supports the diagnosis of Diabetes Mellitus. ADA recommended reference rangePerformed By: #### GLULS #### Point of Care testing ,Potassium [Moles/Vol]3.6 mmol/LNormal3.5-5.1The [facility] Comment on above:Performed By: #### GLULS #### Point of Care testing ,Sodium [Moles/Vol]136 mmol/CDvoung867-775Yah [facility] Physician GroupComment on above:Performed By: #### GLULS #### Point of Care testing ,Urea nitrogen [Mass/Vol]25 mg/dLNormal7-25The [facility] Physician GroupComment on above:Performed By: #### GLULS #### Point of Care testing ,Anion gap [Moles/Vol]11.9 mmol/LNormal6.0-15.0The [facility] Comment on above:Performed By: #### BMP #### [place] [address] USACalcium [Mass/Vol]8.8 mg/dLNormal8.6-10.3The [facility] Physician GroupComment on above:Performed By: #### BMP #### [place] [address] USAChloride [Moles/Vol]112 mmol/XTkjq57-859Iys [facility] Physician GroupComment on above:Performed By: #### BMP #### [place] [address] USACO2 [Moles/Vol]14.6 mmol/LLow21.0-31.0The [facility] Physician GroupComment on above:Performed By: #### BMP #### [place] [address] USACreatinine [Mass/Vol]1.19 mg/dLNormal0.60-1.20The [facility] Physician GroupComment on above:Performed By: #### BMP #### [place] [address] USACreatinine Clr Calc Fdrnzlok40.97NormalThe [facility] Physician GroupComment on above:Result Comment: PERFORMED BY: [place] [address] PATHOLOGIST INTE[employer] LOGIST[employer] PROGRAMS DIRECTOR AHMET SAUCEDA M.D.Performed By: #### BMP #### [place] [address] USAGFR/1.73 sq M.predicted MDRD (S/P/Bld) [Vol rate/Area] 52.999 mL/min/{1.73_m2}NormalThe [facility] Physician GroupComment on above: Performed By: #### BMP #### [facility] [address] [place] [address] USAGlucose [Mass/Vol]268 mg/mZMaqj60-241Cdh [facility] Physician GroupComment on above:Result Comment: Random Glucose Reference Range is dependent on time and content of last meal. Glucose of more than 200 mg/dL in a nonstressed, ambulatory subject supports the diagnosis of Diabetes Mellitus. ADA recommended reference rangePerformed By: #### BMP #### [facility] [address] [place] [address] USAPotassium [Moles/Vol]3.5 mmol/LNormal3.5-5.1The [facility] Physician GroupComment on above:Performed By: #### BMP #### [facility] [address] [place] [address] USASodium [Moles/Vol]135 mmol/JDjv043-611Faa [facility] Physician GroupComment on above:Performed By: #### BMP #### [facility] [address] [place] [address] USAUrea nitrogen [Mass/Vol]25 mg/dLNormal7-25The [facility] Physician GroupComment on above:Performed By: #### BMP #### [facility] [address] [place] [address] USAAnion gap [Moles/Vol]14.8 mmol/LNormal6.0-15.0The [facility] Physician GroupComment on above:Order Comment: PER RN KENIA DRAW AT 0400 IV MEDS STILL RUNNINGPerformed By: #### GLULS #### Point of Care testing ,Calcium [Mass/Vol]9.0 mg/dLNormal8.6-10.3The [facility] Physician GroupComment on above:Order Comment: PER RN KENIA DRAW AT 0400 IV MEDS STILL RUNNINGPerformed By: #### GLULS #### Point of Care testing ,Chloride [Moles/Vol]109 mmol/GUtvx29-725Twh [facility] Physician GroupComment on above:Order Comment: PER RN KENIA DRAW AT 0400 IV MEDS STILL RUNNINGPerformed By: #### GLULS #### Point of Care testing ,CO2 [Moles/Vol]13.9 mmol/LLow21.0-31.0The [facility] Physician GroupComment on above:Order Comment: PER RN KENIA DRAW AT 0400 IV MEDS STILL RUNNINGPerformed By: #### GLULS #### Point of Care testing ,Creatinine [Mass/Vol]1.24 mg/dLHigh0.60-1.20The [facility] Group Comment on above:Order Comment: PER RN KENIA DRAW AT 0400 IV MEDS STILL RUNNING Performed By: #### GLULS #### Point of Care testing ,Creatinine Clr Calc Yjtphkay07.11NormalThSt. Mary's Hospital Physician [facility] HospitalComment on above:Order Comment: PER RN KENIA DRAW AT 0400 IV MEDS STILL RUNNINGResult Comment: PERFORMED BY: [facility] [place] [address] PATHOLOGIST INTE[employer] LOGISTICS PROGRAMS DIRECTOR AHMET SAUCEDA M.D.Performed By: #### GLULS #### Point of Care testing ,GFR/1.73 sq M.predicted MDRD (S/P/Bld) [Vol rate/Area]50.445 mL/min/{1.73_m2} NormalThe [facility] Physician [facility] HospitalComment on above:Order Comment: PER RN KENIA DRAW AT 0400 IV MEDS STILL RUNNINGPerformed By: #### GLULS #### Point of Care testing ,Glucose [Mass/Vol]304 mg/aLExgl93-430Lyf [facility] Physician [facility] HospitalComment on above:Order Comment: PER RN KENIA DRAW AT 0400 IV MEDS STILL RUNNINGResult Comment: Random Glucose Reference Range is dependent on time and content of last meal. Glucose of more than 200 mg/dL in a nonstressed, ambulatory subject supports the diagnosis of Diabetes Mellitus. ADA recommended reference rangePerformed By: #### GLULS #### Point of Care testing ,Potassium [Moles/Vol]3.7 mmol/LNormal3.5-5.1The [facility] Physician [facility] Comment on above:Order Comment: PER RN KENIA DRAW AT 0400 IV MEDS STILL RUNNING Performed By: #### GLULS #### Point of Care testing ,Sodium [Moles/Vol]134 mmol/UFqc770-302Jcp [facility] Physician GroupComment on above:Order Comment: PER RN KENIA DRAW AT 0400 IV MEDS STILL RUNNINGPerformed By: #### GLULS #### Point of Care testing ,Urea nitrogen [Mass/Vol]23 mg/dLNormal7-25The [facility] Physician GroupComment on above:Order Comment: PER RN KENIA DRAW AT 0400 IV MEDS STILL RUNNINGPerformed By: #### GLULS #### Point of Care testing ,Beta Hydroxybuterateon 86-93-6497Jrel Hydroxybuterate1.59 mmol/LHigh0.02-0.27 The [facility] Physician GroupComment on above:Result Comment: PERFORMED BY: [place] [address] PATHOLOGIST INTE[employer] LOGIST[employer] PROGRAMS DIRECTOR AHMET SAUCEDA M.D.Performed By: #### BHOB #### [facility] [address] [place] [address] USABeta Hydroxybuterate0.70 mmol/LHigh0.02-0.27The [facility] Physician [facility] HospitalComment on above:Result Comment: PERFORMED BY: [place] [address] PATHOLOGIST INTEGRATED LOGISTICS PROGRAMS DIRECTOR AHMET SAUCEDA M.D.Performed By: #### GLULS #### Point of Care testing ,Beta Hydroxybuterate1.37 mmol/LHigh0.02-0.27The [facility] Physician [facility] Comment on above:Result Comment: PERFORMED BY: [place] [address] PATHOLOGIST INTEGRATED LOGISTICS PROGRAMS DIRECTOR AHMET SAUCEDA M.D.Performed By: #### GLULS #### Point of Care testing ,Beta Hydroxybuterate2.27 mmol/LHigh0.02-0.27The [facility] Group Comment on above:Order Comment: PER RN KENIA DRAW AT 0400 IV MEDS STILL RUNNING Result Comment: PERFORMED BY: [place] [address] PATHOLOGIST INTE[employer] LOGIST[employer] PROGRAMS DIRECTOR AHMET SAUCEDA M.D.Performed By: #### BMP #### [facility] [address] [place] [address] USACT chest wo conon 12-31-5731HL chest wo [facility] [place] [address] [place] [address] CT Scan Report Signed Patient: Stew Argueta MR#: [id number] : 1965 Acct:[id number] Age/Sex: 60 / F ADM Date: 01/21/25 Loc: Room: [address] [place] [address] Type: ADM IN Attending Dr: Abraham Terrazas [...] Pinedo M.D. 01/22/2025 4:12 PM Dictation Location: [place] [address] Transcribed By: [facility] 01/22/25 1612 Dictated By: Kaz Pinedo DO 01/22/25 1609 Signed By: 01/22/25 1612No[facility] Physician GroupCreatinine, Urine (Random)on 55-15-6539Cldbplbfxa, Urine (Random)103.00 mg/dLNoWilson Medical Center Physician GroupComment on above:Result Comment: No reference range established PERFORMED BY: [place] [address] PATHOLOGIST INTEGRATED LOGISTICS PROGRAMS DIRECTOR AHMET SAUCEDA M.D.Performed By: #### GLULS #### Point of Care testing ,Diff and CBCon 70-51-5768Cdpvmuiktcxy Ql (Bld)ModerateNormalThe [facility] Physician GroupComment on above:Performed By: #### BMP #### [place] [address] USABand form neutrophils/100 WBC (Bld)39 %High0-5The [facility] Physician GroupComment on above:Performed By: #### BMP #### [place] [address] USAErythrocyte distribution width (RBC) [Ratio]13.8 %Normal 11.9-15.3The [facility] Physician GroupComment on above:Performed By: #### BMP #### [place] [address] USAHematocrit (Bld) [Volume fraction]35.5 %Gmlxuf11.0-46.4The [facility] Physician GroupComment on above:Performed By: #### BMP #### [place] [address] USAHemoglobin (Bld) [Mass/Vol]12.0 g/jDGzygrg14.8-15.4The [facility] Physician GroupComment on above:Performed By: #### BMP #### [place] [address] USALymphocytes/100 WBC (Bld)0 %Xku92-05Jlt [facility] Physician GroupComment on above:Performed By: #### BMP #### [place] [address] USAMCH (RBC) [Entitic mass]27.9 vfUvmlii98.7-34.3The [facility] Physician GroupComment on above:Performed By: #### BMP #### [place] [address] USAMCV (RBC) [Entitic vol]82.7 yZLaumvc93-180Rzh [facility] Physician GroupComment on above:Performed By: #### BMP #### [place] [address] USAMean Corpuscular HGB Conc33.7 g/xYVpbdzd18.0-35.0The [facility] Physician GroupComment on above:Performed By: #### BMP #### [place] [address] USAMetamyelocytes1 %High0-0The [facility] Comment on above:Performed By: #### BMP #### [place] [address] USAMicrocytosisModerateNormAdventHealth Orlando Physician [facility] Comment on above:Performed By: #### BMP #### [place] [address] USAMonocytes/100 WBC (Bld)6 %Normal2-11The [facility] Physician GroupComment on above:Performed By: #### BMP #### [place] [address] USAPlatelet EstimateNormalNormalNormAdventHealth Orlando Physician [facility] HospitalComment on above:Performed By: #### BMP #### [place] [address] USAPlatelet mean volume (Bld) [Entitic vol]8.5 fLNormal 6.3-10.7The [facility] Physician GroupComment on above:Performed By: #### BMP #### [place] [address] USAPlatelet MorphologyNormalNormalNormAdventHealth Orlando Physician GroupComment on above:Result Comment: PERFORMED BY: [place] [address] PATHOLOGIST INTE[employer] LOGIST[employer] PROGRAMS DIRECTOR AHMET SAUCEDA M.D.Performed By: #### BMP #### [place] [address] USAPlatelets (Bld) [#/Vol]263 10*3/mNErcgbd402-353Gef [facility] Physician GroupComment on above:Performed By: #### BMP #### [place] [address] USAPolychromasiaSlightNormalThe [facility] Comment on above:Performed By: #### BMP #### [place] [address] USARBC (Bld) [#/Vol]4.29 10*6/uLNormal3.60-5.00The [facility] Physician GroupComment on above:Performed By: #### BMP #### [place] [address] USASegmented neutrophils/100 WBC (Bld)54 %Fmusdz45-52Iuv [facility] Physician GroupComment on above:Performed By: #### BMP #### [place] [address] USAWBC (Bld) [#/Vol]23.1 10*3/uLHigh3.8-11.6The [facility] Physician GroupComment on above:Performed By: #### BMP #### [place] [address] USAWhite Blood Count23.1 [CFU]/mLHigh3.8-11.6The [facility] Physician GroupComment on above:Performed By: #### BMP #### [place] [address] USADipstick and Microscopicon 31-45-8071Lhjephtvkk (U)Cloudy Critically abnormalClearThe [facility] Physician GroupComment on above:Order Comment: Name Collection Type:: VoidedPerformed By: #### GLULS #### Point of Care testing ,Bacteria,Urine1+ [HPF]NormalNone SeenThe [facility] Physician GroupComment on above:Order Comment: Name Collection Type:: VoidedPerformed By: #### GLULS #### Point of Care testing ,Bilirubin,Urine1+NormalNegativeThe [facility] Physician GroupComment on above: Order Comment: Name Collection Type:: VoidedPerformed By: #### GLULS #### Point of Care testing ,Color (U)YellowNormalYellowThe [facility] Physician GroupComment on above:Order Comment: Name Collection Type:: VoidedPerformed By: #### GLULS #### Point of Care testing ,Glucose Ql (U)>=NormalNormalThSt. Mary's Hospital Physician GroupComment on above:Order Comment: Name Collection Type:: VoidedPerformed By: #### GLULS #### Point of Care testing ,Granular Casts, Urine3-4NormalNone SeenThe [facility] Physician GroupComment on above:Order Comment: Name Collection Type:: VoidedPerformed By: #### GLULS #### Point of Care testing ,Hyaline Casts,UrineNoneNormal0-8The [facility] Physician GroupComment on above: Order Comment: Name Collection Type:: VoidedPerformed By: #### GLULS #### Point of Care testing ,Ketones Ql (U)2+NormalNegativeMiami Children'S Hospital Physician GroupComment on above: Order Comment: Name Collection Type:: VoidedPerformed By: #### GLULS #### Point of Care testing ,Leukocyte esterase Test strip Ql (U)3+NormalNegativeMiami Children'S Hospital Physician GroupComment on above:Order Comment: Name Collection Type:: VoidedPerformed By: #### GLULS #### Point of Care testing ,Mucus,Urine1+ [LPF]Critically abnormalThe [facility] Physician GroupComment on above:Order Comment: Name Collection Type:: VoidedResult Comment: PERFORMED BY: [address] [place] [address] PATHOLOGIST INTE[employer] LOGISTICS PROGRAMS DIRECTOR AHMET SAUCEDA M.D.Performed By: #### GLULS #### Point of Care testing ,Nitrite,UrineNegativeNormalNegativeMiami Children'S Hospital Physician GroupComment on above:Order Comment: Name Collection Type:: VoidedPerformed By: #### GLULS #### Point of Care testing ,Occult Blood,Urine1+NormalNegativeMiami Children'S Hospital Physician GroupComment on above:Order Comment: Name Collection Type:: VoidedResult Comment: PERFORMED BY: [address] [place] [address] PATHOLOGIST INTE[employer] LOGIST[employer] PROGRAMS DIRECTOR AHMET SAUCEDA M.D.Performed By: #### GLULS #### Point of Care testing ,pH (U)6.0 [pH]Normal5.0-9.0The [facility] Physician GroupComment on above:Order Comment: Name Collection Type:: VoidedPerformed By: #### GLULS #### Point of Care testing ,Protein (U) [Mass/Vol]100 mg/dLNormalNegativeThe [facility] Comment on above:Order Comment: Name Collection Type:: VoidedPerformed By: #### GLULS #### Point of Care testing ,RBC,Kopgj94-22Wqqqja7-2Due [facility] Physician GroupComment on above:Order Comment: Name Collection Type:: VoidedPerformed By: #### GLULS #### Point of Care testing ,Specificy Phelan,Urine1.146Iccirs8.001-1.030The [facility] Comment on above:Order Comment: Name Collection Type:: VoidedPerformed By: #### GLULS #### Point of Care testing ,Squamous Epithelial Cell,Uxxnp5-4Yddgby1-7Ijy [facility] Physician GroupComment on above:Order Comment: Name Collection Type:: VoidedPerformed By: #### GLULS #### Point of Care testing ,Urobilinogen,Urine2 mg/dLNormalNormalThe [facility] Physician GroupComment on above:Order Comment: Name Collection Type:: VoidedPerformed By: #### GLULS #### Point of Care testing ,WBC,Epkju29-103Rykoin0-5Izm [facility] Physician GroupComment on above:Order Comment: Name Collection Type:: VoidedPerformed By: #### GLULS #### Point of Care testing ,ECG 12 lead ECGon 93-81-3175ZFH 12 lead ECGOHIOHEALTH [place] [address] Electrocardiograph Report Signed Patient: Stew Argueta MR#: [id number] : 1965 Acct:[id number] Age/Sex: 60 / F ADM Date: 01/21/25 Loc: Room: 9T8299-8 Type: ADM IN Attending Dr: Abraham Terrazas [...] Signed By Haritha Wood MD, FACC 01/22/25 1047No[facility] Physician [facility] HospitalFree T4 (Free Thyroxine)on 11-84-5804Vaze T4 [Mass/Vol]0.70 ng/dLNormal0.61-1.12The [facility] Physician [facility] HospitalComment on above:Performed By: #### BMP #### [place] [address] USAGlucose Poct Glucometerson 45-57-0116Dqzkupn [Mass/Vol]169 mg/dLNoBarberton Citizens HospitalComment on above:Result Comment: Random Glucose Reference Range is dependent on time and content of last meal. Glucose of more than 200 mg/dL in a nonstressed, ambulatory subject supports the diagnosis of Diabetes Mellitus. PERFORMED BY: [place] [address] PATHOLOGIST INTE[employer]ATED LOGIST[employer] PROGRAMS DIRECTOR AHMET SAUCEDA M.D.Performed By: #### GLULS #### Point of Care testing ,Glucose [Mass/Vol]223 mg/dLHCA [facility] ER Physician [facility] HospitalComment on above: Result Comment: Random Glucose Reference Range is dependent on time and content of last meal. Glucose of more than 200 mg/dL in a nonstressed, ambulatory subject supports the diagnosis of Diabetes Mellitus. PERFORMED BY: [address] [place] [id number] PATHOLOGIST INTE[employer]ATED LOGIST[employer] PROGRAMS DIRECTOR AHMET SAUCEDA M.D.Performed By: #### GLULS #### Point of Care testing ,Glucose [Mass/Vol]288 mg/dLNoWilson Medical Center Physician GroupComment on above: Result Comment: Random Glucose Reference Range is dependent on time and content of last meal. Glucose of more than 200 mg/dL in a nonstressed, ambulatory subject supports the diagnosis of Diabetes Mellitus. PERFORMED BY: [address] [address] PATHOLOGIST INTEGRATED LOGISTICS PROGRAMS DIRECTOR AHMET SAUCEDA M.D.Performed By: #### GLULS #### Point of Care testing ,Glucose [Mass/Vol]267 mg/dLNoWilson Medical Center Physician GroupComment on above: Result Comment: Random Glucose Reference Range is dependent on time and content of last meal. Glucose of more than 200 mg/dL in a nonstressed, ambulatory subject supports the diagnosis of Diabetes Mellitus. PERFORMED BY: [place] [id number] PATHOLOGIST INTEGRATED LOGISTICS PROGRAMS DIRECTOR AHMET SAUCEDA M.D.Performed By: #### GLULS #### Point of Care testing ,Glucose [Mass/Vol]279 mg/dLNoWilson Medical Center Physician GroupComment on above: Result Comment: Random Glucose Reference Range is dependent on time and content of last meal. Glucose of more than 200 mg/dL in a nonstressed, ambulatory subject supports the diagnosis of Diabetes Mellitus. PERFORMED BY: [address] [place] [address] PATHOLOGIST INTEGRATED LOGISTICS PROGRAMS DIRECTOR AHMET SAUCEDA M.D.Performed By: #### GLULS #### Point of Care testing ,Glucose [Mass/Vol]250 mg/dLHCA [facility] ER Physician GroupComment on above: Result Comment: Random Glucose Reference Range is dependent on time and content of last meal. Glucose of more than 200 mg/dL in a nonstressed, ambulatory subject supports the diagnosis of Diabetes Mellitus. PERFORMED BY: [place] [id number] PATHOLOGIST INTEGRATED LOGISTICS PROGRAMS DIRECTOR AHMET SAUCEDA M.D.Performed By: #### GLULS #### Point of Care testing ,Glucose [Mass/Vol]234 mg/dLHCA [facility] ER Physician GroupComment on above: Result Comment: Random Glucose Reference Range is dependent on time and content of last meal. Glucose of more than 200 mg/dL in a nonstressed, ambulatory subject supports the diagnosis of Diabetes Mellitus. PERFORMED BY: [place] [id number] PATHOLOGIST INTEGRATED LOGISTICS PROGRAMS DIRECTOR AHMET SAUCEDA M.D.Performed By: #### GLULS #### Point of Care testing ,Glucose [Mass/Vol]263 mg/dLHCA [facility] ER Physician GroupComment on above: Result Comment: Random Glucose Reference Range is dependent on time and content of last meal. Glucose of more than 200 mg/dL in a nonstressed, ambulatory subject supports the diagnosis of Diabetes Mellitus. PERFORMED BY: [place] [id number] PATHOLOGIST INTEGRATED LOGISTICS PROGRAMS DIRECTOR AHMET SAUCEDA M.D.Performed By: #### GLULS #### Point of Care testing ,Glucose [Mass/Vol]286 mg/dLHCA [facility] ER Physician GroupComment on above: Result Comment: Random Glucose Reference Range is dependent on time and content of last meal. Glucose of more than 200 mg/dL in a nonstressed, ambulatory subject supports the diagnosis of Diabetes Mellitus. PERFORMED BY: [place] [id number] PATHOLOGIST INTEGRATED LOGISTICS PROGRAMS DIRECTOR AHMET SAUCEDA M.D.Performed By: #### GLULS #### Point of Care testing ,Glucose [Mass/Vol]239 mg/dLHCA [facility] ER Physician GroupComment on above: Result Comment: Random Glucose Reference Range is dependent on time and content of last meal. Glucose of more than 200 mg/dL in a nonstressed, ambulatory subject supports the diagnosis of Diabetes Mellitus. PERFORMED BY: [place] [id number] PATHOLOGIST INTEGRATED LOGISTICS PROGRAMS DIRECTOR AHMET SAUCEDA M.D.Performed By: #### GLULS #### Point of Care testing ,Glucose [Mass/Vol]227 mg/dLHCA [facility] ER Physician GroupComment on above: Result Comment: Random Glucose Reference Range is dependent on time and content of last meal. Glucose of more than 200 mg/dL in a nonstressed, ambulatory subject supports the diagnosis of Diabetes Mellitus. PERFORMED BY: [place] [id number] PATHOLOGIST INTEGRATED LOGISTICS PROGRAMS DIRECTOR AHMET SAUCEDA M.D.Performed By: #### GLULS #### Point of Care testing ,Glucose [Mass/Vol]177 mg/dLHCA [facility] ER Physician GroupComment on above: Result Comment: Random Glucose Reference Range is dependent on time and content of last meal. Glucose of more than 200 mg/dL in a nonstressed, ambulatory subject supports the diagnosis of Diabetes Mellitus. PERFORMED BY: [place] [id number] PATHOLOGIST INTEGRATED LOGISTICS PROGRAMS DIRECTOR AHMET SAUCEDA M.D.Performed By: #### GLULS #### Point of Care testing ,Glucose [Mass/Vol]240 mg/dLHCA [facility] ER Physician GroupComment on above: Result Comment: Random Glucose Reference Range is dependent on time and content of last meal. Glucose of more than 200 mg/dL in a nonstressed, ambulatory subject supports the diagnosis of Diabetes Mellitus. PERFORMED BY: [place] [id number] PATHOLOGIST INTEGRATED LOGISTICS PROGRAMS DIRECTOR AHMET SAUCEDA M.D.Performed By: #### GLULS #### Point of Care testing ,Glucose [Mass/Vol]246 mg/dLNoWilson Medical Center Physician GroupComment on above: Result Comment: Random Glucose Reference Range is dependent on time and content of last meal. Glucose of more than 200 mg/dL in a nonstressed, ambulatory subject supports the diagnosis of Diabetes Mellitus. PERFORMED BY: [place] [id number] PATHOLOGIST INTEGRATED LOGISTICS PROGRAMS DIRECTOR AHMET SAUCEDA M.D.Performed By: #### GLULS #### Point of Care testing ,Glucose [Mass/Vol]253 mg/dLNoWilson Medical Center Physician GroupComment on above: Result Comment: Random Glucose Reference Range is dependent on time and content of last meal. Glucose of more than 200 mg/dL in a nonstressed, ambulatory subject supports the diagnosis of Diabetes Mellitus. PERFORMED BY: [place] [address] PATHOLOGIST INTEGRATED LOGISTICS PROGRAMS DIRECTOR AHMET SAUCEDA M.D.Performed By: #### BMP #### [place] [address] USAGlucose [Mass/Vol]259 mg/dLNoWilson Medical Center Physician GroupComment on above:Result Comment: Random Glucose Reference Range is dependent on time and content of last meal. Glucose of more than 200 mg/dL in a nonstressed, ambulatory subject supports the diagnosis of Diabetes Mellitus. PERFORMED BY: [place] [address] PATHOLOGIST INTEGRATED LOGISTICS PROGRAMS DIRECTOR AHMET SAUCEDA M.D.Performed By: #### BMP #### [place] [address] USAGlucose [Mass/Vol]259 mg/dLNoWilson Medical Center Physician GroupComment on above:Result Comment: Random Glucose Reference Range is dependent on time and content of last meal. Glucose of more than 200 mg/dL in a nonstressed, ambulatory subject supports the diagnosis of Diabetes Mellitus. PERFORMED BY: [place] [id number] PATHOLOGIST INTEGRATED LOGISTICS PROGRAMS DIRECTOR AHMET SAUCEDA M.D.Performed By: #### BMP #### [place] [address] USAGlucose [Mass/Vol]272 mg/dLNoWilson Medical Center Physician GroupComment on above:Result Comment: Random Glucose Reference Range is dependent on time and content of last meal. Glucose of more than 200 mg/dL in a nonstressed, ambulatory subject supports the diagnosis of Diabetes Mellitus. PERFORMED BY: [place] [id number] PATHOLOGIST INTEGRATED LOGISTICS PROGRAMS DIRECTOR AHMET SAUCEDA M.D.Performed By: #### GLULS #### Point of Care testing ,Glucose [Mass/Vol]282 mg/dLHCA [facility] ER Physician GroupComment on above: Result Comment: Random Glucose Reference Range is dependent on time and content of last meal. Glucose of more than 200 mg/dL in a nonstressed, ambulatory subject supports the diagnosis of Diabetes Mellitus. PERFORMED BY: [place] [id number] PATHOLOGIST INTEGRATED LOGISTICS PROGRAMS DIRECTOR AHMET SAUCEDA M.D.Performed By: #### GLULS #### Point of Care testing ,Glucose [Mass/Vol]302 mg/dLHCA [facility] ER Physician GroupComment on above: Result Comment: Random Glucose Reference Range is dependent on time and content of last meal. Glucose of more than 200 mg/dL in a nonstressed, ambulatory subject supports the diagnosis of Diabetes Mellitus. PERFORMED BY: [place] [address] PATHOLOGIST INTEGRATED LOGISTICS PROGRAMS DIRECTOR AHMET SAUCEDA M.D.Performed By: #### GLULS #### Point of Care testing ,[id number]: Cleaned MeterHCA Florida [facility] ER Physician GroupComment on above: Result Comment: PERFORMED BY: [address] [place] [id number] PATHOLOGIST INTEGRATED LOGISTICS PROGRAMS DIRECTOR AHMET SAUCEDA M.D.Performed By: #### GLULS #### Point of Care testing ,Glucose [Mass/Vol]333 mg/dLHCA [facility] ER Physician GroupComment on above: Result Comment: Random Glucose Reference Range is dependent on time and content of last meal. Glucose of more than 200 mg/dL in a nonstressed, ambulatory subject supports the diagnosis of Diabetes Mellitus.Performed By: #### GLULS #### Point of Care testing ,[id number]: Cleaned MeterNoWilson Medical Center Physician GroupComment on above: Result Comment: PERFORMED BY: [place] [id number] PATHOLOGIST INTEGRATED LOGISTICS PROGRAMS DIRECTOR AHMET SAUCEDA M.D.Performed By: #### GLULS #### Point of Care testing ,Glucose [Mass/Vol]297 mg/dLHCA [facility] ER Physician GroupComment on above: Result Comment: Random Glucose Reference Range is dependent on time and content of last meal. Glucose of more than 200 mg/dL in a nonstressed, ambulatory subject supports the diagnosis of Diabetes Mellitus.Performed By: #### GLULS #### Point of Care testing ,[id number]: Cleaned MeterNoWilson Medical Center Physician GroupComment on above: Result Comment: PERFORMED BY: [place] [address] PATHOLOGIST INTEGRATED LOGISTICS PROGRAMS DIRECTOR AHMET SAUCEDA M.D.Performed By: #### GLULS #### Point of Care testing ,Glucose [Mass/Vol]318 mg/dLNoWilson Medical Center Physician GroupComment on above: Result Comment: Random Glucose Reference Range is dependent on time and content of last meal. Glucose of more than 200 mg/dL in a nonstressed, ambulatory subject supports the diagnosis of Diabetes Mellitus.Performed By: #### GLULS #### Point of Care testing ,Shpihmq7Vvd2: Cleaned MeterHCA Florida West Tampa Hospital ER Physician GroupComment on above: Result Comment: PERFORMED BY: [address] [place] [address] PATHOLOGIST INTEGRATED LOGISTICS PROGRAMS DIRECTOR AHMET SAUCEDA M.D.Performed By: #### GLULS #### Point of Care testing ,Glucose [Mass/Vol]321 mg/dLHCA [facility] ER Physician GroupComment on above: Result Comment: Random Glucose Reference Range is dependent on time and content of last meal. Glucose of more than 200 mg/dL in a nonstressed, ambulatory subject supports the diagnosis of Diabetes Mellitus.Performed By: #### GLULS #### Point of Care testing ,Legionella Pneumophilia Ag, Uron 22-70-4565Tlivuevcfj Pneumophilia Ag, Ur NegativeNormalNegativeThe [facility] Physician GroupComment on above:Order Comment: SOURCE OF SPECIMEN: voidedResult Comment: Presumptive negative for L. pneumophila serogroup 1 antigen in urine, suggesting no recent or current infection. Legionnaires' disease cannot be ruled out since other serogroups and species may also cause disease. Performed at: [facility], [place], [place] [id number] Head Mixer: Javier Tapia MD, Phone: [phone] PERFORMED BY: [place] [address] PATHOLOGIST INTEGRATED LOGISTICS PROGRAMS DIRECTOR AHMET SAUCEAD M.D.Performed By: #### GLULS #### Point of Care testing ,Magnesiumon 60-51-8566Yohculisl [Mass/Vol]1.7 mg/dLLow1.9-2.7The [facility] Physician GroupComment on above:Performed By: #### BMP #### [place] [address] USAOsmolality, Urineon 35-00-7658Zjhnbzveyn, Sxmpi066 mosm Qodmfb862-711Mzf [facility] Physician GroupComment on above:Result Comment: PERFORMED BY: [place] [address] PATHOLOGIST INTEGRATED LOGISTICS PROGRAMS DIRECTOR AHMET SAUCEDA M.D.Performed By: #### GLULS #### Point of Care testing ,Phosphoruson 50-53-6536Snoowkhuj [Mass/Vol]1.4 mg/dLLow2.5-4.5The [facility] Physician GroupComment on above:Performed By: #### BMP #### [place] [address] USASodium, Urineon 49-26-8391Jrqwyt (U) [Moles/Vol]11.0 mmol/LNormalThe [facility] Physician GroupComment on above:Result Comment: No reference range establishedPerformed By: #### GLULS #### Point of Care testing ,Thyroid Stimulating Hormoneon 48-37-8903KQU Qn8.11 m[IU]/LHigh0.45-5.33The [facility] Physician GroupComment on above:Result Comment: PERFORMED BY: [place] [address] PATHOLOGIST INTEGRATED LOGISTICS PROGRAMS DIRECTOR AHMET SAUCEDA M.D.Performed By: #### BMP #### [facility] [address] [place] [address] USAThyroxine (T4) Totalon 40-64-3352Dxysdbwyf (T4) Total<0.50 Low5.39-11.82The [facility] Physician GroupComment on above:Performed By: #### BMP #### [facility] [address] [place] [address] USAUrine Cultureon 47-28-3335Thhfgdap identified Cx Nom (U) <9,000 colonies/ml mixed bacterial skin contaminants 2 Days PERFORMED BY: [place] [address] PATHOLOGIST INTEGRATED LOGISTICS PROGRAMS DIRECTOR AHMET SAUCEDA M.D.NormalThe [facility] Physician GroupComment on above: Performed By: #### GLULS #### Point of Care testing ,A1C with Estimated Average Gluon 37-25-3997Uilydbm [Mass/Vol]309 mg/dLNormalThe [facility] Physician GroupComment on above:Order Comment: PER NURSE ON 4C, OK TO RETIME WITH OTHER LABS AT 2000 *ASKED TO RETIME TO 10PM BY NURSE ON 4C* per RN to retime for 2230Result Comment: PERFORMED BY: [place] [address] PATHOLOGIST INTEGRATED LOGISTICS PROGRAMS DIRECTOR AHMET SAUCEDA M.D.Performed By: #### GLULS #### Point of Care testing ,HbA1c (Bld) [Mass fraction]12.4 %High4.3-5.6The [facility] Comment on above:Order Comment: PER NURSE ON 4C, OK TO RETIME WITH OTHER LABS AT 1999 *ASKED TO RETIME TO 10PM BY NURSE ON 4C* per RN to retime for 2230Result Comment: Increased risk for diabetes: 5.7 - 6.4 diabetes: >6.4 glycemic control for adults with diabetes: <7.0Performed By: #### GLULS #### Point of Care testing ,Basic Metabolic Panelon 79-26-9185Owbew gap [Moles/Vol]17.1 mmol/LHigh6.0-15.0 The [facility] Physician GroupComment on above:Order Comment: per RN to retime for 2229Performed By: #### GLULS #### Point of Care testing ,Calcium [Mass/Vol]8.9 mg/dLNormal8.6-10.3The [facility] Physician GroupComment on above:Order Comment: per RN to retime for formed By: #### GLULS #### Point of Care testing ,Chloride [Moles/Vol]107 mmol/OXyyvuw55-832Ntr [facility] Physician GroupComment on above:Order Comment: per RN to retime for formed By: #### GLULS #### Point of Care testing ,CO2 [Moles/Vol]11.3 mmol/LLow21.0-31.0The [facility] Physician GroupComment on above:Order Comment: per RN to retime for formed By: #### GLULS #### Point of Care testing ,Creatinine [Mass/Vol]1.16 mg/dLNormal0.60-1.20The [facility] Comment on above:Order Comment: per RN to retime for formed By: #### GLULS #### Point of Care testing ,Creatinine Clr Calc Edgtfkwf95.33NormalThe [facility] Physician GroupComment on above:Order Comment: per RN to retime for Comment: PERFORMED BY: [facility] [place] [address] PATHOLOGIST INTEGRATED LOGISTICS PROGRAMS DIRECTOR AHMET SAUCEDA M.D.Performed By: #### GLULS #### Point of Care testing ,GFR/1.73 sq M.predicted MDRD (S/P/Bld) [Vol rate/Area]54.649 mL/min/{1.73_m2} NormalThe [facility] Physician GroupComment on above:Order Comment: per RN to retime for formed By: #### GLULS #### Point of Care testing ,Glucose [Mass/Vol]346 mg/pVIgsa49-706Vcb [facility] Physician GroupComment on above:Order Comment: per RN to retime for Comment: Random Glucose Reference Range is dependent on time and content of last meal. Glucose of more than 200 mg/dL in a nonstressed, ambulatory subject supports the diagnosis of Diabetes Mellitus. ADA recommended reference rangePerformed By: #### GLULS #### Point of Care testing ,Potassium [Moles/Vol]3.4 mmol/LLow3.5-5.1The [facility] Physician GroupComment on above:Order Comment: per RN to retime for 2229Performed By: #### GLULS #### Point of Care testing ,Sodium [Moles/Vol]132 mmol/IZyd924-734Qbu [facility] Physician GroupComment on above:Order Comment: per RN to retime for 2229Performed By: #### GLULS #### Point of Care testing ,Urea nitrogen [Mass/Vol]22 mg/dLNormal7-25The [facility] Physician GroupComment on above:Order Comment: per RN to retime for 2229Performed By: #### GLULS #### Point of Care testing ,Anion gap [Moles/Vol]21.1 mmol/LHigh6.0-15.0The [facility] Comment on above:Performed By: #### BHOB #### [facility] [address] [place] [address] USACalcium [Mass/Vol]9.4 mg/dLNormal8.6-10.3The [facility] Physician GroupComment on above:Performed By: #### BHOB #### [facility] [address] [place] [address] USAChloride [Moles/Vol]100 mmol/SNuredd03-706Quv [facility] Physician GroupComment on above:Performed By: #### BHOB #### [facility] [address] [place] [address] USACO2 [Moles/Vol]12.8 mmol/LLow21.0-31.0The [facility] Physician GroupComment on above:Performed By: #### BHOB #### [facility] [address] [place] [address] USACreatinine [Mass/Vol]1.12 mg/dLNormal0.60-1.20The [facility] Physician GroupComment on above:Performed By: #### BHOB #### [facility] [address] [place] [address] USACreatinine Clr Calc Rppovein12.66NormalThe [facility] Physician GroupComment on above:Performed By: #### BHOB #### [facility] [address] [place] [address] USAGFR/1.73 sq M.predicted MDRD (S/P/Bld) [Vol rate/Area] 56.999 mL/min/{1.73_m2}NormalThe [facility] Physician GroupComment on above: Performed By: #### BHOB #### [place] [address] USAGlucose [Mass/Vol]365 mg/oRChyn66-431Czi [facility] Physician GroupComment on above:Result Comment: Random Glucose Reference Range is dependent on time and content of last meal. Glucose of more than 200 mg/dL in a nonstressed, ambulatory subject supports the diagnosis of Diabetes Mellitus. ADA recommended reference rangePerformed By: #### BHOB #### [place] [address] USAPotassium [Moles/Vol]2.9 mmol/LOff scale low3.5-5.1The [facility] Physician GroupComment on above:Result Comment: Hemolysis is present at a level that could interfere with the result. Contact lab if redraw is required Critical Result Called to and read back by: KENIA MERCADO at: 01/21/2025 17:19:11 by:[id number] By: #### BHOB #### [place] [address] USASodium [Moles/Vol]131 mmol/FOrp388-809Ozw [facility] Physician GroupComment on above:Performed By: #### BHOB #### [place] [address] USAUrea nitrogen [Mass/Vol]20 mg/dLNormal7-e [facility] Physician GroupComment on above:Performed By: #### BHOB #### [place] [address] USABeta Hydroxybuterateon 79-13-8943Orec Hydroxybuterate3.29 mmol/LHigh0.02-0.27The [facility] Physician GroupComment on above:Result Comment: PERFORMED BY: [place] [address] PATHOLOGIST INTEGRATED LOGISTICS PROGRAMS DIRECTOR AHMET SAUCEDA M.D.Performed By: #### GLULS #### Point of Care testing ,Beta Hydroxybuterate3.43 mmol/LHigh0.02-0.27The [facility] Comment on above:Order Comment: ASKED TO RETIME TO 10PM BY NURSE ON 4C per RN to retime for 2230Result Comment: PERFORMED BY: [place] [address] PATHOLOGIST INTEGRATED LOGISTICS PROGRAMS DIRECTOR AHMET SAUCEDA M.D.Performed By: #### GLULS #### Point of Care testing ,Blood Cultureon 26-71-0167Bgjciovp identified Cx Nom (Bld)ASKED TO RETIME TO 10PM BY NURSE ON 4C per RN to retime NO GROWTH 5 DAYS PERFORMED BY: [place] [address] PATHOLOGIST INTEGRATED LOGISTICS PROGRAMS DIRECTOR AHMET SAUCEDA M.D.NormalThe [facility] Physician GroupComment on above: Performed By: #### BHOB #### [place] [address] USABacteria identified Cx Nom (Bld)ASKED TO RETIME TO 10PM BY NURSE ON 4C per RN to retime NO GROWTH 5 DAYS PERFORMED BY: [place] [address] PATHOLOGIST INTEGRATED LOGISTICS PROGRAMS DIRECTOR AHMET SAUCEDA M.D.NormalMiami Children'S Hospital Physician GroupComment on above: Performed By: #### BHOB #### [place] [address] USADiff and CBCon 75-98-6391Ckxighotlrcn Ql (Bld)SlightNormal The [facility] Physician GroupComment on above:Order Comment: ASKED TO RETIME TO 10PM BY NURSE ON 4C per RN to retime for 0Performed By: #### BHOB #### [address] [place] [address] USABand form neutrophils/100 WBC (Bld)31 %High0-5The [facility] Physician GroupComment on above:Order Comment: ASKED TO RETIME TO 10PM BY NURSE ON 4C per RN to retime for 2229Performed By: #### BHOB #### [facility] [address] [place] [id number] USACrenated RBCSWake Forest Baptist [facility] Physician Group Comment on above:Order Comment: ASKED TO RETIME TO 10PM BY NURSE ON 4C per RN to retime for 2229Performed By: #### BHOB #### [facility] [address] [place] [address] USAErythrocyte distribution width (RBC) [Ratio]13.9 %Normal 11.9-15.3The [facility] Physician GroupComment on above:Order Comment: ASKED TO RETIME TO 10PM BY NURSE ON 4C per RN to retime for 2229Performed By: #### BHOB #### [place] [address] USAHematocrit (Bld) [Volume fraction]35.7 %Ioucwq13.0-46.4The [facility] Physician GroupComment on above:Order Comment: ASKED TO RETIME TO 10PM BY NURSE ON 4C per RN to retime for 2229Performed By: #### BHOB #### [place] [address] USAHemoglobin (Bld) [Mass/Vol]12.0 g/yEFlgnfj75.8-15.4The [facility] Physician GroupComment on above:Order Comment: ASKED TO RETIME TO 10PM BY NURSE ON 4C per RN to retime for 2229Performed By: #### BHOB #### [place] [id number] USALarge PlateletsSlightHCA Florida [facility] ER Physician Group Comment on above:Order Comment: ASKED TO RETIME TO 10PM BY NURSE ON 4C per RN to retime for 0Result Comment: PERFORMED BY: [place] [address] PATHOLOGIST INTEGRATED LOGISTICS PROGRAMS DIRECTOR AHMET SAUCEDA M.D.Performed By: #### BHOB #### [place] [address] USALymphocytes/100 WBC (Bld)4 %Bia44-26Phf [facility] Physician GroupComment on above:Order Comment: ASKED TO RETIME TO 10PM BY NURSE ON 4C per RN to retime for 2229Performed By: #### BHOB #### [facility] [address]H (RBC) [Entitic mass]27.6 hgJxnwsn16.7-34.3The [facility] Physician GroupComment on above:Order Comment: ASKED TO RETIME TO 10PM BY NURSE ON 4C per RN to retime for 2229Performed By: #### BHOB #### [address] (RBC) [Entitic vol]81.9 cSBvxjfx27-488Xzn [facility] Physician GroupComment on above:Order Comment: ASKED TO RETIME TO 10PM BY NURSE ON 4C per RN to retime for 2229Performed By: #### BHOB #### [place] [address] USAMean Corpuscular HGB Conc33.7 g/cMEayohb07.0-35.0The [facility] Physician GroupComment on above:Order Comment: ASKED TO RETIME TO 10PM BY NURSE ON 4C per RN to retime for 2229Performed By: #### BHOB #### [place] [address] USAMicrocytosisSlightNormalThe [facility] Comment on above:Order Comment: ASKED TO RETIME TO 10PM BY NURSE ON 4C per RN to retime for 2229Performed By: #### BHOB #### [place] [address] USAMonocytes/100 WBC (Bld)6 %Normal2-11The [facility] Physician GroupComment on above:Order Comment: ASKED TO RETIME TO 10PM BY NURSE ON 4C per RN to retime for 2229Performed By: #### BHOB #### [facility] [address] [place] [address] USAMyelocytes1 %High0-0The [facility] Physician GroupComment on above:Order Comment: ASKED TO RETIME TO 10PM BY NURSE ON 4C per RN to retime for 2229Performed By: #### BHOB #### [facility] [address] [place] [address] USAPlatelet EstimateNormalNormalNormAdventHealth Orlando Physician GroupComment on above:Order Comment: ASKED TO RETIME TO 10PM BY NURSE ON 4C per RN to retime for 0Performed By: #### BHOB #### [facility] [address] [place] [address] USAPlatelet mean volume (Bld) [Entitic vol]8.3 fLNormal 6.3-10.7The [facility] Physician GroupComment on above:Order Comment: ASKED TO RETIME TO 10PM BY NURSE ON 4C per RN to retime for 2229Performed By: #### BHOB #### [facility] [address] [place] [address] USAPlatelets (Bld) [#/Vol]288 10*3/nRThzjjh698-828Hnu [facility] Physician GroupComment on above:Order Comment: ASKED TO RETIME TO 10PM BY NURSE ON 4C per RN to retime for 2229Performed By: #### BHOB #### [facility] [address] [place] [address] USAPoikilocytosisSlightNoWilson Medical Center [facility] Comment on above:Order Comment: ASKED TO RETIME TO 10PM BY NURSE ON 4C per RN to retime for 0Performed By: #### BHOB #### [facility] [address] [place] [address] USAPolychromasiaSlightHCA [facility] Comment on above:Order Comment: ASKED TO RETIME TO 10PM BY NURSE ON 4C per RN to retime for 0Performed By: #### BHOB #### [facility] [address] [place] [address] USARBC (Bld) [#/Vol]4.35 10*6/uLNormal3.60-5.00The [facility] Physician GroupComment on above:Order Comment: ASKED TO RETIME TO 10PM BY NURSE ON 4C per RN to retime for 2229Performed By: #### BHOB #### [facility] [address] [place] [address] USASegmented neutrophils/100 WBC (Bld)59 %Qsodbo23-83Xxt [facility] Physician GroupComment on above:Order Comment: ASKED TO RETIME TO 10PM BY NURSE ON 4C per RN to retime for 2229Performed By: #### BHOB #### [facility] [address] [place] [address] USAToxic VacuolationSHoulton Regional Hospitale [facility] Comment on above:Order Comment: ASKED TO RETIME TO 10PM BY NURSE ON 4C per RN to retime for 2229Performed By: #### BHOB #### [facility] [address] [place] [id number] USAWBC (Bld) [#/Vol]26.5 10*3/uLHigh3.8-11.6The [facility] Physician GroupComment on above:Order Comment: ASKED TO RETIME TO 10PM BY NURSE ON 4C per RN to retime for 2229Performed By: #### BHOB #### [facility] [address] [place] [address] USAWhite Blood Count26.5 [CFU]/mLHigh3.8-11.6The [facility] Physician GroupComment on above:Order Comment: ASKED TO RETIME TO 10PM BY NURSE ON 4C per RN to retime for 2229Performed By: #### BHOB #### [facility] [address] [place] [address] USAECG 12 lead ECGon 91-18-1746VCA 12 lead ECGOHIOHEALTH [facility]CTORS [facility] Main [place] [address] [place], [place] [address] Electrocardiograph Report Signed Patient: Stew Argueta MR#: [id number] : 1965 Acct:[id number] Age/Sex: 60 / F ADM Date: 01/21/25 Loc: Room: 6M9525-2 Type: ADM IN Attending Dr: Abraham Terrazas [...] ECGs available Confirmed by NINA SAMPSON [facility], HARITHA ([id number]) on 01/22/2025 10:46:55 AM Referred By: Electronically Signed By: HARITHA WOOD MD [facility] Transcribed By: MUS Signed By Haritha Wood MD, FACC 01/22/25 1046NoWilson Medical Center Physician GroupGlucose Poct Glucometerson 95-12-1085Tuktedf7Zar2: Cleaned MeterHCA [facility] ER Physician GroupComment on above:Result Comment: PERFORMED BY: [address] [address] PATHOLOGIST [employer] PROGRAMS DIRECTOR AHMET SAUCEDA M.D.Performed By: #### GLULS #### Point of Care testing ,Glucose [Mass/Vol]309 mg/dLHCA [facility] Hospital ER Physician GroupComment on above: Result Comment: Random Glucose Reference Range is dependent on time and content of last meal. Glucose of more than 200 mg/dL in a nonstressed, ambulatory subject supports the diagnosis of Diabetes Mellitus.Performed By: #### GLULS #### Point of Care testing ,Evjneml3Air6: Cleaned MeterNoWilson Medical Center Physician GroupComment on above: Result Comment: PERFORMED BY: [facility] [address] [place] [address] PATHOLOGIST INTE[employer]ATED LOGIST[employer] PROGRAMS DIRECTOR AHMET SAUCEDA M.D.Performed By: #### GLULS #### Point of Care testing ,Glucose [Mass/Vol]323 mg/dLHCA [facility] Hospital ER Physician GroupComment on above: Result Comment: Random Glucose Reference Range is dependent on time and content of last meal. Glucose of more than 200 mg/dL in a nonstressed, ambulatory subject supports the diagnosis of Diabetes Mellitus.Performed By: #### GLULS #### Point of Care testing ,Noimvob7Oqb9: Cleaned MeterNoWilson Medical Center Physician GroupComment on above: Result Comment: PERFORMED BY: [place] [address] PATHOLOGIST [employer]TE[employer]IST[employer] PROGRAMS DIRECTOR AHMET SAUCEDA M.D.Performed By: #### GLULS #### Point of Care testing ,Glucose [Mass/Vol]320 mg/dLHCA [facility] ER Physician GroupComment on above: Result Comment: Random Glucose Reference Range is dependent on time and content of last meal. Glucose of more than 200 mg/dL in a nonstressed, ambulatory subject supports the diagnosis of Diabetes Mellitus.Performed By: #### GLULS #### Point of Care testing ,Oxzetis9Iih7: Cleaned MeterHCA [facility] ER Physician GroupComment on above: Result Comment: PERFORMED BY: [place] [address] PATHOLOGIST [employer]TE[employer]IST[employer] PROGRAMS DIRECTOR AHMET SAUCEDA M.D.Performed By: #### GLULS #### Point of Care testing ,Glucose [Mass/Vol]320 mg/dLHCA [facility] Hospital ER Physician GroupComment on above: Result Comment: Random Glucose Reference Range is dependent on time and content of last meal. Glucose of more than 200 mg/dL in a nonstressed, ambulatory subject supports the diagnosis of Diabetes Mellitus.Performed By: #### GLULS #### Point of Care testing ,Tdiiiub1Bds9: Cleaned MeterHCA [facility] Hospital ER Physician GroupComment on above: Result Comment: PERFORMED BY: [place] [address] PATHOLOGIST INTE[employer]IST[employer] PROGRAMS DIRECTOR AHMET SAUCEDA M.D.Performed By: #### GLULS #### Point of Care testing ,Glucose [Mass/Vol]325 mg/dLHCA [facility] ER Physician GroupComment on above: Result Comment: Random Glucose Reference Range is dependent on time and content of last meal. Glucose of more than 200 mg/dL in a nonstressed, ambulatory subject supports the diagnosis of Diabetes Mellitus.Performed By: #### GLULS #### Point of Care testing ,Glucose [Mass/Vol]305 mg/dLHCA [facility] Hospital ER Physician GroupComment on above: Result Comment: Random Glucose Reference Range is dependent on time and content of last meal. Glucose of more than 200 mg/dL in a nonstressed, ambulatory subject supports the diagnosis of Diabetes Mellitus. PERFORMED BY: [place] [address] PATHOLOGIST INTE[employer]ATED LOGISTICS PROGRAMS DIRECTOR AHMET SAUCEDA M.D.Performed By: #### GLULS #### Point of Care testing ,Dwtogat7Jwb0: Cleaned MeterNoWilson Medical Center Physician GroupComment on above: Result Comment: PERFORMED BY: [place] [address] PATHOLOGIST INTE[employer] LOGIST[employer] PROGRAMS DIRECTOR AHMET SAUCEDA M.D.Performed By: #### GLULS #### Point of Care testing ,Glucose [Mass/Vol]329 mg/dLHCA [facility] ER Physician GroupComment on above: Result Comment: Random Glucose Reference Range is dependent on time and content of last meal. Glucose of more than 200 mg/dL in a nonstressed, ambulatory subject supports the diagnosis of Diabetes Mellitus.Performed By: #### GLULS #### Point of Care testing ,Anpevhn4Eof8: Cleaned MeterNoWilson Medical Center Physician GroupComment on above: Result Comment: PERFORMED BY: [place] [address] PATHOLOGIST INTE[employer]IST[employer] PROGRAMS DIRECTOR AHMET SAUCEDA M.D.Performed By: #### GLULS #### Point of Care testing ,Glucose [Mass/Vol]357 mg/dLHCA [facility] ER Physician GroupComment on above: Result Comment: Random Glucose Reference Range is dependent on time and content of last meal. Glucose of more than 200 mg/dL in a nonstressed, ambulatory subject supports the diagnosis of Diabetes Mellitus.Performed By: #### GLULS #### Point of Care testing ,HCG,Quantitativeon 77-52-9755EGM,Quantitative1.36 m[iU]/mLNormalThe [facility] Physician GroupComment on above:Order Comment: ASKED TO RETIME TO 10PM BY NURSE ON 4C per RN to retime for 2229Result Comment: Approximate Approximate hCG Gestational Age Range (mIU/ml) (weeks) 0.2-1 5-50 1-2 50-500 2-3 100-5,000 3-4 500-10,000 4-5 1,000-50,000 5-6 10,000-100,000 6-8 15,000-200,000 8-12 10,000-100,000 PERFORMED BY: [place] [address] PATHOLOGIST INTE[employer]IST[employer] PROGRAMS DIRECTOR AHMET SAUCEDA M.D.Performed By: #### GLULS #### Point of Care testing ,Magnesiumon 82-52-3919Aahyjnmkb [Mass/Vol]1.7 mg/dLLow1.9-2.7The [facility] Physician GroupComment on above:Order Comment: ASKED TO RETIME TO 10PM BY NURSE ON 4C per RN to retime for 2229Performed By: #### GLULS #### Point of Care testing ,Magnesium [Mass/Vol]1.8 mg/dLLow1.9-2.7The [facility] Physician GroupComment on above:Result Comment: PERFORMED BY: [place] [address] PATHOLOGIST INTE[employer]ATED LOGISTICS PROGRAMS DIRECTOR AHMET SAUCEDA M.D.Performed By: #### BHOB #### [place] [address] USAPartial Thromboplastin Timeon 93-72-4444wTMI Coag (Bld) [Time]27.6 aEfefpd51.1-36.5The [facility] Physician GroupComment on above:Order Comment: ASKED TO RETIME TO 10PM BY NURSE ON 4C per RN to retime for 0Result Comment: A hematocrit value greater than 55% may lead to inaccurate results in coagulation testing. Patients having hematocrit values >55% require a special collection tube for coagulation studies. Please contact the laboratory at [phone] for redraw instructions. PERFORMED BY: [address] [address] PATHOLOGIST INTEGRATED LOGISTICS PROGRAMS DIRECTOR AHMET SAUCEDA M.D.Performed By: #### BHOB #### [facility] [address] [place] [address] USAPhosphoruson 15-34-2571Jrufrnnhl [Mass/Vol]mg/dLLow2.5-4.5 The [facility] Physician GroupComment on above:Order Comment: ASKED TO RETIME TO 10PM BY NURSE ON 4C per RN to retime for 2229Performed By: #### GLULS #### Point of Care testing ,Prothrombin Time INRon 56-46-4801SFG Coag (PPP) [Relative time]1.0 {INR}Normal The [facility] Physician GroupComment on above:Order Comment: ASKED TO [...] 3 - 4.5Performed By: #### BHOB #### [address] [address] USAPT Coag (PPP) [Time]11.8 sNormal9.0-12.9The [facility] Physician GroupComment on above:Order Comment: ASKED TO RETIME TO 10PM BY NURSE ON 4C per RN to retime for 2230Result Comment: A hematocrit value greater than 55% may lead to inaccurate results in coagulation testing. Patients having hematocrit values >55% require a special collection tube for coagulation studies. Please contact the laboratory at [phone] for redraw instructions.Performed By: #### BHOB #### [address] [address] USAXR chest 1V portableon 73-11-7441UQ chest 1V portable [facility] [place] [address] [place] [address] XRay Report Signed Patient: Stew Argueta MR#: [id number] : 1965 Acct:[id number] Age/Sex: 60 / F ADM Date: 01/21/25 Loc: Room: [address] [place] [address] Type: ADM IN Attending Dr: Femi Cazares [...] Parsons M.D. 01/21/2025 6:34 PM Dictation Location: [place] [address] Transcribed By: [facility] 01/21/251833 Dictated By: Lux Parsons II, MD 01/21/251832 Signed By: 01/21/25 [facility] Physician GroupPatient Letter [facility], 2024 STEW ARGUETA [address] [place] [address] [address] [place] [address] : 1965 Dear Ms.Tambera Argueta, You missed [...] be greatly appreciated. Sincerely, [place] [address] ext.3 NoUniversity Hospitals Lake West Medical CenterBILIRUBIN CONJUGATED (DIRECT) on 25-10-0020LCKR, CONJUGATED0.1 mg/dLNormal0.0-0.2The [facility] CenterComment on above:Performed By: #### DBIL #### [facility] [address] [place] [address] Dr. Jenna Nixon AUTO DIFFon 72-33-8026KUZL #0.1 103/ulNormal0.0-0.1The [facility] Medical CenterComment on above:Performed By: #### CBC #### [facility] [address] [place] [address] Dr. Jenna Bravosophils/100 WBC (Bld)1.0 %Normal0.2-2.0[facility] Comment on above:Performed By: #### CBC #### [facility] [address] [place] [address] Dr. Jenna Mcdaniel #0.2 103/ulNormal0.0-0.7The [facility] Medical CenterComment on above: Performed By: #### CBC #### [facility] [address] [place] [address] Dr. Jenna Mendozaosinophils/100 WBC (Bld)2.6 %Normal0.9-7.0[facility] Comment on above:Performed By: #### CBC #### [facility] [address] [place] [address] Dr. Yilan ChangErythrocyte distribution width (RBC) [Ratio]12.8 %Bjsjda80.0-15.0 The [facility] Medical CenterComment on above:Performed By: #### CBC #### [facility] [address] [place] [address] Dr. Jenna CollierHematocrit (Bld) [Volume fraction]40.6 %Scuhhw14.0-48.0The [facility] CenterComment on above:Performed By: #### CBC #### [facility] [address] [place] [address] Dr. Jenna CollierHemoglobin (Bld) [Mass/Vol]13.8 g/oDAjotvh68.0-16.0The [facility] CenterComment on above:Performed By: #### CBC #### [facility] [address] [place] [address] Dr. Jenna Johnson #0.02 10e3/ulNormal0.00-0.03The [facility] CenterComment on above:Performed By: #### CBC #### [facility] [address] [place] [address] Dr. Jenna Johnson %0.3 %Normal0.0-0.5The [facility] CenterComment on above: Performed By: #### CBC #### [facility] [address] [place] [address] Dr. Jenna Peck #2.0 103/ulNormal1.2-3.8The [facility] CenterComment on above:Performed By: #### CBC #### [facility] [address] [place] [address] Dr. Jenna Walshhocytes/100 WBC (Bld)28.5 %Qongyg71.5-60.0The [facility] CenterComment on above:Performed By: #### CBC #### [facility] [address] [place] [address] Dr. Jenna LeviUAL DIFF REQNONormalThe [facility] CenterComment on above: Performed By: #### CBC #### [facility] [address] [place] [address] Dr. Jenna Gomes (RBC) [Entitic mass]28.0 nxFmselb10.7-34.0The [facility] CenterComment on above:Performed By: #### CBC #### [facility] [address] [place] [address] Dr. Jenna Emerson (RBC) [Mass/Vol]34.0 g/mPHodysh41.9-35.2The [facility] CenterComment on above:Performed By: #### CBC #### [facility] [address] [place] [address] Dr. Jenna Emerson (RBC) [Entitic vol]82.4 jMItgntu43.0-99.0The [facility] CenterComment on above:Performed By: #### CBC #### [facility] [address] [place] [address] Dr. Jenna Rachel #0.5 103/ulNormal0.3-0.8The [facility] CenterComment on above:Performed By: #### CBC #### [facility] [address] [place] [address] Dr. Jenna Robertsonocytes/100 WBC (Bld)7.1 %Normal1.7-12.0The [facility] Comment on above:Performed By: #### CBC #### [facility] [address] [place] [address] Dr. Jenna Watson #4.2 103/ulNormal1.4-6.5The [facility] CenterComment on above:Performed By: #### CBC #### [facility] [address] [place] [address] Dr. Jenna Roachutrophils/100 WBC (Bld)60.5 %Xqcoks77.0-75.0The [facility] CenterComment on above:Performed By: #### CBC #### [facility] [address] [place] [address] Dr. Jenna Gomeslet mean volume (Bld) [Entitic vol]10.3 fLNormal9.5-13.5The [facility] CenterComment on above:Performed By: #### CBC #### [facility] [address] [place] [address] [address] Jenna CollierPLT265 103/nnUvqenb136-190Uge [facility] on above: Performed By: #### CBC #### [facility] [address] [place] [address] Dr. Jenna CollierRBC4.93 106/ulNormal4.20-5.40The [facility] CenterComascension river district hospital on above:Performed By: #### CBC #### [facility] [address] [place] [address] Dr. Jenna CollierWBC7.0 103/ulNormal4.0-11.0The [facility] on above: Performed By: #### CBC #### [facility] [address] [place] [address] Dr. Jenna CollierFREE T4on 79-27-6157Pean T4 [Mass/Vol]1.32 ng/dLNormal0.76-1.46 The [facility] CenterComascension river district hospital on above:Performed By: #### FT4 #### [facility] [address] [place] [address] Dr. Jenna CollierGLYCOHEMOGLOBIN A1Con 78-96-9059YRS RECOMMENDATIONSEE BELOWNormal The [facility] CenterComascension river district hospital on above:Result Comment: ADA RECOMMENDED LIMIT 4.0 - 6.0 ADA THERAPEUTIC TARGET < 7.0 ACTION SUGGESTED > 7.0Performed By: #### FT4 #### [facility] [address] [place] [address] Dr. Jenna CollierGlucose [Mass/Vol]120 mg/dLNormalThe [facility] CenterComascension river [facility] hospital on above:Performed By: #### FT4 #### [facility] [address] [place] [address] Dr. Jenna CollierHbA1c (Bld) [Mass fraction]5.8 %Normal4.5-6.2The [facility] on above:Performed By: #### FT4 #### [facility] [address] [place] [address] Dr. Jenna CollierLIPID PROFILEon 68-66-9903XFUX-HDL RATIO NORMSProMedica Flower HospitalComascension river district hospital on above:Result Comment: 3.3 - 4.4 LOW RISK 4.4 - 7.1 AVERAGE RISK 7.1 - 11.0 MODERATE RISK >11.0 HIGH RISKPerformed By: #### UAMIC #### [facility] [address] [place] [address] [address] Jenna CollierCholesterol [Mass/Vol]215 mg/dLCritically high<=200The [facility] on above:Performed By: #### UAMIC #### [facility] [address] [place] [address] [address] Jenna CollierCholesterol in HDL [Mass/Vol]56 mg/fTXwenvj67-56QwwDayton Va Medical CenterComascension river district hospital on above:Performed By: #### UAMIC #### [facility] [address] [place] [address] Dr. Jenna CollierCholesterol in LDL [Mass/Vol]130.0 mg/dLCleveland Clinic Mentor HospitalComascension river district hospital on above:Performed By: #### UAMIC #### [facility] [address] [place] [address] [address] Jenna Brodyesterhuber.total/Cholesterol in HDL [Mass ratio]3.8 {ratio} NormalCoshocton Regional Medical Center on above:Performed By: #### UAMIC #### [facility] [address] [place] [address] Dr. Jenna AlmonteL NORMAL> or = 60 mg/dl - LOW CARDIOVASCULAR RISK <40 mg/dl - HIGH CARDIOVASCULAR RISKCleveland Clinic Mentor HospitalComascension river district hospital on above:Performed By: #### UAMIC #### [facility] [address] [place] [address] [address] Jenna CollierLDL CALC NORMALSEE [facility] CenterComasc[facility] river [facility] hospital on above:Result Comment: <100 mg/dl OPTIMAL 100 - 129 mg/dl NEAR OR ABOVE OPTIMAL 130 - 159 mg/dl BORDERLINE HIGH 160 - 189 mg/dl HIGH >190 mg/dl VERY HIGH Performed By: #### UAMIC #### [facility] [address] [place], [place] [address] Dr. Jenna CollierTriglyceride [Mass/Vol]145 mg/dLNormal<=150The [facility] Comment on above:Performed By: #### UAMIC #### [facility] [address] [place] [address] Dr. Jenna CollierVLDL CALC29.0 mg/dLNormalThe [facility] CenterComment on above: Performed By: #### UAMIC #### [facility] [address] [place] [address] Dr. Jenna CollierPROF 14(COMP METB)on 83-71-9080Pddvyyf [Mass/Vol]3.7 g/dLNormal 3.4-5.0The [facility] CenterComment on above:Performed By: #### UAMIC #### [facility] [address] [place] [address] Dr. Jenna CollierAlbumin/Globulin [Mass ratio]0.9 {ratio}NormalThe [facility] CenterComment on above:Performed By: #### UAMIC #### [facility] [address] [place] [address] Dr. Jenna Byrne [Catalytic activity/Vol]72 U/XFqwxye49-572Cgw [facility] CenterComment on above:Performed By: #### UAMIC #### [facility] [address] [place] [address] Dr. Jenna Garcia [Catalytic activity/Vol]22 U/GDuebia90-41Hsc [facility] CenterComment on above:Performed By: #### UAMIC #### [facility] [address] [place] [address] Dr. Jenna Sow gap [Moles/Vol]9.8 mmol/LNormalThe [facility] CenterComment on above:Performed By: #### UAMIC #### [facility] [address] [place] [address] Dr. Jenna Chun [Catalytic activity/Vol]13 U/LCritically qzg63-03Yib [facility] CenterComment on above:Performed By: #### UAMIC #### [facility] [address] [place] [address] Dr. Jenna CollierBilirubin [Mass/Vol]0.8 mg/dLNormal0.2-1.0The [facility] Comment on above:Performed By: #### UAMIC #### [facility] [address] [place] [address] Dr. Jenna CollierCalcium [Mass/Vol]9.6 mg/dLNormal8.5-10.1The [facility] Comment on above:Performed By: #### UAMIC #### [facility] [address] [place] [address] Dr. Jenna CollierChloride [Moles/Vol]102 mmol/OQvqrwq22-976Vkf [facility] Comment on above:Performed By: #### UAMIC #### [facility] [address] [place] [address] Dr. Jenna CollierCO2 [Moles/Vol]31.8 mmol/IJtjztf39.0-32.0The [facility] Comment on above:Performed By: #### UAMIC #### [facility] [address] [place] [address] Dr. Jenna CollierCreatinine [Mass/Vol]0.59 mg/dLNormal0.55-1.02The [facility] CenterComment on above:Performed By: #### UAMIC #### [facility] [address] [place] [address] Dr. Jenna MendozaGFR-AF BOTSWANAN>60Normal>=60The [facility] CenterComment on above:Performed By: #### UAMIC #### [facility] [address] [place] [address] Dr. Jenna MendozaGFR-NON AF BOTSWANAN>60Normal>=60The [facility] CenterComment on above:Performed By: #### UAMIC #### [facility] [address] [place] [address] Dr. Jenna CollierGlobulin (S) [Mass/Vol]4.1 g/dLNormalThe [facility] CenterComment on above:Performed By: #### UAMIC #### [facility] [address] [place] [address] Dr. Jenna CollierGlucose [Mass/Vol]139 mg/dLCritically ltqv87-078Owa [facility] CenterComment on above:Performed By: #### UAMIC #### [facility] [address] [place] [address] [address] Jenna CollierPotassium [Moles/Vol]4.6 mmol/LNormal3.5-5.1The [facility] Comment on above:Performed By: #### UAMIC #### [facility] [address] [place] [address] [address] Jenna CollierProtein [Mass/Vol]7.8 g/dLNormal6.4-8.2[facility] Comment on above:Performed By: #### UAMIC #### [facility] [address] [place] [address] Dr. Jenna CollierSodium [Moles/Vol]139 mmol/KFkyjwt478-438Wce [facility] Comment on above:Performed By: #### UAMIC #### [facility] [address] [place] [address] Dr. Jenna CollierUrea nitrogen [Mass/Vol]15.0 mg/dLNormal7.0-18.0The [facility] CenterComment on above:Performed By: #### UAMIC #### [facility] [address] [place] [address] Dr. Jenna CollierUrea nitrogen/Creatinine [Mass ratio]25.4 mg/mgNormalThe [facility] CenterComment on above:Performed By: #### UAMIC #### [facility] [address] [place] [address] Dr. Jenna Hunter [id number] uIU/mLNormal0.358-3.740Dayton Va Medical CenterComment on above:Performed By: #### UAMIC #### [facility] [address] [place] [address] Dr. Jenna Clemens [id number] PARTIAL THROMBOPLASTIN TIME IN PPP BY COAGULATION ASSAY26.0 BwqxgmcVghbdl05.0-35.0Un[facility] Comment on above:Performed By: #### [id number] #### [facility] ([facility]) [address] [place], [place] [address]VRU WITH AUTO DIFFERENTIALon 29-56-5846Wqijcokyv (Bld) [#/Vol] 0.09 10*3/uLNormal0.00-0.20UnGalion Community HospitalComment on above: Performed By: #### [id number] #### [facility] ([facility]) [address] [place], [place] [address]Hhnbmsjqp/100 WBC (Bld)1.0 %Normal0.0-1.0UnGalion Community HospitalComment on above:Performed By: #### [id number] #### [facility] ([facility]) [address] [place], [place] [address]Lfzfeywojjc (Bld) [#/Vol]0.14 10*3/uLNormal0.00-0.50UnGalion Community HospitalComment on above:Performed By: #### [id number] #### [facility] ([facility]) [address] [place], [place] [address]Npuncfbvckp/100 WBC (Bld)1.5 %Normal0.0-6.0UnGalion Community HospitalComment on above:Performed By: #### [id number] #### [facility] ([facility]) [address] [place], [place] [address]Qpoekgxhgyq distribution width (RBC) [Ratio]13.2 %Normal 11.5-15.0UnGalion Community HospitalComment on above:Performed By: #### [id number] #### [facility] ([facility]) [address] [place], [place] [address]PRXXJTXLNSW MEAN CORPUSCULAR HEMOGLOBIN CONCENTRATION (G/DL) BY HTKLOTTLA78.7 g/bXRzwahj06.0-35.0UnGalion Community HospitalComment on above:Performed By: #### [id number] #### [facility] ([facility]) [address] [place], [place] [address]Dmutlhjura (Bld) [Volume fraction]40.1 %Cejsmn27.0-48.[address] John Medical CenterComment on above:Performed By: #### [id number] #### [facility] ([facility]) [address] [place] [address]Melunlgysw (Bld) [Mass/Vol]13.9 g/yAKcscql39.0-15.0UnGalion Community HospitalComment on above:Performed By: #### [id number] #### [facility] ([facility]) [address] [place] [address]Ogawhqlt granulocytes (Bld) [#/Vol]0.03 10*3/uLNormal0.00-0.[address] John Medical CenterComment on above:Performed By: #### [id number] #### [facility] ([facility]) [address] [place] [address]Ykldnnll granulocytes/100 WBC (Bld)0.3 %Normal0.0-1.0UnGalion Community HospitalComment on above:Performed By: #### [id number] #### [facility] ([facility]) [address] [place] [address]Fdykcsxexav (Bld) [#/Vol]2.16 10*3/uLNormal1.20-4.00UnGalion Community HospitalComment on above:Performed By: #### [id number] #### [facility] ([facility]) [address] [place] [address]Jhcrsulelxq/100 WBC (Bld)22.9 %Dxahqt95.0-45.0UnGalion Community HospitalComment on above:Performed By: #### [id number] #### [facility] ([facility]) [address] [place], [place] [address]EQW (RBC) [Entitic mass]28.5 mpCpgkqr54.0-33.0UnGalion Community HospitalComment on above:Performed By: #### [id number] #### [facility] ([facility]) [address] [place], [place] [address]WAQ (RBC) [Entitic vol]82.3 gECfcrgo62.0-98.0UnGalion Community HospitalComment on above:Performed By: #### [id number] #### [facility] ([facility]) [address] [place], [place] [address]Ojqwhavas (Bld) [#/Vol]0.43 10*3/uLNormal0.10-1.00UnGalion Community HospitalComment on above:Performed By: #### [id number] #### [facility] ([facility]) [address] [place], [place] [address]Hqnsswvjl/100 WBC (Bld)4.6 %Low5.0-12.0UnGalion Community HospitalComment on above:Performed By: #### [id number] #### [facility] ([facility]) [address] [place], [place] [address]Dcgftcioxzb (Bld) [#/Vol]6.57 10*3/uLNormal1.60-7.60UnGalion Community HospitalComment on above:Performed By: #### [id number] #### [facility] ([facility]) [address] [place], [place] [address]Sqbcwlsjuzx/100 WBC (Bld)69.7 %Tlanon17.0-72.0UnGalion Community HospitalComment on above:Performed By: #### [id number] #### [facility] ([facility]) [address] [place], [place] [address]AWFY (PER 100 WBCS) BY AUTOMATED COUNT0.0 %Normal0.0-0.[address] John Medical CenterComment on above:Performed By: #### [id number] #### [facility] ([facility]) [address] [place], [place] [address]KPJBIZRCQ (10*3/UL) IN BLOOD AUTOMATED [id number] 10*3/uLNormal 150-400UnGalion Community HospitalComment on above:Performed By: #### [id number] #### [facility] ([facility]) [address] [place] [address]WRO (Bld) [#/Vol]4.87 10*6/uLNormal3.80-5.00UnGalion Community HospitalComment on above:Performed By: #### [id number] #### [facility] ([facility]) [address] [place] [address]LWD (Bld) [#/Vol]9.42 10*3/uLNormal4.00-10.60UnGalion Community HospitalComment on above:Performed By: #### [id number] #### [facility] ([facility]) [address] [place] [address]XI GUIDED PERCUTANEOUS BIOPSY RENAL LEFTon 37-54-5375VK GUIDED PERCUTANEOUS BIOPSY RENAL LEFTCT GUIDED PERCUTANEOUS [...] risks are acceptable. Consent was obtained. Timeout: [place] protocol timeout verification performed. MEDICATIONS: 2 mg [...] findings in this report. Electronically signed: Ravi Martinez.Berger HospitalHISTOLOGY - TISSUE EXAMon [id number] AP ASR DISCLAIMERThe interpretation of this case [...] under the Clinical Laboratory Improvement Amendments of 1998.Berger HospitalComment on above:Performed By: #### [id number] #### [facility] ([facility]) [address] [place], [place] [address]UZL AP CASE REPORTNormalUniversCleveland Clinic [facility] Comment on above:Result Comment: Surgical Pathology Case: [id number] Authorizing Provider: Almaz Medina Collected: 04/24/2022 0922 Ordering Location: [facility] Imaging Received: 04/24/2022 1046 Pathologist: Heather Solorio MD Specimen: Kidney, NEEDLE CORE BXSPerformed By: #### [id number] #### [facility] ([facility]) [address] [place], [place] [address]NDH AP CLINICAL INFORMATIONOrder DiagnosesNormalUniversCleveland Clinic [facility] General Lodi HospitalComment on above:Result Comment: N28.89 - Left renal mass [ICD-10-CM] N28.89 - Other specified disorders of kidney and ureter [ICD-10-CM] N28.89 - Renal mass, left [ICD-10-CM]Performed By: #### [id number] #### [facility] ([facility]) [address] [place], [place] [address]MLH AP DIAGNOSIS COMMENTNormalUniversCleveland Clinic [facility] HospitalComascension river [facility] hospital on above:Result Comment: There is no neoplasm identified within the cores or immunohistochemical stained slides. Endoscopy Rn Dr. Gomez, who concurs with the above diagnosis. Immediate adequacy was performed by Dr. Cisneros. Pass #1: Adequate Pass #2: Adequate Pass #3: Defer Pass #4: Defer When additional subsequent fine needle aspirations are performed, they are done in order to obtain an adequate amount of billing representative material of the tumor/lesion for diagnosis and/or ancillary studies.Performed By: #### [id number] #### [facility] ([facility]) [address] [place], [place] [address]DPK AP GROSS DESCRIPTIONA. Kidney.Berger HospitalComment on above:Result Comment: Received in formalin , labeled Stew Argueta, NEEDLE CORE BXS are 4 hassan soft tissue core biopsies measuring 1.5, 1.5, 1.3, and 1.0 cm in length and up to 0.1 cm in diameter. The specimen is entirely submitted in 4 cassettes. (1 core in each cassette). Berta Moore, Pathologists' AssistantPerformed By: #### [id number] #### [facility] ([facility]) [address] [place], [place] [address]LZJ AP MICROSCOPIC DESCRIPTIONMicroscopic examination performed. Berger HospitalComment on above:Performed By: #### [id number] #### [facility] ([facility]) [address] [place], [place] [address]UOI AP REPORT FINAL DIAGNOSIS NARRATIVENormalUniversCleveland Clinic [facility] HospitalComascension river district hospital on above:Result Comment: Kidney, core biopsy: - Benign renal parenchyma - HMB-45: Negative - [place]-1: Negative - See comment Performed By: #### [id number] #### [facility] ([facility]) [address] [place], [place] [address]Forgb [id number] Stew Argueta 1965 F Date Provider Department Center 04/24/2022 2245-[facility] No family history on fileNormalUniversCleveland Clinic [facility]odi HospitalPROTIME-INRon 24-60-1064WIM IN PPP BY COAGULATION ASSAY0.82Nbmqmv1.90-1.10UnGalion Community HospitalComment on above:Result Comment: ACCCP RECOMMENDED INR FOR [...] OPTIMAL THERAPEUTIC RANGE. CHEST 1995;108:231S-246S.Performed By: #### [id number] #### [facility] [employer]) [address] [place], [place] [address]HWXRGMGIMXY TIME (PT) IN PPP BY COAGULATION ASSAY12.4 Seconds Fdwdee13.3-14.8UnGalion Community HospitalComment on above:Performed By: #### [id number] #### [facility] [employer]) [address] [place], [place] [address]LH ABDOMEN WO/W CONon 06-49-1178PD ABDOMEN WO/W CONEXAMINATION: CT ABDOMEN WO/W CON [...] Electronically authenticated by: RISHABH NOVOA Date: 2022-03-27 10:12[facility] AUTO DIFFon [id number] #0.1 103/ulNormal0.0-0.1Day[facility] Va Medical CenterComment on above:Performed By: #### UAMIC #### [facility] [address] [place] [address] Dr. Jenna Celestephils/100 WBC (Bld)0.9 %Normal0.2-2.0The [facility] Comment on above:Performed By: #### UAMIC #### [facility] [address] [place] [address] Dr. Jenna Mcdaniel #0.1 103/ulNormal0.0-0.7The [facility] CenterComment on above: Performed By: #### UAMIC #### [facility] [address] [place], [place] [address] Dr. Jenna Mendozaosinophils/100 WBC (Bld)1.5 %Normal0.9-7.0The [facility] Comment on above:Performed By: #### UAMIC #### [facility] [address] [place] [address] Dr. Jenna Mendozarythrocyte distribution width (RBC) [Ratio]13.2 %Gkjtqd12.0-15.0 The [facility] CenterComment on above:Performed By: #### UAMIC #### [facility] [address] [place] [address] Dr. Jenna CollierHematocrit (Bld) [Volume fraction]41.1 %Tkmfoc09.0-48.0The [facility] CenterComment on above:Performed By: #### UAMIC #### [facility] [address] [place] [address] Dr. Jenna CollierHemoglobin (Bld) [Mass/Vol]14.0 g/hWTqwpib21.0-16.0The [facility] CenterComment on above:Performed By: #### UAMIC #### [facility] [address] [place] [address] Dr. Jenna Johnson #0.03 10e3/ulNormal0.00-0.03The [facility] CenterComment on above:Performed By: #### UAMIC #### [facility] [address] [place] [address] Dr. eJnna Johnson %0.3 %Normal0.0-0.5The [facility] CenterComment on above: Performed By: #### UAMIC #### [facility] [address] [place] [address] Dr. Jenna WalshH #2.7 103/ulNormal1.2-3.8The [facility] CenterComment on above:Performed By: #### UAMIC #### [facility] [address] [place] [address] Dr. Jenna Rosamphocytes/100 WBC (Bld)27.6 %Hasnpr52.5-60.0The [facility] CenterComment on above:Performed By: #### UAMIC #### [facility] [address] [place] [address] Dr. Jenna Cm DIFF REQNONormalThe [facility] CenterComment on above: Performed By: #### UAMIC #### [facility] [address] [place] [address] Dr. Jenna Emerson (RBC) [Entitic mass]27.8 xnGwbmxk35.7-34.0The [facility] Eye HospitalComment on above:Performed By: #### UAMIC #### [facility] [address] [place] [address] Dr. Jenna Emerson (RBC) [Mass/Vol]34.1 g/hBRnjxfc62.9-35.2The [facility] CenterComment on above:Performed By: #### UAMIC #### [facility] [address] [place] [address] Dr. Jenna Emerson (RBC) [Entitic vol]81.7 zMYbaysx35.0-99.0The [facility] CenterComment on above:Performed By: #### UAMIC #### [facility] [address] [place] [address] Dr. Jenna Rachel #0.4 103/ulNormal0.3-0.8The [facility] CenterComment on above:Performed By: #### UAMIC #### [facility] [address] [place] [address] Dr. Jenna Robertsonocytes/100 WBC (Bld)3.8 %Normal1.7-12.0The [facility] Comment on above:Performed By: #### UAMIC #### [facility] [address] [place] [address] Dr. Jenna Watson #6.3 103/ulNormal1.4-6.5The [facility] CenterComment on above:Performed By: #### UAMIC #### [facility] [address] [place] [address] Dr. Jenna Roachutrophils/100 WBC (Bld)65.9 %Smhfmb21.0-75.0The [facility] CenterComment on above:Performed By: #### UAMIC #### [facility] [address] [place] [address] Dr. Jenna CollierPlatelet mean volume (Bld) [Entitic vol]10.0 fLNormal9.5-13.5The [facility] CenterComment on above:Performed By: #### UAMIC #### [facility] [address] [place] [address] Dr. Jenna CollierPLT320 103/adQfzvuc469-858Rwv [facility] CenterComment on above: Performed By: #### UAMIC #### [facility] [address] [place] [address] Dr. Jenna CollierRBC5.03 106/ulNormal4.20-5.40The [facility] CenterComment on above:Performed By: #### UAMIC #### [facility] [address] [place] [address] Dr. Jenna CollierWBC9.6 103/ulNormal4.0-11.0The [facility] CenterComment on above: Performed By: #### UAMIC #### [facility] [address] [place] [address] Dr. Jenna CollierCRKeven 27-41-8846DKQ [Mass/Vol]mg/LNormal<=1.0The [facility] CenterComment on above:Performed By: #### UAMIC #### [facility] [address] [place] [address] Dr. Jenna CollierCULTURE URINEon 28-32-7082TMQYDGR URINECulture Observations: NO GROWTH.NormalThe [facility] CenterComment on above:Performed By: #### UAMIC #### [facility] [address] [place] [address] Dr. Jenna CollierFRCHERYL T4on 98-66-0730Ntcv T4 [Mass/Vol]1.20 ng/dLNormal0.76-1.46 The [facility] CenterComment on above:Performed By: #### FT4 #### [facility] [address] [place] [address] Dr. Jenna Dewitt 14(COMP METB)on 19-99-5776Nghyvdy [Mass/Vol]3.8 g/dLNormal 3.4-5.0The [facility] CenterComment on above:Performed By: #### UAMIC #### [facility] [address] [address] [address] Jenna CollierAlbumin/Globulin [Mass ratio]1.0 {ratio}NormalThe [facility] CenterComment on above:Performed By: #### UAMIC #### [facility] [address] [address] [address] Jenna MarieP [Catalytic activity/Vol]79 U/MNtdoak12-729Kgr [facility] CenterComment on above:Performed By: #### UAMIC #### [facility] [address] [place] [address] Dr. Jenna MarieT [Catalytic activity/Vol]17 U/FXpnlyx82-64Yrs [facility] CenterComment on above:Performed By: #### UAMIC #### [facility] [address] [place] [address] Dr. Jenna Sow gap [Moles/Vol]9.5 mmol/LNormalThe [facility] CenterComment on above:Performed By: #### UAMIC #### [facility] [address] [place] [address] Dr. Jenna CollierAST [Catalytic activity/Vol]12 U/LCritically fiq27-68Mob [facility] CenterComment on above:Performed By: #### UAMIC #### [facility] [address] [place] [address] Dr. Jenna CollierBilirubin [Mass/Vol]0.7 mg/dLNormal0.2-1.0The [facility] Comment on above:Performed By: #### UAMIC #### [facility] [address] [place] [address] Dr. Jenna CollierCalcium [Mass/Vol]9.1 mg/dLNormal8.5-10.1The [facility] Comment on above:Performed By: #### UAMIC #### [facility] [address] [address] [address] Jenna CollierChloride [Moles/Vol]97 mmol/LCritically eby19-506Rqv [facility] CenterComment on above:Performed By: #### UAMIC #### [facility] [address] [address] [address] Jenna CollierCO2 [Moles/Vol]31.4 mmol/YNofrvl92.0-32.0The [facility] Comment on above:Performed By: #### UAMIC #### [facility] [address] [address] [address] Jenna CollierCreatinine [Mass/Vol]0.63 mg/dLNormal0.55-1.02The [facility] CenterComment on above:Performed By: #### UAMIC #### [facility] [address] [address] [address] [place] ChangEGFR-AF BOTSWANAN>60Normal>=60The [facility] CenterComment on above:Performed By: #### UAMIC #### [facility] [address] [address] [address] Jenna MendozaGFR-NON AF BOTSWANAN>60Normal>=60The [facility] CenterComment on above:Performed By: #### UAMIC #### [facility] [address] [address] [address] Jenna CollierGlobulin (S) [Mass/Vol]3.9 g/dLNormalThe [facility] CenterComment on above:Performed By: #### UAMIC #### [facility] [address] [address] [address] Jenna CollierGlucose [Mass/Vol]117 mg/dLCritically utug03-218Agm [facility] CenterComment on above:Performed By: #### UAMIC #### [facility] [address] [address] [address] Jenna CollierPotassium [Moles/Vol]3.9 mmol/LNormal3.5-5.1The [facility] Comment on above:Performed By: #### UAMIC #### [facility] [address] [address] [address] Jenna CollierProtein [Mass/Vol]7.7 g/dLNormal6.4-8.2The [facility] Comment on above:Performed By: #### UAMIC #### [facility] [address] [address] [address] Jenna CollierSodium [Moles/Vol]134 mmol/LCritically sae749-772Fdx [facility] CenterComment on above:Performed By: #### UAMIC #### [facility] [address] [place] [address] Dr. Jenna CollierUrea nitrogen [Mass/Vol]11.0 mg/dLNormal7.0-18.0The [facility] CenterComment on above:Performed By: #### UAMIC #### [facility] [address] [place] [address] Dr. Jenna Beckwith nitrogen/Creatinine [Mass ratio]17.5 mg/mgNormalThe [facility] CenterComment on above:Performed By: #### UAMIC #### [facility] [address] [place] [address] Dr. Jenna Klein RATE WESTERGRENon 95-25-6127RSA RATE14 mm/hrNormal<=30The [facility] CenterComment on above:Performed By: #### SEDR #### [facility] [address] [place] [address] Dr. Jenna YatesHocan 61-58-3506SEC3.913 uIU/mLCritically high0.358-3.740The [facility] CenterComment on above:Performed By: #### UAMIC #### [facility] [address] [place] [address] Dr. Jenna Hernández RANDOM W/MICROSCOPICon 32-55-6934RUUZIWPPCSDN SEENNormalNONE SEENThe [facility] CenterComment on above:Performed By: #### UAMIC #### [facility] [address] [place] [address] Dr. Jenna CollierBilirubin Ql (U)NegativeNormalNEGATIVEThe [facility] Comment on above:Performed By: #### UAMIC #### [facility] [address] [address] [address] Jenna CollierCASTNONE SEENNormalNONE SEENDayton Va Medical CenterComment on above:Performed By: #### UAMIC #### [facility] [address] [address] [address] Jenna Calderaarity (U)CLEARNormalCLEARDayton Va Medical CenterComment on above: Performed By: #### UAMIC #### [facility] [address] [address] [address] Jenna Davidlor (U)LT. YELLOWNormalYELLOWDayton Va Medical CenterComment on above:Performed By: #### UAMIC #### [facility] [address] [place] [address] Dr. Jenna CollierCrystals LM Nom (Urine sed)NONE SEENNormalNONE SEENDayton Va Medical CenterComment on above:Performed By: #### UAMIC #### [facility] [address] [address] [address] [place] ChangEpithelial cells LM Ql (Urine sed)RARENormalNONE SEEN /RAREDayton Va Medical CenterComment on above:Performed By: #### UAMIC #### [facility] [address] [address] [address] Jenna CollierGlucose Ql (U)NegativeNormalNEGATIVEDayton Va Medical CenterComment on above:Performed By: #### UAMIC #### [facility] [address] [address] [address] Jenna CollierHemoglobin Ql (U)NegativeNormalNEGATIVEDayton Va Medical Center Comment on above:Performed By: #### UAMIC #### [facility] [address] [address] [address] Jenna CollierKetones Ql (U)NegativeNormalNEGATIVEDayton Va Medical CenterComment on above:Performed By: #### UAMIC #### [facility] [address] [address] [address] Jenna CollierLEUKOCYTESTRACEAbnormalNEGATIVEThe [facility] CenterComment on above:Performed By: #### UAMIC #### [facility] [address] [address] [address] Jenna SteelCOUSNONE SEENNormalNONE SEENThe [facility] CenterComment on above:Performed By: #### UAMIC #### [facility] [address] [address] [address] Jenna Gatestrite Ql (U)NegativeNormalNEGATIVEThe [facility] HospitalComment on above:Performed By: #### UAMIC #### [facility] [address] [place] [address] Dr. Jenna CollierpH (U)6.0 [pH]Normal5-9The [facility] CenterComment on above: Performed By: #### UAMIC #### [facility] [address] [place] [address] Dr. Jenna CollierRBCNONE SEENAbnormal0-2The [facility] CenterComment on above: Performed By: #### UAMIC #### [facility] [address] [place] [address] Dr. Jenna CollierSPEC GRAVITY1.178Fbsety2.005-<=1.025The [facility] CenterComment on above:Performed By: #### UAMIC #### [facility] [address] [place] [address] Dr. Jenna CollierUA PROTEINNegativeNormalNEGATIVE/ TRACEThe [facility] Comment on above:Performed By: #### UAMIC #### [facility] [address] [place] [address] Dr. Jenna Andradebilinogen Qn (U)0.2 {Humaira'U}/dLNormal0.2 - 1.0The [facility] CenterComment on above:Performed By: #### UAMIC #### [facility] [address] [place] [address] Dr. Jenna CollierWBC2-5AbnormalNONE SEENThe [facility] CenterComment on above: Performed By: #### UAMIC #### [facility] [address] [place] [address] Dr. Jenna Nixon AUTO DIFFon [id number] #0.1 103/ulNormal0.0-0.1The [facility] CenterComment on above:Performed By: #### CBC #### [facility] [address] [place] [address] Dr. Jenna CollierBasophils/100 WBC (Bld)1.1 %Normal0.2-2.0The [facility] Center Comment on above:Performed By: #### CBC #### [facility] [address] [place] [address] Dr. Jenna Mcdaniel #0.2 103/ulNormal0.0-0.7The [facility] CenterComment on above: Performed By: #### CBC #### [facility] [address] [place] [address] Dr. Jenna Mendozaosinophils/100 WBC (Bld)1.7 %Normal0.9-7.0The [facility] Comment on above:Performed By: #### CBC #### [facility] [address] [place] [address] Dr. Jenna Mendozarythrocyte distribution width (RBC) [Ratio]13.0 %Mkdyak55.0-15.0 The [facility] CenterComment on above:Performed By: #### CBC #### [facility] [address] [place] [address] Dr. Jenna CollierHematocrit (Bld) [Volume fraction]42.2 %Qqadvp16.0-48.0The [facility] CenterComment on above:Performed By: #### CBC #### [facility] [address] [place] [address] Dr. Jenna CollierHemoglobin (Bld) [Mass/Vol]14.7 g/qFAggzfm37.0-16.0The [facility] CenterComment on above:Performed By: #### CBC #### [facility] [address] [place] [address] Dr. Jenna Johnson #0.02 10e3/ulNormal0.00-0.03The [facility] on above:Performed By: #### CBC #### [facility] [address] [address] [address] Jenna Johnson %0.2 %Normal0.0-0.5The [facility] on above: Performed By: #### CBC #### [facility] [address] [place] [address] Dr. Jenna Peck #2.6 103/ulNormal1.2-3.8The [facility] on above:Performed By: #### CBC #### [facility] [address] [place] [address] Dr. Jenna Walshhocytes/100 WBC (Bld)29.4 %Xvdiqq89.5-60.0The [facility] on above:Performed By: #### CBC #### [facility] [address] [place] [address] Dr. Jenna Cm DIFF REQNONormalThe [facility] CenterComment on above: Performed By: #### CBC #### [facility] [address] [place] [address] Dr. Jenna Gomes (RBC) [Entitic mass]28.3 qlCiykmw93.7-34.0The [facility] on above:Performed By: #### CBC #### [facility] [address] [place] [address] Dr. Jenna Emerson (RBC) [Mass/Vol]34.8 g/jRYybpxe49.9-35.2The [facility] on above:Performed By: #### CBC #### [facility] [address] [place] [address] Dr. Jenna Emerson (RBC) [Entitic vol]81.2 oAMhtuvu78.0-99.0The [facility] on above:Performed By: #### CBC #### [facility] [address] [place] [address] Dr. Jenna Rachel #0.4 103/ulNormal0.3-0.8The [facility]Comment on above:Performed By: #### CBC #### [facility] [address] [address] [address] Jenna Robertsonocytes/100 WBC (Bld)4.5 %Normal1.7-12.0The [facility] on above:Performed By: #### CBC #### [facility] [address] [place] [address] Dr. Jenna RoachUT #5.7 103/ulNormal1.4-6.5The [facility] CenterComment on above:Performed By: #### CBC #### [facility] [address] [place] [address] Dr. Jenna Roachutrophils/100 WBC (Bld)63.1 %Vbxojs73.0-75.0The [facility] CenterComment on above:Performed By: #### CBC #### [facility] [address] [place] [address] Dr. Jenna CollierPlatelet mean volume (Bld) [Entitic vol]10.1 fLNormal9.5-13.5The [facility] CenterComment on above:Performed By: #### CBC #### [facility] [address] [place] [address] Dr. Jenna CollierPLT264 103/wkNqtypw403-928Ejw [facility] CenterComment on above: Performed By: #### CBC #### [facility] [address] [place] [address] Dr. Jenna CollierRBC5.20 106/ulNormal4.20-5.40The [facility] CenterComment on above:Performed By: #### CBC #### [facility] [address] [place] [address] Dr. Jenna CollierWBC9.0 103/ulNormal4.0-11.0The [facility] CenterComment on above: Performed By: #### CBC #### [facility] [address] [place] [address] Dr. Jenna Oneill T4on 26-19-5680Hufj T4 [Mass/Vol]0.70 ng/dLCritically low 0.76-1.46The [facility] CenterComment on above:Performed By: #### FT4 #### [facility] [address] [place] [address] Dr. Jenna CollierGLYCOHEMOGLOBIN A1Con 17-30-9297RYB RECOMMENDATIONSEE BELOWNormal The [facility] CenterComment on above:Result Comment: ADA RECOMMENDED LIMIT 4.0 - 6.0 ADA THERAPEUTIC TARGET < 7.0 ACTION SUGGESTED > 7.0Performed By: #### A1C #### [facility] [address] [place] [address] Dr. Jenna CollierGlucose [Mass/Vol]243 mg/dLNormalThe [facility] CenterComment on above:Performed By: #### A1C #### [facility] [address] [place] [address] Dr. Jenna CollierHbA1c (Bld) [Mass fraction]10.1 %Critically high4.5-6.2The [facility] CenterComment on above:Performed By: #### A1C #### [facility] [address] [place] [address] Dr. Jenna CollierLIPASEon 39-69-0614Mnvpro [Catalytic activity/Vol]80.0 U/LNormal 73.0-393.0The [facility] CenterComment on above:Performed By: #### TSH, LIPA, CMP #### [facility] [address] [place] [address] Dr. Jenna CollierPROF 14(COMP METB)on 75-57-9407Lmjixgc [Mass/Vol]3.8 g/dLNormal 3.4-5.0The [facility] CenterComment on above:Performed By: #### TSH, LIPA, CMP #### [facility] [address] [place] [address] Dr. Jenna CollierAlbumin/Globulin [Mass ratio]1.0 {ratio}NormalThe [facility]ment on above:Performed By: #### TSH, LIPA, CMP #### [facility] [address] [place] [address] Dr. Jenna CollierALP [Catalytic activity/Vol]88 U/OBietik47-833Ynb [facility] CenterComment on above:Performed By: #### TSH, LIPA, CMP #### [facility] [address] [place] [address] Dr. Jenna MarieT [Catalytic activity/Vol]22 U/MVnsvha49-74Dtr [facility] CenterComment on above:Performed By: #### TSH, LIPA, CMP #### [facility] [address] [place] [address] Dr. Jenna Lackeyon gap [Moles/Vol]7.5 mmol/LNormalThe [facility] CenterComment on above:Performed By: #### TSH, LIPA, CMP #### [facility] [address] [place] [address] Dr. Jenna CollierAST [Catalytic activity/Vol]9 U/LCritically xwk27-34Tdf [facility] CenterComment on above:Performed By: #### TSH, LIPA, CMP #### [facility] [address] [place] [address] Dr. Jenna CollierBilirubin [Mass/Vol]0.8 mg/dLNormal0.2-1.0The [facility] Comment on above:Performed By: #### TSH, LIPA, CMP #### [facility] [address] [place] [address] Dr. Jenna CollierCalcium [Mass/Vol]9.4 mg/dLNormal8.5-10.1The [facility] Comment on above:Performed By: #### TSH, LIPA, CMP #### [facility] [address] [place] [address] Dr. Jenna CollierChloride [Moles/Vol]98 mmol/SXebkih12-177Cnz [facility] Comment on above:Performed By: #### TSH, LIPA, CMP #### [facility] [address] [place] [address] Dr. Jenna CollierCO2 [Moles/Vol]30.7 mmol/QWjqpht41.0-32.0The [facility] Comment on above:Performed By: #### TSH, LIPA, CMP #### [facility] [address] [address] [address] Jenna CollierCreatinine [Mass/Vol]0.64 mg/dLNormal0.55-1.02The [facility] CenterComment on above:Performed By: #### TSH, LIPA, CMP #### [facility] [address] [address] [address] Jenna MendozaGFR-AF BOTSWANAN>60Normal>=60The [facility] CenterComment on above:Performed By: #### TSH, LIPA, CMP #### [facility] [address] [address] [address] Jenna MendozaGFR-NON AF BOTSWANAN>60Normal>=60The [facility] CenterComment on above:Performed By: #### TSH, LIPA, CMP #### [facility] [address] [place] [address] Dr. Jenna CollierGlobulin (S) [Mass/Vol]3.8 g/dLNormalThe [facility] CenterComment on above:Performed By: #### TSH, LIPA, CMP #### [facility] [address] [address] [address] Jenna CollierGlucose [Mass/Vol]257 mg/dLCritically heio92-749Ams [facility]ment on above:Performed By: #### TSH, LIPA, CMP #### [facility] [address] [address] [address] Jenna CollierPotassium [Moles/Vol]4.2 mmol/LNormal3.5-5.1The [facility] Comment on above:Performed By: #### TSH, LIPA, CMP #### [facility] [address] [address] [address] Jenna CollierProtein [Mass/Vol]7.6 g/dLNormal6.4-8.2The [facility] Comment on above:Performed By: #### TSH, LIPA, CMP #### [facility] [address] [address] [address] Jenna CollierSodium [Moles/Vol]132 mmol/LCritically wpy337-222Wxe [facility] CenterComment on above:Performed By: #### ARTUR, LIPA, CMP #### [facility] [address] [address] [address] Jenna Beckwith nitrogen [Mass/Vol]14.0 mg/dLNormal7.0-18.0The [facility] CenterComment on above:Performed By: #### ARTUR LIPA, CMP #### [facility] [address] [address] [address] Jenna Beckwith nitrogen/Creatinine [Mass ratio]21.9 mg/mgNormalThe [facility] CenterComment on above:Performed By: #### ARTUR LIPA, CMP #### [facility] [address] [place] [address] Dr. Jenna Hunter 40-32-6708KYG20.715 uIU/mLCritically high0.358-3.740The [facility] CenterComment on above:Performed By: #### CECILE SIDDIQUIA, CMP #### [facility] [address] [place] [address] Dr. Jenna CollierMRI ABDOMEN WO W CONon 17-00-4956QCX ABDOMEN WO W CONEXAMINATION: MRI ABDOMEN WO [...] Electronically authenticated by: RISHABH NOVOA Date: 2022-01-13 16:27[facility] Vital Signs Date TimeVital SignValuePerforming UhapoxjcrFjnrszek53-41-5006 14:46-0400Body lwazkc854.18 [facility]20[facility] 12:00-0400Body vrdrmqbupfj53.6 [degF][facility]10-27-2025 12:00-0400 Diastolic blood ffxavrek86 mm[Hg][facility]10-27-2025 12:00-0400Heart rate77 /[facility]10-27-2025 12:00-0400Respiratory rate16 /[facility]10-27-2025 12:00-1794PjG8% (BldA) [Mass fraction]100 %[facility] 01-29-2025 12:00-0400Systolic blood jipiashn869 mm[Hg][facility]10-27-2025 05:08-0400Body kgToledo Hospital 04-16-2023 08:20-0500Diastolic blood lnvvwrel16 mm[Hg]Almaz Lue [facility]2024 08:20-0500Heart rate72 /minKathy Lue [facility]2024 08:20-0500Systolic blood udzafile920 mm[Hg]Almaz Lue [facility]07-07-2023 08:01-0400Blood Pressure LocationKathy Lue [facility]07-07-2023 08:01-0400Diastolic blood axehnipq23 mm[Hg]Almaz Lue [facility]07-07-2023 08:01-0400Heart rate82 /minKathy Lue [facility]07-07-2023 08:01-0400Systolic blood rjuyitky188 mm[Hg]Almaz Lue [facility]03-16-2023 14:30-0400Body .64 cmCaesar Quesada Other [employer] Other 03-16-2023 14:30-0400Body mass index (BMI) [Ratio] 37.76 kg/j8EocejcCaesar Quesada Other [employer] Other 03-16-2023 14:30-0400Body sdekcr896.14 kgCaesar Quesada Other [employer] Other 03-16-2023 14:30-0400Diastolic blood ogxaxmmg98 mm[Hg] Caesar Quesada Other [employer] Other 03-16-2023 14:30-9711WiN2% (BldA) [Mass fraction]99 % Caesar Quesada Other [employer] Other 03-16-2023 14:30-0400Systolic blood rvhpbjex830 mm[Hg] Caesar Quesada Other [employer] Other 02-03-2023 11:43-0500Blood Pressure LocationKathy Lue [facility]02-03-2023 11:43-0500Diastolic blood wubkmqza48 mm[Hg]Almaz Lue [facility]02-03-2023 11:43-0500Heart rate94 /minKathy Lue [facility]02-03-2023 11:43-0500Systolic blood mm[Hg]Almaz Lue [facility] [place] 026312-28-2022 11:34-0500Blood Pressure LocationKathy Lue [facility] [place] 026312-28-2022 11:34-0500Diastolic blood pinxonia52 mm[Hg]Almaz Lue [facility] [place] 026312-28-2022 11:34-0500Heart rate87 /minKathy Lue [facility] [place] 026312-28-2022 11:34-0500Systolic blood scpksxca832 mm[Hg]Almaz Lue [facility] [place] 026312-08-2022 14:13-0500Diastolic blood ajxyeltv474 mm[Hg]Almaz Lue [facility] [place] 026312-08-2022 14:13-0500Heart sfjr333 /minKathy Lue [facility] [place] 026312-08-2022 14:13-0500Mean blood yzhihkdc252 mm[Hg]Almaz Lue [facility] [place] 026312-08-2022 14:13-0500Systolic blood wwkododj927 mm[Hg]Almaz Lue [facility] [place] 026312-08-2022 14:08-0500Blood Pressure LocationKathy Lue [facility] [place] 026312-08-2022 14:08-0500Diastolic blood ohposoal072 mm[Hg]Almaz Lue [facility] [place] 026312-08-2022 14:08-0500Heart zrhs105 /minKathy Lue [facility] [place] 026312-08-2022 14:08-0500Systolic blood vtepthbe541 mm[Hg]Almaz Lue [facility] Encounters Encounter DateEncounter TypeCare ProviderFacilityStart: 76-82-4110Ysz-patient / Non-visitBasem Bright [facility] Work Phone: Start: 01-21-2025 End: 84-04-1446Khuwooxalu and management of inpatientNON STAFFFacility:[facility] Hospitaltart: 04-12-2024 End: 31-59-4342xchtoqlgmgAkove M. LueFacility:EU BellevueStart: 04-12-2024 End: 41-96-5606Cmzxxqz encounter procedureKathy M. Lue [facility] start: 04-16-2023 End: 53-08-2840Rdbasuk encounter procedureKathy M. Lue [facility] Start: 10-09-2022 End: 76-01-3534Khrwwjq encounter procedureAlmaz Medina [facility] Trudy Start: 07-28-2022 End: 86-72-5597xscwlvyiecEoywoy Braun Other [employer] Other Start: 06-54-4923Crxvyvpix encounterMartracisaul QuesadaArmando Escobar [facility] Hospitalt[facility]: 07-24-2022 End: 00-67-2196xtndrncgjoYU DOCTOR MISCFacility:O5Obikr: 06-18-2022 End: 06-33-3042hqxavcawspPltigq Braun Other [employer] Other Start: 89-45-9355Yvclou outpatient visit 10 minutes Caesar SangitaSt. Francis Hospitaltart: 05-08-2022 End: 62-39-9162Cmzfmlh encounter procedureAlmaz Medina [facility] Start: 04-24-2022 End: 00-14-1699qpurddakwrTQBFZ LUEUniWestern Reserve Hospitaltart: 99-56-5519Mviueknhx for general adult medical examination without abnormal findingsGENERIC PROVIDERUnCleveland Clinic Medina Hospitaltart: 04-13-2022 End: 76-81-7979olbaonvopeFYCFWLE EXTERNAL DATA PROVIDERUnCleveland Clinic Medina Hospitaltart: 04-01-2022 End: 82-90-7653Ptgsqte encounter procedureAlmaz Medina [facility] Start: 03-26-2022 End: 68-10-2168szotpdkdyyZEDVU M LUE .Facility:E1Reklq: 03-12-2022 End: 91-22-1286Ohngiyo encounter procedureKathy M. Lue [facility] [place] Start: 01-22-2022 End: 34-88-3338olqkblmjgkOB CAESAR E BRAUNFacility:O6Xxlvw: 01-13-2022 End: 26-51-8726tcpqxxflyjXVFIMT STEINFacility:H1 Procedures DateProcedureProcedure DetailPerforming ClinicianStart: 35-17-1847Gvwovu biopsy Almaz Lue CholecystectomyKathy Lue ColonoscopyKathy Lue Endoscopic biopsy of stomachKathy Lue TonsillectomyKathy Lue Plan of Treatment DateCare ActivityDetailAuthorStart: 48-35-9610SgchgpsfwToledo Hospital Start: 70-03-3831Wlyevaih to Social ServicesToledo Hospital Start: 75-50-0578Keeijhdh admissionToledo HospitalCT Chest WO contrastToledo HospitalPatient EducationKnow your [facility] Work Phone: Immunizations Immunization DateImmunizationNotesCare ProviderFacilityNEGATED: Highlighted row has not occurred!36-05-8465xzbmmleyb virus vaccine, unspecified formulationKathy Lue [facility] SandadamyNEGATED: Highlighted row has not occurred!75-66-9893NYMT-CoV-2 mRNA (tozinameran 5y-11y) vaccineKat Lue [facility] Payers DatePayer CategoryPayerPolicy [id number] [id number] [id number] 2.16.840.1.128213.3.57[id number] 2.16.840.1.553774.3.57[id number] [id number] [id number] 2..840.1.971699.3.579.2.531 Social History DateTypeDetailFacilityStart: 03-12-2022 End: 84-25-6625Gyplroy smoking statusNever smoked tobacco (finding)[facility] SanduskyTobacco smoking statusNever [facility] SanduskySex Assigned At [facility] HospitalexFemale (finding)[facility] Hospitaltart: 67-61-0896Fna Assigned At BirthWestern Reserve Hospitaltart: 36-36-5209ZLHW Follow upSDOH Follow upMer[facility] Work Phone: Medical Equipment Procedure CodeEquipment CodeEquipment Original TextEquipment IdentifierDates Blood Sugar Diagnostic stripStart: 98-65-2444Qdjrjnl miscStart: 45-95-0564Jxl Needle, Diabetic (Ulticare Pen Needle) 31 gauge x 1/4 NeedleStart: 01-24-2025 Functional Status DwidHiyogbyrggBoqkafCcrhgdio31-68-3683Cjhdfzyfnx StatusN/AExec[facility]07-07-2023Functional StatusN/A[facility]02-03-2023Functional StatusN/A [facility] [place] 026312-28-2022Functional StatusN/A[facility] [place] 026312-08-2022 Functional StatusN/A[facility] Clinical Notes 03-12-2022 to 01-21-2025 Note Date & EyazGeiaTxfbxvtv94-68-3479 Evaluation note* Diagnosis Onset Date Resolution Status Admit Date Acquired hypothyroidism acuteOctober 2024 3:32pmDKA (diabetic ketoacidosis)acuteOctober 2024 3:32pmEssential (primary) hypertensionacuteOctober 2024 3:32pmLung abnormalityacuteOctober 2024 3:32pmLung massacuteOctober 2024 3:32pm Sinus tachycardiaacuteOctober 2024 3:32pm [facility] Work Phone: [phone] 918-811201-12-2024 Hospital Discharge instructions Follow Up Care 04/16/2023 08:40:17 With:Adam SAMPSON, DANYELLE Amado, URO Address: When: Unknown [facility] 2024 Hospital Discharge instructions Patient Education [...] provider. Document Revised: 07/31/2021 Document Reviewed: 07/31/2021 [employer] Patient Education 2022 [email or web address]. Follow Up Care 10/09/2022 08:31:20 With:Adam SAMPSON, Almaz Mcintyre, URL, URO Address: [address] [place] [phone] When: Unknown Comments:GENNARO in 1 yr [facility] 07-07-2023 Hospital Discharge instructions Patient Education [...] provider gives to you. In general: Take tklq-stc-blvqlko and prescription medicines only as told by [...] provider. Document Revised: 09/16/2020 Document Reviewed: 09/16/2020 [employer] Patient Education 2022 [email or web address]. Follow Up Care 05/08/2022 13:30:37 With:Adam SAMPSON, DANYELLE Amado, URO Address: When: Unknown [facility] Trudy 03-16-2023 Evaluation note* Encounter Date [...] (ICD-10 - N28.89)Follow-up with urology as scheduled [employer] Other 02-03-2023 Hospital Discharge instructions Patient Education [...] provider gives to you. In general: Take slip-awu-escwatf and prescription medicines only as told by [...] 10/17/2014 Document Revised: 04/28/2018 Document Reviewed: 04/28/2018 [employer] Patient Education 2020 [email or web address]. Follow Up Care 04/27/2022 15:25:11 With:Adam SAMPSON, DANYELLE Amado, URO Address: When: Unknown [facility] 01-20-[address] guided biopsy of left renal mass. Date: 04/24/2022 Patient Name: Stew Argueta : 1965 Ordering provider: Almaz Medina Reason for exam: Renal mass seen on CT abdomen/pelvis 03/26/2022. Performing physicians: Ravi Martinez M.D. Performing Resident: Curz Orozco D.O. There is no prior H&P [...] 04/24/2022 Cruz Orozco D.O. PGY-2 Ravi Martinez M.D.[facility]12-28-2022 Hospital Discharge instructions Patient Education 04/01/2022 12:49:42 [...] fried and sweet foods. General instructions Take pdia-ksp-jzajppo and prescription medicines only as told by [...] 01/16/2010 Document Revised: 07/13/2019 Document Reviewed: 04/07/2018 [employer] Patient Education 2020 [email or web address]. Follow Up Care 03/12/2022 15:26:52 With:Adam SAMPSON, DANYELLE Amado, URO Address: [address] [place] [phone] When: Unknown [facility] Trudy 12-08-2022 Hospital Discharge instructions Patient [...] provider gives to you. In general: Take jwcj-mvs-ueutwvk and prescription medicines only as told by [...] 10/17/2014 Document Revised: 04/28/2018 Document Reviewed: 04/28/2018 [employer] Patient Education 2020 [email or web address]. Follow Up Care 02/02/2022 14:54:48 With:Almaz Medina MD, URL, URO Address: When: Unknown [facility] [employer]ak[employer] + Plan note Future Appointments Appointment Date:04/30/2022 02:45:00 PM Scheduled Provider:Almaz Medina MD Location:[facility] Appointment Type:URO Office Visit [facility] evaluation + Plan note Future Appointments Appointment Date:10/09/2022 08:00:00 AM Scheduled Provider:Almaz Medina MD Location:[facility] Appointment Type:URO Office Visit [facility] Evaluation + Plan note Future Appointments Appointment Date:04/15/2023 01:00:00 PM Scheduled Provider:Almaz Medina MD Location:[facility] Appointment Type:URO Office Visit [facility] evaluation + Plan note Future Appointments Appointment Date:04/12/2024 08:00:00 AM Scheduled Provider:Almaz Medina MD Location:[facility] Appointment Type:URO Office Visit [facility] Evaluation noteNo InformationNortWernersville State Hospital [employer] Other History general Narrative - Reported* Type Description Date Medical History Acquired hypothyroidism Medical HistoryEssential hypertensionMedical HistoryMyalgiaMedical HistoryAcute LUQ painMedical HistoryHematuriaMedical HistoryCurrent tobacco useMedical HistoryDiastolic blood pressure 90 mm Hg or higherMedical HistoryBMI 34.0-34.9,adultMedical HistorySplenomegalyMedical HistoryLeft renal massMedical HistoryLow back painMedical HistoryElevated serum glucoseMedical History Hyperglycemia due to type 2 diabetes mellitusSurgical HistoryTONSILLECTOMY Surgical HistoryCHOLECYSTECTOMYSurgical HistoryKidney Bx-2022Hospitalization HistorySEE SURGICAL HX [facility] [employer] Other Hospital course Narrative No data available for this section [facility] Hospital Discharge instructionsAdditional Instructions Monitor glucose levels before meals and at bedtime. Keep a record of these and take it with you to your follow-up appointment.[facility] Work Phone: Progress note No data available for this section [facility] Summary Purpose Family History No Family [...] ProviderActiveStart: January 21, 2025 Kianna Zuñiga , APPRAISAL COORDINATOR ACNP-BCOther ProviderActiveStart: January 21, 2025 Abdifatah Foster [...] section and content) DATE CREATED AUTHOR 04/30/[address] [facility] DATE CREATED AUTHOR AUTHOR'S ORGANIZ ATION 07/31/2022 [facility] DATE CREATED AUTHOR AUTHOR'S ORGANIZ ATION 05/26/2024 [facility] DATE CREATED AUTHOR AUTHOR'S ORGANIZ ATION 02/15/2025 [facility] REASON FOR VISIT (unrecogniz ed [...] BE BASED ON THE PRIMARY CLINICAL RECORDS. [employer] [facility]. provides no warranty or guarantee of the accuracy or completeness of information in this document.
--- NOTE | 2025-04-03 08:05 | CT_ITS ---
The [address] [address] Patient Name: JEANNINE ARGUETA MRN: [id number] date: 1965 Sex: F Assigned Patient Location: CT Current Patient Location: CT Accession/Order Number: [id number] Exam Date: 04/03/2025 08:00 Report Date: 04/03/2025 11:15 At the request of: JESSICA LINARES Procedure: CT chest wo con CT CHEST WITHOUT CONTRAST COMPARISON: Chest x-ray 02/03/2025 CLINICAL DATA: Follow-up right upper lobe pneumonia Spiral axial unenhanced images were obtained through the chest. Images were reviewed using both narrow and wide window settings. This CT exam was performed using one or more following dose reduction techniques: Automated exposure control, adjustment of the mA and/or kV according to patient size, or use of iterative reconstruction technique. The heart is normal size. No pericardial effusion is present. The ascending aorta is ectatic measuring just under 4 cm in diameter. There are small nonpathologic mediastinal lymph nodes. Minimal wispy density seen at the anterior mediastinum could be residual thymic tissue. A calcification is visualized within the left thyroid lobe. Minor endplate spurring is seen at the spine. There is mild linear density within the right upper lobe which may be residual atelectasis or scarring. Otherwise the right upper lobe infiltrate seen previously has resolved. There is no new consolidation, pleural effusion or pneumothorax. No pulmonary nodularity is noted. Limited imaging through the upper abdomen shows no contributory findings. CT/CT chest wo con IMPRESSION: AORTIC ECTASIA. MILD RESIDUAL RIGHT UPPER LOBE ATELECTASIS OR SCARRING. NO OTHER ACUTE FINDINGS. Impression dictated by: Judy Soliman M.D. 04/03/2025 11:15 AM Dictation Location: [employer] Electronically authenticated by: [id number] Y Date: 04/03/2025 11:15
== END 2025-04-03 07:48 | disposition home or self-care (01) ==
LOC: CT 07:47
DX: J18.1 Lobar pneumonia, unspecified organism (principal); I77.819 Aortic ectasia, unspecified site
CPT/HCPCS: 71250